=== PATIENT | female | born 1990 | race African-American/Black ===

== ENCOUNTER 2020-11-13 10:17 | Outpatient (REF) | payer MEDICAID, SELFPAY ==
--- NOTE | ~2020-11-13 | XR_ITS ---
EXAMINATION: XR CHEST CLINICAL INFORMATION: Obesity COMPARISON: None TECHNIQUE: 2 views of the chest were obtained. FINDINGS: No significant abnormality is noted involving the heart, lungs, mediastinum, bony thorax or soft tissues. XR/XR chest 2V IMPRESSION: Unremarkable examination.
--- NOTE | 2020-11-13 12:28 | ECG_ITS ---
Test Reason : e66.01 Blood Pressure : / mmHG Vent. Rate : 059 BPM Atrial Rate : 059 BPM P-R Int : 152 ms QRS Dur : 080 ms QT Int : 398 ms P-R-T Axes : 017 048 045 degrees QTc Int : 394 ms Sinus bradycardia Otherwise normal ECG No previous ECGs available Referred By: Roya Rogel Electronically Signed By:CARLOS PINTO
[2020-11-13 12:57] LABS: MANUAL DIFF FLAG NO
[2020-11-13 13:22] LABS: Basophils Percent Auto 0.5 % (0-2); Eosinophils Absolute Auto 0.2 X10*3/uL (0.0-0.4); Eosinophils Percent Auto 2.7 % (0-4); Hematocrit 38.4 % (37-47); Hemoglobin 12.3 g/dl (12.0-16.0); Imm Gran Abs Auto 0.01 X10*3/uL (0.00-0.03); Imm Gran Pct Auto 0.2 % (0.0-0.4); Lymphocytes Absolute Auto 1.9 X10*3/uL (1.2-4.9); Lymphocytes Percent Auto 30.9 % (20-40); Mean Corpuscular Hemoglobin 32.3 pg (27.0-33.0); Mean Corpuscular Volume 100.8 fL (80-98); Mean Platelet Volume 10.9 fL (9.4-12.3); Monocytes Absolute Auto 0.5 X10*3/uL (0.1-1.2); Monocytes Percent Auto 8.6 % (2-11); Neutrophils Absolute Auto 3.6 X10*3/uL (2.0-8.3); Neutrophils Percent Auto 57.1 % (45-73); Platelet Count 270 X10*3/uL (160-400); Red Blood Count 3.81 X10*6/uL (4.20-5.50); Red Cell Distribution Width 12.8 % (11.0-16.0); White Blood Count 6.3 X10*3/uL (4.8-10.8)
[2020-11-13 13:43] LABS: Alanine Aminotransferase 15 U/L (0-31); Albumin Level 4.2 g/dL (3.5-5.0); Alkaline Phosphatase 84 U/L (39-117); Anion Gap 11 (12-20); Aspartate Amino Transferase 16 U/L (5-31); Bilirubin Total 0.2 mg/dL (0.0-1.0); Blood Urea Nitrogen 17 mg/dL (9-16); C Reactive Protein 0.28 mg/dL (< or = 0.50); Calcium 8.9 mg/dL (8.4-10.2); Carbon Dioxide 27 mmol/L (22-29); Chloride 106 mmol/L (96-108); Cholesterol 142 mg/dL; Estimated Average Glucose 91 mg/dL; Estimated Glomerular Filt Rate > 60; Glucose Random 95 mg/dL (60-115); HDL Cholesterol 46 mg/dL; Hemoglobin A1c % 4.8 %; Iron 92 mcg/dL (30-160); LDL Cholesterol Calculated 85 mg/dl; Percent Iron Saturation 30 % (15-50); Potassium 4.5 mmol/L (3.3-5.1); Sodium 139 mmol/L (135-145); Total Iron Binding Capacity 307 mcg/dL (228-428); Total Protein 6.9 g/dL (6.5-8.0); Triglycerides 59 mg/dL; Unsaturated Iron Binding 215 ug/dL
[2020-11-13 14:06] LABS: Ferritin 79 ng/mL (10-122); TSH reflex Free T4 1.39 uIU/mL (0.32-4.0); Vitamin D 25-OH Total 12.1 ng/mL (>30)
[2020-11-13 14:16] LABS: Folate 11.8 ng/mL (> or = 4.0); Vitamin B12 388 pg/mL (200-900)
[2020-11-15 10:11] LABS: Calcium (PTHI) 9.3 mg/dL (8.6-10.2); PTHI 49 pg/mL (14-64)
[2020-11-16 13:22] LABS: Zinc 61 mcg/dL (60-130)
[2020-11-18 01:57] LABS: Vitamin A 31 mcg/dL (38-98)
[2020-11-18 11:17] LABS: Vitamin B1 <6 nmol/L (8-30)
== END 2020-11-13 10:18 | disposition home or self-care (01) ==
LOC: HO.XRAY 10:17
PROVIDERS: Visit Provider Physician Assistant
DX: Z01.818 Encounter for other preprocedural examination (principal); E66.01 Morbid (severe) obesity due to excess calories; K21.9 Gastro-esophageal reflux disease without esophagitis; J45.909 Unspecified asthma, uncomplicated
CPT/HCPCS: 36415; 71046; 80053; 80061; 82306; 82607; 82728; 82746; 83036; 83540; 83970; 84425; 84443; 84590; 84630; 85025; 86140; 93005; 99202; 99211

== ENCOUNTER 2020-11-14 | Outpatient (REF) | payer MEDICAID, SELFPAY ==
[2020-11-15 11:04] LABS: H Pylori Breath Test Positive (Negative)
== END 2020-11-14 00:01 | disposition home or self-care (01) ==
LOC: HO.LNP
PROVIDERS: Visit Provider Physician Assistant
DX: Z01.818 Encounter for other preprocedural examination (principal); E66.01 Morbid (severe) obesity due to excess calories; J45.909 Unspecified asthma, uncomplicated
CPT/HCPCS: 83013

== ENCOUNTER → 2020-12-11 08:11 | Outpatient (BNVA) | payer MEDICAID, SELFPAY | PROVIDERS: Visit Provider Dietitian, Registered ==

== ENCOUNTER → 2020-12-18 08:07 | Outpatient (BNVA) | payer MEDICAID, SELFPAY | PROVIDERS: Visit Provider Dietitian, Registered | DX: E66.01 Morbid (severe) obesity due to excess calories (principal) | CPT/HCPCS: 97802 ==

== ENCOUNTER 2020-12-19 09:55 | Outpatient (REF) | payer MEDICAID, SELFPAY ==
--- NOTE | ~2020-12-19 | US_ITS ---
EXAMINATION: US COMPLETE ABDOMEN WITH LIVER ELASTOGRAPHY CLINICAL INFORMATION: Obesity COMPARISON: None. TECHNIQUE: Real-time imaging of the abdominal viscera. Noninvasive ultrasound liver fibrosis assessment is performed using Imelda ElastPQ point quantification shear wave elastography (pSWE) with a C5-2 MHz transducer. Multiple elastography samples are obtained. FINDINGS: PANCREAS:The visualized pancreatic head and body are normal in appearance. The remainder of the pancreas is obscured from visualization by the overlying bowel gas. ABDOMINAL AORTA: The proximal, middle, and distal aortic segments are normal in caliber. INFERIOR VENA CAVA: Visualized portions are normal. LIVER: Normal. The liver demonstrates normal size, contour and echogenicity. No focal lesion or intrahepatic biliary duct dilatation. The right lobe measures 15.5 cm in length. The left lobe measures 10.5 cm in length. Portal flow is normal/hepatopedal Shear wave liver elastography median stiffness is 1.14 m/s (reference: normal median stiffness is 1.3 m/s or less). IQR/median stiffness to assess sampling precision is 0.16 (reference: good quality data set is IQR/median stiffness of 0.15 or less). GALLBLADDER: Normal. The gallbladder is physiologically distended without evidence of stones, sludge, polyps, wall thickening or pericholecystic fluid. COMMON BILE DUCT: Normal in caliber measuring 0.3 cm in diameter. RIGHT KIDNEY: Normal. No hydronephrosis. No renal calculi or focal parenchymal lesions. The kidney measures 10.3 cm in maximum dimension. LEFT KIDNEY: Normal. No hydronephrosis. No renal calculi or focal parenchymal lesions. The kidney measures 10.3 cm in maximum dimension. SPLEEN: Normal. The spleen measures 8.8 cm in maximum dimension. FREE FLUID: None. US/US abdomen comp w elastography IMPRESSION: 1. Impression: Limited visualization of the tail the pancreas otherwise unremarkable exam. 2. Liver elastography: Adequate liver sampling. Normal liver stiffness. REFERENCE: Society of Radiologists in Ultrasound Liver Stiffness Thresholds (2020): LIVER STIFFNESS THRESHOLDS: *Liver Stiffness equal or less than 1.3 m/s: High probability of being normal. *Liver Stiffness less than 1.7 m/s: In the absence of other known clinical signs, rules out compensated advanced chronic liver disease. *Liver Stiffness 1.7-2.1 m/s: Suggestive of compensated advanced chronic liver disease but need further test for confirmation. *Liver Stiffness over 2.1 m/s: Rules in compensated advanced chronic liver disease. *Liver Stiffness over 2.4 m/s: Suggestive of clinically significant portal hypertension. QUALITY OF DATA SET: *IQR/Median value equal or less than 0.15 implies a quality data set. *IQR/Median value over 0.15 implies a poor quality data set. SIGNIFICANT CHANGE FROM PRIOR EXAM: Significant change if liver stiffness measurement is 10% or greater from prior exam. OTHER CONSIDERATIONS: The stage of liver fibrosis may be overestimated in the setting of acute hepatitis, liver inflammation, elevated liver function tests, hepatic vascular congestion, obstructive cholestasis, non-fasting state, and infiltrative diseases such as amyloidosis and lymphoma. In some patients with NAFLD, the liver stiffness thresholds for compensated advanced chronic liver disease may be lower. In causes other than viral hepatitis and NAFLD, liver stiffness thresholds are not well established.
--- NOTE | ~2020-12-19 | FL_ITS ---
EXAMINATION: XR GI SERIES CLINICAL INFORMATION: Obesity COMPARISON: None TECHNIQUE: Upper GI was performed using thin and thick barium and effervescent granules. FINDINGS: Esophageal motility is normal. No hernia or reflux is seen. The stomach and duodenum are normal-appearing. No fold thickening, mass, ulcer or stricture is seen. FLUOROSCOPY TIME: 0.6 minutes DOSE AREA PRODUCT: 6 peterson per centimeter squared. 57 saved fluoroscopic images. FL/FL upper GI series IMPRESSION: Unremarkable examination.
== END 2020-12-19 09:56 | disposition home or self-care (01) ==
LOC: HO.SL 09:55
PROVIDERS: Visit Provider Surgery
DX: Z01.818 Encounter for other preprocedural examination (principal); E66.01 Morbid (severe) obesity due to excess calories; J45.909 Unspecified asthma, uncomplicated
CPT/HCPCS: 74240; 76705; 76981; 95806; 99211

== ENCOUNTER 2020-12-20 09:37 | Outpatient (REF) | payer MEDICAID, SELFPAY ==
[2020-12-21 15:23] LABS: H Pylori Breath Test Negative (Negative)
== END 2020-12-20 09:38 | disposition home or self-care (01) ==
LOC: HO.LNP 09:37
PROVIDERS: Physician Assistant Surgical; Visit Provider Surgery
DX: E66.01 Morbid (severe) obesity due to excess calories (principal); J45.909 Unspecified asthma, uncomplicated
CPT/HCPCS: 83013

== ENCOUNTER → 2021-01-03 08:13 | Outpatient (BNVA) | payer MEDICAID, SELFPAY | PROVIDERS: Referring Provider Physician Assistant; Visit Provider Dietitian, Registered ==

== ENCOUNTER → 2021-01-08 08:07 | Outpatient (BNVA) | payer MEDICAID, SELFPAY | PROVIDERS: Referring Provider Physician Assistant; Visit Provider Dietitian, Registered | DX: E66.01 Morbid (severe) obesity due to excess calories (principal) | CPT/HCPCS: 97803 ==

== ENCOUNTER → 2021-01-17 08:07 | Outpatient (BNVA) | payer MEDICAID, SELFPAY | PROVIDERS: Visit Provider Surgery ==

== ENCOUNTER → 2021-01-30 08:04 | Outpatient (BNVA) | payer MEDICAID, SELFPAY | PROVIDERS: Referring Provider Surgery; Visit Provider Dietitian, Registered ==

== ENCOUNTER → 2021-02-21 08:04 | Outpatient (BNVA) | payer MEDICAID, SELFPAY | PROVIDERS: Referring Provider Surgery; Visit Provider Dietitian, Registered ==

== ENCOUNTER → 2021-03-12 08:07 | Outpatient (BNVA) | payer MEDICAID, SELFPAY | PROVIDERS: Visit Provider Surgery ==

== ENCOUNTER → 2021-03-16 08:13 | Outpatient (BNVA) | payer MEDICAID, SELFPAY | PROVIDERS: Visit Provider Dietitian, Registered ==

== ENCOUNTER → 2021-03-29 08:12 | Outpatient (BNVA) | payer MEDICAID, SELFPAY | PROVIDERS: Referring Provider Surgery; Visit Provider Dietitian, Registered ==

== ENCOUNTER → 2023-06-02 10:00 | Outpatient (BNVA) | payer MEDICAID, SELFPAY | PROVIDERS: Visit Provider Surgery ==

== ENCOUNTER 2023-07-16 11:10 | Outpatient (AMB) | payer OTHER, SELFPAY ==
--- NOTE | 2023-07-16 13:13 | A.OFFVIS_ITS ---
VS Expanded 07/16/23 13:20 Height 5 ft 5 in Weight 286 lb 2 oz BMI 47.6 Body Fat % 50.5 Body Fat Mass 144.4 Fat Free Mass 141.8 Visceral Fat Rating 15 Body Water % 35.6 Body Water Mass 101.8 Basal Metabolic Rate/Score 2,073 Intake Visit Reasons: TV Re-Establishing SWL BMI 47.6 *SEE COMMENTS* Allergies No Known Allergies Allergy (Verified 07/16/23 13:13) Medication List - Last Reconciled 07/16/23 by Jaime Shell MD albuterol sulfate 90 mcg/actuation 2 puffs inhalation Q6H PRN HPI HPI TV Re-Establishing SWL BMI 47.6 *SEE COMMENTS*: Details: Start time: 1.06pm, End time: 1.46pm ?I spent 35 minutes speaking with the patient on the phone plus an additional 5 minutes reviewing and updating records for a total of 40 minutes HPI Comments Details: [place] [facility] [place] Wakes up: 6.30am, Sleeps: 9.30pm Breakfast: occasionally yogurt at 8am Lunch: 12pm (take out) Dinner: 7pm (rice, pasta, chicken) Snacks: 4pm and 8pm (granola bar) Exercise: has a Gym membership Fluids: Coffee: x3/wk (cream), tea: (hot: 3/wk with honey), soda: none, juice: pine apple 4/wk, ETOH: none PFSH Surgical History (Updated 11/13/20 @ 11:13 by IVONNE Wood) Hx of hand surgery Hx of breast surgery Family History (Updated 11/13/20 @ 11:14 by IVONNE Wood) Mother Hypertension Fibromyalgia Father No problems noted. Brother No problems noted. Social History (Updated 11/13/20 @ 11:14 by IVONNE Wood) Alcohol intake: current Alcohol intake frequency: a few times a week Patient Tobacco Use Status: Never used Tobacco Telehealth Telehealth Telehealth Platform: Telephone Location of provider rendering services: practice address Location of patient: address on file Patient Identification confirmed using: Name, : Yes Telehealth method: voice only Patient verbally consented to treatment: Yes Patient verbally consented to billing insurance company: Yes Patient informed of any privacy concerns related to visit: Yes Minutes spent on Phone/Video with Pt.: 40 Assessment & Plan Assessment & Plan (1) Morbid obesity: Code(s): E66.01 - Morbid (severe) obesity due to excess calories Category: Medical Plan: 1.? Plan for lap sleeve gastrectomy. If diaphragmatic or ventral hernias are present at time of surgery, these will be repaired laparoscopically as well. 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 I emphasized the importance of close follow-up, adherence to instructions and good communication. 2. You will receive a link of our software hasmukh to generate an individualized nutritional and exercise plan specific for you. Please send me a screenshot of the plans you will generate Meal to include lean meat (beef, fish, pork, turkey, chicken), or polish yogurt, or egg whites, or beans with a salad with olive oil and fruits (berries, pears, apples, kiwi). Avoid salt, breads, potatoes, rice, pasta, desserts. ?3. If you choose shakes, each shake would be drunk slowly, like coffee in a period of 2 hours. ?4. If you choose bars, cut each bar in 4 pieces and eat each piece in 30min ?to make each bar last 2 hours. ?5. I emphasized the importance of measuring accurately the food portion and measure it when serving the food in plate ?6. The meal portions include a specific number of forks of meat and salad. You always eat the meat portion but you can replace up to half of salad/vegetables portion with rice, potatoes or pasta, or a fruit ?if you like. The less you do it the better weight loss will be. ?7. One full-size fork is what it can be scooped on the fork without falling aside and not what can be bit with the fork. Use regular forks like those you find in a typical restaurant. ?8.? Please send me weight measurements as soon as possible and then once a week. Always include your diet and exercise plan. 9. The best choice would be to purchase a stationary bike, elliptical or treadmill at home that can track calories. Let me know if you do so I can give you an exercise plan. ?10.?It is important of avoiding and for at least 18 months postoperatively and has been discussed at the infosession. ?11. Goal is to lose at least 1.5-2lbs per week ?12. Goal to lose 10% of your weight before surgery, which is about 28lbs. Ultimate weight goal: 258lbs before surgery 13. Please follow the diet plan exactly without any change. If you don't like something about the plan or you feel hungry you need to communicate with me so I can help you revise the plan. You should not change the plan yourself. 14. To be scheduled for EGD to assess the stomach. The possibility of biopsies was discussed. Patient needs to avoid use of NSAIDs and aspirin for 1 week prior to EGD. Risks of perforation and? bleeding was discussed with the patient. This will be an outpatient procedure with IV sedation. Orders: Orders Hemoglobin A1c Today E66.01 - Morbid (severe) obesity due to excess calories, J45.909 - Unspecified asthma, uncomplicated Complete Blood Count Auto Diff Today E66.01 - Morbid (severe) obesity due to excess calories, J45.909 - Unspecified asthma, uncomplicated IRON PROFILE Today E66.01 - Morbid (severe) obesity due to excess calories, J45.909 - Unspecified asthma, uncomplicated Comprehensive Met. Panel Today E66.01 - Morbid (severe) obesity due to excess calories, J45.909 - Unspecified asthma, uncomplicated Ferritin Today E66.01 - Morbid (severe) obesity due to excess calories, J45.909 - Unspecified asthma, uncomplicated Vitamin D 25-OH Total Today E66.01 - Morbid (severe) obesity due to excess calories, J45.909 - Unspecified asthma, uncomplicated US abdomen comp w elastography Today E66.01 - Morbid (severe) obesity due to excess calories, J45.909 - Unspecified asthma, uncomplicated Insulin Today E66.01 - Morbid (severe) obesity due to excess calories, J45.909 - Unspecified asthma, uncomplicated H Pylori Breath Test Today E66.01 - Morbid (severe) obesity due to excess calories, J45.909 - Unspecified asthma, uncomplicated Lipid Panel Today E66.01 - Morbid (severe) obesity due to excess calories, J45.909 - Unspecified asthma, uncomplicated Vitamin B12 and Folate Today E66.01 - Morbid (severe) obesity due to excess calories, J45.909 - Unspecified asthma, uncomplicated Zinc Today E66.01 - Morbid (severe) obesity due to excess calories, J45.909 - Unspecified asthma, uncomplicated C Reactive Protein Today E66.01 - Morbid (severe) obesity due to excess calories, J45.909 - Unspecified asthma, uncomplicated Vitamin B1 Today E66.01 - Morbid (severe) obesity due to excess calories, J45.909 - Unspecified asthma, uncomplicated Vitamin A Today E66.01 - Morbid (severe) obesity due to excess calories, J45.909 - Unspecified asthma, uncomplicated TSH reflex Free T4 Today E66.01 - Morbid (severe) obesity due to excess calories, J45.909 - Unspecified asthma, uncomplicated XR chest 2V Today E66.01 - Morbid (severe) obesity due to excess calories, J45.909 - Unspecified asthma, uncomplicated ECG 12 lead EKG Today E66.01 - Morbid (severe) obesity due to excess calories, J45.909 - Unspecified asthma, uncomplicated FL upper GI w air Today E66.01 - Morbid (severe) obesity due to excess calories, J45.909 - Unspecified asthma, uncomplicated Referrals Behavioral Health Referral E66.01 - Morbid (severe) obesity due to excess calories, J45.909 - Unspecified asthma, uncomplicated Nutrition/Dietitian Referral E66.01 - Morbid (severe) obesity due to excess calories, J45.909 - Unspecified asthma, uncomplicated
[2023-07-16 13:20] VITALS: BMI 47.6
--- OUTSIDE RECORDS SUMMARY | 2023-07-18 10:21 | XMS_ITS | Continuity of Care Document ---
Author Organization [facility] Address [address] [place] [address]- Care Team Providers Care Wire Sawyer Name Role Phone Bertha Montes MD Primary Care Physician Encounter [facility] [place] [facility] [id number] Date(s): 10/25/22 - 11/24/[address] [address]- Attending Physician: AdmSilas gill Admitting Physician: AdmtrSilas Referring Physician: Admtr ArYahaira Allergies, Adverse Reactions, Alerts Substance Reaction Severity Status Pollen Allergic Rhinitis Du e to Pollen Allergic conjunctivitis Active Apples Active Immunizations Given and Recorded Vaccine Date Status Refusal Reason tetanus/diphtheria/pertussis, acel(Tdap) 02/08/22 Given tetanus/diphtheria/pertussis, acel(Tdap) 05/26/20 Given SARS-CoV-2 (COVID-19) mRNA BNT-162b2 vac 10/02/20 Recorded SARS-CoV-2 (COVID-19) mRNA BNT-162b2 vac 09/11/20 Recorded tetanus-diphtheria toxoids (Td) 12/08/18 Given tetanus-diphtheria toxoids (Td) 08/08/04 Given Measles/Mumps/Rubella Virus Vaccine 11/21/16 Recor ded Measles/Mumps/Rubella Virus Vaccine 09/15/97 Given Measles/Mumps/Rubella Virus Vaccine 01/11/94 Given influenza virus vaccine, inactivated 02/13/16 Give n influenza virus vaccine, inactivated 1 10/23/10 Gi twan influenza virus vaccine, inactivated 11/15/09 Give n Human Papillomavirus Vaccine 2 03/17/09 Given Human Papillomavirus Vaccine 3 11/15/08 Given Human Papillomavirus Vaccine 4 08/19/08 Given Tet/Diphth/Acel, Pertussis (oldterm) 5 08/19/08 Gi twan Diphth/Pertussis,Acel/Tetanus (oldterm) 09/15/97 G iven Diphth/Pertussis,Acel/Tetanus (oldterm) 07/01/94 G iven Diphth/Pertussis,Acel/Tetanus (oldterm) 06/14/93 G iven Diphth/Pertussis,Acel/Tetanus (oldterm) 01/09/93 G iven Diphth/Pertussis,Acel/Tetanus (oldterm) 92 G iven Polio Vaccine, Live (oldterm) 6 09/15/97 Given Polio Vaccine, Live (oldterm) 7 06/14/93 Given Polio Vaccine, Live (oldterm) 8 01/09/93 Given Polio Vaccine, Live (oldterm) 9 92 Given Haemophilus B Conj Vaccine (oldterm) 07/01/94 Give n Haemophilus B Conj Vaccine (oldterm) 06/14/93 Give n Haemophilus B Conj Vaccine (oldterm) 01/09/93 Give n Haemophilus B Conj Vaccine (oldterm) 92 Give n Hepatitis B Vaccine (old term) 06/14/93 Given Hepatitis B Vaccine (old term) 92 Given Hepatitis B Vaccine (old term) 92 Given 1Admin Note: vis given 09.04.2010 2Admin Note: VIS DATED 03/14/06. Given 3Admin Note: vis 03.14.06 given 4Admin Note: GARDASIL #1, VIS DATED 03.14.2006 GIVEN 5Admin Note: VIS DATED 03.09.2007 GIVEN. 6Admin Note: POLIO(oral) 7Admin Note: POLIO(oral) 8Admin Note: POLIO(oral) 9Admin Note: POLIO(oral) Medications Alcohol Pads See Instructions, # 200 each, Refills 5, Tot. Refills 5, Maintenance, use as directed for Victoza injections, 10/07/22 18:02:00 EDT, Supply, 160, cm, 08/28/23 15:43:00 EDT, Height, 122.2, kg, 03/27/22 10:39:00 EST, Dry Weight Start Date: 10/07/22 Stop Date: 04/05/23 Status: Ordered dexamethasone 1 mg oral tablet 1 tablet = 1 mg, By Mouth, Once, to be taken at 11pm, # 1 tablet, 0 Refills, Soft Stop, 10/07/22 17:47:00 [facility] upon patient request if the prescription is fora schedule II opioid drug., 160, cm, 10/07/22 15:43... Start Date: 10/07/22 Status: Ordered Diflucan 150 mg oral tablet 1 tablet = 150 mg, By Mouth, Once, # 1 tablet, 0 Refills, Soft Stop, 10/25/22 11:47:00 EDT, Tablet,[facility] Partial fill upon patient request if the prescription is for a scheduleII opioid drug., 160, cm, 10/25/22 10:08:00 EDT, He... Start Date: 10/25/22 Status: Ordered hydrOXYzine hydrochloride 25 mg oral tablet 1 capsule, By Mouth, Once, PRN Agitation, # 15 capsule, 0 Refills, Soft Stop, 10/07/22 18:09:00 EDT, Capsule, [facility] Partial fill upon patient request if the prescription is for a schedule II opioid drug., 160, cm, 10/07/22 15:43:... Start Date: 10/07/22 Status: Ordered metronidazole topical 0.75% gel with applicator 1 application, Vaginally, Daily at bedtime, # 70 Gm, 0 Refills, Soft Stop, 10/25/22 11:45:00 EDT, Gel, [facility] Partial fill upon patient request if the prescription is for a schedule II opioid drug., 1 application Vaginally Daily a... Start Date: 10/25/22 Stop Date: 10/30/22 Status: Ordered naproxen 500 mg oral tablet 1 tablet = 500 mg, By Mouth, 2 times a day, PRN Pain , Moderate, Take WITH FOOD for moderate back pain, up to twice/day as needed, # 30 tablet, 0 Refills, Acute 10/27/23 11:50:00 EDT, 10/25/22 11:49:00 EDT, Tablet, [facility], Partial... Start Date: 10/25/22 Stop Date: 10/27/23 Status: Ordered Pen [place], 32 G x 4 mm BD Ultra Fine III See instructions, # 30 each, Refills 0, Tot. Refills 0, Maintenance, use as directed for Gabyza, 10/07/22 18:05:00 EDT, Supply, 160, cm, 10/07/22 15:43:00 EDT, Height, 122.2, kg, 03/27/22 10:39:00 EST, Dry Weight Start Date: 10/07/22 Stop Date: 11/06/22 Status: Ordered PriLOSEC OTC 20 mg oral delayed release tablet 1 tablet = 20 mg, By Mouth, 2 times a day, # 28 tablet, 0 Refills, Maintenance, 10/16/22 13:40:00 EDT, EC Tablet, [facility] #[id number], Partial fill upon patient request if the prescription isfor a schedule II opioid drug., 160, cm, 10/07/22 1... Start Date: 10/16/22 Stop Date: 10/30/22 Status: Ordered ProAir HFA 90 mcg/inh inhalation aerosol with adapter See Instructions, PRN, 2-4 puffs Inhalation 4 times a day 30 days, # 1 each, Refills 11, Tot. Refills 11, Maintenance, 10/25/22 11:47:00 EDT, Instructions Replace Required Details, Route to Pharmacy Electronically, [id number]... Start Date: 10/25/22 Status: Ordered Senna 8.6 mg oral tablet 17.2 mg, 2, tablet, By Mouth, Daily at bedtime, # 50 tablet, Refills 0, Tot. Refills 0, Maintenance, 03/31/22 6:17:00 EST, Route to Pharmacy Electronically, [facility] #[id number], Partial fill upon patient request if the prescription is for a sc... Start Date: 03/31/22 Status: Ordered sertraline 25 mg oral tablet 1 tablet = 25 mg, By Mouth, Daily, # 30 tablet, 2 Refills, Maintenance, 10/25/22 11:46:00 EDT, Tablet, [facility], Partial fill upon patient request if the prescription is for a schedule II opioid drug., 160, cm, 10/25/22 10:08:00 EDT,... Start Date: 10/25/22 Status: Ordered Tylenol 325 mg oral capsule 2 capsule = 650 mg, By Mouth, Every 4 hours, PRN as needed for pain, # 50 capsule, 0 Refills, Maintenance, 03/29/22 8:34:00 EST, Capsule, [id number], Partial fill upon patient request if the prescription is for a schedule II opioid drGary Start Date: 03/29/22 Status: Ordered Victoza 18 mg/3 mL subcutaneous solution = 1.2 mg, Subcutaneous Infusion, Daily, # 3 mL, 6 Refills, Maintenance, 10/25/22 11:42:00 EDT, [facility], Partial fill upon patient request if the prescription is for a schedule II opioid drug., 160, cm, 10/25/22 10:08:00 EDT, Height,... Start Date: 10/25/22 Status: Ordered Problem List Condition Confirmation Course Effective Dates Status H ealth Status Informant ADD - Attention deficit disorder with hyperactivity Confirmed Active Allergic rhinitis due to pollen Confirmed Improving Active Asthma, mild intermittent, precipitated by colds, allergies 1 Confirmed Stable Active 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 Mood disorder Confirmed Active Obesity Confirmed Active Severe obesity Confirmed Active 29/04/2007 [facility] admission #1: acute asthma attack Social History Social History Type Response Smoking Status Never (less than 100 in lifetime);Never; Exposure to Secondhand Smoke: Yes; Tobacco use times per day: mother smokes; entered on: 09/14/21 Sex Patient Care team information Care Team Personnel Name: Bertha Montes MD Position: S Resident Member Role: PCP Address: Address: [address] [place] [address]- Care Team Related Persons Name: Monroe Mcgarry Address: [address] [place] [address] Name: MARIFER MCGARRY Address: [place] [address] Name: REMA MCGARRY Address: Address: home [address] [place] [address]
--- OUTSIDE RECORDS SUMMARY | 2023-07-18 10:21 | XMS_ITS | Continuity of Care Document ---
Author Organization [facility] Address [address] [place] [address]- Care Team Providers Care Neonatal Doctor Name Role Phone Bertha Montes MD Primary Care Physician Encounter [facility] Date(s): 01/27/23 - 03/19/[address] [address] Attending Physician: Raissa Estrada MD Admitting Physician: Raissa Estrada MD Referring Physician: Raissa Estrada MD Allergies, Adverse Reactions, Alerts Substance Reaction Severity [...] Give n influenza virus vaccine, inactivated 1 9/13/11 Gi twan influenza virus vaccine, inactivated 11/15/09 [...] 8Admin Note: POLIO(oral) 9Admin Note: POLIO(oral) Medications acetaminophen 325 mg oral capsule 2 capsule = 650 mg, By Mouth, Every 6 hours, PRN Pain , Moderate, # 24 capsule, 0 Refills, Maintenance, 02/17/23 12:58:00 [facility], [facility] #[id number], Partial fill upon patient request if the prescription is for a schedule II opioid drug., 157, c... Start Date: 02/17/23 Status: Ordered Alcohol Pads See Instructions, # 200 each, Refills 5, Tot. Refills 5, Maintenance, use as directed for Victoza injections, 10/07/22 18:02:00 EDT, Supply, 160, cm, 10/07/22 15:43:00 EDT, Height, 122.2, kg, 03/27/22 10:39:00 EST, Dry Weight Start Date: 10/07/22 Stop Date: 04/05/23 Status: Ordered dexamethasone 1 mg oral tablet 1 tablet = 1 mg, By Mouth, Once, to be taken at 11pm, # 1 tablet, 0 Refills, Soft Stop, 12/11/22 20:38:00 EDT, [facility] #[id number], Partial fill upon patient request if the prescription is for a schedule II opioid drug., 160, cm, 12/10/22 14:0... Start Date: 12/11/22 Status: Ordered Diflucan 150 mg oral tablet 1 tablet = 150 mg, By Mouth, Once, # 1 tablet, 0 Refills, Soft Stop, 02/19/23 19:29:00 EST, Tablet,[facility] #[id number], Partial fill upon patient request if the prescription is for a schedule II opioid drug., 157, cm, 02/17/23 12:20:00 EST, H... Start Date: 02/19/23 Status: Ordered hydrOXYzine hydrochloride 25 mg oral tablet 1 capsule, By Mouth, Once, PRN Agitation, # 30 capsule, 3 Refills, Soft Stop, 12/10/22 14:50:00 EDT, Capsule, [facility] #[id number], Partial fill upon patient request if the prescription is fora schedule II opioid drug., 160, cm, 12/10/22 14:07... Start Date: 12/10/22 Status: Ordered metronidazole topical 0.75% gel with applicator 1 application, Vaginally, Daily at bedtime, # 70 Gm, 3 Refills, Soft Stop, 12/20/22 16:15:00 EST, Gel, [facility] #[id number], Partial fill upon patient request if the prescription is for a schedule II opioid drug., 1 application Vaginally Daily... Start Date: 12/20/22 Stop Date: 01/09/23 Status: Ordered naproxen 500 mg oral tablet 1 tablet = 500 mg, By Mouth, 2 times a day, PRN Pain , Moderate, Take WITH FOOD for moderate back pain, up to twice/day as needed, # 30 tablet, 0 Refills, Acute 10/27/23 11:50:00 EDT, 10/25/22 11:49:00 EDT, Tablet, [facility] Partial... Start Date: 10/25/22 Stop Date: 10/27/23 Status: Ordered omeprazole 20 mg oral enteric coated capsule 1 capsule = 20 mg, By Mouth, Daily, # 14 capsule, 0 Refills, Maintenance, 02/17/23 12:58:00 EST, ECCapsule, [facility] #[id number], Partial fill upon patient request if the prescription is for a schedule II opioid drug., 157, cm, 02/17/23 12:20:... Start Date: 02/17/23 Stop Date: 03/03/23 Status: Ordered Pen [place], 32 G x 4 mm BD Ultra [...] Refills, Maintenance, 10/16/22 13:40:00 EDT, EC Tablet, [facility] #[id number], Partial fill upon patient request if the [...] Replace Required Details, Route to Pharmacy Electronically, [id number]... Start Date: 10/25/22 Status: Ordered Senna 8.6 mg oral tablet 17.2 mg, 2, tablet, By Mouth, Daily at bedtime, # 50 tablet, Refills 0, Tot. Refills 0, Maintenance, 03/31/22 6:17:00 EST, Route to Pharmacy Electronically, [facility] #[id number], Partial fill upon patient request if the prescription is for a sc... Start Date: 03/31/22 Status: Ordered sertraline 50 mg oral tablet 1 tablet = 50 mg, By Mouth, Daily, # 90 tablet, 1 Refills, Maintenance, 12/10/22 14:51:00 EDT, Tablet, [facility] #[id number], Partial fill upon patient request if the prescription is for a schedule II opioid drug., 160, cm, 12/10/22 14:07:00 EDT... Start Date: 12/10/22 Status: Ordered Tylenol 325 mg oral capsule 2 capsule = 650 mg, By Mouth, Every 4 hours, PRN as needed for pain, # 50 capsule, 0 Refills, Maintenance, 03/29/22 8:34:00 EST, Capsule, [facility] #[id number], Partial fill upon patient request if the prescription is for a schedule II opioid dr... Start Date: 03/29/22 Status: Ordered Victoza 18 mg/3 mL subcutaneous solution = 1.2 mg, Subcutaneous Infusion, Daily, # 3 mL, 6 Refills, Maintenance, 02/13/23 17:22:00 EST, [facility] #[id number], Partial fill upon patient request if the prescription is for a schedule II opioid drug., 160, cm, 01/08/23 15:39:00 EST, Height... 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 Mood disorder Confirmed Active Obesity Confirmed Active Severe obesity Confirmed Active 29/04/2007 [facility] admission #1: acute asthma attack Social History Social History Type Response Smoking Status Never (less than 100 in lifetime);Never; Exposure to Secondhand Smoke: Yes; Tobacco use times per day: mother smokes; entered on: 09/14/21 Sex Patient Care team information Care Team Personnel Name: Bertha Montes MD Position: [facility] Resident Member Role: PCP Address: Address: [address] [place] [address] Care Team Related Persons Name: Monroe Mcgarry Address: [place] [address] Name: MARIFER MCGARRY Address: [place] [address] Name: REMA MCGARRY Address: Address: [address]
--- OUTSIDE RECORDS SUMMARY | 2023-07-18 10:21 | XMS_ITS | Continuity of Care Document ---
Author Organization [facility] Address [address] [place] [address]- Care Team Providers Care Media Coordinator Name Role Phone Chepe CADE, Rebecca Primary Care Physician [place] [facility](s[place] 02/22/22 - 05/19/[address] [address] Attending Physician: Not on Staff, Attending MD Allergies, Adverse Reactions, Alerts Substance Reaction [...] Note: POLIO(oral) Medications acetaminophen 325 mg oral tablet 650 mg, By Mouth, Every 4 hours, (1-3), may give 325mg per patient preference and re-dose with 325mg within 4 hours, if needed. Patient should only receive a total of 650mg of Acetaminophen every 4 hours., # 50 tablet, Refills 0, Tot. Refills 0, Lillie... Start Date: 03/31/22 Status: Ordered Diflucan 150 mg oral tablet 1 tablet = 150 mg, By Mouth, Once, # 1 tablet, 0 Refills, Soft Stop, 05/13/22 14:02:00 EDT, Tablet,[facility] #[id number], Partial fill upon patient request if the prescription is for a schedule II opioid drug., 160, cm, 05/13/22 13:10:00 EDT, H... Start Date: 05/13/22 Status: Ordered ibuprofen 800 mg oral tablet 800 mg, 1, tablet, By Mouth, Every 8 hours, (4-6), may give 400mg per patient preference and re-dose with 400mg within 8 hours, if needed. Patient should only receive a total of 800mg of Ibuprofen every 8 hours., # 50 tablet, Refills 0, Tot. Refills... Start Date: 03/31/22 Status: Ordered metronidazole topical 0.75% gel with applicator 1 application, Vaginally, Daily at bedtime, # 70 Gm, 0 Refills, Soft Stop, 05/13/22 14:02:00 EDT, Gel, [facility] #[id number], Partial fill upon patient request if the prescription is for a schedule II opioid drug., 1 application Vaginally Daily... Start Date: 05/13/22 Stop Date: 05/18/22 Status: Ordered oxyCODONE 5 mg oral tablet 5 mg, 1, tablet, By Mouth, Every 3 hours, PRN, (7-10), # 12 tablet, Refills 0, Tot. Refills 0, Maintenance, Pain , Severe, 03/31/22 6:08:00 EST, Route to Pharmacy Electronically, [facility]#[id number], Partial fill upon patient request if the pr... Start Date: 03/31/22 Status: Ordered ProAir HFA 90 mcg/inh inhalation aerosol with adapter See Instructions, PRN, 2-4 puffs Inhalation 4 times a day 30 days, # 1 each, Refills 11, Tot. Refills 11, Maintenance, 06/25/18 15:30:45 EDT, Instructions Replace Required Details, Route to Pharmacy Electronically, [id number]... Start Date: 06/25/18 Status: Ordered Senna 8.6 mg oral tablet 17.2 mg, 2, tablet, By Mouth, Daily at bedtime, # 50 tablet, Refills 0, Tot. Refills 0, Maintenance, 03/31/22 6:17:00 EST, Route to Pharmacy Electronically, [facility] #[id number], Partial fill upon patient request if the prescription is for a sc... Start Date: 03/31/22 Status: Ordered simethicone 80 mg oral tablet, chewable 160 mg, 2, tablet, Chew, 3 times a day, PRN, # 48 tablet, Refills 0, Tot. Refills 0, Maintenance, Gas, 03/29/22 8:34:00 EST, Route to Pharmacy Electronically, [facility] #[id number], Partial fill upon patient request if the prescription is for a... Start Date: 03/29/22 Status: Ordered Tylenol 325 mg oral capsule 2 capsule = 650 mg, By Mouth, Every 4 hours, PRN as needed for pain, # 50 capsule, 0 Refills, Maintenance, 03/29/22 8:34:00 EST, Capsule, [facility] #[id number], Partial fill upon patient request if the prescription is for a schedule II opioid drGary Start Date: 03/29/22 Status: Ordered Problem List Condition Confirmation Course Effective Dates Status H ealth Status Informant ADD - Attention deficit disorder with hyperactivity Confirmed Active Allergic rhinitis due to pollen Confirmed Improving Active Asthma, mild intermittent, precipitated by colds, allergies 1 Confirmed Stable Active 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 Mood disorder Confirmed Active Obesity Confirmed Active Severe obesity Confirmed Active 29/04/2007 [facility] admission #1: acute asthma attack Social History Social History Type Response Smoking Status Never (less than 100 in lifetime);Never; Exposure to Secondhand Smoke: Yes; Tobacco use times per day: mother smokes; entered on: 09/14/21 Sex Patient Care team information Care Team Personnel Name: Rebecca Mo MD Position: [facility] Resident Member Role: PCP Address: Address: [address] [place] [address]- Care Team Related Persons Name: Monroe Mcgarry Address: home [address] [place] [address] Name: MARIFER MCGARRY Address: [place] [address] Name: REMA MCGARRY Address: Address: home [address] [place] [id number] [place]
--- OUTSIDE RECORDS SUMMARY | 2023-07-18 10:21 | XMS_ITS | Continuity of Care Document ---
Author Organization [facility] Address [address] [place] [address] [address] [place] [address]- Care Team Providers Care Tentering Machine Off Bearer Name Role Phone Bertha Montes MD Primary Care Physician Encounter [facility] Date(s): 09/10/22 - 10/18/22 [facility] [address] [place] [address]- Attending Physician: Knee RD, Shabnam Allergies, Adverse Reactions, Alerts Substance Reaction Severity [...] 0, Lillie... Start Date: 03/31/22 Status: Ordered Alcohol Pads See Instructions, # 200 each, Refills 5, Tot. Refills 5, Maintenance, use as directed for Victoza injections, 10/07/22 18:02:00 EDT, Supply, 160, cm, 10/07/22 15:43:00 EDT, Height, 122.2, kg, 03/27/22 10:39:00 EST, Dry Weight Start Date: 10/07/22 Stop Date: 04/05/23 Status: Ordered amoxicillin 500 mg oral tablet 2 tablet = 1,000 mg, By Mouth, 2 times a day, for 14 days, # 56 tablet, 0 Refills, Acute 10/30/22 13:40:00 EDT, 10/16/22 13:40:00 EDT, [facility] #[id number], Partial fill upon patient request if the prescription is for a schedule II opioid drug.... Start Date: 10/16/22 Stop Date: 10/30/22 Status: Ordered clarithromycin 500 mg oral tablet 1 tablet = 500 mg, By Mouth, 2 times a day, for 14 days, # 28 tablet, 0 Refills, Acute 10/30/22 13:40:00 EDT, 10/16/22 13:40:00 EDT, [facility] #[id number], Partial fill upon patient request if the prescription is for a schedule II opioid... Start Date: 10/16/22 Stop Date: 10/30/22 Status: Ordered dexamethasone 1 mg oral tablet 1 tablet = 1 mg, By Mouth, Once, to be taken at 11pm, # 1 tablet, 0 Refills, Soft Stop, 10/07/22 17:47:00 EDT, [facility], Partial fill upon patient request if the prescription is fora schedule II opioid drug., 160, cm, 10/07/22 15:43... Start Date: 10/07/22 Status: Ordered Diflucan 150 mg oral tablet 1 tablet = 150 mg, By Mouth, Once, # 1 tablet, 0 Refills, Soft Stop, 05/13/22 14:02:00 EDT, Tablet,[facility] #[id number], Partial fill upon patient request if the prescription is for a schedule II opioid drug., 160, cm, 05/13/22 13:10:00 EDT, H... Start Date: 05/13/22 Status: Ordered hydrOXYzine hydrochloride 25 mg oral tablet 1 capsule, By Mouth, Once, PRN Agitation, # 15 capsule, 0 Refills, Soft Stop, 10/07/22 18:09:00 EDT, Capsule, [facility], Partial fill upon patient request if the prescription is for a schedule II opioid drug., 160, cm, 10/07/22 15:43:... Start Date: 10/07/22 Status: Ordered ibuprofen 800 mg oral tablet [...] Refills, Soft Stop, 05/13/22 14:02:00 EDT, Gel, [facility] #[id number], Partial fill upon patient request if the prescription is for a schedule II opioid drug., 1 application Vaginally Daily... Start Date: 05/13/22 Stop Date: 05/18/22 Status: Ordered oxyCODONE 5 mg oral tablet 5 mg, 1, tablet, By Mouth, Every 3 hours, PRN, (7-10), # 12 tablet, Refills 0, Tot. Refills 0, Maintenance, Pain , Severe, 03/31/22 6:08:00 EST, Route to Pharmacy Electronically, [facility]#[id number], Partial fill upon patient request if the pr... Start Date: 03/31/22 Status: Ordered Pen [place], 32 G x 4 mm BD Ultra Fine III See instructions, # 30 each, Refills 0, Tot. Refills 0, Maintenance, use as directed for Victoza, 10/07/22 18:05:00 EDT, Supply, 160, cm, 10/07/22 15:43:00 EDT, Height, 122.2, kg, 03/27/22 10:39:00 EST, Dry Weight Start Date: 10/07/22 Stop Date: 11/06/22 Status: Ordered PriLOSEC OTC 20 mg oral delayed release tablet 1 tablet = 20 mg, By Mouth, 2 times a day, # 28 tablet, 0 Refills, Maintenance, 10/16/22 13:40:00 EDT, EC Tablet, [facility] #[id number], Partial fill upon patient request if the [...] Replace Required Details, Route to Pharmacy Electronically, [id number]... Start Date: 06/25/18 Status: Ordered Senna 8.6 mg oral tablet 17.2 mg, 2, tablet, By Mouth, Daily at bedtime, # 50 tablet, Refills 0, Tot. Refills 0, Maintenance, 03/31/22 6:17:00 EST, Route to Pharmacy Electronically, [facility] #[id number], Partial fill upon patient request if the prescription is for a sc... Start Date: 03/31/22 Status: Ordered sertraline 25 mg oral tablet 1 tablet = 25 mg, By Mouth, Daily, # 30 tablet, 0 Refills, Maintenance, 10/07/22 17:48:00 EDT, Tablet, [facility], Partial fill upon patient request if the prescription is for a schedule II opioid drug., 160, cm, 10/07/22 15:43:00 EDT,... Start Date: 10/07/22 Status: Ordered simethicone 80 mg oral tablet, chewable 160 mg, 2, tablet, Chew, 3 times a day, PRN, # 48 tablet, Refills 0, Tot. Refills 0, Maintenance, Gas, 03/29/22 8:34:00 EST, Route to Pharmacy Electronically, [facility] #[id number], Partial fill upon patient request if the prescription is for a... Start Date: 03/29/22 Status: Ordered Tylenol 325 mg oral capsule 2 capsule = 650 mg, By Mouth, Every 4 hours, PRN as needed for pain, # 50 capsule, 0 Refills, Maintenance, 03/29/22 8:34:00 EST, Capsule, [facility] #[id number], Partial fill upon patient request if the prescription is for a schedule II opioid dr... Start Date: 03/29/22 Status: Ordered Victoza 18 mg/3 mL subcutaneous solution = 0.6 mg, Subcutaneous Infusion, Daily, # 3 mL, 0 Refills, Maintenance, 10/07/22 17:55:00 EDT[facility] Partial fill upon patient request if the prescription is for a schedule II opioid drug., 160, cm, 10/07/22 15:43:00 EDT, Height,... Start Date: 10/07/22 Status: Ordered Problem List Condition Confirmation Course Effective Dates Status H ealth Status Informant ADD - Attention deficit disorder with hyperactivity Confirmed Active Allergic rhinitis due to pollen Confirmed Improving Active Asthma, mild intermittent, precipitated by colds, allergies 1 Confirmed Stable Active 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 Mood disorder Confirmed Active Obesity Confirmed Active Severe obesity Confirmed Active 29/04/2007 [facility] admission #1: acute asthma attack Social History Social History Type Response Smoking Status Never (less than 100 in lifetime);Never; Exposure to Secondhand Smoke: Yes; Tobacco use times per day: mother smokes; entered on: 09/14/21 Sex Patient Care team information Care Team Personnel Name: Bertha Montes MD Position: [facility] Resident Member Role: PCP Address: Address: [address] [place] [address]- Care Team Related Persons Name: Monroe Mcgarry Address: home [address] [place] [address] Name: MARIFER MCGARRY Address: home [address] [place] [address] Name: REMA MCGARRY Address: Address: [address]
--- OUTSIDE RECORDS SUMMARY | 2023-07-18 10:21 | XMS_ITS | Continuity of Care Document ---
Author Organization [facility] Address [address] [place] [address]- Care Team Providers Care Licensed Appraiser Name Role Phone Chriss Mejia MD Primary Care Physician Encounter [facility] Date(s): 05/31/20 - 06/30/20 [facility] [address] [place] [address]- Attending Physician: AdmSilas gill Admitting Physician: Admtr, Ar8 Referring Physician: Admtr, Ar8 Allergies, Adverse Reactions, Alerts Substance Reaction Severity Status Pollen Allergic Rhinitis Du e to Pollen Allergic conjunctivitis Active Apples Active Immunizations Given and Recorded Vaccine Date Status Refusal Reason tetanus/diphtheria/pertussis, acel(Tdap) 05/26/20 Given tetanus-diphtheria toxoids (Td) 12/08/18 Given tetanus-diphtheria toxoids [...] 8Admin Note: POLIO(oral) 9Admin Note: POLIO(oral) Medications Heating Pad Heating Pad, See Instructions, # 1 each, Refills 0, Tot. Refills 0, Maintenance, use for 15 min 2 times per day dx lumbosacral strain duration 6 mo, 11/08/19 16:00:00 EDT, Supply, 157, cm, 11/08/19 15:34:00 EDT, Height Start Date: 11/08/19 Status: Ordered lisdexamfetamine 30 mg oral capsule 1 capsule = 30 mg, By Mouth, Daily in AM, Dx F90.0, # 30 capsule, 0 Refills, Maintenance, 06/09/20 9:11:00 EDT, Capsule, [facility] #[id number], Partial fill upon patient request if the prescription is for a schedule II opioid drug., 1 capsule By... Start Date: 06/09/20 Stop Date: 07/09/20 Status: Ordered ProAir HFA 90 mcg/inh inhalation aerosol with adapter See Instructions, PRN, 2-4 puffs Inhalation 4 times a day 30 days, # 1 each, Refills 11, Tot. Refills 11, Maintenance, 06/25/18 15:30:45 EDT, Instructions Replace Required Details, Route to Pharmacy Electronically, [id number]... Start Date: 06/25/18 Status: Ordered traZODone 50 mg oral tablet 50 mg, 1, tablet, By Mouth, Daily at bedtime, PRN, # 30 tablet, Refills 1, Tot. Refills 1, Maintenance, Sleep, 06/09/20 9:11:00 EDT, Route to Pharmacy Electronically, [facility] #[id number], Partial fill upon patient request if the prescription i... Start Date: 06/09/20 Stop Date: 08/08/20 Status: Ordered Problem List Condition Effective Dates Status Health Status Inform ant ADD - Attention deficit diso rder with hyperactivity(Confirmed) Active Allergic rhinitis due to pollen(Confirmed)(Improving) Active Asthma, mild intermittent, precipitated by colds, allergies(Confirmed)(Stable) 1 Active Contraception management(Confirmed) Active Controlled substance agreeme nt due(Confirmed) Active H/O nipple discharge(Confirmed) Active Mood disorder(Confirmed) Active Myopia(Confirmed)(Stable) Active Obesity(Confirmed) Active 29/04/2007 [facility] admission #1: acute asthma attack Social History Social History Type Response Smoking Status Never smoker; Tobacc o user in household: No entered on: 03/04/14 Sex
--- OUTSIDE RECORDS SUMMARY | 2023-07-18 10:21 | XMS_ITS | Continuity of Care Document ---
Author Organization [facility] Address [address] [place] [address]- Care Team Providers Care Training Project Manager Name Role Phone Rebecca Mo MD Primary Care Physician [phone] Encounter [facility] [place] Date(s): 08/23/20 - 11/28/[address] [address]- Discharge Disposition: A-D/C Home Attending Physician: Raissa Estrada MD Admitting Physician: [...] 0 Refills, Maintenance, 06/09/20 9:11:00 EDT, Capsule, [facility] #[id number], Partial fill upon patient request if the [...] Replace Required Details, Route to Pharmacy Electronically, [id number]... Start Date: 06/25/18 Status: Ordered traZODone 50 mg oral tablet 50 mg, 1, tablet, By Mouth, Daily at bedtime, PRN, # 30 tablet, Refills 1, Tot. Refills 1, Maintenance, Sleep, 06/09/20 9:11:00 EDT, Route to Pharmacy Electronically, [facility] #[id number], Partial fill upon patient request if the [...] disorder(Confirmed) Active Myopia(Confirmed)(Stable) Active Obesity(Confirmed) Active 29/04/2007 [facility] admission #1: acute asthma attack Social History Social History Type Response Smoking Status Never smoker; Tobacc o user in household: No entered on: 03/04/14 Sex
--- OUTSIDE RECORDS SUMMARY | 2023-07-18 10:21 | XMS_ITS | Continuity of Care Document ---
Author Organization [facility] Address [address] [address]- Care Team Providers Care Tube Drawer Name Role Phone Chepe CADE, Rebecca Primary Care Physician [facility]counter [facility] Date(s): 12/17/21 - 01/16/22 [facility] [address] [place] [id number] Allergies, Adverse Reactions, Alerts Substance Reaction Severity Status Pollen Allergic Rhinitis Du e to Pollen Allergic conjunctivitis Active Apples Active Immunizations Given and Recorded Vaccine Date Status Refusal Reason SARS-CoV-2 (COVID-19) mRNA BNT-162b2 vac 10/02/20 Recorded SARS-CoV-2 (COVID-19) mRNA BNT-162b2 vac 09/11/20 Recorded tetanus/diphtheria/pertussis, acel(Tdap) 05/26/20 Given tetanus-diphtheria toxoids (Td) [...] Note: POLIO(oral) 9Admin Note: POLIO(oral) Medications acetaminophen 500 mg oral tablet 2 tablet = 1,000 mg, By Mouth, Every 8 hours, for 30 days, PRN Pain. not to exceed 3000 mg/day, # 180 tablet, 1 Refills, Acute 01/18/22 10:19:00 EST, 11/19/21 10:19:00 EDT, [id number], Partial fill upon patient request if the prescr... Start Date: 11/19/21 Stop Date: 01/18/22 Status: Ordered aspirin 162.5 mg oral capsule, extended release 1 capsule = 162.5 mg, By Mouth, Daily, at the same time every day, # 90 capsule, 3 Refills, Maintenance, 10/16/21 12:30:00 EDT, ER Capsule, [facility] #[id number], Partial fill upon patient request if the prescription is for a schedule II opioid... Start Date: 10/16/21 Status: Ordered folic acid 0.4 mg oral tablet 1 tablet = 0.4 mg, By Mouth, Daily, # 100 tablet, 5 Refills, Maintenance, 08/21/21 9:43:00 EDT, Tablet, [facility] #[id number], Partial fill upon patient request if the prescription is for a schedule II opioid drug., 160, cm, 08/21/21 9:10:00 EDT... Start Date: 08/21/21 Status: Ordered Heating Pad Heating Pad, See Instructions, # 1 each, Refills 0, Tot. Refills 0, Maintenance, use for 15 min 2 times per day dx lumbosacral strain duration 6 mo, 11/08/19 16:00:00 EDT, Supply, 157, cm, 11/08/19 15:34:00 EDT, Height Start Date: 11/08/19 Status: Ordered indomethacin 25 mg oral capsule 1 capsule = 25 mg, By Mouth, Every 8 hours, # 8 capsule, 0 Refills, Maintenance, 12/26/21 21:00:00 EST, [facility] #[id number], Partial fill upon patient request if the prescription is for a schedule II opioid drug., 160, cm, 12/21/21 15:25:00 ES... Start Date: 12/26/21 Stop Date: 12/29/21 Status: Ordered lidocaine 5% topical ointment 1 application, Topically, 3 times a day, PRN Pain, # 50 Gm, 1 Refills, Maintenance, 11/19/21 10:20:00 EDT, Ointment, [facility] #[id number], Partial fill upon patient request if the prescriptionis for a schedule II opioid drug., 1 application To... Start Date: 11/19/21 Status: Ordered lisdexamfetamine 30 mg oral capsule 1 capsule = 30 mg, By Mouth, Daily in AM, Dx F90.0, # 30 capsule, 0 Refills, Maintenance, 06/09/20 9:11:00 EDT, Capsule, [facility] #[id number], Partial fill upon patient request if the prescription is for a schedule II opioid drug., 1 capsule By... Start Date: 06/09/20 Stop Date: 07/09/20 Status: Ordered metroNIDAZOLE 500 mg oral tablet 1 tablet = 500 mg, By Mouth, Every 12 hours, for 7 days, # 14 tablet, 0 Refills, Acute 01/22/22 19:59:00 EST, 01/15/22 19:59:00 EST, Tablet, [facility] #[id number], Partial fill upon patient request if the prescription is for a schedule II opioid... Start Date: 01/15/22 Stop Date: 01/22/22 Status: Ordered Multivitamins with FA 0.8 mg oral tablet 1 tablet, By Mouth, Daily, for 90 days, # 90 tablet, 2 Refills, Hard Stop 08/05/22 13:36:00 EDT, 11/08/21 13:36:00 EDT, Tablet, [facility] #[id number], Partial fill upon patient request if the prescription is for a schedule II opioid drug., 160,... Start Date: 11/08/21 Stop Date: 08/05/22 Status: Ordered ProAir HFA 90 mcg/inh inhalation aerosol with adapter See Instructions, PRN, 2-4 puffs Inhalation 4 times a day 30 days, # 1 each, Refills 11, Tot. Refills 11, Maintenance, 06/25/18 15:30:45 EDT, Instructions Replace Required Details, Route to Pharmacy Electronically, [id number]... Start Date: 06/25/18 Status: Ordered Prometrium 200 mg oral capsule 1 capsule = 200 mg, Vaginally, Daily at bedtime, # 60 capsule, 3 Refills, Maintenance, 12/11/21 11:42:00 EDT, [facility] #[id number], Partial fill upon patient request if the prescription is fora schedule II opioid drug., 160, cm, 12/11/21 11:20... Start Date: 12/11/21 Status: Ordered Problem List Condition Confirmation Course Effective Dates Status H ealth Status Informant ADD - Attention deficit disorder with hyperactivity Confirmed Active Allergic rhinitis due to pollen Confirmed Improving Active Asthma, mild intermittent, precipitated by colds, allergies 1 Confirmed Stable Active Mood disorder Confirmed Active Obesity Confirmed Active Severe obesity Confirmed Active 29/04/2007 [facility] admission #1: acute asthma attack Social History Social History Type Response Smoking Status Never (less than 100 in lifetime);Never; Exposure to Secondhand Smoke: Yes; Tobacco use times per day: mother smokes; entered on: 09/14/21 Sex Patient Care team information Care Team Personnel Name: Rebecca Mo MD Position: [facility] Resident Member Role: PCP Address: Address: [address] [place] [address]- Care Team Related Persons Name: Monroe Mcgarry Address: [place] [address] Name: MARIFER MCGARRY Address: [place] [address]
--- OUTSIDE RECORDS SUMMARY | 2023-07-18 10:21 | XMS_ITS | Continuity of Care Document ---
Author Organization [facility] Address [address] [place] [address]- Care Team Providers Care Sewage Plant Supervisor Name Role Phone Chepe CADE, Rebecca Primary Care Physician [facility] Date(s): 02/18/22 - 03/20/[address] [address] Allergies, Adverse Reactions, Alerts Substance Reaction Severity [...] 8Admin Note: POLIO(oral) 9Admin Note: POLIO(oral) Medications aspirin 162.5 mg oral capsule, extended release 1 capsule = 162.5 mg, By Mouth, Daily, at the same time every day, # 90 capsule, 3 Refills, Maintenance, 02/08/22 8:37:00 EST, ER Capsule, [facility] #[id number], Partial fill upon patient request if the prescription is for a schedule II opioid d... Start Date: 02/08/22 Status: Ordered Diflucan 150 mg oral tablet 1 tablet = 150 mg, By Mouth, Once, # 1 tablet, 0 Refills, Soft Stop, 02/15/22 10:22:00 EST, Tablet,[facility] #[id number], Partial fill upon patient request if the prescription is for a schedule II opioid drug., 160, cm, 02/08/22 8:11:00 EST, He... Start Date: 02/15/22 Status: Ordered famotidine 20 mg oral tablet 20 mg, 1, tablet, By Mouth, 2 times a day, # 180 tablet, Refills 0, Tot. Refills 0, Maintenance, 02/08/22 8:37:00 EST, Route to Pharmacy Electronically, [facility] #[id number], Partial fill uponpatient request if the prescription is for a schedu... Start Date: 02/08/22 Status: Ordered folic acid 0.4 mg oral tablet 1 tablet = 0.4 mg, By Mouth, Daily, # 100 tablet, 5 Refills, Maintenance, 08/21/21 9:43:00 EDT, Tablet, [facility] #[id number], Partial fill upon patient request if the [...] EDT, Height Start Date: 11/08/19 Status: Ordered lidocaine 5% topical ointment 1 application, Topically, 3 times a day, PRN Pain, # 50 Gm, 1 Refills, Maintenance, 11/19/21 10:20:00 EDT, Ointment, [facility] #[id number], Partial fill upon patient request if the prescriptionis for a schedule II opioid drug., 1 application To... Start Date: 11/19/21 Status: Ordered lisdexamfetamine 30 mg oral capsule 1 capsule = 30 mg, By Mouth, Daily in AM, Dx F90.0, # 30 capsule, 0 Refills, Maintenance, 06/09/20 9:11:00 EDT, Capsule, [facility] #[id number], Partial fill upon patient request if the prescription is for a schedule II opioid drug., 1 capsule By... Start Date: 06/09/20 Stop Date: 07/09/20 Status: Ordered Monistat 7 2% cream with applicator 1 application, Vaginally, Daily in AM, for 7 days, # 48 Gm, 0 Refills, Acute 03/26/22 16:52:00 EST,03/19/22 16:52:00 EST, Cream, [facility] #[id number], Partial fill upon patient request if theprescription is for a schedule II opioid drug., 1 a... Start Date: 03/19/22 Stop Date: 03/26/22 Status: Ordered Multivitamins with FA 0.8 mg oral tablet 1 tablet, By Mouth, Daily, for 90 days, # 90 tablet, 2 Refills, Hard Stop 05/02/23 13:36:00 EDT, 08/05/22 13:36:00 EDT, Tablet, [facility] #[id number], Partial fill upon patient request if the prescription is for a schedule II opioid drug., 1 tab... Start Date: 08/05/22 Stop Date: 05/02/23 Status: Ordered Multivitamins with FA 0.8 mg oral tablet 1 tablet, By Mouth, Daily, for 90 days, # 90 tablet, 2 Refills, Hard Stop 08/05/22 13:36:00 EDT, 11/08/21 13:36:00 EDT, Tablet, [facility] #[id number], Partial fill upon patient request if the [...] Replace Required Details, Route to Pharmacy Electronically, [id number]... Start Date: 06/25/18 Status: Ordered Prometrium 200 mg oral capsule 1 capsule = 200 mg, Vaginally, Daily at bedtime, # 60 capsule, 3 Refills, Maintenance, 02/08/22 8:36:00 EST, [facility] #[id number], Partial fill upon patient request if the prescription is for a schedule II opioid drug., 160, cm, 02/08/22 8:11:0... Start Date: 02/08/22 Status: Ordered Valtrex 500 mg oral tablet See Instructions, 1 tablet By Mouth twice daily starting at 34wks for remainder of , # 60 tablet, Refills 0, Tot. Refills 0, Maintenance, 03/12/22 13:13:00 EST, Instructions Replace RequiredDetails, Route to Pharmacy Electronically, [facility]... Start Date: 03/12/22 Status: Ordered Problem List Condition Confirmation Course Effective Dates Status H ealth Status Informant ADD - Attention deficit disorder with hyperactivity Confirmed Active Allergic rhinitis due to pollen Confirmed Improving Active Asthma, mild intermittent, precipitated by colds, allergies 1 Confirmed Stable Active 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 Mood disorder Confirmed Active Obesity Confirmed Active Severe obesity Confirmed Active 29/04/2007 [facility] admission #1: acute asthma attack Social History Social History Type Response Smoking Status Never (less than 100 in lifetime);Never; Exposure to Secondhand Smoke: Yes; Tobacco use times per day: mother smokes; entered on: 09/14/21 Sex Patient Care team information Care Team Personnel Name: Rebecca Mo MD Position: [facility] Resident Member Role: PCP Address: Address: [address] [place] [address] Care Team Related Persons Name: Monroe Mcgarry Address: home [address] [place] [address] Name: MARIFER MCGARRY Address: [place] [address]
--- OUTSIDE RECORDS SUMMARY | 2023-07-18 10:22 | XMS_ITS | Continuity of Care Document ---
Author Organization [facility] Address [address] [place] [address]- Care Team Providers Care Wilton Weaver Name Role Phone Bertha Montes MD Primary Care Physician Encounter [facility] Date(s): 03/13/23 - 05/07/[address] [address]- Attending Physician: Not on Staff, Attending MD [...] Refills, Maintenance, 02/17/23 12:58:00 [facility], [facility] #[id number], Partial fill upon patient request if the [...] # 1 tablet, 0 Refills, Soft Stop, 04/07/23 9:20:00 EST, [facility] #[id number], Partial fill upon patient request if the prescription is fora schedule II opioid drug., 157, cm, 04/07/23 8:57:... Start Date: 04/07/23 Status: Ordered Diflucan 150 mg oral tablet 1 tablet = 150 mg, By Mouth, Once, # 1 tablet, 0 Refills, Soft Stop, 02/19/23 19:29:00 EST, Tablet,[facility] #[id number], Partial fill upon patient request if the prescription is for a schedule II opioid drug., 157, cm, 02/17/23 12:20:00 EST, H... Start Date: 02/19/23 Status: Ordered fluconazole 150 mg oral tablet 1 tablet = 150 mg, By Mouth, Once, epeat dose if still having symptoms in 72 hours, # 2 tablet, 0 Refills, Soft Stop, 04/08/23 16:30:00 EST, Tablet, [facility] #[id number], Partial fill upon patient request if the prescription is for a schedule I... Start Date: 04/08/23 Status: Ordered hydrOXYzine hydrochloride 25 mg oral tablet 1 capsule, By Mouth, Once, PRN Agitation, # 30 capsule, 3 Refills, Soft Stop, 12/10/22 14:50:00 EDT, Capsule, [facility] #[id number], Partial fill upon patient request if the prescription is fora schedule II opioid drug., 160, cm, 12/10/22 14:07... Start Date: 12/10/22 Status: Ordered metronidazole topical 0.75% gel with applicator 1 application, Vaginally, Daily at bedtime, # 70 Gm, 3 Refills, Soft Stop, 12/20/22 16:15:00 EST, Gel, [facility] #[id number], Partial fill upon patient request if the [...] 10/27/23 11:50:00 EDT, 10/25/22 11:49:00 EDT, Tablet, [facility], Partial... Start Date: 10/25/22 Stop Date: 10/27/23 Status: Ordered omeprazole 20 mg oral enteric coated capsule 1 capsule = 20 mg, By Mouth, Daily, # 14 capsule, 0 Refills, Maintenance, 02/17/23 12:58:00 EST, ECCapsule, [facility] #[id number], Partial fill upon patient request if the prescription is for a schedule II opioid drug., 157, cm, 02/17/23 12:20:... Start Date: 02/17/23 Stop Date: 03/03/23 Status: Ordered Pen Pearsall, 32 G x 4 mm BD Ultra [...] Refills, Maintenance, 10/16/22 13:40:00 EDT, EC Tablet, [facility] #[id number], Partial fill upon patient request if the [...] Replace Required Details, Route to Pharmacy Electronically, [id number]... Start Date: 10/25/22 Status: Ordered Senna 8.6 mg oral tablet 17.2 mg, 2, tablet, By Mouth, Daily at bedtime, # 50 tablet, Refills 0, Tot. Refills 0, Maintenance, 03/31/22 6:17:00 EST, Route to Pharmacy Electronically, [facility] #[id number], Partial fill upon patient request if the prescription is for a sc... Start Date: 03/31/22 Status: Ordered sertraline 50 mg oral tablet 1 tablet = 50 mg, By Mouth, Daily, # 90 tablet, 1 Refills, Maintenance, 12/10/22 14:51:00 EDT, Tablet, [facility] #[id number], Partial fill upon patient request if the prescription is for a schedule II opioid drug., 160, cm, 12/10/22 14:07:00 EDT... Start Date: 12/10/22 Status: Ordered Tylenol 325 mg oral capsule 2 capsule = 650 mg, By Mouth, Every 4 hours, PRN as needed for pain, # 50 capsule, 0 Refills, Maintenance, 03/29/22 8:34:00 EST, Capsule, [facility] #[id number], Partial fill upon patient request if the prescription is for a schedule II opioid dr... Start Date: 03/29/22 Status: Ordered Wegovy (0.25 mg dose) subcutaneous solution = 0.25 mg, Subcutaneous Injection, Every week, for 4 week(s), in the abdomen, thigh, or upper arm, # 2 mL, 0 Refills, Acute 05/27/23 15:58:00 EDT, 04/29/23 15:58:00 EDT, [facility] #[id number], [place] filled out and sent to insurance., 157,... Start Date: 04/29/23 Stop Date: 05/27/23 Status: Ordered Problem List Condition Confirmation Course Effective Dates Status H ealth Status Informant ADD - Attention deficit disorder with hyperactivity Confirmed Active Allergic rhinitis due to pollen Confirmed Improving Active Asthma, mild intermittent, precipitated by colds, allergies 1 Confirmed Stable Active 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 Mood disorder Confirmed Active Obesity Confirmed Active Severe obesity Confirmed Active 29/04/2007 [facility] admission #1: acute asthma attack Social History Social History Type Response Smoking Status Never (less than 100 in lifetime);Never; Exposure to Secondhand Smoke: Yes; Tobacco use times per day: mother smokes; entered on: 09/14/21 Sex Patient Care team information Care Team Personnel Name: Bertha Montes MD Position: [facility] Resident Member Role: PCP Address: Address: [address] [place] [address]- Care Team Related Persons Name: Monroe Mcgarry Address: home [address] [place] [address] Name: MARIFER MCGARRY Address: [place] [address] Name: REMA MCGARRY Address: Address: [address]
--- OUTSIDE RECORDS SUMMARY | 2023-07-18 10:22 | XMS_ITS | Continuity of Care Document ---
Author Organization [facility] Address [address] [place] [address]- Care Team Providers Care Dry Box Operator Name Role Phone Rebecca Mo MD Primary Care Physician Encounter [facility] Date(s): 01/14/22 - 02/13/22 [facility] [address] [place] [address]- Allergies, Adverse Reactions, Alerts Substance Reaction Severity [...] Refills, Maintenance, 02/08/22 8:37:00 EST, [facility]apsule, [id number], Partial fill upon patient request if the prescription is for a schedule II opioid d... Start Date: 02/08/22 Status: Ordered famotidine 20 mg oral tablet 20 mg, 1, tablet, By Mouth, 2 times a day, # 180 tablet, Refills 0, Tot. Refills 0, Maintenance, 02/08/22 8:37:00 EST, Route to Pharmacy Electronically, [facility] #[id number], Partial fill uponpatient request if the prescription is for a schedu... Start Date: 02/08/22 Status: Ordered folic acid 0.4 mg oral tablet 1 tablet = 0.4 mg, By Mouth, Daily, # 100 tablet, 5 Refills, Maintenance, 08/21/21 9:43:00 EDT, Tablet, [facility] #[id number], Partial fill upon patient request if the [...] 1 Refills, Maintenance, 11/19/21 10:20:00 EDT, Ointment, [facility] #[id number], Partial fill upon patient request if the prescriptionis for a schedule II opioid drug., 1 application To... Start Date: 11/19/21 Status: Ordered lisdexamfetamine 30 mg oral capsule 1 capsule = 30 mg, By Mouth, Daily in AM, Dx F90.0, # 30 capsule, 0 Refills, Maintenance, 06/09/20 9:11:00 EDT, Capsule, [facility] #[id number], Partial fill upon patient request if the prescription is for a schedule II opioid drug., 1 capsule By... Start Date: 06/09/20 Stop Date: 07/09/20 Status: Ordered Multivitamins with FA 0.8 mg oral tablet 1 tablet, By Mouth, Daily, for 90 days, # 90 tablet, 2 Refills, Hard Stop 05/02/23 13:36:00 EDT, 08/05/22 13:36:00 EDT, Tablet, [facility] #[id number], Partial fill upon patient request if the prescription is for a schedule II opioid drug., 1 tab... Start Date: 08/05/22 Stop Date: 05/02/23 Status: Ordered Multivitamins with FA 0.8 mg oral tablet 1 tablet, By Mouth, Daily, for 90 days, # 90 tablet, 2 Refills, Hard Stop 08/05/22 13:36:00 EDT, 11/08/21 13:36:00 EDT, Tablet, [facility] #[id number], Partial fill upon patient request if the [...] Replace Required Details, Route to Pharmacy Electronically, [id number]... Start Date: 06/25/18 Status: Ordered Prometrium 200 mg oral capsule 1 capsule = 200 mg, Vaginally, Daily at bedtime, # 60 capsule, 3 Refills, Maintenance, 02/08/22 8:36:00 EST, [facility] #[id number], Partial fill upon patient request if the prescription is for a schedule II opioid drug., 160, cm, 02/08/22 8:11:0... Start Date: 02/08/22 Status: Ordered Problem List Condition Confirmation Course Effective Dates Status H ealth Status Informant ADD - Attention deficit disorder with hyperactivity Confirmed Active Allergic rhinitis due to pollen Confirmed Improving Active Asthma, mild intermittent, precipitated by colds, allergies 1 Confirmed Stable Active Mood disorder Confirmed Active Obesity Confirmed Active Severe obesity Confirmed Active 29/04/2007 [facility] admission #1: acute asthma attack Social History Social History Type Response Smoking Status Never (less than 100 in lifetime);Never; Exposure to Secondhand Smoke: Yes; Tobacco use times per day: mother smokes; entered on: 09/14/21 Sex Patient Care team information Care Team Personnel Name: Rebecca Mo MD Position: [facility] Resident Member Role: PCP Address: Address: [address] [place] [address]- Care Team Related Persons Name: Monroe Mcgarry Address: [place] [address] Name: MARIFER MCGARRY Address: [place] [address]
--- OUTSIDE RECORDS SUMMARY | 2023-07-18 10:22 | XMS_ITS | Continuity of Care Document ---
Author Organization [facility] Address [address], [address] [place] [address]- Care Team Providers Care Finish Photographer Name Role Phone Chepe CADE, Rebecca Primary Care Physician Encounter [facility] [place] [place] Date(s): 09/04/21 - 10/17/21 [facility] [address] [facility] [place], [place] [address] Attending Physician: Annika Saxena MD Referring Physician: Not on Staff, Referring MD Allergies, Adverse Reactions, Alerts Substance Reaction [...] Refills, Maintenance, 10/16/21 12:30:00 EDT, ER Capsule, [facility] #[id number], Partial fill upon patient request if the prescription is for a schedule II opioid... Start Date: 10/16/21 Status: Ordered folic acid 0.4 mg oral tablet 1 tablet = 0.4 mg, By Mouth, Daily, # 100 tablet, 5 Refills, Maintenance, 08/21/21 9:43:00 EDT, Tablet, [facility] #[id number], Partial fill upon patient request if the [...] 0 Refills, Maintenance, 06/09/20 9:11:00 EDT, Capsule, [facility] #[id number], Partial fill upon patient request if the prescription is for a schedule II opioid drug., 1 capsule By... Start Date: 06/09/20 Stop Date: 07/09/20 Status: Ordered metroNIDAZOLE 500 mg oral tablet 1 tablet = 500 mg, By Mouth, Every 12 hours, for 7 days, # 14 tablet, 0 Refills, Acute 10/24/21 20:20:00 EDT, 10/17/21 20:20:00 EDT, Tablet, [facility] #[id number], Partial fill upon patient request if the prescription is for a schedule II opioid... Start Date: 10/17/21 Stop Date: 10/24/21 Status: Ordered Multivitamins with Folic Acid 1.2 mg oral capsule 1 capsule, By Mouth, Daily, # 30 capsule, 11 Refills, Maintenance, 10/16/21 12:31:00 EDT, Capsule, [facility] #[id number], Partial fill upon patient request if the prescription is for a scheduleII opioid drug., 1 capsule By Mouth Daily, 160, cm,... Start Date: 10/16/21 Status: Ordered ProAir HFA 90 mcg/inh inhalation aerosol with adapter See Instructions, PRN, 2-4 puffs Inhalation 4 times a day 30 days, # 1 each, Refills 11, Tot. Refills 11, Maintenance, 06/25/18 15:30:45 EDT, Instructions Replace Required Details, Route to Pharmacy Electronically, [id number]... Start Date: 06/25/18 Status: Ordered traZODone 50 mg oral tablet 50 mg, 1, tablet, By Mouth, Daily at bedtime, PRN, # 30 tablet, Refills 1, Tot. Refills 1, Maintenance, Sleep, 06/09/20 9:11:00 EDT, Route to Pharmacy Electronically, [facility] #[id number], Partial fill upon patient request if the prescription i... Start Date: 06/09/20 Stop Date: 08/08/20 Status: Ordered Problem List Condition Effective Dates Status Health Status Inform ant ADD - Attention deficit diso rder with hyperactivity(Confirmed) Active Allergic rhinitis due to pollen(Confirmed)(Improving) Active Asthma, mild intermittent, precipitated by colds, allergies(Confirmed)(Stable) 1 Active Mood disorder(Confirmed) Active Obesity(Confirmed) Active Severe obesity(Confirmed) Active 29/04/2007 [facility] admission #1: acute asthma attack Social History Social History Type Response Smoking Status Never (less than 100 in lifetime);Never; Exposure to Secondhand Smoke: Yes; Tobacco use times per day: mother smokes; entered on: 09/14/21 Sex Care Team Personnel Name: Rebecca Mo MD Address: [address] [place] [address]
--- OUTSIDE RECORDS SUMMARY | 2023-07-18 10:22 | XMS_ITS | Continuity of Care Document ---
Author Organization [facility] Address [address] [place] [address]- Care Team Providers Care Asparagus Buncher Name Role Phone Rebecca Mo MD Primary Care Physician [phone] Encounter [facility] Date(s): 12/14/21 - 01/13/22 [facility] [address]- Attending Physician: Silas Munroe Admitting Physician: AdmSilas gill Referring Physician: AdmtrSilas Allergies, Adverse Reactions, Alerts Substance Reaction Severity [...] Acute 01/18/22 10:19:00 EST, 11/19/21 10:19:00 EDT, [facility] #[id number], Partial fill upon patient request if the prescr... Start Date: 11/19/21 Stop Date: 01/18/22 Status: Ordered aspirin 162.5 mg oral capsule, extended release 1 capsule = 162.5 mg, By Mouth, Daily, at the same time every day, # 90 capsule, 3 Refills, Maintenance, 10/16/21 12:30:00 EDT, ER Capsule, [facility] #[id number], Partial fill upon patient request if the prescription is for a schedule II opioid... Start Date: 10/16/21 Status: Ordered folic acid 0.4 mg oral tablet 1 tablet = 0.4 mg, By Mouth, Daily, # 100 tablet, 5 Refills, Maintenance, 08/21/21 9:43:00 EDT, Tablet, [facility] #[id number], Partial fill upon patient request if the [...] capsule, 0 Refills, Maintenance, 12/26/21 21:00:00 EST, [facility] #[id number], Partial fill upon patient request if the prescription is for a schedule II opioid drug., 160, cm, 12/21/21 15:25:00 ES... Start Date: 12/26/21 Stop Date: 12/29/21 Status: Ordered lidocaine 5% topical ointment 1 application, Topically, 3 times a day, PRN Pain, # 50 Gm, 1 Refills, Maintenance, 11/19/21 10:20:00 EDT, Ointment, [facility] #[id number], Partial fill upon patient request if the prescriptionis for a schedule II opioid drug., 1 application To... Start Date: 11/19/21 Status: Ordered lisdexamfetamine 30 mg oral capsule 1 capsule = 30 mg, By Mouth, Daily in AM, Dx F90.0, # 30 capsule, 0 Refills, Maintenance, 06/09/20 9:11:00 EDT, Capsule, [facility] #[id number], Partial fill upon patient request if the prescription is for a schedule II opioid drug., 1 capsule By... Start Date: 06/09/20 Stop Date: 07/09/20 Status: Ordered Multivitamins with FA 0.8 mg oral tablet 1 tablet, By Mouth, Daily, for 90 days, # 90 tablet, 2 Refills, Hard Stop 08/05/22 13:36:00 EDT, 11/08/21 13:36:00 EDT, Tablet, [facility] #[id number], Partial fill upon patient request if the [...] Replace Required Details, Route to Pharmacy Electronically, [id number]... Start Date: 06/25/18 Status: Ordered Prometrium 200 mg oral capsule 1 capsule = 200 mg, Vaginally, Daily at bedtime, # 60 capsule, 3 Refills, Maintenance, 12/11/21 11:42:00 EDT, [facility] #[id number], Partial fill upon patient request if the [...] Confirmed Active Severe obesity Confirmed Active 29/04/2007 [facility] admission #1: acute asthma attack Social History Social History Type Response Smoking Status Never (less than 100 in lifetime);Never; Exposure to Secondhand Smoke: Yes; Tobacco use times per day: mother smokes; entered on: 09/14/21 Sex Patient Care team information Care Team Personnel Name: Rebecca Mo MD Position: [facility] Resident Member Role: PCP Address: Address: [address] [place] [address]- Care Team Related Persons Name: Monroe Romo Address: [place] [address] Name: MARIFRE ROMO Address: [place] [address]
--- OUTSIDE RECORDS SUMMARY | 2023-07-18 10:22 | XMS_ITS | Continuity of Care Document ---
Author Organization [facility] Address [address] [place] [address]- Care Team Providers Care Flower Grower Name Role Phone Chepe CADE, Rebecca Primary Care Physician [phone] Encounter [facility] Date(s): 01/15/22 - 02/14/[address] [address]- Allergies, Adverse Reactions, Alerts Substance Reaction Severity [...] Refills, Maintenance, 02/08/22 8:37:00 EST, ER Capsule, [email or web address] #[id number], Partial fill upon patient request if the prescription is for a schedule II opioid d... Start Date: 02/08/22 Status: Ordered famotidine 20 mg oral tablet 20 mg, 1, tablet, By Mouth, 2 times a day, # 180 tablet, Refills 0, Tot. Refills 0, Maintenance, 02/08/22 8:37:00 EST, Route to Pharmacy Electronically, [facility] #[id number], Partial fill uponpatient request if the prescription is for a schedu... Start Date: 02/08/22 Status: Ordered folic acid 0.4 mg oral tablet 1 tablet = 0.4 mg, By Mouth, Daily, # 100 tablet, 5 Refills, Maintenance, 08/21/21 9:43:00 EDT, Tablet, [facility] #[id number], Partial fill upon patient request if the [...] 1 Refills, Maintenance, 11/19/21 10:20:00 EDT, Ointment, [facility] #[id number], Partial fill upon patient request if the prescriptionis for a schedule II opioid drug., 1 application To... Start Date: 11/19/21 Status: Ordered lisdexamfetamine 30 mg oral capsule 1 capsule = 30 mg, By Mouth, Daily in AM, Dx F90.0, # 30 capsule, 0 Refills, Maintenance, 06/09/20 9:11:00 EDT, Capsule, [facility] #[id number], Partial fill upon patient request if the prescription is for a schedule II opioid drug., 1 capsule By... Start Date: 06/09/20 Stop Date: 07/09/20 Status: Ordered Multivitamins with FA 0.8 mg oral tablet 1 tablet, By Mouth, Daily, for 90 days, # 90 tablet, 2 Refills, Hard Stop 05/02/23 13:36:00 EDT, 08/05/22 13:36:00 EDT, Tablet, [facility] #[id number], Partial fill upon patient request if the prescription is for a schedule II opioid drug., 1 tab... Start Date: 08/05/22 Stop Date: 05/02/23 Status: Ordered Multivitamins with FA 0.8 mg oral tablet 1 tablet, By Mouth, Daily, for 90 days, # 90 tablet, 2 Refills, Hard Stop 08/05/22 13:36:00 EDT, 11/08/21 13:36:00 EDT, Tablet, [facility] #[id number], Partial fill upon patient request if the [...] Replace Required Details, Route to Pharmacy Electronically, [id number]... Start Date: 06/25/18 Status: Ordered Prometrium 200 mg oral capsule 1 capsule = 200 mg, Vaginally, Daily at bedtime, # 60 capsule, 3 Refills, Maintenance, 02/08/22 8:36:00 EST, [facility] #[id number], Partial fill upon patient request if the [...] Confirmed Active Severe obesity Confirmed Active 29/04/2007 [facility] admission #1: acute asthma attack Social History Social History Type Response Smoking Status Never (less than 100 in lifetime);Never; Exposure to Secondhand Smoke: Yes; Tobacco use times per day: mother smokes; entered on: 09/14/21 Sex Patient Care team information Care Team Personnel Name: Rebecca Mo MD Position: [facility] Resident Member Role: PCP Address: Address: [address] [place] [address]- Care Team Related Persons Name: Monroe Romo Address: [place] [address] Name: MARIFER ROMO Address: [place] [address]
--- OUTSIDE RECORDS SUMMARY | 2023-07-18 10:22 | XMS_ITS | Continuity of Care Document ---
Author Organization [facility] Address [address], [address] [place] [address]- Care Team Providers Care Hot Braider Name Role Phone Chepe CADE, Rebecca Primary Care Physician Encounter [facility] Date(s): 10/16/21 - 10/23/21 [facility] [employer] [employer] [address] [place], [place] [address] Attending Physician: Esthela Loyd MD Referring Physician: Leann Francisco CNM Allergies, Adverse Reactions, Alerts Substance Reaction Severity [...] Refills, Maintenance, 10/16/21 12:30:00 EDT, ER Capsule, [facility] #[id number], Partial fill upon patient request if the prescription is for a schedule II opioid... Start Date: 10/16/21 Status: Ordered folic acid 0.4 mg oral tablet 1 tablet = 0.4 mg, By Mouth, Daily, # 100 tablet, 5 Refills, Maintenance, 08/21/21 9:43:00 EDT, Tablet, [facility] #[id number], Partial fill upon patient request if the [...] 0 Refills, Maintenance, 06/09/20 9:11:00 EDT, Capsule, [facility] #[id number], Partial fill upon patient request if the prescription is for a schedule II opioid drug., 1 capsule By... Start Date: 06/09/20 Stop Date: 07/09/20 Status: Ordered metroNIDAZOLE 500 mg oral tablet 1 tablet = 500 mg, By Mouth, Every 12 hours, for 7 days, # 14 tablet, 0 Refills, Acute 10/24/21 20:20:00 EDT, 10/17/21 20:20:00 EDT, Tablet, [facility] #[id number], Partial fill upon patient request if the prescription is for a schedule II opioid... Start Date: 10/17/21 Stop Date: 10/24/21 Status: Ordered Multivitamins with Folic Acid 1.2 mg oral capsule 1 capsule, By Mouth, Daily, # 30 capsule, 11 Refills, Maintenance, 10/16/21 12:31:00 EDT, Capsule, [facility] #[id number], Partial fill upon patient request if the [...] Replace Required Details, Route to Pharmacy Electronically, [id number]... Start Date: 06/25/18 Status: Ordered traZODone 50 mg oral tablet 50 mg, 1, tablet, By Mouth, Daily at bedtime, PRN, # 30 tablet, Refills 1, Tot. Refills 1, Maintenance, Sleep, 06/09/20 9:11:00 EDT, Route to Pharmacy Electronically, [facility] #[id number], Partial fill upon patient request if the prescription i... Start Date: 06/09/20 Stop Date: 08/08/20 Status: Ordered Problem List Condition Effective Dates Status Health Status Inform ant ADD - Attention deficit diso rder with hyperactivity(Confirmed) Active Allergic rhinitis due to pollen(Confirmed)(Improving) Active Asthma, mild intermittent, precipitated by colds, allergies(Confirmed)(Stable) 1 Active Mood disorder(Confirmed) Active Obesity(Confirmed) Active Severe obesity(Confirmed) Active 29/04/2007 [facility] admission #1: acute asthma attack Social History Social History Type Response Smoking Status Never (less than 100 in lifetime);Never; Exposure to Secondhand Smoke: Yes; Tobacco use times per day: mother smokes; entered on: 09/14/21 Sex Care Team Personnel Name: Rebecca Mo MD Address: [address] [place] [address]
--- OUTSIDE RECORDS SUMMARY | 2023-07-18 10:22 | XMS_ITS | Continuity of Care Document ---
Author Organization [facility] Address [address] [place] [address]- Care Team Providers Care Aerobics Teacher Name Role Phone Chepe CADE, Rebecca Primary Care Physician Encounter [facility] Date(s): 03/06/22 - 04/05/22 [facility] [address] [address] Allergies, Adverse Reactions, Alerts Substance Reaction Severity [...] 0, Lillie... Start Date: 03/31/22 Status: Ordered ibuprofen 800 mg oral tablet 800 mg, 1, tablet, By Mouth, Every 8 hours, (4-6), may give 400mg per patient preference and re-dose with 400mg within 8 hours, if needed. Patient should only receive a total of 800mg of Ibuprofen every 8 hours., # 50 tablet, Refills 0, Tot. Refills... Start Date: 03/31/22 Status: Ordered oxyCODONE 5 mg oral tablet 5 mg, 1, tablet, By Mouth, Every 3 hours, PRN, (7-10), # 12 tablet, Refills 0, Tot. Refills 0, Maintenance, Pain , Severe, 03/31/22 6:08:00 EST, Route to Pharmacy Electronically, [facility]#[id number], Partial fill upon patient request if the pr... Start Date: 03/31/22 Status: Ordered ProAir HFA 90 mcg/inh inhalation aerosol with adapter See Instructions, PRN, 2-4 puffs Inhalation 4 times a day 30 days, # 1 each, Refills 11, Tot. Refills 11, Maintenance, 06/25/18 15:30:45 EDT, Instructions Replace Required Details, Route to Pharmacy Electronically, [id number]... Start Date: 06/25/18 Status: Ordered Senna 8.6 mg oral tablet 17.2 mg, 2, tablet, By Mouth, Daily at bedtime, # 50 tablet, Refills 0, Tot. Refills 0, Maintenance, 03/31/22 6:17:00 EST, Route to Pharmacy Electronically, [facility] #[id number], Partial fill upon patient request if the prescription is for a sc... Start Date: 03/31/22 Status: Ordered simethicone 80 mg oral tablet, chewable 160 mg, 2, tablet, Chew, 3 times a day, PRN, # 48 tablet, Refills 0, Tot. Refills 0, Maintenance, Gas, 03/29/22 8:34:00 EST, Route to Pharmacy Electronically, [facility] #[id number], Partial fill upon patient request if the prescription is for a... Start Date: 03/29/22 Status: Ordered Tylenol 325 mg oral capsule 2 capsule = 650 mg, By Mouth, Every 4 hours, PRN as needed for pain, # 50 capsule, 0 Refills, Maintenance, 03/29/22 8:34:00 EST, Capsule, [facility][id number], Partial fill upon patient request if the prescription is for a schedule II opioid Start Date: 03/29/22 Status: Ordered Problem List Condition Confirmation Course Effective Dates Status H ealth Status Informant ADD - Attention deficit disorder with hyperactivity Confirmed Active Allergic rhinitis due to pollen Confirmed Improving Active Asthma, mild intermittent, precipitated by colds, allergies 1 Confirmed Stable Active 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 Mood disorder Confirmed Active Obesity Confirmed Active Severe obesity Confirmed Active 29/04/2007 [facility] admission #1: acute asthma attack Social History Social History Type Response Smoking Status Never (less than 100 in lifetime);Never; Exposure to Secondhand Smoke: Yes; Tobacco use times per day: mother smokes; entered on: 09/14/21 Sex Patient Care team information Care Team Personnel Name: Rebecca Mo MD Position: [facility] Resident Member Role: PCP Address: Address: [address] [place] [address] Care Team Related Persons Name: Monroe Mcgarry Address: [place] [address] Name: MARIFER MCGARRY Address: [place] [address] Name: REMA MCGARRY Address: Address: [address]
--- OUTSIDE RECORDS SUMMARY | 2023-07-18 10:22 | XMS_ITS | Continuity of Care Document ---
Author Organization [facility] Address [address] [place] [address]- Care Team Providers Care Feather Stitcher Name Role Phone Chriss Mejia MD Primary Care Physician [phone] Encounter [facility] Date(s): 11/16/19 - 12/16/[address] [address]- Allergies, Adverse Reactions, Alerts Substance Reaction Severity Status Pollen Allergic Rhinitis Du e to Pollen Allergic conjunctivitis Active Apples Active Immunizations Given and Recorded Vaccine Date Status Refusal Reason tetanus-diphtheria toxoids (Td) 12/08/18 Given tetanus-diphtheria toxoids (Td) 08/08/04 Given influenza virus vaccine, inactivated 02/13/16 Give n influenza virus vaccine, inactivated 1 10/23/10 Gi twan influenza virus vaccine, inactivated 11/15/09 Give n Human Papillomavirus Vaccine 2 03/17/09 Given Human Papillomavirus Vaccine 3 11/15/08 Given Human Papillomavirus Vaccine 4 08/19/08 Given Tet/Diphth/Acel, Pertussis (oldterm) 5 08/19/08 Gi twan Measles/Mumps/Rubella Virus Vaccine 09/15/97 Given Measles/Mumps/Rubella Virus Vaccine 01/11/94 Given Diphth/Pertussis,Acel/Tetanus (oldterm) 09/15/97 G iven Diphth/Pertussis,Acel/Tetanus (oldterm) [...] 8Admin Note: POLIO(oral) 9Admin Note: POLIO(oral) Medications atomoxetine 40 mg oral capsule 1 capsule = 40 mg, By Mouth, Daily in AM, # 30 capsule, 0 Refills, Maintenance, 11/08/19 16:07:00 EDT, [employer] [facility], [facility] #[id number], please fill 40mg order, 25mg entered by mistake, 157, cm, 11/08/19 15:34:00 EDT, Height Start Date: 11/08/19 Stop Date: 12/08/19 Status: Ordered Bengay Pain Relief+Massage 2.5% topical gel 1 application, Topically, 2 times a day, PRN as needed for pain, for 30 days, # 85 Gm, 1 Refills, Acute 01/07/20 15:59:00 EST, 11/08/19 15:59:00 EDT, [facility] #[id number], 1 application Topically 2 times a day,x30 days,PRN:as needed for pa... Start Date: 11/08/19 Stop Date: 01/07/20 Status: Ordered Heating Pad Heating Pad, See Instructions, # 1 each, Refills 0, Tot. Refills 0, Maintenance, use for 15 min 2 times per day dx lumbosacral strain duration 6 mo, 11/08/19 16:00:00 EDT, Supply, 157, cm, 11/08/19 15:34:00 EDT, Height Start Date: 11/08/19 Status: Ordered loratadine 10 mg oral tablet 10 mg, 1, tablet, By Mouth, Daily, PRN, # 30 tablet, Refills 3, Tot. Refills 3, Maintenance, Congestion, 06/25/18 15:32:32 EDT, Route to Pharmacy Electronically, [id number],[id number] Start Date: 06/25/18 Status: Ordered ProAir HFA 90 mcg/inh inhalation aerosol with adapter See Instructions, PRN, 2-4 puffs Inhalation 4 times a day 30 days, # 1 each, Refills 11, Tot. Refills 11, Maintenance, 06/25/18 15:30:45 EDT, Instructions Replace Required Details, Route to Pharmacy Electronically, [id number]... Start Date: 06/25/18 Status: Ordered Problem List Condition Effective Dates Status Health Status Inform ant ADD - Attention deficit diso rder with hyperactivity(Confirmed) Active Allergic rhinitis due to pollen(Confirmed)(Improving) Active Asthma, mild intermittent, precipitated by colds, allergies(Confirmed)(Stable) 1 Active Contraception management(Confirmed) Active Controlled substance agreeme nt due(Confirmed) Active H/O nipple discharge(Confirmed) Active Mood disorder(Confirmed) Active Myopia(Confirmed)(Stable) Active Obesity(Confirmed) Active 29/04/2007 [facility] admission #1: acute asthma attack Social History Social History Type Response Smoking Status Never smoker; Tobacc o user in household: No entered on: 03/04/14 Sex
--- OUTSIDE RECORDS SUMMARY | 2023-07-18 10:22 | XMS_ITS | Continuity of Care Document ---
Author Organization [facility] Address [address] [place] [address]- Care Team Providers Care Bookseamer Blindstitch Name Role Phone Chepe CADE, Rebecca Primary Care Physician Encounter [facility] Date(s): 02/08/22 - 03/10/[address] [address] Allergies, Adverse Reactions, Alerts Substance Reaction Severity [...] Refills, Maintenance, 02/08/22 8:37:00 EST, ER Capsule, [facility] #[id number], Partial fill upon patient request if the prescription is for a schedule II opioid d... Start Date: 02/08/22 Status: Ordered Diflucan 150 mg oral tablet 1 tablet = 150 mg, By Mouth, Once, # 1 tablet, 0 Refills, Soft Stop, 02/15/22 10:22:00 EST, Tablet,[facility] #[id number], Partial fill upon patient request if the prescription is for a schedule II opioid drug., 160, cm, 02/08/22 8:11:00 EST, He... Start Date: 02/15/22 Status: Ordered famotidine 20 mg oral tablet 20 mg, 1, tablet, By Mouth, 2 times a day, # 180 tablet, Refills 0, Tot. Refills 0, Maintenance, 02/08/22 8:37:00 EST, Route to Pharmacy Electronically, [facility] #[id number], Partial fill uponpatient request if the prescription is for a schedu... Start Date: 02/08/22 Status: Ordered folic acid 0.4 mg oral tablet 1 tablet = 0.4 mg, By Mouth, Daily, # 100 tablet, 5 Refills, Maintenance, 08/21/21 9:43:00 EDT, Tablet, [facility] #[id number], Partial fill upon patient request if the [...] 1 Refills, Maintenance, 11/19/21 10:20:00 EDT, Ointment, [facility] #[id number], Partial fill upon patient request if the prescriptionis for a schedule II opioid drug., 1 application To... Start Date: 11/19/21 Status: Ordered lisdexamfetamine 30 mg oral capsule 1 capsule = 30 mg, By Mouth, Daily in AM, Dx F90.0, # 30 capsule, 0 Refills, Maintenance, 06/09/20 9:11:00 EDT, Capsule, [facility] #[id number], Partial fill upon patient request if the prescription is for a schedule II opioid drug., 1 capsule By... Start Date: 06/09/20 Stop Date: 07/09/20 Status: Ordered Multivitamins with FA 0.8 mg oral tablet 1 tablet, By Mouth, Daily, for 90 days, # 90 tablet, 2 Refills, Hard Stop 05/02/23 13:36:00 EDT, 08/05/22 13:36:00 EDT, Tablet, [facility] #[id number], Partial fill upon patient request if the prescription is for a schedule II opioid drug., 1 tab... Start Date: 08/05/22 Stop Date: 05/02/23 Status: Ordered Multivitamins with FA 0.8 mg oral tablet 1 tablet, By Mouth, Daily, for 90 days, # 90 tablet, 2 Refills, Hard Stop 08/05/22 13:36:00 EDT, 11/08/21 13:36:00 EDT, Tablet, [facility] #[id number], Partial fill upon patient request if the [...] Replace Required Details, Route to Pharmacy Electronically, [id number]... Start Date: 06/25/18 Status: Ordered Prometrium 200 mg oral capsule 1 capsule = 200 mg, Vaginally, Daily at bedtime, # 60 capsule, 3 Refills, Maintenance, 02/08/22 8:36:00 EST, [facility] #[id number], Partial fill upon patient request if the prescription is for a schedule II opioid drug., 160, cm, 12/30/22 8:11:0... Start Date: 02/08/22 Status: Ordered Problem List Condition Confirmation Course Effective Dates Status H ealth Status Informant ADD - Attention deficit disorder with hyperactivity Confirmed Active Allergic rhinitis due to pollen Confirmed Improving Active Asthma, mild intermittent, precipitated by colds, allergies 1 Confirmed Stable Active 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 Mood disorder Confirmed Active Obesity Confirmed Active Severe obesity Confirmed Active 29/04/2007 [facility] admission #1: acute asthma attack Social History Social History Type Response Smoking Status Never (less than 100 in lifetime);Never; Exposure to Secondhand Smoke: Yes; Tobacco use times per day: mother smokes; entered on: 09/14/21 Sex Patient Care team information Care Team Personnel Name: Rebecca Mo MD Position: [facility] Resident Member Role: PCP Address: Address: [address] [place] [address]- Care Team Related Persons Name: Monroe Mcgarry Address: home [address] [place] [address] Name: MARIFER MCGARRY Address: [place] [address]
--- OUTSIDE RECORDS SUMMARY | 2023-07-18 10:22 | XMS_ITS | Continuity of Care Document ---
Author Organization [facility] ter Address [address] [place] [id number]- Care Team Providers Care Bankruptcy Assistant Name Role Phone Rebecca Mo MD Primary Care Physician [phone] Encounter [facility] Date(s): 11/15/21 - 11/15/[address] [id number] Discharge Disposition: A-D/C Home Attending Physician: Tammy Arreaga DO Admitting Physician: Tammy Arreaga DO Referring Physician: Tammy Arreaga DO Allergies, Adverse Reactions, Alerts Substance Reaction Severity [...] Refills, Maintenance, 10/16/21 12:30:00 EDT, ER Capsule, [facility] #[id number], Partial fill upon patient request if the prescription is for a schedule II opioid... Start Date: 10/16/21 Status: Ordered aspirin 81 mg oral delayed release tablet 162 mg, 2, tablet, By Mouth, Daily, # 90 tablet, Refills 0, Tot. Refills 0, Maintenance, 11/13/21 9:32:00 EDT, Route to Pharmacy Electronically, [facility], Partial fill upon patientrequest if the prescription is for a schedule II op... Start Date: 11/13/21 Status: Ordered folic acid 0.4 mg oral tablet 1 tablet = 0.4 mg, By Mouth, Daily, # 100 tablet, 5 Refills, Maintenance, 08/21/21 9:43:00 EDT, Tablet, [facility] #[id number], Partial fill upon patient request if the [...] 0 Refills, Maintenance, 06/09/20 9:11:00 EDT, Capsule, [facility] #[id number], Partial fill upon patient request if the prescription is for a schedule II opioid drug., 1 capsule By... Start Date: 06/09/20 Stop Date: 07/09/20 Status: Ordered metroNIDAZOLE 500 mg oral tablet 1 tablet = 500 mg, By Mouth, Every 12 hours, for 7 days, # 14 tablet, 0 Refills, Acute 11/20/21 9:32:00 EDT, 11/13/21 9:32:00 EDT, Tablet, [facility], Partial fill upon patient request if the prescription is for a schedule II opioid d... Start Date: 11/13/21 Stop Date: 11/20/21 Status: Ordered Multivitamins with FA 0.8 mg oral tablet 1 tablet, By Mouth, Daily, # 90 tablet, 2 Refills, Maintenance, 08/05/22 13:36:00 EDT, Tablet, [facility], Partial fill upon patient request if the prescription is for a schedule II opioid drug., 1 tablet By Mouth Daily,x90 days, 160,... Start Date: 08/05/22 Stop Date: 05/02/23 Status: Ordered Multivitamins with FA 0.8 mg oral tablet 1 tablet, By Mouth, Daily, for 90 days, # 90 tablet, 2 Refills, Hard Stop 08/05/22 13:36:00 EDT, 11/08/21 13:36:00 EDT, Tablet, [facility] #[id number], Partial fill upon patient request if the [...] Replace Required Details, Route to Pharmacy Electronically, [id number]... Start Date: 06/25/18 Status: Ordered Problem List Condition Confirmation Course Effective Dates Status H ealth Status Informant ADD - Attention deficit disorder with hyperactivity Confirmed Active Allergic rhinitis due to pollen Confirmed Improving Active Asthma, mild intermittent, precipitated by colds, allergies 1 Confirmed Stable Active Mood disorder Confirmed Active Obesity Confirmed Active Severe obesity Confirmed Active 29/04/2007 [facility] admission #1: acute asthma attack Procedures Procedure Date Related Diagnosis Body Site Status number 1 02/02/15 Complet ed Vital Signs Most recent to oldest [Reference Range]: 1 Height 160 cm (11/15/21 3:37 AM) Weight 117.1 kg (11/15/21 3:37 AM) Blood Pressure [90-138/55-84 mm Hg] 100/ 43mm Hg (11/15/21 3:37 AM) Respiratory Rate [16-30 br/min] 18 br/mi n (11/15/21 3:37 AM) Temperature [96.8-100.4 DegF] 98.1 DegF (11/15/21 3:37 AM) Mode of Delivery (Oxygen) Room air (11/15/21 3:37 AM) Blood pressure sites Arm, left (11/15/21 3:37 AM) Temperature Route Oral (11/15/21 3:37 AM) Dry Weight 117.1 kg (11/15/21 3:37 AM) Weight Obtained Via Standing scale (11/15/21 3:37 AM) Dry Weight Obtained Via Standing scale (11/15/21 3:37 AM) Social History Social History Type Response Smoking Status Never (less than 100 in lifetime);Never; Exposure to Secondhand Smoke: Yes; Tobacco use times per day: mother smokes; entered on: 09/14/21 Sex Patient Care team information Personnel Name: Rebecca Mo MD Address: Address: [address] [place] [phone]
--- OUTSIDE RECORDS SUMMARY | 2023-07-18 10:22 | XMS_ITS | Continuity of Care Document ---
Author Organization [facility] ter Address [address] [place] [address]- Care Team Providers Care Head Grower Name Role Phone Rebecca Mo MD Primary Care Physician Encounter [facility] Date(s): 12/30/21 - 12/30/[address] [address]- Discharge Disposition: A-D/C Home Attending Physician: Chanelle Freeman MD Admitting Physician: Chanelle Freeman MD Referring Physician: Chanelle Freeman MD Allergies, Adverse Reactions, Alerts Substance Reaction [...] Acute 01/18/22 10:19:00 EST, 11/19/21 10:19:00 EDT, [facility] #[id number], Partial fill upon patient request if the prescr... Start Date: 11/19/21 Stop Date: 01/18/22 Status: Ordered aspirin 162.5 mg oral capsule, extended release 1 capsule = 162.5 mg, By Mouth, Daily, at the same time every day, # 90 capsule, 3 Refills, Maintenance, 10/16/21 12:30:00 EDT, ER Capsule, [facility] #[id number], Partial fill upon patient request if the prescription is for a schedule II opioid... Start Date: 10/16/21 Status: Ordered folic acid 0.4 mg oral tablet 1 tablet = 0.4 mg, By Mouth, Daily, # 100 tablet, 5 Refills, Maintenance, 08/21/21 9:43:00 EDT, Tablet, [facility] #[id number], Partial fill upon patient request if the [...] capsule, 0 Refills, Maintenance, 12/26/21 21:00:00 EST, [facility] #[id number], Partial fill upon patient request if the prescription is for a schedule II opioid drug., 160, cm, 12/21/21 15:25:00 ES... Start Date: 12/26/21 Stop Date: 12/29/21 Status: Ordered lidocaine 5% topical ointment 1 application, Topically, 3 times a day, PRN Pain, # 50 Gm, 1 Refills, Maintenance, 11/19/21 10:20:00 EDT, Ointment, [facility] #[id number], Partial fill upon patient request if the prescriptionis for a schedule II opioid drug., 1 application To... Start Date: 11/19/21 Status: Ordered lisdexamfetamine 30 mg oral capsule 1 capsule = 30 mg, By Mouth, Daily in AM, Dx F90.0, # 30 capsule, 0 Refills, Maintenance, 06/09/20 9:11:00 EDT, Capsule, [facility] #[id number], Partial fill upon patient request if the prescription is for a schedule II opioid drug., 1 capsule By... Start Date: 06/09/20 Stop Date: 07/09/20 Status: Ordered Multivitamins with FA 0.8 mg oral tablet 1 tablet, By Mouth, Daily, for 90 days, # 90 tablet, 2 Refills, Hard Stop 08/05/22 13:36:00 EDT, 11/08/21 13:36:00 EDT, Tablet, [facility] #[id number], Partial fill upon patient request if the [...] Replace Required Details, Route to Pharmacy Electronically, [id number]... Start Date: 06/25/18 Status: Ordered Prometrium 200 mg oral capsule 1 capsule = 200 mg, Vaginally, Daily at bedtime, # 60 capsule, 3 Refills, Maintenance, 12/11/21 11:42:00 EDT, [facility] #[id number], Partial fill upon patient request if the [...] Confirmed Active Severe obesity Confirmed Active 29/04/2007 [facility] admission #1: acute asthma attack Vital Signs Most recent to oldest [Reference Range]: 1 Weight 117.4 kg (12/30/21 12:48 PM) Oxygen Saturation [94-100 %] 100 % (12/30/21 1:03 PM) Pulse Rate [55-90 bpm] 82 bpm (12/30/21 1:03 PM) Blood Pressure [90-138/55-84 mm Hg] 109/ 61mm Hg (12/30/21 1:03 PM) Respiratory Rate [16-30 br/min] 18 br/mi n (12/30/21 1:03 PM) Temperature [96.8-100.4 DegF] 98.0 DegF (12/30/21 12:48 PM) Mode of Delivery (Oxygen) Room air (12/30/21 1:03 PM) Blood pressure sites Arm, left (12/30/21 1:03 PM) Temperature Route Oral (12/30/21 12:48 PM) Dry Weight 117.4 kg (12/30/21 12:48 PM) Weight Obtained Via Standing scale (12/30/21 12:48 PM) Dry Weight Obtained Via Standing scale (12/30/21 12:48 PM) Social History Social History Type Response Smoking Status Never (less than 100 in lifetime);Never; Exposure to Secondhand Smoke: Yes; Tobacco use times per day: mother smokes; entered on: 09/14/21 Sex Note * Ying Hernandez RN: PERFORM Event Display: Discharge/Transfer Note Hospital Authored Date: [id number] Nursing Discharge Note Entered On: 12/30/2021 14:58 EST Performed On: 12/30/2021 14:58 EST by Ying Hernandez RN Nursing Discharge Note 2 Discharge Time : 12/30/2021 14:56 EST Discharge Level of Care at Discharge : Home/Chcf/Foster Care Patient Left Unit Via : Ambulatory Patient Accompanied Off Unit with : Other: Self DC Instructions Provided & Signed by Pt : Yes Patient Understands D/C Instructions : Yes Patient Instructions Discharge Signed : Yes Did Pt have Specialty Bed or Wound Vac : No Ying Hernandez RN - 12/30/2021 14:58 EST * Ying Hernandez RN: PERFORM Event Display: Patient Education/Instruction Authored Date: [id number] Inpatient Adult Discharge Instructions [address] [address] Name: DODIE ROMO : 1990 Visit: 12/30/2021 12:35:00 Current Date: 12/30/2021 14:37 Account: [id number] Inpatient Adult Discharge Instructions We would like to thank you for allowing us to assist you with your healthcare needs. The following includes patient education materials and information regarding your injury/illness. Our entire staffstrives to provide an excellent experience for our patients and their families. PLEASE ENSURE YOU FOLLOW-UP PER THE INSTRUCTIONS BELOW! ?? YOUR OPINION IS IMPORTANT TO US! Please complete the survey you may receive by mail or email. Your feedback will be used to make improvements to the healthcare experiences of our patients and their families. Surveys are administered by [facility] ?? If further treatment with your primary care physician or another doctor is recommended, it is important for you to keep the appointment. Call your primary care physician or return to the Emergency Department immediately if your condition worsens, fails to improve, or new symptoms develop. If you need to find a doctor, you can call [facility] for a referral at [phone] or toll free at [phone] or log in to [email or web address].. ?? You can view and manage your care through the patient portal or by using a health care hasmukh of your choosing. [employer] is a website that allows you to securely view your medical information including your hospital discharge summary, office visit summaries, medications and follow-up visits. You can also request appointments, renew medications, and request access to your medical information using a health care hasmukh of your choosing, or just ask a question. You can enroll at [email or web address] or register during your next office visit. You have been discharged from [facility], Patient Care Unit: [id number]. If you have any questions regarding these instructions after you leave, please call us and we will be happy to assist you. [facility] Your Care Team Attending Physician Chanelle Freeman MD Tests Performed Below is a partial list of the tests performed during your hospitalization. You may have had other tests and procedures not included in this list. Please discuss all test results with your provider. Complete Urinalysis/Reflex Culture Primary Care Provider Rebecca Mo MD Advance Directive Health Care Proxy on File No No qualifying data available. Discharge Vitals Temperature: 98 DegF Weight: 117.4 kg Pulse Rate: 82 bpm ?? Respiratory Rate: 18 br/min ?? Systolic Blood Pressure: 109 mm Hg ?? Diastolic Blood Pressure: 61 mm Hg ?? Oxygen Saturation: 100 % ?? Studies Pending All tests and labs ordered during this hospital stay have been completed unless listed below. Please discuss all pending results with your provider listed above in these instructions. ?? No incomplete studies found What to do next Instructions From Your Doctor Discharge Orders Scheduled Follow-Up Appointments Friday 11:20 AM EST ?? With: Marisol Malone CNM Where: [facility] [employer] [facility] [address] [place] [address]- 2021 11:00 AM EST ?? With: Where: [facility] [address] [place] [address]- You Need to Schedule the Following Appointments Follow Up with??[facility] [phone] When?? Where: Discharge Medications DODIE ROMO :1990 Visit Date:12/30/2021 Medications: Please continue your medications until treatment is completed or stopped by your provider. Medications not listed below should be discontinued. Discuss any questions related to medications with your provider. What How Much When Instructions Next Dose Unchanged Acetaminophen (acetaminophen 500 mg oral tablet) 2 tab(s) Oral Every 8 hours Duration: 30 Days PRN Pain. not to exceed 3000 mg/ day ?? Unchanged Albuterol (ProAir HFA 90 mcg/ inh inhalation aerosol with adapter) See instructions 2-4 puffs Inhalation 4 times a day 30 days ?? Unchanged Aspirin (aspirin 162.5 mg oral capsule, extended release) 1 capsule Oral Daily at the same time every day ?? Unchanged Durable Medical Equipment (Heating Pad) See instructions use for 15 min 2 times per day dx lumbosacral strain duration 6 mo ?? Unchanged Folic Acid (folic acid 0.4 mg oral tablet) 1 tab(s) Oral Daily Unchanged Indomethacin (indomethacin 25 mg oral capsule) 1 capsule Oral Every 8 hours Duration: 3 Days Unchanged Lidocaine Topical (lidocaine 5% topical ointment) 1 hasmukh Topically 3 times a day PRN Pain ?? Unchanged lisdexamfetamine (lisdexamfetamine 30 mg oral capsule) 1 capsule Oral Daily in the morning Duration: 30 Days Dx F90.0 ?? Unchanged Multivitamin, ( Multivitamins with FA 0.8 mg oral tablet) 1 tab(s) Oral Daily Duration: 90 Days Unchanged Progesterone (Prometrium 200 mg oral capsule) 1 capsule Vaginally Daily at Bedtime Test Results Below is a partial list of the most recent Laboratory test results done prior to this discharge. You may have had other tests and procedures not included in this list. Please discuss all test resultswith your provider. Complete Urinalysis/Reflex Culture (12/30/2021) ???Appear/Color, Urine - COLORLESS???Clarity - CLEAR???Specific [place], Urine - 1.011???pH, Urine - 6.5???Albumin, Urine - NEGATIVE???Glucose, Urine - NEGATIVE???Ketones, Urine - 1+???Bilirubin, Urine - NEGATIVE???Hemoglobin, Urine - NEGATIVE???Nitrite, Urine - NEGATIVE???Leukocyte, Urine - NEGATIV E???Urobilinogen - NORMAL???WBC's, Urine - 3 /HPF???RBC's, Urine - 2 /HPF???Bacteria - SLIGHT???Squamous Epith - 1 /HPF???Mucus - SLIGHT???Culture Indication - CULTURE NOT INDICATED Allergies (NKA means No Known Allergies) Apples Pollen??(Allergic Rhinitis Due to Pollen, Allergic conjunctivitis) Problems Active Problems??(8) ADD - Attention deficit disorder with hyperactivity?? Allergic rhinitis due to pollen?? Asthma, mild intermittent, precipitated by colds, allergies?? Degenerative disc changes C5-C6 and C6-C7?? Mood disorder?? Obesity? Severe obesity?? Education Materials Below is the list of Educational Leaflet Providered with your Discharge Instructions. : Your Second Trimester Changes?? Comfort Tips During ?? Adapting to : Second Trimester?? Valuables and Belongings I fully understand and agree that [facility] accepts no responsibility for all my personal property including clothing, toilet articles, radios, jewelry, dentures, hearing aids, rings, money, or any other property that is in my possession or is brought to me after admission. I understand certain valuables may be placed in a hospital safe for a short period of time. I understand that the hospital is not liable for loss or damage due to accident, fire, or other natural occurrence while said property is in the safe. I accept full responsibility for any personal property that I keep with me, and will not hold the hospital responsible in case of loss or disappearance. I acknowledge that i have been encouraged to send valuables and belongings home. ? Other Discharge Information ? Pulmonary Rehab Status?? Pulmonary Rehab Discharge Status?? Respiratory Rate: 18 br/min ? Common Emergency Awareness Tips IS IT A STROKE? Act FAST and Check for these signs: FACE Does the face look uneven? ARM Does one arm drift down? SPEECH Does their speech sound strange? TIME Call at any sign of stroke ?? Heart Attack Signs Chest discomfort: Most heart attacks involve discomfort in the center of the chest and lasts more than a few minutes, or goes away and comes back. It can feel like uncomfortable pressure, squeezing, fullness or pain. Discomfort in upper body: Symptoms can include pain or discomfort in one or both arms, back, neck, jaw or stomach. Shortness of breath: With or without discomfort. Other signs: Breaking out in a cold sweat, nausea, or lightheaded. Remember, MINUTES DO MATTER. If you experience any of these heart attack warning signs, call to get immediate medical attention! ?? Smoking can increase your chances of developing chronic health problems and can cause harmful effects to other family members in your house. If you smoke, you are strongly encouraged to quit. Please call [employer] at [phone] or 7-994-106[employer] (8589) or log in to [email or web address] for referrals to smoking cessation programs. ?? The National Suicide Prevention Hotline is available 02/09 if you or someone you know needs to find a reason to keep living. By calling 5-098-487-talk (6832) you'll be connected to a skilled, trained counselor at a crisis center in your area. INPATIENT DISCHARGE INSTRUCTIONS SIGNATURE PAGE DODIE ROMO Location:[facility] Registration Date and Time:12/30/2021 12:35 EST Primary Care Physician: Rebecca Mo MD, I DODIE ROMO, have received the above patient education materials/instructions and have verbalized understanding. If ambulance or transport services are being used I further acknowledge beinggiven a choice of service. ?? If you need to contact me, please call me at this number: . Patient/Corporate Treasurer Name: Patient/Corporate Treasurer Signature: Relationship to Patient: Witness Name/Signature: Date: * DYing Estes RN: PERFORM Event Display: Patient Education Leaflets Authored Date: [id number] : Your Second Trimester Changes ?? [address] : Your Second Trimester Changes Each day, you and your baby are changing and growing together. Here???s a quick look at what???s happening to both of you. How you are changing Even when you don???t notice it, your body is adapting to meet the needs of your growing baby. The changes in your body might also affect your moods. ?? Your body Your uterus expands as your baby grows. As the weeks go by, you will feel more pressure on your bladder, stomach, and other organs. You may notice some skin color changes on your forehead, nose, or cheeks. Freckles may darken, and moles may grow. You may notice a darker line on your abdomen betweenyour belly button and pubic bone in the midline. ?? Your moods The second trimester is often easier than the first. Still, be prepared for mood swings. These are from the increase in hormones made by your body. Hormones are chemicals that affect the way organs work. These mood swings are a normal part of . ?? How your baby is growing ?? Month 4 Your baby???s heartbeat may be heard with a Doppler (handheld ultrasound device) by 9 to 10 weeks.??Eyebrows, eyelashes, and fingernails begin to form. ?? Month 5 You may feel your baby move. After a growth spurt, your baby nears 10 inches. ?? Month 6 Your baby???s fingerprints have formed. Your baby weighs about 1??to 2 pounds and is about 12 inches long. ?? Last Reviewed Date: 2020 ?? 4699-2955 The [employer]. All rights reserved. This information is not intended as a substitute for professional medical care. Always follow your healthcare professional's instructions. ?? * David UNDERWOOD, Ying Brar: PERFORM Event Display: Patient Education Leaflets Authored Date: [id number] Comfort Tips During ?? 63793 Comfort Tips During can bring discomfort of different kinds. Below are tips for ways to feel better.??Talk with your??healthcare provider before using pain-relieving medicine at any time during your . First trimester tips Easing nausea ??? Get up slowly. Eat a few unsalted crackers before you get out of bed. ??? Avoid smells that bother you. ??? Eat small,??bland, low-fat, high-protein meals at frequent intervals. ??? Sip on water,weak??tea, or clear soft drinks, like katherine osei.??Eat ice chips. ??? Try taking vitamin B6. Coping with fatigue ??? Take catnaps when you can. ??? Get regular exercise. ??? Accept help from others. ??? Practice good sleep habits, like going to bed and getting up at the same time each day. Use your bed only forsleep and sex. Calming mood swings ??? Talk about your feelings with others, including other mothers. ??? Limit sugar, chocolate, and caffeine. ??? Eat a healthy diet. Don???t skip meals. ??? Get regular exercise. Soothing headaches ??? Get fresh air and exercise. ??? Relax and get enough rest. ??? Check with your healthcare provider before taking any pain medicines. ?? Second trimester tips ??? To limit ankle swelling, sit with your feet raised or wear support hose. ??? If you have pain in your groin and stomach??(round ligament pain), don't make sudden twisting movements with your body. ??? For leg cramps, flexing your foot often brings immediate relief. Also try massaging your calf in long, downward strokes, or stretching your legs before going to bed. Get enough exercise and wear shoes with flexible soles. Eat foods rich in calcium. ?? Third trimester tips Reducing heartburn ??? Eat small, light meals throughout the day rather than 3 large ones. ??? Sleep with your upper body raised 6 inches. Don???t lie down until 2 hours after you eat. ??? Don't eat greasy, fried, or spicy foods. ??? Don't have citrus fruits or juices. Treating constipation ??? Eat foods high in fiber, such as whole-grain foods, and fresh fruit and vegetables). ??? Drink plenty of water. ??? Get regular exercise. ??? Ask about your healthcare provider about medicines that have docusate or psyllium. Taking care of your breasts ??? Don't use harsh soaps or alcohol, which can make your skin too dry. ??? Wear nursing bras. Theyprovide more support than regular bras and can be used after if you breastfeed. Getting a good night???s sleep ??? Take a warm shower before bed. ??? Sleep on a firm mattress. ???Lie on your side with 1 leg crossed over the other. ??? Use pillows to support your arms, legs, andbelly. ?? Last Reviewed Date: 2019 ?? 1192-6971 The [employer]. All rights reserved. This information is not intended as a substitute for professional medical care. Always follow your healthcare professional's instructions. ?? * David UNDERWOOD, Ying Brar: PERFORM Event Display: Patient Education Leaflets Authored Date: [id number] Adapting to : Second Trimester ?? [address] Adapting to : Second Trimester Keep up the healthy habits you started in your first trimester. You might be a little more tired than normal. So plan your day wisely. Look at the tips below and choose the ones that suit your lifestyle. Note If you have any questions, talk with your healthcare provider. ?? If you work If you can, adjust your work with your employer to fit your needs. Try these tips: ??? If you standfor long periods, find ways to do some tasks while sitting. Also, try to stand with 1 foot resting on a low stool or ledge. Shift your weight from foot to foot often. Wear low-heeled shoes. ??? If you sit, keep your knees level with your hips. Rest your feet on a firm surface. Sit tall with supportfor your low back. ??? If you work long hours, ask about adjusting your schedule. Try taking shorter breaks more often. ?? When you travel The second trimester may be the best time for any travel. Talk to your healthcare provider about any special plans you may need to make. Always: ??? Wear a seat belt. Fasten the lap part under your belly. Wear the shoulder part also. ??? Take breaks often during long trips by car or plane. Move around to stretch your legs. ??? Drink plenty of fluids on flights. The air in plane cabins is very dry. ??? Stay out of hot climates or high altitudes if you are not used to them. ??? Stay away from places where the food and water might make you sick. ??? Make sure you are up-to-date on all vaccines, including the flu vaccine. This is especially important when traveling overseas. ?? Taking time to relax Find time to rest and relax at work or at home: ??? Take short time-outs daily. Do relaxation exercises. ??? Breathe deeply during stressful times.??? Try not to take on too much. Plan tasks for times when you have the most energy. ??? Take naps when you can. Or just sit and relax. ??? After week 16, don't lie on your back for more than a few minutes. Instead, lie on your side. Switch sides often. ?? Having sex Unless your healthcare provider tells you otherwise, there is no reason to stop having sex now. Blood supply increases to the pelvic area in the second trimester. Because of this, sex might be more enjoyable. Try different positions and see what???s best. Also talk with your partner about any changes in desire. Spotting may happen after sex. Let your healthcare provider know if there is heavy bleeding. ?? Keeping your environment safe You can still clean your house and use scented products. Just take some simple precautions: ??? Wear gloves when using cleaning fluids. ??? Open windows to let in fresh air. Use a fan if you paint. ??? Stay away from secondhand smoke. ??? Don???t breathe fumes from nail setswana, hair spray, cleansers, or other chemicals. ?? How daily issues affect your health Many things in your daily life impact your health. This can include transportation, money problems,housing, access to food, and teacher early childhood development. If you can???t get to medical appointments, you may not receive the care you need. When money is tight, it may be difficult to pay for medicines. And living far from a grocery store can make it hard to buy healthy food. If you have concerns in any of these or other areas, talk with your healthcare team. They may know of local resources to assist you. Or they may have a staff person who can help. ?? Last Reviewed Date: 2020 ?? 6551-1009 The [employer]. All rights reserved. This information is not intended as a substitute for professional medical care. Always follow your healthcare professional's instructions. ?? Patient Care team information Care Team Personnel Name: Rebecca Mo MD Position: [facility] Resident Member Role: PCP Address: Address: [address] [place] [address]- Care Team Related Persons Name: Monroe Romo Address: [place] [address] Name: MARIFER ROMO Address: [place] [address]
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
--- OUTSIDE RECORDS SUMMARY | 2023-07-18 10:22 | XMS_ITS | Continuity of Care Document ---
Author Organization [facility] ter Address [address] [place] [id number]- Care Team Providers Care Medicare Sales Representative Name Role Phone Chepe CADE, Rebecca Primary Care Physician [phone] Encounter [facility] [place] Date(s): 12/21/21 - 12/21/[address] [address] Discharge Disposition: A-D/C Home Attending Physician: Amelia Cisneros MD Admitting Physician: Amelia Cisneros MD Referring Physician: Amelia Cisneros MD Allergies, Adverse Reactions, Alerts Substance Reaction [...] 11/15/09 Give n Human Papillomavirus Vaccine 2 2/5/10 Given Human Papillomavirus Vaccine 3 11/15/08 Given [...] Acute 01/18/22 10:19:00 EST, 11/19/21 10:19:00 EDT, [facility] #[id number], Partial fill upon patient request if the prescr... Start Date: 11/19/21 Stop Date: 01/18/22 Status: Ordered aspirin 162.5 mg oral capsule, extended release 1 capsule = 162.5 mg, By Mouth, Daily, at the same time every day, # 90 capsule, 3 Refills, Maintenance, 10/16/21 12:30:00 EDT, ER Capsule, [facility] #[id number], Partial fill upon patient request if the prescription is for a schedule II opioid... Start Date: 10/16/21 Status: Ordered folic acid 0.4 mg oral tablet 1 tablet = 0.4 mg, By Mouth, Daily, # 100 tablet, 5 Refills, Maintenance, 08/21/21 9:43:00 EDT, Tablet, [facility] #[id number], Partial fill upon patient request if the [...] 1 Refills, Maintenance, 11/19/21 10:20:00 EDT, Ointment, [facility] #[id number], Partial fill upon patient request if the prescriptionis for a schedule II opioid drug., 1 application To... Start Date: 11/19/21 Status: Ordered lisdexamfetamine 30 mg oral capsule 1 capsule = 30 mg, By Mouth, Daily in AM, Dx F90.0, # 30 capsule, 0 Refills, Maintenance, 06/09/20 9:11:00 EDT, Capsule, [facility] #[id number], Partial fill upon patient request if the prescription is for a schedule II opioid drug., 1 capsule By... Start Date: 06/09/20 Stop Date: 07/09/20 Status: Ordered Macrobid macrocrystals-monohydrate 100 mg oral capsule 1 capsule = 100 mg, By Mouth, 2 times a day, for 7 days, # 14 capsule, 0 Refills, Acute 12/28/21 17:37:00 EST, 12/21/21 17:37:00 EST, Capsule, [facility] #[id number], Partial fill upon patient request if the prescription is for a schedule II opio... Start Date: 12/21/21 Stop Date: 12/28/21 Status: Ordered Multivitamins with FA 0.8 mg oral tablet 1 tablet, By Mouth, Daily, for 90 days, # 90 tablet, 2 Refills, Hard Stop 08/05/22 13:36:00 EDT, 11/08/21 13:36:00 EDT, Tablet, [facility] #[id number], Partial fill upon patient request if the [...] Replace Required Details, Route to Pharmacy Electronically, [id number]... Start Date: 06/25/18 Status: Ordered Prometrium 200 mg oral capsule 1 capsule = 200 mg, Vaginally, Daily at bedtime, # 60 capsule, 3 Refills, Maintenance, 12/11/21 11:42:00 EDT, [facility] #[id number], Partial fill upon patient request if the prescription is fora schedule II opioid drug., 160, cm, 12/11/21 11:20... Start Date: 12/11/21 Status: Ordered Pyridium 100 mg oral tablet 1 tablet = 100 mg, By Mouth, 3 times a day, for 3 days, # 9 tablet, 0 Refills, Acute 12/24/21 15:48:00 EST, 12/21/21 15:48:00 EST, Tablet, [facility] #[id number], Partial fill upon patient request if the prescription is for a schedule II opioid d... Start Date: 12/21/21 Stop Date: 12/24/21 Status: Ordered Problem List Condition Confirmation Course Effective Dates Status H ealth Status Informant ADD - Attention deficit disorder with hyperactivity Confirmed Active Allergic rhinitis due to pollen Confirmed Improving Active Asthma, mild intermittent, precipitated by colds, allergies 1 Confirmed Stable Active Mood disorder Confirmed Active Obesity Confirmed Active Severe obesity Confirmed Active 29/04/2007 [facility] admission #1: acute asthma attack Vital Signs Most recent to oldest [Reference Range]: 1 2 Height 160 cm (12/21/21 3:25 PM) Oxygen Saturation [94-100 %] 100 % (12/21/21 2:56 PM) Pulse Rate [55-90 bpm] 82 bpm (12/21/21 2:56 PM) Blood Pressure [90-138/55-84 mm Hg] 104/ 60mm Hg (12/21/21 2:56 PM) Respiratory Rate [16-30 br/min] 18 br/mi n (12/21/21 3:25 PM) 18 br/min (12/21/21 2:56 PM) Temperature [96.8-100.4 DegF] 98.8 DegF (12/21/21 2:56 PM) Mode of Delivery (Oxygen) Room air (12/21/21 2:56 PM) Blood pressure sites Arm, left (12/21/21 2:56 PM) Temperature Route Oral (12/21/21 2:56 PM) Social History Social History Type Response Smoking Status Never (less than 100 in lifetime);Never; Exposure to Secondhand Smoke: Yes; Tobacco use times per day: mother smokes; entered on: 09/14/21 Sex Note * Pernell Arora RN: PERFORM Event Display: Discharge/Transfer Note Hospital Authored Date: [id number] Nursing Discharge Note Entered On: 12/21/2021 18:06 EST Performed On: 12/21/2021 18:06 EST by Pernell Arora RN Nursing Discharge Note 2 Discharge Time : 12/21/2021 18:01 EST Discharge Level of Care at Discharge : Home/Fpc/Foster Care Patient Left Unit Via : Ambulatory Patient Accompanied Off Unit with : Other: self DC Instructions Provided & Signed by Pt : Yes Patient Understands D/C Instructions : Yes Patient Instructions Discharge Signed : Yes Did Pt have Specialty Bed or Wound Vac : No Pernell Arora RN - 12/21/2021 18:06 EST * Pernell Arora RN: PERFORM Event Display: Patient Education/Instruction Authored Date: [id number] Inpatient Adult Discharge Instructions [address] [address] Name: DODIE ROMO : 1990 Visit: 12/21/2021 13:24:00 Current Date: 12/21/2021 17:52 Account: [id number] Inpatient Adult Discharge Instructions We would like [...] and their families. Surveys are administered by [employer] ?? If further treatment with your primary care physician or another doctor is recommended, it is important for you to keep the appointment. Call your primary care physician or return to the Emergency Department immediately if your condition worsens, fails to improve, or new symptoms develop. If you need to find a doctor, you can call [facility] [place] for a referral at [phone] or toll free at [phone]) or log in to [email or web address].. ?? You can view and manage your care through the patient portal or by using a health care hasmukh of your choosing. [employer] is a website that allows you to securely view your medical information including your hospital discharge summary, office visit summaries, medications and follow-up visits. You can also request appointments, renew medications, and request access to your medical information using a health care hasmukh of your choosing, or just ask a question. You can enroll at [email or web address] or register during your next office visit. You have been discharged from [facility], Patient Care Unit: [id number]. If you have any questions regarding these instructions after you leave, please call us and we will be happy to assist you. [facility] Your Care Team Attending Physician Amelia Cisneros MD Your Diagnosis Urinary frequency Dysuria in Tests Performed Below is a partial list of the tests performed during your hospitalization. You may have had other tests and procedures not included in this list. Please discuss all test results with your provider. Complete Urinalysis Primary Care Provider Rebecca Mo MD Advance Directive Health Care Proxy on File No Patient has a Designated Caregiver: No Discharge Vitals Temperature: 98.8 DegF Height: 160 cm Pulse Rate: 82 bpm ?? Respiratory Rate: 18 br/min ?? Systolic Blood Pressure: 104 mm Hg ?? Diastolic Blood Pressure: 60 mm Hg ?? Oxygen Saturation: 100 % ?? Studies Pending All tests and labs ordered during this hospital stay have been completed unless listed below. Please discuss all pending results with your provider listed above in these instructions. ?? Urine Culture What to do next Instructions From Your Doctor Discharge Orders Scheduled Follow-Up Appointments Friday 12:00 PM EST ?? With: Monroe Barreto Where: [facility] 2021 2:30 PM EST ?? With: Manish Dunn Where: [facility] Friday 11:20 AM EST ?? With: Marisol Malone CNM Where: [facility] [employer] [address] [place] [id number]- Discharge Medications DEMETRIUS, DODIE :1990 Visit Date:12/21/2021 Medications: Please continue your medications until treatment is completed or stopped by your provider. Medications not listed below should be discontinued. Discuss any questions related to medications with your provider. What How Much When Instructions Next Dose New Nitrofurantoin (Macrobid macrocrystals-monohydrate 100 mg oral capsule) 1 capsule Oral Twice a day Duration: 7 Days Pickup at [facility] #[id number] Unchanged Acetaminophen (acetaminophen 500 mg oral tablet) [...] oral tablet) 1 tab(s) Oral Daily Unchanged Lidocaine Topical (lidocaine 5% topical ointment) 1 hasmukh Topically 3 times a day PRN Pain ?? Unchanged lisdexamfetamine (lisdexamfetamine 30 mg oral capsule) 1 capsule Oral Daily in the morning Duration: 30 Days Dx F90.0 ?? Unchanged Multivitamin, ( Multivitamins with FA 0.8 mg oral tablet) 1 tab(s) Oral Daily Duration: 90 Days Unchanged Phenazopyridine (Pyridium 100 mg oral tablet) 1 tab(s) Oral 3 times a day Duration: 3 Days Unchanged Progesterone (Prometrium 200 mg oral capsule) 1 capsule Vaginally Daily at Bedtime Pharmacy Information [facility] #[id number]: [address], [place] [id number] [phone] Test Results Below is a partial list of the most recent Laboratory test results done prior to this discharge. You may have had other tests and procedures not included in this list. Please discuss all test resultswith your provider. Complete Urinalysis (12/21/2021) ???Appear/Color, Urine - DARK YELLOW???Specific Termo, Urine - 1.005???pH, Urine - 6.5???Albumin,Urine - NEGATIVE???Glucose, Urine - NEGATIVE???Ketones, Urine - 2+???Bilirubin, Urine - NEGATIVE???Hemoglobin, Urine - NEGATIVE???Nitrite, Urine - POSITIVE???Leukocyte, Urine - NEGATIVE???Urobilinogen - NORMAL? ?WBC's, Urine - <1 /HPF? ?RBC's, Urine - 1 /HPF? ?Squamous Epith - 1 /HPF Allergies (NKA means No Known Allergies) Apples Pollen??(Allergic Rhinitis Due to Pollen, Allergic conjunctivitis) Problems Active Problems??(8) ADD - Attention deficit disorder with hyperactivity?? Allergic rhinitis due to pollen?? Asthma, mild intermittent, precipitated by colds, allergies?? Degenerative disc changes C5-C6 and C6-C7?? Mood disorder?? Obesity? Severe obesity?? Education Materials Below is the list of Educational Leaflet Providered with your Discharge Instructions. Premature Labor?? Urinary Tract Infections in Women?? Valuables and Belongings I fully understand and agree that [facility] accepts no responsibility for all my [...] are strongly encouraged to quit. Please call [facility] [employer] [facility] at [phone] or [phone] ([phone]) or log in to [email or web address] for referrals to smoking cessation programs. ?? The National Suicide Prevention Hotline is available 02/09 if you or someone you know needs to find a reason to keep living. By calling 8-346-806Clicknation (6227) you'll be connected to a skilled, trained counselor at a crisis center in your area. INPATIENT DISCHARGE INSTRUCTIONS SIGNATURE PAGE DODIE ROMO Location:[facility] Registration Date and Time:12/21/2021 13:24 [facility] Primary Care Physician: Rebecca Mo MD, I DODIE ROMO, have received the above patient education materials/instructions and have verbalized understanding. If ambulance or transport services are being used I further acknowledge beinggiven a choice of service. ?? If you need to contact me, please call me at this number: . Patient/Cma Or Lpn Name: Patient/Cma Or Lpn Signature: Relationship to Patient: Witness Name/Signature: Date: * Pernell Arora RN: PERFORM Event Display: Patient Education Leaflets Authored Date: Premature Labor ?? [id number] Premature Labor Premature labor ( labor) is when symptoms of labor occur before 37 weeks of . (Thisis 3 weeks before your due date.) Premature labor can lead to premature delivery. This means givingbirth to your baby early. Babies need at least 37 weeks of for all the organs to develop normally. The earlier the delivery, the greater the risks to the baby. In most cases, the cause of premature labor is unknown. But certain factors may make the problem more likely. These include: ??? History of premature labor with other pregnancies ??? Smoking ??? Alcohol or substance abuse ??? Low prepregnancy weight or weight gain during ??? Short time period between pregnancies ??? Being with twins, triplets, or more ??? History of certain types of surgery on the cervix or uterus ??? Having a short cervix ??? Certain infections There are a number of other risk factors. Ask your healthcare provider to help you understand the risk factors specific to your case. Then find out what you can do to control or reduce them. Contractions are one of the main signs of premature labor. A contraction is different from cramping. It may feel painful and the belly (abdomen) may get hard. It can last from a few seconds to a few minutes. Some women may feel only a sense of pressure in the belly, thighs, rectum, or vagina. Some may feel only the hardening of the uterus without pain or pressure. Or there may be a constant pain in the lower back, which spreads forward toward the belly. Premature labor is often treated with medicines.??A hospital stay may be needed. If labor doesn't progress and you and your baby are both healthy, you may be discharged to continue care at home. Home care ??? Ask your provider any questions you have. Be certain you understand how to care for yourself at home. Also follow all recommendations given by your healthcare providers. ??? Learn the signs of premature labor.??Watch for these signs when you get home. ??? Limit or restrict activities as advised. This may include stopping certain physical activities and cutting back hours at work. ??? Don't do strenuous work as advised by your provider.??Ask family and friends for help with tasks and support at home, if needed. ??? Don???t smoke, drink alcohol, or use other harmful substances. ??? Take steps to reduce stress. ??? Report any unusual symptoms to your provider. ?? Follow-up care Follow up with your healthcare provider directed.??Weekly visits with your provider may be needed. ?? When to seek medical advice Call your healthcare provider right away if any of these occur: ??? Regular or frequent contractions, whether they're painful or not ??? Pressure in the pelvis ??? Pressure in the lower belly or mildcramping in your belly with or without diarrhea ??? Constant low, dull backache ??? Gush or slow leaking of water from your vagina ??? Change in vaginal discharge (watery, mucus, or bloody) ??? Any vaginal bleeding ??? Decreased movement of your baby ?? Last Reviewed Date: 2021 ?? [employer]. All rights reserved. This information is not intended as a substitute for professional medical care. Always follow your healthcare professional's instructions. ?? * Pernell Arora RN: PERFORM Event Display: Patient Education Leaflets Authored Date: [id number] Urinary Tract Infections in Women ?? [id number] Urinary Tract Infections in Women Urinary tract infections (UTIs) are most often caused by bacteria. These bacteria enter the urinarytract. The bacteria may come from inside the body. Or they may travel from the skin outside the rectum or vagina into the urethra. Female anatomy makes it easy for bacteria from the bowel to enter a woman???s urinary tract. This is the most common source of UTI. This means women develop UTIs more often than men. Pain in or around the urinary tract is a common UTI symptom. Most UTIs are treated with antibiotics. These kill the bacteria. The length of time you need to take them depends on the type of infection. It may be as short as 3 days. If you have repeated UTIs, you may need a low-dose antibiotic for several months. Take antibiotics exactly as directed. Don???t stop taking them until all of the medicine is gone. If you stop taking the antibiotic too soon, the infection may not go away. You may also develop a resistance to the antibiotic. This can make it muchharder to treat in the future. Home care The lifestyle changes below will help get rid of your UTI. They may also help prevent future UTIs: ??? Drink plenty of fluids. This includes water, juice, or other caffeine-free drinks. Fluids help flush bacteria out of your body. ??? Empty your bladder. Always empty your bladder when you feel the urge to pee. And always pee before going to sleep. Urine that stays in your bladder can lead to infection. Try to pee before and after sex as well. ??? Practice good personal hygiene. Wipe yourself from front to back after using the toilet. This helps keep bacteria from getting into the urethra. ???Use condoms during sex. These help prevent UTIs caused by sexually transmitted bacteria. Also don'tuse spermicides during sex. These can increase the risk for UTIs. Choose other forms of control instead. For women who tend to get UTIs after sex, a low-dose of a preventive antibiotic may be used. Be sure to discuss this option with your healthcare provider. ??? Try holistic supplements suchas cranberry tablets and D-mannose. These may help prevent UTIs. ??? Try topical vaginal estrogen. You can use this to help prevent UTIs if you have gone through menopause. ?? Follow-up care Follow up with your healthcare provider as directed. He or she may test to make sure the infection has cleared. If needed, more treatment may be started. ?? When to seek medical advice Call your healthcare provider right away if any of these occur: ??? Frequent urination ??? Pain or burning when passing urine ??? Fever of 100.4??F (38??C) or higher , or as directed by your healthcare provider ??? Urine looks dark, cloudy, or reddish in color. This may mean that blood is in the urine. ??? Urine smells bad ??? Feeling pain even when not urinating ??? Tiredness ??? Pain in the belly (abdomen) area below the bellybutton, or in the back or side, below the ribs ??? Nausea or vomiting ??? Have a strong urge to urinate, but only a small amount of urine is passed ??? Uncomfortable pressure above the pubic bone ??? Feeling confused or very tired (in older adults) ?? Last Reviewed Date: 2019 ?? 7220-4589 [employer]. All rights reserved. This information is not intended as a substitute for professional medical care. Always follow your healthcare professional's instructions. ?? Patient Care team information Care Team Personnel Name: Rebecca Mo MD Position: [facility] Resident Member Role: PCP Address: Address: [address] [place] [address] Name: Pernell Arora RN Position: [facility] OB RN Member Role: Patient Care Provider Care Team Related Persons Name: Monroe Romo Address: [place] [address] Name: MARIFER ROMO Address: [place] [address]
--- OUTSIDE RECORDS SUMMARY | 2023-07-18 10:22 | XMS_ITS | Continuity of Care Document ---
Author Organization [facility] Address [address] [place] [id number]- Care Team Providers Care Housesmith Name Role Phone Chepe CADE, Rebecca Primary Care Physician [phone] Encounter [facility] [place] [place] Date(s): 02/26/22 - 03/28/[address] [id number] Allergies, Adverse Reactions, Alerts Substance Reaction [...] 8Admin Note: POLIO(oral) 9Admin Note: POLIO(oral) Medications ampicillin 500 mg oral capsule 1 capsule = 500 mg, By Mouth, 4 times a day, # 28 capsule, 0 Refills, Maintenance, 03/24/22 7:58:00EST, Capsule, [facility] #[id number], Partial fill upon patient request if the prescription isfor a schedule II opioid drug., 160, cm, 03/12/22 1... Start Date: 03/24/22 Stop Date: 03/31/22 Status: Ordered aspirin 162.5 mg oral capsule, extended release 1 capsule = 162.5 mg, By Mouth, Daily, at the same time every day, # 90 capsule, 3 Refills, Maintenance, 02/08/22 8:37:00 EST, ER Capsule, [facility] #[id number], Partial fill upon patient request if the prescription is for a schedule II opioid d... Start Date: 02/08/22 Status: Ordered Diflucan 150 mg oral tablet 1 tablet = 150 mg, By Mouth, Once, # 1 tablet, 0 Refills, Soft Stop, 02/15/22 10:22:00 EST, Tablet,[facility] #[id number], Partial fill upon patient request if the prescription is for a schedule II opioid drug., 160, cm, 02/08/22 8:11:00 EST, He... Start Date: 02/15/22 Status: Ordered famotidine 20 mg oral tablet 20 mg, 1, tablet, By Mouth, 2 times a day, # 180 tablet, Refills 0, Tot. Refills 0, Maintenance, 02/08/22 8:37:00 EST, Route to Pharmacy Electronically, [facility] #[id number], Partial fill uponpatient request if the prescription is for a schedu... Start Date: 02/08/22 Status: Ordered folic acid 0.4 mg oral tablet 1 tablet = 0.4 mg, By Mouth, Daily, # 100 tablet, 5 Refills, Maintenance, 08/21/21 9:43:00 EDT, Tablet, [facility] #[id number], Partial fill upon patient request if the [...] 1 Refills, Maintenance, 11/19/21 10:20:00 EDT, Ointment, [facility] #[id number], Partial fill upon patient request if the prescriptionis for a schedule II opioid drug., 1 application To... Start Date: 11/19/21 Status: Ordered lisdexamfetamine 30 mg oral capsule 1 capsule = 30 mg, By Mouth, Daily in AM, Dx F90.0, # 30 capsule, 0 Refills, Maintenance, 06/09/20 9:11:00 EDT, Capsule, [facility] #[id number], Partial fill upon patient request if the prescription is for a schedule II opioid drug., 1 capsule By... Start Date: 06/09/20 Stop Date: 07/09/20 Status: Ordered Multivitamins with FA 0.8 mg oral tablet 1 tablet, By Mouth, Daily, for 90 days, # 90 tablet, 2 Refills, Hard Stop 05/02/23 13:36:00 EDT, 08/05/22 13:36:00 EDT, Tablet, [facility] #[id number], Partial fill upon patient request if the prescription is for a schedule II opioid drug., 1 tab... Start Date: 08/05/22 Stop Date: 05/02/23 Status: Ordered Multivitamins with FA 0.8 mg oral tablet 1 tablet, By Mouth, Daily, for 90 days, # 90 tablet, 2 Refills, Hard Stop 08/05/22 13:36:00 EDT, 11/08/21 13:36:00 EDT, Tablet, [facility] #[id number], Partial fill upon patient request if the [...] Replace Required Details, Route to Pharmacy Electronically, [id number]... Start Date: 06/25/18 Status: Ordered Prometrium 200 mg oral capsule 1 capsule = 200 mg, Vaginally, Daily at bedtime, # 60 capsule, 3 Refills, Maintenance, 02/08/22 8:36:00 EST, [facility] #[id number], Partial fill upon patient request if the prescription is for a schedule II opioid drug., 160, cm, 02/08/22 8:11:0... Start Date: 02/08/22 Status: Ordered Valtrex 500 mg oral tablet See Instructions, 1 tablet By Mouth twice daily starting at 34wks for remainder of , # 60 tablet, Refills 0, Tot. Refills 0, Maintenance, 03/12/22 13:13:00 EST, Instructions Replace RequiredDetails, Route to Pharmacy Electronically, [facility]... Start Date: 03/12/22 Status: Ordered Problem List Condition Confirmation Course Effective Dates Status H ealth Status Informant ADD - Attention deficit disorder with hyperactivity Confirmed Active Allergic rhinitis due to pollen Confirmed Improving Active Asthma, mild intermittent, precipitated by colds, allergies 1 Confirmed Stable Active 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 Mood disorder Confirmed Active Obesity Confirmed Active Severe obesity Confirmed Active 29/04/2007 [facility] admission #1: acute asthma attack Social History Social History Type Response Smoking Status Never (less than 100 in lifetime);Never; Exposure to Secondhand Smoke: Yes; Tobacco use times per day: mother smokes; entered on: 09/14/21 Sex Patient Care team information Care Team Personnel Name: Rebecca Mo MD Position: [facility] Resident Member Role: PCP Address: Address: [address] [place] [address] Care Team Related Persons Name: Monroe Mcgarry Address: [address] [place] [address] Name: MARIFER MCGARRY Address: home [address] [place] [address] Name: DODIE MCGARRY GIRL Address: Address: [address]
--- OUTSIDE RECORDS SUMMARY | 2023-07-18 10:23 | XMS_ITS | Continuity of Care Document ---
Author Organization [facility] Address [address] [place] [address]- Care Team Providers Care Power Nut Runner Operator Name Role Phone Chepe CADE, Rebecca Primary Care Physician [phone] [place] [facility] [place] - 03/29/22 [facility] [address] [address] Allergies, Adverse Reactions, Alerts Substance Reaction Severity [...] capsule, 0 Refills, Maintenance, 03/24/22 7:58:00EST, Capsule, [facility] #[id number], Partial fill upon patient request if the prescription isfor a schedule II opioid drug., 160, cm, 03/12/22 1... Start Date: 03/24/22 Stop Date: 03/31/22 Status: Ordered aspirin 162.5 mg oral capsule, extended release 1 capsule = 162.5 mg, By Mouth, Daily, at the same time every day, # 90 capsule, 3 Refills, Maintenance, 02/08/22 8:37:00 EST, ER Capsule, [facility] #[id number], Partial fill upon patient request if the prescription is for a schedule II opioid d... Start Date: 02/08/22 Status: Ordered Colace sodium 100 mg oral capsule 100 mg, 1, capsule, By Mouth, 2 times a day, PRN, # 20 capsule, Refills 0, Tot. Refills 0, Maintenance, for constipation, 03/29/22 8:35:00 EST, Route to Pharmacy Electronically, [facility] #[id number], Partial fill upon patient request if the pre... Start Date: 03/29/22 Status: Ordered Diflucan 150 mg oral tablet 1 tablet = 150 mg, By Mouth, Once, # 1 tablet, 0 Refills, Soft Stop, 02/15/22 10:22:00 EST, Tablet,[facility] #[id number], Partial fill upon patient request if the prescription is for a schedule II opioid drug., 160, cm, 02/08/22 8:11:00 EST, He... Start Date: 02/15/22 Status: Ordered famotidine 20 mg oral tablet 20 mg, 1, tablet, By Mouth, 2 times a day, # 180 tablet, Refills 0, Tot. Refills 0, Maintenance, 02/08/22 8:37:00 EST, Route to Pharmacy Electronically, [facility] #[id number], Partial fill uponpatient request if the prescription is for a schedu... Start Date: 02/08/22 Status: Ordered folic acid 0.4 mg oral tablet 1 tablet = 0.4 mg, By Mouth, Daily, # 100 tablet, 5 Refills, Maintenance, 08/21/21 9:43:00 EDT, Tablet, [facility] #[id number], Partial fill upon patient request if the [...] EDT, Height Start Date: 11/08/19 Status: Ordered ibuprofen 800 mg oral tablet 800 mg, 1, tablet, By Mouth, Every 8 hours, # 40 tablet, Refills 0, Tot. Refills 0, Maintenance, 03/29/22 8:34:00 EST, Route to Pharmacy Electronically, [facility] #[id number], Partial fill uponpatient request if the prescription is for a schedu... Start Date: 03/29/22 Status: Ordered lidocaine 5% topical ointment 1 application, Topically, 3 times a day, PRN Pain, # 50 Gm, 1 Refills, Maintenance, 11/19/21 10:20:00 EDT, Ointment, [facility] #[id number], Partial fill upon patient request if the prescriptionis for a schedule II opioid drug., 1 application To... Start Date: 11/19/21 Status: Ordered lisdexamfetamine 30 mg oral capsule 1 capsule = 30 mg, By Mouth, Daily in AM, Dx F90.0, # 30 capsule, 0 Refills, Maintenance, 06/09/20 9:11:00 EDT, Capsule, [facility] #[id number], Partial fill upon patient request if the prescription is for a schedule II opioid drug., 1 capsule By... Start Date: 06/09/20 Stop Date: 07/09/20 Status: Ordered oxyCODONE 5 mg oral tablet 5 mg, 1, tablet, By Mouth, Every 6 hours, PRN, # 12 tablet, Refills 0, Tot. Refills 0, Maintenance,for pain, 03/29/22 8:34:00 EST, Route to Pharmacy Electronically, [facility] #[id number], Partial fill upon patient request if the prescription is... Start Date: 03/29/22 Status: Ordered Multivitamins with FA 0.8 mg oral tablet 1 tablet, By Mouth, Daily, for 90 days, # 90 tablet, 2 Refills, Hard Stop 05/02/23 13:36:00 EDT, 08/05/22 13:36:00 EDT, Tablet, [facility] #[id number], Partial fill upon patient request if the prescription is for a schedule II opioid drug., 1 tab... Start Date: 08/05/22 Stop Date: 05/02/23 Status: Ordered Multivitamins with FA 0.8 mg oral tablet 1 tablet, By Mouth, Daily, for 90 days, # 90 tablet, 2 Refills, Hard Stop 08/05/22 13:36:00 EDT, 11/08/21 13:36:00 EDT, Tablet, [facility] #[id number], Partial fill upon patient request if the [...] Replace Required Details, Route to Pharmacy Electronically, [id number]... Start Date: 06/25/18 Status: Ordered Prometrium 200 mg oral capsule 1 capsule = 200 mg, Vaginally, Daily at bedtime, # 60 capsule, 3 Refills, Maintenance, 02/08/22 8:36:00 EST, [facility] #[id number], Partial fill upon patient request if the prescription is for a schedule II opioid drug., 160, cm, 02/08/22 8:11:0... Start Date: 02/08/22 Status: Ordered simethicone 80 mg oral tablet, chewable 160 mg, 2, tablet, Chew, 3 times a day, PRN, # 48 tablet, Refills 0, Tot. Refills 0, Maintenance, Gas, 03/29/22 8:34:00 EST, Route to Pharmacy Electronically, [facility] #[id number], Partial fill upon patient request if the prescription is for a... Start Date: 03/29/22 Status: Ordered Tylenol 325 mg oral capsule 2 capsule = 650 mg, By Mouth, Every 4 hours, PRN as needed for pain, # 50 capsule, 0 Refills, Maintenance, 03/29/22 8:34:00 EST, Capsule, [facility] #[id number], Partial fill upon patient request if the prescription is for a schedule II opioid Start Date: 03/29/22 Status: Ordered Valtrex 500 mg oral tablet See Instructions, 1 tablet By Mouth twice daily starting at 34wks for remainder of , # 60 tablet, Refills 0, Tot. Refills 0, Maintenance, 03/12/22 13:13:00 EST, Instructions Replace RequiredDetails, Route to Pharmacy Electronically, [facility]... Start Date: 03/12/22 Status: Ordered Problem List Condition Confirmation Course Effective Dates Status H ealth Status Informant ADD - Attention deficit disorder with hyperactivity Confirmed Active Allergic rhinitis due to pollen Confirmed Improving Active Asthma, mild intermittent, precipitated by colds, allergies 1 Confirmed Stable Active 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 Mood disorder Confirmed Active Obesity Confirmed Active Severe obesity Confirmed Active 29/04/[address] [facility] admission #1: acute asthma attack Social History Social History Type Response Smoking Status Never (less than 100 in lifetime);Never; Exposure to Secondhand Smoke: Yes; Tobacco use times per day: mother smokes; entered on: 09/14/21 Sex Patient Care team information Care Team Personnel Name: Rebecca Mo MD Position: [facility] Resident Member Role: PCP Address: Address: [address] [place] [address] Care Team Related Persons Name: Monroe Mcgarry Address: [place] [address] Name: MARIFER MCGARRY Address: [place] [address] Name: DODIE MCGARRY GIRL Address: Address: [address]
--- OUTSIDE RECORDS SUMMARY | 2023-07-18 10:23 | XMS_ITS | Continuity of Care Document ---
Author Organization [facility] Address [address] [place] [address]- Care Team Providers Care Cage Maker Machine Name Role Phone Bertha Montes MD Primary Care Physician Encounter [facility] Date(s): 12/13/22 - 01/12/[address] [address]- Allergies, Adverse Reactions, Alerts Substance Reaction Severity [...] 0 Refills, Soft Stop, 12/11/22 20:38:00 EDT, [facility] #[id number], Partial fill upon patient request if the prescription is for a schedule II opioid drug., 160, cm, 12/10/22 14:0... Start Date: 12/11/22 Status: Ordered Diflucan 150 mg oral tablet 1 tablet = 150 mg, By Mouth, Once, # 1 tablet, 0 Refills, Soft Stop, 10/25/22 11:47:00 EDT, Tablet,[facility], Partial fill upon patient request if the prescription is for a scheduleII opioid drug., 160, cm, 10/25/22 10:08:00 EDT, He... Start Date: 10/25/22 Status: Ordered hydrOXYzine hydrochloride 25 mg oral tablet 1 capsule, By Mouth, Once, PRN Agitation, # 30 capsule, 3 Refills, Soft Stop, 12/10/22 14:50:00 EDT, Capsule, [facility] #[id number], Partial fill upon patient request if the prescription is fora schedule II opioid drug., 160, cm, 12/10/22 14:07... Start Date: 12/10/22 Status: Ordered metroNIDAZOLE 500 mg oral tablet 1 tablet = 500 mg, By Mouth, Every 12 hours, for 7 days, DO NOT DRINK ALCOHOL WHILE ON THIS MEDICATION may take with food to minimize abdominal discomfort Take if topical metronidazole does not relieve symptoms, # 14 tablet, 1 Refills, Acute 2... Start Date: 01/08/23 Stop Date: 01/22/23 Status: Ordered metronidazole topical 0.75% gel with applicator 1 application, Vaginally, Daily at bedtime, # 70 Gm, 3 Refills, Soft Stop, 12/20/22 16:15:00 EST, Gel, [facility] #[id number], Partial fill upon patient request if the [...] 10/27/23 11:50:00 EDT, 10/25/22 11:49:00 EDT, Tablet, [facility], [facility]... Start Date: 10/25/22 Stop Date: 10/27/23 Status: Ordered Pen Hankamer, 32 G x 4 mm BD Ultra [...] Refills, Maintenance, 10/16/22 13:40:00 EDT, EC Tablet, [facility] #[id number], Partial fill upon patient request if the [...] Replace Required Details, Route to Pharmacy Electronically, [id number]... Start Date: 10/25/22 Status: Ordered Senna 8.6 mg oral tablet 17.2 mg, 2, tablet, By Mouth, Daily at bedtime, # 50 tablet, Refills 0, Tot. Refills 0, Maintenance, 03/31/22 6:17:00 EST, Route to Pharmacy Electronically, [facility] #[id number], Partial fill upon patient request if the prescription is for a sc... Start Date: 03/31/22 Status: Ordered sertraline 50 mg oral tablet 1 tablet = 50 mg, By Mouth, Daily, # 90 tablet, 1 Refills, Maintenance, 12/10/22 14:51:00 EDT, Tablet, [facility] #[id number], Partial fill upon patient request if the prescription is for a schedule II opioid drug., 160, cm, 12/10/22 14:07:00 EDT... Start Date: 12/10/22 Status: Ordered Tylenol 325 mg oral capsule 2 capsule = 650 mg, By Mouth, Every 4 hours, PRN as needed for pain, # 50 capsule, 0 Refills, Maintenance, 03/29/22 8:34:00 EST, Capsule, [facility] #[id number], Partial fill upon patient request if the prescription is for a schedule II opioid dr... Start Date: 03/29/22 Status: Ordered Victoza 18 mg/3 mL subcutaneous solution = 1.2 mg, Subcutaneous Infusion, Daily, # 3 mL, 6 Refills, Maintenance, 01/08/23 16:54:00 EST, [facility] #[id number], Partial fill upon patient request if the prescription is for a schedule II opioid drug., 160, cm, 01/08/23 15:39:00 EST, Height... Start Date: 01/08/23 Status: Ordered Problem List Condition Confirmation Course Effective Dates Status H ealth Status Informant ADD - Attention deficit disorder with hyperactivity Confirmed Active Allergic rhinitis due to pollen Confirmed Improving Active Asthma, mild intermittent, precipitated by colds, allergies 1 Confirmed Stable Active 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 Mood disorder Confirmed Active Obesity Confirmed Active Severe obesity Confirmed Active 29/04/2007 [facility] [place] [facility] admission #1: acute asthma attack Social History Social History Type Response Smoking Status Never (less than 100 in lifetime);Never; Exposure to Secondhand Smoke: Yes; Tobacco use times per day: mother smokes; entered on: 09/14/21 Sex Patient Care team information Care Team Personnel Name: Bertha Montes MD Position: S Resident Member Role: PCP Address: Address: [address] [place] [address] Care Team Related Persons Name: Monroe Mcgarry Address: [address] [address] Name: MARIFER MCGARRY Address: [address] [address] Name: REMA MCGARRY Address: Address: [address]
--- OUTSIDE RECORDS SUMMARY | 2023-07-18 10:23 | XMS_ITS | Continuity of Care Document ---
Author Organization [facility] Address [address] [address]- Care Team Providers Care Vocational Teacher Name Role Phone Chepe CADE, Rebecca Primary Care Physician [phone] Encounter [facility] [place] Date(s): 10/29/21 - 11/28/21 [facility] [address] [address] Allergies, Adverse Reactions, Alerts Substance Reaction Severity [...] Acute 01/18/22 10:19:00 EST, 11/19/21 10:19:00 EDT, [facility] #[id number], Partial fill upon patient request if the prescr... Start Date: 11/19/21 Stop Date: 01/18/22 Status: Ordered aspirin 162.5 mg oral capsule, extended release 1 capsule = 162.5 mg, By Mouth, Daily, at the same time every day, # 90 capsule, 3 Refills, Maintenance, 10/16/21 12:30:00 EDT, ER Capsule, [facility] #[id number], Partial fill upon patient request if the prescription is for a schedule II opioid... Start Date: 10/16/21 Status: Ordered aspirin 81 mg oral delayed release tablet 162 mg, 2, tablet, By Mouth, Daily, # 90 tablet, Refills 0, Tot. Refills 0, Maintenance, 11/13/21 9:32:00 EDT, Route to Pharmacy Electronically, [facility], Partial fill upon patientrequest if the prescription is for a schedule II op... Start Date: 11/13/21 Status: Ordered folic acid 0.4 mg oral tablet 1 tablet = 0.4 mg, By Mouth, Daily, # 100 tablet, 5 Refills, Maintenance, 08/21/21 9:43:00 EDT, Tablet, [facility] #[id number], Partial fill upon patient request if the [...] 1 Refills, Maintenance, 11/19/21 10:20:00 EDT, Ointment, [facility] #[id number], Partial fill upon patient request if the prescriptionis for a schedule II opioid drug., 1 application To... Start Date: 11/19/21 Status: Ordered lisdexamfetamine 30 mg oral capsule 1 capsule = 30 mg, By Mouth, Daily in AM, Dx F90.0, # 30 capsule, 0 Refills, Maintenance, 06/09/20 9:11:00 EDT, Capsule, [facility] #[id number], Partial fill upon patient request if the prescription is for a schedule II opioid drug., 1 capsule By... Start Date: 06/09/20 Stop Date: 07/09/20 Status: Ordered Multivitamins with FA 0.8 mg oral tablet 1 tablet, By Mouth, Daily, # 90 tablet, 2 Refills, Maintenance, 08/05/22 13:36:00 EDT, Tablet, [facility], Partial fill upon patient request if the prescription is for a schedule II opioid drug., 1 tablet By Mouth Daily,x90 days, 160,... Start Date: 08/05/22 Stop Date: 05/02/23 Status: Ordered Multivitamins with FA 0.8 mg oral tablet 1 tablet, By Mouth, Daily, for 90 days, # 90 tablet, 2 Refills, Hard Stop 08/05/22 13:36:00 EDT, 11/08/21 13:36:00 EDT, Tablet, [facility] #[id number], Partial fill upon patient request if the [...] Replace Required Details, Route to Pharmacy Electronically, [id number]... Start Date: 06/25/18 Status: Ordered Problem List Condition Confirmation Course Effective Dates Status H ealth Status Informant ADD - Attention deficit disorder with hyperactivity Confirmed Active Allergic rhinitis due to pollen Confirmed Improving Active Asthma, mild intermittent, precipitated by colds, allergies 1 Confirmed Stable Active Mood disorder Confirmed Active Obesity Confirmed Active Severe obesity Confirmed Active 29/04/2007 [facility] admission #1: acute asthma attack Social History Social History Type Response Smoking Status Never (less than 100 in lifetime);Never; Exposure to Secondhand Smoke: Yes; Tobacco use times per day: mother smokes; entered on: 09/14/21 Sex Patient Care team information Personnel Name: Rebecca Mo MD Address: Address: [address] [place] [id number]
--- OUTSIDE RECORDS SUMMARY | 2023-07-18 10:23 | XMS_ITS | Continuity of Care Document ---
Author Organization [facility] Address [address] [place] [id number]- Care Team Providers Care Pack Operator Name Role Phone Bertha Montes MD Primary Care Physician [place] [facility] [place] - 09/14/[address] [address] Attending Physician: Admtr, Ar8 Admitting Physician: Admtr, Ar8 Referring Physician: Admtr, [...] 0 Refills, Soft Stop, 05/13/22 14:02:00 EDT, Tablet,[facility] #[id number], Partial fill upon patient request if the prescription is for a schedule II opioid drug., 160, cm, 05/13/22 13:10:00 EDT, H... Start Date: 05/13/22 Status: Ordered hydrOXYzine hydrochloride 25 mg oral tablet 1 capsule, By Mouth, Daily, PRN as needed for itching, # 15 capsule, 0 Refills, Soft Stop, 08/07/2315:38:00 EDT, Capsule, [facility] #[id number], Partial fill upon patient request if the prescription is for a schedule II opioid drug., 160, cm, 0... Start Date: 08/06/22 Status: Ordered ibuprofen 800 mg oral tablet 800 mg, 1, tablet, By Mouth, Every 8 hours, (4-6), may give 400mg per patient preference and re-dose with 400mg within 8 hours, if needed. Patient should only receive a total of 800mg of Ibuprofen every 8 hours., # 50 tablet, Refills 0, Tot. Refills... Start Date: 03/31/22 Status: Ordered Lexapro 10 mg oral tablet 1 tablet = 10 mg, By Mouth, Daily, # 90 tablet, 0 Refills, Maintenance, 08/06/22 16:37:00 EDT, Tablet, [facility] #[id number], Partial fill upon patient request if the prescription is for a schedule II opioid drug., 160, cm, 08/06/22 15:40:00 EDT... Start Date: 08/06/22 Status: Ordered metronidazole topical 0.75% gel with applicator 1 application, Vaginally, Daily at bedtime, # 70 Gm, 0 Refills, Soft Stop, 05/13/22 14:02:00 EDT, [facility] #[id number], Partial fill upon patient request if the prescription is for a schedule II opioid drug., 1 application Vaginally Daily... Start Date: 05/13/22 Stop Date: 05/18/22 Status: Ordered oxyCODONE 5 mg oral tablet 5 mg, 1, tablet, By Mouth, Every 3 hours, PRN, (7-10), # 12 tablet, Refills 0, Tot. Refills 0, Maintenance, Pain , Severe, 03/31/22 6:08:00 EST, Route to Pharmacy Electronically, [facility][id number], Partial fill upon patient request if the pr... Start Date: 03/31/22 Status: Ordered ProAir HFA 90 mcg/inh inhalation aerosol with adapter See Instructions, PRN, 2-4 puffs Inhalation 4 times a day 30 days, # 1 each, Refills 11, Tot. Refills 11, Maintenance, 06/25/18 15:30:45 EDT, Instructions Replace Required Details, Route to Pharmacy Electronically, [id number]... Start Date: 06/25/18 Status: Ordered Senna 8.6 mg oral tablet 17.2 mg, 2, tablet, By Mouth, Daily at bedtime, # 50 tablet, Refills 0, Tot. Refills 0, Maintenance, 03/31/22 6:17:00 EST, Route to Pharmacy Electronically, [facility] #[id number], Partial fill upon patient request if the prescription is for a sc... Start Date: 03/31/22 Status: Ordered simethicone 80 mg oral tablet, chewable 160 mg, 2, tablet, Chew, 3 times a day, PRN, # 48 tablet, Refills 0, Tot. Refills 0, Maintenance, Gas, 03/29/22 8:34:00 EST, Route to Pharmacy Electronically, [facility] #[id number], Partial fill upon patient request if the prescription is for a... Start Date: 03/29/22 Status: Ordered Tylenol 325 mg oral capsule 2 capsule = 650 mg, By Mouth, Every 4 hours, PRN as needed for pain, # 50 capsule, 0 Refills, Maintenance, 03/29/22 8:34:00 EST, Capsule, [facility] #[id number], Partial fill upon patient request if the prescription is for a schedule II opioid dr... Start Date: 03/29/22 Status: Ordered Problem List Condition Confirmation Course Effective Dates Status H ealth Status Informant ADD - Attention deficit disorder with hyperactivity Confirmed Active Allergic rhinitis due to pollen Confirmed Improving Active Asthma, mild intermittent, precipitated by colds, allergies 1 Confirmed Stable Active 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 Mood disorder Confirmed Active Obesity Confirmed Active Severe obesity Confirmed Active 29/04/2007 [facility] admission #1: acute asthma attack Social History Social History Type Response Smoking Status Never (less than 100 in lifetime);Never; Exposure to Secondhand Smoke: Yes; Tobacco use times per day: mother smokes; entered on: 09/14/21 Sex Patient Care team information Care Team Personnel Name: Bertha Montes MD Position: [facility] Resident Member Role: PCP Address: Address: [address] [place] [address] Care Team Related Persons Name: Monroe Mcgarry Address: home [address] [place] [address] Name: MARIFER MCGARRY Address: [place] [address] Name: REMA MCGARRY Address: Address: [address]
--- OUTSIDE RECORDS SUMMARY | 2023-07-18 10:23 | XMS_ITS | Continuity of Care Document ---
Author Organization [facility] Address [address] [place] [address]- Care Team Providers Care Ticket Writer Name Role Phone Rebecca Mo MD Primary Care Physician [phone] Encounter [facility] [place] Date(s): 07/06/20 - 08/24/[address] [address]- Attending Physician: Raissa Estrada MD Admitting Physician: [...] 0 Refills, Maintenance, 06/09/20 9:11:00 EDT, Capsule, [facility] #[id number], Partial fill upon patient request if the [...] Replace Required Details, Route to Pharmacy Electronically, [id number]... Start Date: 06/25/18 Status: Ordered traZODone 50 mg oral tablet 50 mg, 1, tablet, By Mouth, Daily at bedtime, PRN, # 30 tablet, Refills 1, Tot. Refills 1, Maintenance, Sleep, 06/09/20 9:11:00 EDT, Route to Pharmacy Electronically, [facility] #[id number], Partial fill upon patient request if the [...] disorder(Confirmed) Active Myopia(Confirmed)(Stable) Active Obesity(Confirmed) Active 29/04/2007 [facility] admission #1: acute asthma attack Social History Social History Type Response Smoking Status Never smoker; Tobacc o user in household: No entered on: 03/04/14 Sex
--- OUTSIDE RECORDS SUMMARY | 2023-07-18 10:23 | XMS_ITS | Continuity of Care Document ---
Author Organization [facility] Address [address] [place] [address] [address] [place] [address]- Care Team Providers Care Egg Gatherer Name Role Phone Montes MD, Bertha Primary Care Physician [place] [facility] [place](s): 09/10/22 - 09/17/22 [facility] [address] [place] [address]- Attending Physician: Jayy Ledezma MD Referring Physician: Rebecca Mo MD Allergies, Adverse Reactions, Alerts Substance Reaction [...] 0 Refills, Soft Stop, 05/13/22 14:02:00 EDT, Tablet,[facility] #[id number], Partial fill upon patient request if the prescription is for a schedule II opioid drug., 160, cm, 05/13/22 13:10:00 EDT, H... Start Date: 05/13/22 Status: Ordered hydrOXYzine hydrochloride 25 mg oral tablet 1 capsule, By Mouth, Daily, PRN as needed for itching, # 15 capsule, 0 Refills, Soft Stop, 08/07/2315:38:00 EDT, Capsule, [facility] #[id number], Partial fill upon patient request if the [...] 0 Refills, Maintenance, 08/06/22 16:37:00 EDT, Tablet, [facility] #[id number], Partial fill upon patient request if the prescription is for a schedule II opioid drug., 160, cm, 08/06/22 15:40:00 EDT... Start Date: 08/06/22 Status: Ordered metronidazole topical 0.75% gel with applicator 1 application, Vaginally, Daily at bedtime, # 70 Gm, 0 Refills, Soft Stop, 05/13/22 14:02:00 EDT, [facility] #[id number], Partial fill upon patient request if the prescription is for a schedule II opioid drug., 1 application Vaginally Daily... Start Date: 05/13/22 Stop Date: 05/18/22 Status: Ordered oxyCODONE 5 mg oral tablet 5 mg, 1, tablet, By Mouth, Every 3 hours, PRN, (7-10), # 12 tablet, Refills 0, Tot. Refills 0, Maintenance, Pain , Severe, 03/31/22 6:08:00 EST, Route to Pharmacy Electronically, [facility][id number], Partial fill upon patient request if the pr... Start Date: 03/31/22 Status: Ordered ProAir HFA 90 mcg/inh inhalation aerosol with adapter See Instructions, PRN, 2-4 puffs Inhalation 4 times a day 30 days, # 1 each, Refills 11, Tot. Refills 11, Maintenance, 06/25/18 15:30:45 EDT, Instructions Replace Required Details, Route to Pharmacy Electronically, [id number]... Start Date: 06/25/18 Status: Ordered Senna 8.6 mg oral tablet 17.2 mg, 2, tablet, By Mouth, Daily at bedtime, # 50 tablet, Refills 0, Tot. Refills 0, Maintenance, 03/31/22 6:17:00 EST, Route to Pharmacy Electronically, [facility] #[id number], Partial fill upon patient request if the prescription is for a sc... Start Date: 03/31/22 Status: Ordered simethicone 80 mg oral tablet, chewable 160 mg, 2, tablet, Chew, 3 times a day, PRN, # 48 tablet, Refills 0, Tot. Refills 0, Maintenance, Gas, 03/29/22 8:34:00 EST, Route to Pharmacy Electronically, [facility] #[id number], Partial fill upon patient request if the prescription is for a... Start Date: 03/29/22 Status: Ordered Tylenol 325 mg oral capsule 2 capsule = 650 mg, By Mouth, Every 4 hours, PRN as needed for pain, # 50 capsule, 0 Refills, Maintenance, 03/29/22 8:34:00 EST, Capsule, [facility] #[id number], Partial fill upon patient request if the prescription is for a schedule II opioid drMarta. Start Date: 03/29/22 Status: Ordered Problem List Condition Confirmation Course Effective Dates Status H ealth Status Informant ADD - Attention deficit disorder with hyperactivity Confirmed Active Allergic rhinitis due to pollen Confirmed Improving Active Asthma, mild intermittent, precipitated by colds, allergies 1 Confirmed Stable Active 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 Mood disorder Confirmed Active Obesity Confirmed Active Severe obesity Confirmed Active 29/04/2007 [facility] admission #1: acute asthma attack Vital Signs Most recent to oldest [Reference Range]: 1 Height 160 cm (09/10/22 11:16 AM) Weight 126.7 kg (09/10/22 11:16 AM) Pulse Rate [55-90 bpm] 80 bpm (09/10/22 11:16 AM) Body Mass Index [18.5-24.99 kg/m2] 49.49 kg/m2 *>HHI* (09/10/22 11:16 AM) Blood Pressure [90-138/55-84 mm Hg] 117/ 85mm Hg (09/10/22 11:16 AM) Temperature [96.8-100.4 DegF] 96.5 DegF *L* (09/10/22 11:16 AM) Blood pressure sites Arm, left (09/10/22 11:16 AM) Temperature Route Temporal (09/10/22 11:16 AM) Social History Social History Type Response Smoking Status Never (less than 100 in lifetime);Never; Exposure to Secondhand Smoke: Yes; Tobacco use times per day: mother smokes; entered on: 09/14/21 Sex Patient Care team information Care Team Personnel Name: Bertha Montes MD Position: [facility] Resident Member Role: PCP Address: Address: [address] [place] [address] Care Team Related Persons Name: Monroe Romo Address: home [address] [place] [address] Name: MARIFER ROMO Address: [place] [address] Name: REMA ROMO Address: Address: [address]
--- OUTSIDE RECORDS SUMMARY | 2023-07-18 10:23 | XMS_ITS | Continuity of Care Document ---
Author Organization [facility] Address [address] [place] [address]- Care Team Providers Care Clothing Supervisor Name Role Phone Chepe CADE, Rebecca Primary Care Physician Encounter [facility] Date(s): 09/04/21 - 10/04/21 [facility] [employer] [facility] [address] [place], [place] [address] Allergies, Adverse Reactions, Alerts Substance Reaction [...] 8Admin Note: POLIO(oral) 9Admin Note: POLIO(oral) Medications folic acid 0.4 mg oral tablet 1 tablet = 0.4 mg, By Mouth, Daily, # 100 tablet, 5 Refills, Maintenance, 08/21/21 9:43:00 EDT, Tablet, [facility] #[id number], Partial fill upon patient request if the [...] 0 Refills, Maintenance, 06/09/20 9:11:00 EDT, Capsule, [facility] #[id number], Partial fill upon patient request if the [...] Replace Required Details, Route to Pharmacy Electronically, [id number]... Start Date: 06/25/18 Status: Ordered traZODone 50 mg oral tablet 50 mg, 1, tablet, By Mouth, Daily at bedtime, PRN, # 30 tablet, Refills 1, Tot. Refills 1, Maintenance, Sleep, 06/09/20 9:11:00 EDT, Route to Pharmacy Electronically, [facility] #[id number], Partial fill upon patient request if the prescription i... Start Date: 06/09/20 Stop Date: 08/08/20 Status: Ordered Problem List Condition Effective Dates Status Health Status Inform ant ADD - Attention deficit diso rder with hyperactivity(Confirmed) Active Allergic rhinitis due to pollen(Confirmed)(Improving) Active Asthma, mild intermittent, precipitated by colds, allergies(Confirmed)(Stable) 1 Active Mood disorder(Confirmed) Active Obesity(Confirmed) Active 29/04/2007 [facility] admission #1: acute asthma attack Social History Social History Type Response Smoking Status Never (less than 100 in lifetime);Never; Exposure to Secondhand Smoke: Yes; Tobacco use times per day: mother smokes; entered on: 09/14/21 Sex Care Team Personnel Name: Rebecca Mo MD Address: [address] [place] [address]-
--- OUTSIDE RECORDS SUMMARY | 2023-07-18 10:23 | XMS_ITS | Continuity of Care Document ---
Author Organization [facility] Address [address] [place] [address]- Care Team Providers Care Foil Spinner Name Role Phone Chepe CADE, Rebecca Primary Care Physician En[place] [facility] [place] Date(s): 03/21/22 - 04/20/22 [facility] [address] [address] Allergies, Adverse Reactions, Alerts Substance Reaction [...] 03/31/22 6:08:00 EST, Route to Pharmacy Electronically, [facility]#[id number], Partial fill upon patient request if the pr... Start Date: 03/31/22 Status: Ordered ProAir HFA 90 mcg/inh inhalation aerosol with adapter See Instructions, PRN, 2-4 puffs Inhalation 4 times a day 30 days, # 1 each, Refills 11, Tot. Refills 11, Maintenance, 06/25/18 15:30:45 EDT, Instructions Replace Required Details, Route to Pharmacy Electronically, [id number]... Start Date: 06/25/18 Status: Ordered Senna 8.6 mg oral tablet 17.2 mg, 2, tablet, By Mouth, Daily at bedtime, # 50 tablet, Refills 0, Tot. Refills 0, Maintenance, 03/31/22 6:17:00 EST, Route to Pharmacy Electronically, [facility] #[id number], Partial fill upon patient request if the prescription is for a sc... Start Date: 03/31/22 Status: Ordered simethicone 80 mg oral tablet, chewable 160 mg, 2, tablet, Chew, 3 times a day, PRN, # 48 tablet, Refills 0, Tot. Refills 0, Maintenance, Gas, 03/29/22 8:34:00 EST, Route to Pharmacy Electronically, [facility] #[id number], Partial fill upon patient request if the prescription is for a... Start Date: 03/29/22 Status: Ordered Tylenol 325 mg oral capsule 2 capsule = 650 mg, By Mouth, Every 4 hours, PRN as needed for pain, # 50 capsule, 0 Refills, Maintenance, 03/29/22 8:34:00 EST, Capsule, [facility] #[id number], Partial fill upon patient request if the [...] Confirmed Active Severe obesity Confirmed Active 29/04/2007 [facility] admission #1: acute asthma attack Social History Social History Type Response Smoking Status Never (less than 100 in lifetime);Never; Exposure to Secondhand Smoke: Yes; Tobacco use times per day: mother smokes; entered on: 09/14/21 Sex Patient Care team information Care Team Personnel Name: Rebecca Mo MD Position: [facility] Resident Member Role: PCP Address: Address: [address] [place] [address] Care Team Related Persons Name: Monroe Mcgarry Address: [place] [address] Name: MARIFER MCGARRY Address: [place] [address] Name: REMA MCGARRY Address: Address: [address]
--- OUTSIDE RECORDS SUMMARY | 2023-07-18 10:23 | XMS_ITS | Continuity of Care Document ---
Author Organization [facility] Address [address] [place] [address]- Care Team Providers Care Aircraft Structural Repair Mechanic Name Role Phone Rebecca Mo MD Primary Care Physician Encounter [facility] [place] Date(s): 11/18/21 - 11/18/[address] [address]- Discharge Disposition: A-D/C Home Attending Physician: Mary Escobar DO Admitting Physician: Mary Escobar DO Referring Physician: Mary Escobar DO Allergies, Adverse Reactions, Alerts Substance Reaction [...] Refills, Maintenance, 10/16/21 12:30:00 EDT, ER Capsule, [facility] #[id number], Partial fill upon patient request if the prescription is for a schedule II opioid... Start Date: 10/16/21 Status: Ordered aspirin 81 mg oral delayed release tablet 162 mg, 2, tablet, By Mouth, Daily, # 90 tablet, Refills 0, Tot. Refills 0, Maintenance, 11/13/21 9:32:00 EDT, Route to Pharmacy Electronically, [facility], Partial fill upon patientrequest if the prescription is for a schedule II op... Start Date: 11/13/21 Status: Ordered folic acid 0.4 mg oral tablet 1 tablet = 0.4 mg, By Mouth, Daily, # 100 tablet, 5 Refills, Maintenance, 08/21/21 9:43:00 EDT, Tablet, [facility] #[id number], Partial fill upon patient request if the [...] 0 Refills, Maintenance, 06/09/20 9:11:00 EDT, Capsule, [facility] #[id number], Partial fill upon patient request if the prescription is for a schedule II opioid drug., 1 capsule By... Start Date: 06/09/20 Stop Date: 07/09/20 Status: Ordered metroNIDAZOLE 500 mg oral tablet 1 tablet = 500 mg, By Mouth, Every 12 hours, for 7 days, # 14 tablet, 0 Refills, Acute 11/20/21 9:32:00 EDT, 11/13/21 9:32:00 EDT, Tablet, [facility], Partial fill upon patient request if the prescription is for a schedule II opioid d... Start Date: 11/13/21 Stop Date: 11/20/21 Status: Ordered Multivitamins with FA 0.8 mg oral tablet 1 tablet, By Mouth, Daily, # 90 tablet, 2 Refills, Maintenance, 08/05/22 13:36:00 EDT, Tablet, [facility], Partial fill upon patient request if the prescription is for a schedule II opioid drug., 1 tablet By Mouth Daily,x90 days, 160,... Start Date: 08/05/22 Stop Date: 05/02/23 Status: Ordered Multivitamins with FA 0.8 mg oral tablet 1 tablet, By Mouth, Daily, for 90 days, # 90 tablet, 2 Refills, Hard Stop 08/05/22 13:36:00 EDT, 11/08/21 13:36:00 EDT, Tablet, [facility] #[id number], Partial fill upon patient request if the [...] Replace Required Details, Route to Pharmacy Electronically, [id number]... Start Date: 06/25/18 Status: Ordered Problem List Condition Confirmation Course Effective Dates Status H ealth Status Informant ADD - Attention deficit disorder with hyperactivity Confirmed Active Allergic rhinitis due to pollen Confirmed Improving Active Asthma, mild intermittent, precipitated by colds, allergies 1 Confirmed Stable Active Mood disorder Confirmed Active Obesity Confirmed Active Severe obesity Confirmed Active 29/04/2007 [facility] admission #1: acute asthma attack Vital Signs Most recent to oldest [Reference Range]: 1 Weight 115.5 kg (11/18/21 5:28 PM) Oxygen Saturation [94-100 %] 99 % (11/18/21 5:28 PM) Pulse Rate [55-90 bpm] 89 bpm (11/18/21 5:28 PM) Blood Pressure [90-138/55-84 mm Hg] 101/ 79mm Hg (11/18/21 5:28 PM) Respiratory Rate [16-30 br/min] 20 br/mi n (11/18/21 5:28 PM) Temperature [96.8-100.4 DegF] 98.4 DegF (11/18/21 5:28 PM) Blood pressure sites Arm, left (11/18/21 5:28 PM) Temperature Route Oral (11/18/21 5:28 PM) Social History Social History Type Response Smoking Status Never (less than 100 in lifetime);Never; Exposure to Secondhand Smoke: Yes; Tobacco use times per day: mother smokes; entered on: 09/14/21 Sex Patient Care team information Personnel Name: Rebecca Mo MD Address: Address: [address] [place] [address]
--- OUTSIDE RECORDS SUMMARY | 2023-07-18 10:23 | XMS_ITS | Continuity of Care Document ---
Author Organization [facility] Address [address] [place] [address]- Care Team Providers Care Sugar Sampler Name Role Phone Chepe CADE, Rebecca Primary Care Physician Encounter [facility] Date(s): 12/27/21 - 01/26/22 [facility] [address] [place] [address] Allergies, Adverse Reactions, Alerts Substance Reaction Severity [...] Refills, Maintenance, 10/16/21 12:30:00 EDT, ER Capsule, [facility] #[id number], Partial fill upon patient request if the prescription is for a schedule II opioid... Start Date: 10/16/21 Status: Ordered folic acid 0.4 mg oral tablet 1 tablet = 0.4 mg, By Mouth, Daily, # 100 tablet, 5 Refills, Maintenance, 08/21/21 9:43:00 EDT, Tablet, [facility] #[id number], Partial fill upon patient request if the [...] capsule, 0 Refills, Maintenance, 12/26/21 21:00:00 EST, [facility] #[id number], Partial fill upon patient request if the prescription is for a schedule II opioid drug., 160, cm, 12/21/21 15:25:00 ES... Start Date: 12/26/21 Stop Date: 12/29/21 Status: Ordered lidocaine 5% topical ointment 1 application, Topically, 3 times a day, PRN Pain, # 50 Gm, 1 Refills, Maintenance, 11/19/21 10:20:00 EDT, Ointment, [facility] #[id number], Partial fill upon patient request if the prescriptionis for a schedule II opioid drug., 1 application To... Start Date: 11/19/21 Status: Ordered lisdexamfetamine 30 mg oral capsule 1 capsule = 30 mg, By Mouth, Daily in AM, Dx F90.0, # 30 capsule, 0 Refills, Maintenance, 06/09/20 9:11:00 EDT, [facility] #[id number], Partial fill upon patient request if the prescription is for a schedule II opioid drug., 1 capsule By... Start Date: 06/09/20 Stop Date: 07/09/20 Status: Ordered Multivitamins with FA 0.8 mg oral tablet 1 tablet, By Mouth, Daily, for 90 days, # 90 tablet, 2 Refills, Hard Stop 08/05/22 13:36:00 EDT, 11/08/21 13:36:00 EDT, Tablet, [facility][id number], Partial fill upon patient request if the [...] Replace Required Details, Route to Pharmacy Electronically, [id number]... Start Date: 06/25/18 Status: Ordered Prometrium 200 mg oral capsule 1 capsule = 200 mg, Vaginally, Daily at bedtime, # 60 capsule, 3 Refills, Maintenance, 12/11/21 11:42:00 EDT, [facility] #[id number], Partial fill upon patient request if the [...] Confirmed Active Severe obesity Confirmed Active 29/04/2007 [facility] admission #1: acute asthma attack Social History Social History Type Response Smoking Status Never (less than 100 in lifetime);Never; Exposure to Secondhand Smoke: Yes; Tobacco use times per day: mother smokes; entered on: 09/14/21 Sex Patient Care team information Care Team Personnel Name: Rebecca Mo MD Position: [facility] Resident Member Role: PCP Address: Address: [address] [place] [address]- Care Team Related Persons Name: Monroe Mcgarry Address: home [address] [place] [address] Name: MARIFER MCGARRY Address: home [address] [place] [address]
--- OUTSIDE RECORDS SUMMARY | 2023-07-18 10:23 | XMS_ITS | Continuity of Care Document ---
Author Organization [facility] Address [address] [place] [id number]- Care Team Providers Care Cement Boat And Barge Loader Name Role Phone Rebecca Mo MD Primary Care Physician Encounter [facility] [place] Date(s): 02/13/22 - 05/01/[address] [address]- Encounter Diagnosis Sprain of left rotator cuff capsule, initial encounter(Final) - Discharge Disposition: A-D/C Home Attending Physician: Palomo Swift MD Admitting Physician: Not on Staff, Admitting MD Referring Physician: Not on Staff, Referring [...] 03/31/22 6:08:00 EST, Route to Pharmacy Electronically, [facility][id number], Partial fill upon patient request if the pr... Start Date: 03/31/22 Status: Ordered ProAir HFA 90 mcg/inh inhalation aerosol with adapter See Instructions, PRN, 2-4 puffs Inhalation 4 times a day 30 days, # 1 each, Refills 11, Tot. Refills 11, Maintenance, 06/25/18 15:30:45 EDT, Instructions Replace Required Details, Route to Pharmacy Electronically, [id number]... Start Date: 06/25/18 Status: Ordered Senna 8.6 mg oral tablet 17.2 mg, 2, tablet, By Mouth, Daily at bedtime, # 50 tablet, Refills 0, Tot. Refills 0, Maintenance, 03/31/22 6:17:00 EST, Route to Pharmacy Electronically, [facility] #[id number], Partial fill upon patient request if the prescription is for a sc... Start Date: 03/31/22 Status: Ordered simethicone 80 mg oral tablet, chewable 160 mg, 2, tablet, Chew, 3 times a day, PRN, # 48 tablet, Refills 0, Tot. Refills 0, Maintenance, Gas, 03/29/22 8:34:00 EST, Route to Pharmacy Electronically, [facility] #[id number], Partial fill upon patient request if the prescription is for a... Start Date: 03/29/22 Status: Ordered Tylenol 325 mg oral capsule 2 capsule = 650 mg, By Mouth, Every 4 hours, PRN as needed for pain, # 50 capsule, 0 Refills, Maintenance, 03/29/22 8:34:00 EST, Capsule, [facility] #[id number], Partial fill upon patient request if the [...] Confirmed Active Severe obesity Confirmed Active 29/04/2007 [facility] admission #1: acute asthma attack Social History Social History Type Response Smoking Status Never (less than 100 in lifetime);Never; Exposure to Secondhand Smoke: Yes; Tobacco use times per day: mother smokes; entered on: 09/14/21 Sex Patient Care team information Care Team Personnel Name: Rebecca Mo MD Position: [facility] Resident Member Role: PCP Address: Address: [address] [place] [address]- Care Team Related Persons Name: Monroe Mcgarry Address: [place] [address] Name: MARIFER MCGARRY Address: [place] [address] Name: REMA MCGARRY Address: Address: [address]
--- OUTSIDE RECORDS SUMMARY | 2023-07-18 10:23 | XMS_ITS | Continuity of Care Document ---
Author Organization [facility] Address [address] [place] [id number]- Care Team Providers Care Purchasing Supervisor Name Role Phone Bertha Montes MD Primary Care Physician [place] [facility]17[place]23 - 03/19/[address] [id number] Attending Physician: Admtr, Ar8 Admitting Physician: Admtr, [...] influenza virus vaccine, inactivated 1 10/23/10 Gi tawn influenza virus vaccine, inactivated 11/15/09 Give n [...] 24 capsule, 0 Refills, Maintenance, 02/17/23 12:58:00 [facility], [facility] #[id number], Partial fill upon patient request if the [...] 0 Refills, Soft Stop, 12/11/22 20:38:00 EDT, [facility] #[id number], Partial fill upon patient request if the prescription is for a schedule II opioid drug., 160, cm, 12/10/22 14:0... Start Date: 12/11/22 Status: Ordered Diflucan 150 mg oral tablet 1 tablet = 150 mg, By Mouth, Once, # 1 tablet, 0 Refills, Soft Stop, 02/19/23 19:29:00 EST, Tablet,[facility] #[id number], Partial fill upon patient request if the prescription is for a schedule II opioid drug., 157, cm, 02/17/23 12:20:00 EST, H... Start Date: 02/19/23 Status: Ordered hydrOXYzine hydrochloride 25 mg oral tablet 1 capsule, By Mouth, Once, PRN Agitation, # 30 capsule, 3 Refills, Soft Stop, 12/10/22 14:50:00 EDT, Capsule, [facility] #[id number], Partial fill upon patient request if the prescription is fora schedule II opioid drug., 160, cm, 12/10/22 14:07... Start Date: 12/10/22 Status: Ordered metronidazole topical 0.75% gel with applicator 1 application, Vaginally, Daily at bedtime, # 70 Gm, 3 Refills, Soft Stop, 12/20/22 16:15:00 EST, Gel, [facility] #[id number], Partial fill upon patient request if the [...] 10/27/23 11:50:00 EDT, 10/25/22 11:49:00 EDT, Tablet, [facility] Partial... Start Date: 10/25/22 Stop Date: 10/27/23 Status: Ordered omeprazole 20 mg oral enteric coated capsule 1 capsule = 20 mg, By Mouth, Daily, # 14 capsule, 0 Refills, Maintenance, 02/17/23 12:58:00 EST, ECCapsule, [facility] #[id number], Partial fill upon patient request if the prescription is for a schedule II opioid drug., 157, cm, 02/17/23 12:20:... Start Date: 02/17/23 Stop Date: 03/03/23 Status: Ordered Pen [place], 32 G x 4 mm BD Ultra [...] Refills, Maintenance, 10/16/22 13:40:00 EDT, EC Tablet, [facility] #[id number], Partial fill upon patient request if the [...] Replace Required Details, Route to Pharmacy Electronically, [id number]... Start Date: 10/25/22 Status: Ordered Senna 8.6 mg oral tablet 17.2 mg, 2, tablet, By Mouth, Daily at bedtime, # 50 tablet, Refills 0, Tot. Refills 0, Maintenance, 03/31/22 6:17:00 EST, Route to Pharmacy Electronically, [facility] #[id number], Partial fill upon patient request if the prescription is for a sc... Start Date: 03/31/22 Status: Ordered sertraline 50 mg oral tablet 1 tablet = 50 mg, By Mouth, Daily, # 90 tablet, 1 Refills, Maintenance, 12/10/22 14:51:00 EDT, Tablet, [facility] #[id number], Partial fill upon patient request if the prescription is for a schedule II opioid drug., 160, cm, 12/10/22 14:07:00 EDT... Start Date: 12/10/22 Status: Ordered Tylenol 325 mg oral capsule 2 capsule = 650 mg, By Mouth, Every 4 hours, PRN as needed for pain, # 50 capsule, 0 Refills, Maintenance, 03/29/22 8:34:00 EST, Capsule, [facility] #[id number], Partial fill upon patient request if the prescription is for a schedule II opioid dr... Start Date: 03/29/22 Status: Ordered Victoza 18 mg/3 mL subcutaneous solution = 1.2 mg, Subcutaneous Infusion, Daily, # 3 mL, 6 Refills, Maintenance, 02/13/23 17:22:00 EST, [facility] #[id number], Partial fill upon patient request if the [...] Confirmed Active Severe obesity Confirmed Active 29/04/2007 [facility] admission #1: acute asthma attack Social History Social History Type Response Smoking Status Never (less than 100 in lifetime);Never; Exposure to Secondhand Smoke: Yes; Tobacco use times per day: mother smokes; entered on: 09/14/21 Sex Patient Care team information Care Team Personnel Name: Bertha Montes MD Position: [facility] Resident Member Role: PCP Address: Address: [address] [place] [address] Care Team Related Persons Name: Monroe Mcgarry Address: [place] [address] Name: MARIFER MCGARRY Address: [place] [address] Name: REMA MCGARRY Address: Address: [address]
--- OUTSIDE RECORDS SUMMARY | 2023-07-18 10:23 | XMS_ITS | Continuity of Care Document ---
Author Organization [facility] Address [address] [place] [address]- Care Team Providers Care Warehouse Analyst Name Role Phone Bertha Montes MD Primary Care Physician Encounter [facility] [place] Date(s): 09/18/22 - 10/18/[address] [address]- Allergies, Adverse Reactions, Alerts Substance Reaction Severity [...] 2 03/17/09 Given Human Papillomavirus Vaccine 3 10/6/09 Given Human Papillomavirus Vaccine 4 08/19/08 Given [...] Acute 10/30/22 13:40:00 EDT, 10/16/22 13:40:00 EDT, [facility] #[id number], Partial fill upon patient request if the prescription is for a schedule II opioid drug.... Start Date: 10/16/22 Stop Date: 10/30/22 Status: Ordered clarithromycin 500 mg oral tablet 1 tablet = 500 mg, By Mouth, 2 times a day, for 14 days, # 28 tablet, 0 Refills, Acute 10/30/22 13:40:00 EDT, 10/16/22 13:40:00 EDT, [facility] #[id number], Partial fill upon patient request if the prescription is for a schedule II opioid... Start Date: 10/16/22 Stop Date: 10/30/22 Status: Ordered dexamethasone 1 mg oral tablet 1 tablet = 1 mg, By Mouth, Once, to be taken at 11pm, # 1 tablet, 0 Refills, Soft Stop, 10/07/22 17:47:00 EDT, [facility], Partial fill upon patient request if the prescription is fora schedule II opioid drug., 160, cm, 10/07/22 15:43... Start Date: 10/07/22 Status: Ordered Diflucan 150 mg oral tablet 1 tablet = 150 mg, By Mouth, Once, # 1 tablet, 0 Refills, Soft Stop, 05/13/22 14:02:00 EDT, Tablet,[facility] #[id number], Partial fill upon patient request if the prescription is for a schedule II opioid drug., 160, cm, 05/13/22 13:10:00 EDT, H... Start Date: 05/13/22 Status: Ordered hydrOXYzine hydrochloride 25 mg oral tablet 1 capsule, By Mouth, Once, PRN Agitation, # 15 capsule, 0 Refills, Soft Stop, 10/07/22 18:09:00 EDT, Capsule, [facility], Partial fill upon patient request if [...] Refills, Soft Stop, 05/13/22 14:02:00 EDT, Gel, [facility] #[id number], Partial fill upon patient request if the prescription is for a schedule II opioid drug., 1 application Vaginally Daily... Start Date: 05/13/22 Stop Date: 05/18/22 Status: Ordered oxyCODONE 5 mg oral tablet 5 mg, 1, tablet, By Mouth, Every 3 hours, PRN, (7-10), # 12 tablet, Refills 0, Tot. Refills 0, Maintenance, Pain , Severe, 03/31/22 6:08:00 EST, Route to Pharmacy Electronically, [facility]#[id number], Partial fill upon patient request if the pr... Start Date: 03/31/22 Status: Ordered Pen [place], 32 G x 4 mm BD Ultra [...] Refills, Maintenance, 10/16/22 13:40:00 EDT, EC Tablet, [facility] #[id number], Partial fill upon patient request if the [...] Replace Required Details, Route to Pharmacy Electronically, [id number]... Start Date: 06/25/18 Status: Ordered Senna 8.6 mg oral tablet 17.2 mg, 2, tablet, By Mouth, Daily at bedtime, # 50 tablet, Refills 0, Tot. Refills 0, Maintenance, 03/31/22 6:17:00 EST, Route to Pharmacy Electronically, [facility] #[id number], Partial fill upon patient request if the prescription is for a sc... Start Date: 03/31/22 Status: Ordered sertraline 25 mg oral tablet 1 tablet = 25 mg, By Mouth, Daily, # 30 tablet, 0 Refills, Maintenance, 10/07/22 17:48:00 EDT, Tablet, [facility], Partial fill upon patient request if the prescription is for a schedule II opioid drug., 160, cm, 10/07/22 15:43:00 EDT,... Start Date: 10/07/22 Status: Ordered simethicone 80 mg oral tablet, chewable 160 mg, 2, tablet, Chew, 3 times a day, PRN, # 48 tablet, Refills 0, Tot. Refills 0, Maintenance, Gas, 03/29/22 8:34:00 EST, Route to Pharmacy Electronically, [facility] #[id number], Partial fill upon patient request if the prescription is for a... Start Date: 03/29/22 Status: Ordered Tylenol 325 mg oral capsule 2 capsule = 650 mg, By Mouth, Every 4 hours, PRN as needed for pain, # 50 capsule, 0 Refills, Maintenance, 03/29/22 8:34:00 EST, Capsule, [facility] #[id number], Partial fill upon patient request if the prescription is for a schedule II opioid dr... Start Date: 03/29/22 Status: Ordered Victoza 18 mg/3 mL subcutaneous solution = 0.6 mg, Subcutaneous Infusion, Daily, # 3 mL, 0 Refills, Maintenance, 10/07/22 17:55:00 EDT, [facility], Partial fill upon patient request if [...] Confirmed Active Severe obesity Confirmed Active 29/04/2007 [facility] admission #1: acute asthma attack Social History Social History Type Response Smoking Status Never (less than 100 in lifetime);Never; Exposure to Secondhand Smoke: Yes; Tobacco use times per day: mother smokes; entered on: 09/14/21 Sex Patient Care team information Care Team Personnel Name: Bertha Montes MD Position: [facility] Resident Member Role: PCP Address: Address: [address] [place] [address]- Care Team Related Persons Name: Monroe Mcgarry Address: home [address] [place] [address] Name: MARIFER MCGARRY Address: home [address] [place] [id number] Name: REMA MCGARRY Address: Address: [address]
--- OUTSIDE RECORDS SUMMARY | 2023-07-18 10:24 | XMS_ITS | Continuity of Care Document ---
Author Organization [facility] ter Address [address] [place] [id number]- Care Team Providers Care Label Operator Name Role Phone Rebecca Mo MD Primary Care Physician [phone] Encounter [facility] Date(s): 03/17/22 - 03/17/[address] [address] Discharge Disposition: A-D/C Home Attending Physician: Mary [...] Refills, Maintenance, 02/08/22 8:37:00 EST, ER Capsule, [facility] #[id number], Partial fill upon patient request if the prescription is for a schedule II opioid d... Start Date: 02/08/22 Status: Ordered Diflucan 150 mg oral tablet 1 tablet = 150 mg, By Mouth, Once, # 1 tablet, 0 Refills, Soft Stop, 02/15/22 10:22:00 EST, Tablet,[email or web address][id number], Partial fill upon patient request if the prescription is for a schedule II opioid drug., 160, cm, 02/08/22 8:11:00 EST, He... Start Date: 02/15/22 Status: Ordered famotidine 20 mg oral tablet 20 mg, 1, tablet, By Mouth, 2 times a day, # 180 tablet, Refills 0, Tot. Refills 0, Maintenance, 02/08/22 8:37:00 EST, Route to Pharmacy Electronically, [email or web address] #[id number], Partial fill uponpatient request if the prescription is for a schedu... Start Date: 02/08/22 Status: Ordered folic acid 0.4 mg oral tablet 1 tablet = 0.4 mg, By Mouth, Daily, # 100 tablet, 5 Refills, Maintenance, 08/21/21 9:43:00 EDT, Tablet, [email or web address] #[id number], Partial fill upon patient request if the [...] 1 Refills, Maintenance, 11/19/21 10:20:00 EDT, Ointment, [email or web address] #[id number], Partial fill upon patient request if the prescriptionis for a schedule II opioid drug., 1 application To... Start Date: 11/19/21 Status: Ordered lisdexamfetamine 30 mg oral capsule 1 capsule = 30 mg, By Mouth, Daily in AM, Dx F90.0, # 30 capsule, 0 Refills, Maintenance, 06/09/20 9:11:00 EDT, Capsule, [email or web address][id number], Partial fill upon patient request if the prescription is for a schedule II opioid drug., 1 capsule By... Start Date: 06/09/20 Stop Date: 07/09/20 Status: Ordered Multivitamins with FA 0.8 mg oral tablet 1 tablet, By Mouth, Daily, for 90 days, # 90 tablet, 2 Refills, Hard Stop 05/02/23 13:36:00 EDT, 08/05/22 13:36:00 EDT, Tablet, [email or web address] #[id number], Partial fill upon patient request if the prescription is for a schedule II opioid drug., 1 tab... Start Date: 08/05/22 Stop Date: 05/02/23 Status: Ordered Multivitamins with FA 0.8 mg oral tablet 1 tablet, By Mouth, Daily, for 90 days, # 90 tablet, 2 Refills, Hard Stop 08/05/22 13:36:00 EDT, 11/08/21 13:36:00 EDT, Tablet, [email or web address] #[id number], Partial fill upon patient request if the [...] Replace Required Details, Route to Pharmacy Electronically, [id number]... Start Date: 06/25/18 Status: Ordered Prometrium 200 mg oral capsule 1 capsule = 200 mg, Vaginally, Daily at bedtime, # 60 capsule, 3 Refills, Maintenance, 02/08/22 8:36:00 EST, [email or web address] #[id number], Partial fill upon patient request if the prescription is for a schedule II opioid drug., 160, cm, 02/08/22 8:11:0... Start Date: 02/08/22 Status: Ordered Valtrex 500 mg oral tablet See Instructions, 1 tablet By Mouth twice daily starting at 34wks for remainder of , # 60 tablet, Refills 0, Tot. Refills 0, Maintenance, 03/12/22 13:13:00 EST, Instructions Replace RequiredDetails, Route to Pharmacy Electronically, [facility]... Start Date: 03/12/22 Status: Ordered Problem List Condition Confirmation Course Effective Dates Status H ealth Status Informant ADD - Attention deficit disorder with hyperactivity Confirmed Active Allergic rhinitis due to pollen Confirmed Improving Active Asthma, mild intermittent, precipitated by colds, allergies 1 Confirmed Stable Active 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 Mood disorder Confirmed Active Obesity Confirmed Active Severe obesity Confirmed Active 29/04/2007 [facility] admission #1: acute asthma attack Vital Signs Most recent to oldest [Reference Range]: 1 Weight 123.6 kg (03/17/22 8:32 AM) Oxygen Saturation [94-100 %] 99 % (03/17/22 8:38 AM) Pulse Rate [55-90 bpm] 86 bpm (03/17/22 8:38 AM) Blood Pressure [90-138/55-84 mm Hg] 106/ 56mm Hg (03/17/22 8:38 AM) Respiratory Rate [16-30 br/min] 20 br/mi n (03/17/22 8:38 AM) Temperature [96.8-100.4 DegF] 97.9 DegF (03/17/22 8:32 AM) Mode of Delivery (Oxygen) Room air (03/17/22 8:38 AM) Blood pressure sites Arm, left (03/17/22 8:38 AM) Temperature Route Oral (03/17/22 8:32 AM) Weight Obtained Via Standing scale (03/17/22 8:32 AM) Social History Social History Type Response Smoking Status Never (less than 100 in lifetime);Never; Exposure to Secondhand Smoke: Yes; Tobacco use times per day: mother smokes; entered on: 09/14/21 Sex Note * Ruel Dixon RN: PERFORM Event Display: Discharge/Transfer Note Hospital Authored Date: [id number] Nursing Discharge Note Entered On: 03/17/2022 13:19 EST Performed On: 03/17/2022 13:19 EST by Ruel Dixon RN Nursing Discharge Note 2 Discharge Time : 03/17/2022 13:18 EST Discharge Level of Care at Discharge : Home/[facility] Patient Left Unit Via : Ambulatory Patient Accompanied Off Unit with : Significant other DC Instructions Provided & Signed by Pt : Yes Patient Understands D/C Instructions : Yes Patient Instructions Discharge Signed : Yes Did Pt have Specialty Bed or Wound Vac : No Ruel Dixon RN - 03/17/2022 13:19 EST * Ruel Dixon RN: PERFORM Event Display: Patient Education/Instruction Authored Date: [id number] Inpatient Adult Discharge Instructions [address] [address] Name: DODIE ROMO : 1990 Visit: 03/17/2022 08:28:00 Current Date: 03/17/2022 13:00 Account: [id number] Inpatient Adult Discharge Instructions We would like [...] and their families. Surveys are administered by [employer] ?? If further treatment with your primary care physician or another doctor is recommended, it is important for you to keep the appointment. Call your primary care physician or return to the Emergency Department immediately if your condition worsens, fails to improve, or new symptoms develop. If you need to find a doctor, you can call [facility] for a referral at [phone] or toll free at [phone] or log in to [email or web address].. ?? You can view and manage your care through the patient portal or by using a health care hasmukh of your choosing. [employer] is a website that allows you to securely view your medical information including your hospital discharge summary, office visit summaries, medications and follow-up visits. You can also request appointments, renew medications, and request access to your medical information using a health care hasmukh of your choosing, or just ask a question. You can enroll at [email or web address] or register during your next office visit. You have been discharged from [facility], Patient Care Unit: [id number]. If you have any questions regarding these instructions after you leave, please call us and we will be happy to assist you. [facility] Your Care Team Attending Physician Mary Escobar DO Tests Performed Below is a partial list of the tests performed during your hospitalization. You may have had other tests and procedures not included in this list. Please discuss all test results with your provider. Primary Care Provider Rebecca Mo MD Advance Directive Health Care Proxy on File No Discharge Vitals Temperature: 97.9 DegF Weight: 123.6 kg Pulse Rate: 86 bpm ?? Respiratory Rate: 20 br/min ?? Systolic Blood Pressure: 106 mm Hg ?? Diastolic Blood Pressure: 56 mm Hg ?? Oxygen Saturation: 99 % ?? Studies Pending All tests and labs ordered during this hospital stay have been completed unless listed below. Please discuss all pending results with your provider listed above in these instructions. ?? Chlamydia/N. Gonorrhoeae TMA (NAAT) Vaginosis Vaginitis Panel (BV, CV/TV) What to do next Instructions From Your Doctor Discharge Orders Scheduled Follow-Up Appointments 2022 1:20 PM EST ?? With: Jia Wright MD Where: [facility] [address] [place] [address] - Friday 8:20 AM EST ?? With: Mela Ba MD Where: [facility] [address] [place] [address] - Friday 9:00 AM EST ?? With: Jessika Armendariz DO Where: [facility] [address] [place] [address] - Friday 2:20 PM EST ?? With: Jesenia CADE, Mela Grey Where: [facility] [address] [place] [id number]- Friday 8:20 AM EDT ?? With: Jessika Armendariz DO Where: [facility] [address] [place] [address]- You Need to Schedule the Following Appointments Follow Up with??Jessika Armendariz DO When?? Why: Please keep all scheduled appts with your OB Provider and call with any additional questions or concerns Where: [address] [place] [address] [place] [address]- Discharge Medications DODIE ROMO :1990 Visit Date:03/17/2022 Medications: Please continue your medications until treatment is completed or stopped by your provider. Medications not listed below should be discontinued. Discuss any questions related to medications with your provider. What How Much When Why Instructions Next Dose Unchanged Albuterol (ProAir HFA 90 mcg/ inh [...] lumbosacral strain duration 6 mo ?? Unchanged Famotidine (famotidine 20 mg oral tablet) 1 tab(s) Oral Twice a day Unchanged Fluconazole (Diflucan 150 mg oral tablet) 1 tab(s) Oral Once Unchanged Folic Acid (folic acid 0.4 mg [...] tab(s) Oral Daily Duration: 90 Days Unchanged Multivitamin, ( Multivitamins with FA 0.8 mg oral tablet) 1 tab(s) Oral Daily Duration: 90 Days Unchanged Progesterone (Prometrium 200 mg oral capsule) 1 capsule Vaginally Daily at Bedtime Unchanged ValACYclovir (Valtrex 500 mg oral tablet) See instructions Hx of herpes genitalis 1 tablet By Mouth twice daily starting at 34wks for remainder of ?? Test Results Below is a partial list of the most recent Laboratory test results done prior to this discharge. You may have had other tests and procedures not included in this list. Please discuss all test resultswith your provider. UA (03/17/2022) ???Appear/Color, Urine - LIGHT YELLOW???Specific [place], Urine - 1.012???pH, Urine - 6.5???Albumin, Urine - NEGATIVE???Glucose, Urine - NEGATIVE???Ketones, Urine - NEGATIVE???Bilirubin, Urine - NEGATIVE???Hemoglobin, Urine - NEGATIVE???Nitrite, Urine - NEGATIVE???Leukocyte, Urine - NEGATIVE???Urobi linogen - NORMAL???WBC's, Urine - 1 /HPF???RBC's, Urine - 2 /HPF???Bacteria - SLIGHT???Squamous Epith - 1 /HPF???Mucus - SLIGHT Allergies (NKA means No Known Allergies) Apples Pollen??(Allergic Rhinitis Due to Pollen, Allergic conjunctivitis) Problems Active Problems??(9) ADD - Attention deficit disorder with hyperactivity?? Allergic rhinitis due to pollen?? Asthma, mild intermittent, precipitated by colds, allergies?? Degenerative disc changes C5-C6 and C6-C7?? GBS carrier?? Mood disorder?? Obesity? Severe obesity?? Education Materials Below is the list of Educational Leaflet Providered with your Discharge Instructions. Understanding Cerclage?? Kick Counts?? How to Prepare for Childbirth?? How to Know You Are in Labor?? Recognizing Labor?? Valuables and Belongings I fully understand and agree that [facility] [place] [facility] accepts no responsibility for all my [...] Status?? Pulmonary Rehab Discharge Status?? Respiratory Rate: 20 br/min ? Common Emergency Awareness Tips IS [...] are strongly encouraged to quit. Please call [facility] [employer] [facility] at [phone] or [phone]) or log in to [email or web address] for referrals to smoking cessation programs. ?? The National Suicide Prevention Hotline is available 02/09 if you or someone you know needs to find a reason to keep living. By calling 5-932-[facility] (2650) you'll be connected to a skilled, trained counselor at a crisis center in your area. INPATIENT DISCHARGE INSTRUCTIONS SIGNATURE PAGE DEMETRIUSJAGDEEP GOLDBERGWOLFGANG Location:[facility] Registration Date and Time:03/17/2022 08:28 EST Primary Care Physician: Chepe CADE, Rebecca, I DODIE ROMO, have received the above patient education materials/instructions and have verbalized understanding. If ambulance or transport services are being used I further acknowledge beinggiven a choice of service. ?? If you need to contact me, please call me at this number: . Patient/Plastics Patternmaker Name: Patient/Plastics Patternmaker Signature: Relationship to Patient: Witness Name/Signature: Date: * Ruel Dixon RN: PERFORM Event Display: Patient Education Leaflets Authored Date: [id number] Understanding Cerclage ?? [id number] Understanding Cerclage Cerclage is a type of surgery. It closes up the cervix. The cervix is the narrowest part of the uterus. It links the uterus to the vagina. The surgery stops the cervix from widening (dilating) too early during . How to say it?? ser-KLAHZH ?? Why cerclage is done Cerclage is done to prevent the loss or early of a child. It???s done if you are andhave a weak or short cervix. You may not be able to carry a child to full term. Your cervix may be weak because of an injury, such as from a past procedure like dilation. Or you may be born with a weak cervix. If you've lost a or given early in the past, you're more likely to need cerclage. ?? How cerclage is done This procedure is often done on an outpatient basis. That means you can go home afterward. During the procedure: ??? You are given medicine, so you don???t feel pain. You may be awake or asleep. ??? The surgeon puts a speculum into your vagina. It helps the surgeon see the cervix better. ??? Your bladder is emptied. ??? The surgeon puts forceps??on the cervix to hold it in place. ??? The surgeon closes up the cervix with stitches (sutures), wires, or tape. ?? Risks of cerclage These include: ??? Bleeding ??? Infection ??? Injury to the cervix ??? Rupture in the uterus ?? Last Reviewed Date: 2021 ?? 5598-3408 [employer]. All rights reserved. This information is not intended as a substitute for professional medical care. Always follow your healthcare professional's instructions. ?? * Ruel Dixon RN: PERFORM Event Display: Patient Education Leaflets Authored Date: [id number] Kick Counts ?? [address] Kick Counts It???s normal to worry about your baby???s health. Generally, you will feel your baby start to movein your 2nd trimester at around 16 to 24 weeks. Getting to know the pattern of your baby's movements is one way to know what's normal for you and baby. This is called a kick count. Talk with your healthcare provider about kick counts and your specific situation. Always follow your provider's instructions. How to count kicks Here is just one way to do kick counts. Always follow your healthcare provider's instructions. Starting at 28 weeks, count your baby's movements daily. Time how long it takes you to feel 10 kicks, flutters, swishes, or rolls. Ideally, you want to feel at least 10 movements in 2 hours. You will likely feel 10 movements in less time than that. Here are tips for counting kicks: ??? Choose a time when the baby is active, such as after a meal.? Sit comfortably or lie on your side.? The first time the baby moves,??write down??the time.? Count each movement until the baby has moved?? 10??times. This can take from 20 minutes to 2??hours.? If you haven't felt 10 kicks by the end of the second hour, wait a few hours. Then try again. ??? Try to do it at the same time each day. ?? When to call your healthcare provider Follow your provider's instructions about when to call about your baby's movements. Don't hesitate to call if you have concerns. Call your healthcare provider?? right away??if: ??? You do a couple sets of kick counts during the day and your baby moves fewer than 10??times in??2??hours. ??? Your baby moves much less often than on the??days before. ??? You haven't felt your baby move all day. ?? Last Reviewed Date: 2022 ?? 5258-9382 [employer]. All rights reserved. This information is not intended as a substitute for professional medical care. Always follow your healthcare professional's instructions. ?? * Ruel Dixno RN: PERFORM Event Display: Patient Education Leaflets Authored Date: [id number] How to Prepare for Childbirth ?? How to Prepare for Childbirth - Video One of the best ways to learn about the birthing process is to take a childbirth education class. Most women take the classes in their third trimester of . To view the video go to this web address: https://bit.atOnePlace.com/7vADJ0E Or, scan this QR code with your smart phone Last Reviewed Date: 2019 ?? 2510-1550 [employer]. All rights reserved. This information is not intended as a substitute for professional medical care. Always follow your healthcare professional's instructions. ?? Patient Care team information Care Team Personnel Name: Rebecca Mo MD Position: [facility] Resident Member Role: PCP Address: Address: [address] [place] [address]- Name: Zack UNDERWOOD, Ruel Position: [facility] OB RN Member Role: Patient Care Provider Care Team Related Persons Name: Monroe Romo Address: [address] [address] Name: MARIFER ROMO Address: [place] [address]
--- OUTSIDE RECORDS SUMMARY | 2023-07-18 10:24 | XMS_ITS | Continuity of Care Document ---
Author Organization [facility] Address [address] [place] [address]- Care Team Providers Care Cartridge Maker Name Role Phone Bertha Montes MD Primary Care Physician Encounter [facility] [id number] Date(s): 08/06/22 - 09/05/[address] [address]- Attending Physician: AdmSilas gill Admitting Physician: AdmtrSilas [...] 0 Refills, Soft Stop, 05/13/22 14:02:00 EDT, Tablet,[facility][id number], Partial fill upon patient request if the prescription is for a schedule II opioid drug., 160, cm, 05/13/22 13:10:00 EDT, H... Start Date: 05/13/22 Status: Ordered hydrOXYzine hydrochloride 25 mg oral tablet 1 capsule, By Mouth, Daily, PRN as needed for itching, # 15 capsule, 0 Refills, Soft Stop, 08/07/2315:38:00 EDT, Capsule, [facility] #[id number], Partial fill upon patient request if the [...] 0 Refills, Maintenance, 08/06/22 16:37:00 EDT, Tablet, [facility] #[id number], Partial fill upon patient request if the prescription is for a schedule II opioid drug., 160, cm, 08/06/22 15:40:00 EDT... Start Date: 08/06/22 Status: Ordered metronidazole topical 0.75% gel with applicator 1 application, Vaginally, Daily at bedtime, # 70 Gm, 0 Refills, Soft Stop, 05/13/22 14:02:00 EDT, Gel, [facility][id number], Partial fill upon patient request if the prescription is for a schedule II opioid drug., 1 application Vaginally Daily... Start Date: 05/13/22 Stop Date: 05/18/22 Status: Ordered oxyCODONE 5 mg oral tablet 5 mg, 1, tablet, By Mouth, Every 3 hours, PRN, (7-10), # 12 tablet, Refills 0, Tot. Refills 0, Maintenance, Pain , Severe, 03/31/22 6:08:00 EST, Route to Pharmacy Electronically, [facility][id number], Partial fill upon patient request if the pr... Start Date: 03/31/22 Status: Ordered ProAir HFA 90 mcg/inh inhalation aerosol with adapter See Instructions, PRN, 2-4 puffs Inhalation 4 times a day 30 days, # 1 each, Refills 11, Tot. Refills 11, Maintenance, 06/25/18 15:30:45 EDT, Instructions Replace Required Details, Route to Pharmacy Electronically, [id number]... Start Date: 06/25/18 Status: Ordered Senna 8.6 mg oral tablet 17.2 mg, 2, tablet, By Mouth, Daily at bedtime, # 50 tablet, Refills 0, Tot. Refills 0, Maintenance, 03/31/22 6:17:00 EST, Route to Pharmacy Electronically, [facility][id number], Partial fill upon patient request if the prescription is for a sc... Start Date: 03/31/22 Status: Ordered simethicone 80 mg oral tablet, chewable 160 mg, 2, tablet, Chew, 3 times a day, PRN, # 48 tablet, Refills 0, Tot. Refills 0, Maintenance, Gas, 03/29/22 8:34:00 EST, Route to Pharmacy Electronically, [facility][id number], Partial fill upon patient request if the prescription is for a... Start Date: 03/29/22 Status: Ordered Tylenol 325 mg oral capsule 2 capsule = 650 mg, By Mouth, Every 4 hours, PRN as needed for pain, # 50 capsule, 0 Refills, Maintenance, 03/29/22 8:34:00 EST, Capsule, [facility][id number], Partial fill upon patient request if the prescription is for a schedule II opioid . Start Date: 03/29/22 Status: Ordered Problem List Condition Confirmation Course Effective Dates Status H ealth Status Informant ADD - Attention deficit disorder with hyperactivity Confirmed Active Allergic rhinitis due to pollen Confirmed Improving Active Asthma, mild intermittent, precipitated by colds, allergies 1 Confirmed Stable Active 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 Mood disorder Confirmed Active Obesity Confirmed Active Severe obesity Confirmed Active 29/04/2007 [facility] admission #1: acute asthma attack Social History Social History Type Response Smoking Status Never (less than 100 in lifetime);Never; Exposure to Secondhand Smoke: Yes; Tobacco use times per day: mother smokes; entered on: 09/14/21 Sex Patient Care team information Care Team Personnel Name: Bertha Montes MD Position: [facility] Resident Member Role: PCP Address: Address: [address] [place] [address]- Care Team Related Persons Name: Monroe Mcgarry Address: [place] [address] Name: MARIFER MCGARRY Address: home [address] [place] [address] Name: REMA MCGARRY Address: Address: [address]
--- OUTSIDE RECORDS SUMMARY | 2023-07-18 10:24 | XMS_ITS | Continuity of Care Document ---
Author Organization [facility] Address [address] [place] [address]- Care Team Providers Care Maintenance Controller Name Role Phone Rebecca Mo MD Primary Care Physician [phone] Encounter [facility] [place] Date(s): 12/03/21 - 01/11/[address] [address]- Encounter Diagnosis Pain in thoracic spine(Final) - Discharge Disposition: A-D/C Home Attending Physician: Justyna Morales MD Admitting Physician: Not on Staff, Admitting [...] 3 11/15/08 Given Human Papillomavirus Vaccine 4 7/10/09 Given Tet/Diphth/Acel, Pertussis (oldterm) 5 08/19/08 Gi [...] Acute 01/18/22 10:19:00 EST, 11/19/21 10:19:00 EDT, [facility] #[id number], Partial fill upon patient request if the prescr... Start Date: 11/19/21 Stop Date: 01/18/22 Status: Ordered aspirin 162.5 mg oral capsule, extended release 1 capsule = 162.5 mg, By Mouth, Daily, at the same time every day, # 90 capsule, 3 Refills, Maintenance, 10/16/21 12:30:00 EDT, ER Capsule, [facility] #[id number], Partial fill upon patient request if the prescription is for a schedule II opioid... Start Date: 10/16/21 Status: Ordered folic acid 0.4 mg oral tablet 1 tablet = 0.4 mg, By Mouth, Daily, # 100 tablet, 5 Refills, Maintenance, 08/21/21 9:43:00 EDT, Tablet, [facility] #[id number], Partial fill upon patient request if the [...] capsule, 0 Refills, Maintenance, 12/26/21 21:00:00 EST, [facility] #[id number], Partial fill upon patient request if the prescription is for a schedule II opioid drug., 160, cm, 12/21/21 15:25:00 ES... Start Date: 12/26/21 Stop Date: 12/29/21 Status: Ordered lidocaine 5% topical ointment 1 application, Topically, 3 times a day, PRN Pain, # 50 Gm, 1 Refills, Maintenance, 11/19/21 10:20:00 EDT, Ointment, [facility] #[id number], Partial fill upon patient request if the prescriptionis for a schedule II opioid drug., 1 application To... Start Date: 11/19/21 Status: Ordered lisdexamfetamine 30 mg oral capsule 1 capsule = 30 mg, By Mouth, Daily in AM, Dx F90.0, # 30 capsule, 0 Refills, Maintenance, 06/09/20 9:11:00 EDT, Capsule, [facility] #[id number], Partial fill upon patient request if the prescription is for a schedule II opioid drug., 1 capsule By... Start Date: 06/09/20 Stop Date: 07/09/20 Status: Ordered Multivitamins with FA 0.8 mg oral tablet 1 tablet, By Mouth, Daily, for 90 days, # 90 tablet, 2 Refills, Hard Stop 08/05/22 13:36:00 EDT, 11/08/21 13:36:00 EDT, Tablet, [facility] #[id number], Partial fill upon patient request if the [...] Replace Required Details, Route to Pharmacy Electronically, [id number]... Start Date: 06/25/18 Status: Ordered Prometrium 200 mg oral capsule 1 capsule = 200 mg, Vaginally, Daily at bedtime, # 60 capsule, 3 Refills, Maintenance, 12/11/21 11:42:00 EDT, [facility] #[id number], Partial fill upon patient request if the [...] Confirmed Active Severe obesity Confirmed Active 29/04/2007 [facility] admission #1: acute asthma attack Social History Social History Type Response Smoking Status Never (less than 100 in lifetime);Never; Exposure to Secondhand Smoke: Yes; Tobacco use times per day: mother smokes; entered on: 09/14/21 Sex Patient Care team information Care Team Personnel Name: Rebecca Mo MD Position: [facility] Resident Member Role: PCP Address: Address: [address] [place] [address]- Care Team Related Persons Name: Monroe Mcgarry Address: [place] [address] Name: MARIFER MCGARRY Address: [place] [address]
--- OUTSIDE RECORDS SUMMARY | 2023-07-18 10:24 | XMS_ITS | Continuity of Care Document ---
Author Organization [facility] Address [address] [place] [address] [address] [place] [address]- Care Team Providers Care Statistical Clerk Name Role Phone Bertha Montes MD Primary Care Physician Encounter [facility] [place] Date(s): 01/27/23 - 02/26/[address] [place] [address]- Attending Physician: Admtr, Ar8 Admitting Physician: Admtr, [...] 24 capsule, 0 Refills, Maintenance, 02/17/23 12:58:[address] [facility] #[id number], Partial fill upon patient request if the [...] 0 Refills, Soft Stop, 12/11/22 20:38:00 EDT, [facility] #[id number], Partial fill upon patient request if the prescription is for a schedule II opioid drug., 160, cm, 12/10/22 14:0... Start Date: 12/11/22 Status: Ordered Diflucan 150 mg oral tablet 1 tablet = 150 mg, By Mouth, Once, # 1 tablet, 0 Refills, Soft Stop, 02/19/23 19:29:00 EST, Tablet,[facility] #[id number], Partial fill upon patient request if the prescription is for a schedule II opioid drug., 157, cm, 02/17/23 12:20:00 EST, H... Start Date: 02/19/23 Status: Ordered hydrOXYzine hydrochloride 25 mg oral tablet 1 capsule, By Mouth, Once, PRN Agitation, # 30 capsule, 3 Refills, Soft Stop, 12/10/22 14:50:00 EDT, Capsule, [facility] #[id number], Partial fill upon patient request if the prescription is fora schedule II opioid drug., 160, cm, 12/10/22 14:07... Start Date: 12/10/22 Status: Ordered metronidazole topical 0.75% gel with applicator 1 application, Vaginally, Daily at bedtime, # 70 Gm, 3 Refills, Soft Stop, 12/20/22 16:15:00 EST, Gel, [facility] #[id number], Partial fill upon patient request if the [...] 10/27/23 11:50:00 EDT, 10/25/22 11:49:00 EDT, Tablet, [facility], Partial... Start Date: 10/25/22 Stop Date: 10/27/23 Status: Ordered omeprazole 20 mg oral enteric coated capsule 1 capsule = 20 mg, By Mouth, Daily, # 14 capsule, 0 Refills, Maintenance, 02/17/23 12:58:00 EST, ECCapsule, [facility] #[id number], Partial fill upon patient request if the prescription is for a schedule II opioid drug., 157, cm, 02/17/23 12:20:... Start Date: 02/17/23 Stop Date: 03/03/23 Status: Ordered Pen [place], 32 G x 4 mm BD Ultra Fine III See instructions, # 30 each, Refills 0, Tot. Refills 0, Maintenance, use as directed for Jad, 10/07/22 18:05:00 EDT, Supply, 160, cm, 10/07/22 15:43:00 EDT, Height, 122.2, kg, 03/27/22 10:39:00 EST, Dry Weight Start Date: 10/07/22 Stop Date: 11/06/22 Status: Ordered PriLOSEC OTC 20 mg oral delayed release tablet 1 tablet = 20 mg, By Mouth, 2 times a day, # 28 tablet, 0 Refills, Maintenance, 10/16/22 13:40:00 EDT, EC Tablet, [facility] #[id number], Partial fill upon patient request if the [...] Replace Required Details, Route to Pharmacy Electronically, [id number]... Start Date: 10/25/22 Status: Ordered Senna 8.6 mg oral tablet 17.2 mg, 2, tablet, By Mouth, Daily at bedtime, # 50 tablet, Refills 0, Tot. Refills 0, Maintenance, 03/31/22 6:17:00 EST, Route to Pharmacy Electronically, [facility] #[id number], Partial fill upon patient request if the prescription is for a sc... Start Date: 03/31/22 Status: Ordered sertraline 50 mg oral tablet 1 tablet = 50 mg, By Mouth, Daily, # 90 tablet, 1 Refills, Maintenance, 12/10/22 14:51:00 EDT, Tablet, [facility] #[id number], Partial fill upon patient request if the prescription is for a schedule II opioid drug., 160, cm, 12/10/22 14:07:00 EDT... Start Date: 12/10/22 Status: Ordered Tylenol 325 mg oral capsule 2 capsule = 650 mg, By Mouth, Every 4 hours, PRN as needed for pain, # 50 capsule, 0 Refills, Maintenance, 03/29/22 8:34:00 EST, Capsule, [facility] #[id number], Partial fill upon patient request if the prescription is for a schedule II opioid dr... Start Date: 03/29/22 Status: Ordered Victoza 18 mg/3 mL subcutaneous solution = 1.2 mg, Subcutaneous Infusion, Daily, # 3 mL, 6 Refills, Maintenance, 02/13/23 17:22:00 EST, [facility] #[id number], Partial fill upon patient request if the [...] Confirmed Active Severe obesity Confirmed Active 29/04/2007 [facility] admission #1: acute asthma attack Social History Social History Type Response Smoking Status Never (less than 100 in lifetime);Never; Exposure to Secondhand Smoke: Yes; Tobacco use times per day: mother smokes; entered on: 09/14/21 Sex Patient Care team information Care Team Personnel Name: Bertha Montes MD Position: [facility] Resident Member Role: PCP Address: Address: [address] [place] [address] Care Team Related Persons Name: Monroe Mcgarry Address: home [address] [place] [address] Name: MARIFER MCGARRY Address: [place] [address] Name: REMA MCGARRY Address: Address: [address]
--- OUTSIDE RECORDS SUMMARY | 2023-07-18 10:24 | XMS_ITS | Continuity of Care Document ---
Author Organization [facility] Address [address] [place] [address]- Care Team Providers Care Supervisor Fleshing Name Role Phone Chepe CADE, Rebecca Primary Care Physician Encounter [facility] Date(s): 02/13/22 - 03/15/[address] [address] [place] Allergies, Adverse Reactions, Alerts Substance Reaction Severity [...] Refills, Maintenance, 02/08/22 8:37:00 EST, ER Capsule, [facility] #[id number], Partial fill upon patient request if the prescription is for a schedule II opioid d... Start Date: 02/08/22 Status: Ordered Diflucan 150 mg oral tablet 1 tablet = 150 mg, By Mouth, Once, # 1 tablet, 0 Refills, Soft Stop, 02/15/22 10:22:00 EST, Tablet,[facility] #[id number], Partial fill upon patient request if the prescription is for a schedule II opioid drug., 160, cm, 02/08/22 8:11:00 EST, He... Start Date: 02/15/22 Status: Ordered famotidine 20 mg oral tablet 20 mg, 1, tablet, By Mouth, 2 times a day, # 180 tablet, Refills 0, Tot. Refills 0, Maintenance, 02/08/22 8:37:00 EST, Route to Pharmacy Electronically, [facility] #[id number], Partial fill uponpatient request if the prescription is for a schedu... Start Date: 02/08/22 Status: Ordered folic acid 0.4 mg oral tablet 1 tablet = 0.4 mg, By Mouth, Daily, # 100 tablet, 5 Refills, Maintenance, 08/21/21 9:43:00 EDT, Tablet, [facility] #[id number], Partial fill upon patient request if the [...] 1 Refills, Maintenance, 11/19/21 10:20:00 EDT, Ointment, [facility] #[id number], Partial fill upon patient request if the prescriptionis for a schedule II opioid drug., 1 application To... Start Date: 11/19/21 Status: Ordered lisdexamfetamine 30 mg oral capsule 1 capsule = 30 mg, By Mouth, Daily in AM, Dx F90.0, # 30 capsule, 0 Refills, Maintenance, 06/09/20 9:11:00 EDT, Capsule, [facility] #[id number], Partial fill upon patient request if the prescription is for a schedule II opioid drug., 1 capsule By... Start Date: 06/09/20 Stop Date: 07/09/20 Status: Ordered Multivitamins with FA 0.8 mg oral tablet 1 tablet, By Mouth, Daily, for 90 days, # 90 tablet, 2 Refills, Hard Stop 05/02/23 13:36:00 EDT, 08/05/22 13:36:00 EDT, Tablet, [facility] #[id number], Partial fill upon patient request if the prescription is for a schedule II opioid drug., 1 tab... Start Date: 08/05/22 Stop Date: 05/02/23 Status: Ordered Multivitamins with FA 0.8 mg oral tablet 1 tablet, By Mouth, Daily, for 90 days, # 90 tablet, 2 Refills, Hard Stop 08/05/22 13:36:00 EDT, 11/08/21 13:36:00 EDT, Tablet, [facility] #[id number], Partial fill upon patient request if the [...] Replace Required Details, Route to Pharmacy Electronically, [id number]... Start Date: 06/25/18 Status: Ordered Prometrium 200 mg oral capsule 1 capsule = 200 mg, Vaginally, Daily at bedtime, # 60 capsule, 3 Refills, Maintenance, 02/08/22 8:36:00 EST, [facility] #[id number], Partial fill upon patient request if the [...] Confirmed Active Severe obesity Confirmed Active 29/04/2007 [facility] admission #1: acute asthma attack Social History Social History Type Response Smoking Status Never (less than 100 in lifetime);Never; Exposure to Secondhand Smoke: Yes; Tobacco use times per day: mother smokes; entered on: 09/14/21 Sex Patient Care team information Care Team Personnel Name: Rebecca Mo MD Position: [facility] Resident Member Role: PCP Address: Address: [address] [place] [address]- Care Team Related Persons Name: Monroe Mcgarry Address: [place] [address] Name: MARIFER MCGARRY Address: [place] [address]
--- OUTSIDE RECORDS SUMMARY | 2023-07-18 10:24 | XMS_ITS | Continuity of Care Document ---
Author Organization [facility] Address [address] [address]- Care Team Providers Care Merchandise Handler Name Role Phone Chepe CADE, Rebecca Primary Care Physician Encounter [facility] Date(s): 11/14/21 - 12/14/21 [facility] [address] [address] Allergies, Adverse Reactions, Alerts Substance [...] Acute 01/18/22 10:19:00 EST, 11/19/21 10:19:00 EDT, [facility] #[id number], Partial fill upon patient request if the prescr... Start Date: 11/19/21 Stop Date: 01/18/22 Status: Ordered aspirin 162.5 mg oral capsule, extended release 1 capsule = 162.5 mg, By Mouth, Daily, at the same time every day, # 90 capsule, 3 Refills, Maintenance, 10/16/21 12:30:00 EDT, ER Capsule, [facility] #[id number], Partial fill upon patient request if the prescription is for a schedule II opioid... Start Date: 10/16/21 Status: Ordered folic acid 0.4 mg oral tablet 1 tablet = 0.4 mg, By Mouth, Daily, # 100 tablet, 5 Refills, Maintenance, 08/21/21 9:43:00 EDT, Tablet, [facility] #[id number], Partial fill upon patient request if the [...] 1 Refills, Maintenance, 11/19/21 10:20:00 EDT, Ointment, [facility] #[id number], Partial fill upon patient request if the prescriptionis for a schedule II opioid drug., 1 application To... Start Date: 11/19/21 Status: Ordered lisdexamfetamine 30 mg oral capsule 1 capsule = 30 mg, By Mouth, Daily in AM, Dx F90.0, # 30 capsule, 0 Refills, Maintenance, 06/09/20 9:11:00 EDT, Capsule, [facility] #[id number], Partial fill upon patient request if the prescription is for a schedule II opioid drug., 1 capsule By... Start Date: 4/30/21 Stop Date: 07/09/20 Status: Ordered Multivitamins with FA 0.8 mg oral tablet 1 tablet, By Mouth, Daily, for 90 days, # 90 tablet, 2 Refills, Hard Stop 08/05/22 13:36:00 EDT, 11/08/21 13:36:00 EDT, Tablet, [facility] #[id number], Partial fill upon patient request if the [...] Replace Required Details, Route to Pharmacy Electronically, [id number]... Start Date: 06/25/18 Status: Ordered Prometrium 200 mg oral capsule 1 capsule = 200 mg, Vaginally, Daily at bedtime, # 60 capsule, 3 Refills, Maintenance, 12/11/21 11:42:00 EDT, [facility] #[id number], Partial fill upon patient request if the [...] Confirmed Active Severe obesity Confirmed Active 29/04/2007 [facility] admission #1: acute asthma attack Social History Social History Type Response Smoking Status Never (less than 100 in lifetime);Never; Exposure to Secondhand Smoke: Yes; Tobacco use times per day: mother smokes; entered on: 09/14/21 Sex Patient Care team information Personnel Name: Rebecca Mo MD Address: Address: [address] [place] [address]
--- OUTSIDE RECORDS SUMMARY | 2023-07-18 10:24 | XMS_ITS | Continuity of Care Document ---
Author Organization [facility] Address [address] [place] [address]- Care Team Providers Care Environmental Technology Professor Name Role Phone Bertha Montes MD Primary Care Physician [place] [facility] [place] 12/20/22 - 01/19/[address] [address]- Allergies, Adverse Reactions, Alerts Substance Reaction Severity [...] 0 Refills, Soft Stop, 12/11/22 20:38:00 EDT, [facility] #[id number], Partial fill upon patient request if the prescription is for a schedule II opioid drug., 160, cm, 12/10/22 14:0... Start Date: 12/11/22 Status: Ordered Diflucan 150 mg oral tablet 1 tablet = 150 mg, By Mouth, Once, # 1 tablet, 0 Refills, Soft Stop, 10/25/22 11:47:00 EDT, Tablet,[facility], Partial fill upon patient request if the prescription is for a scheduleII opioid drug., 160, cm, 10/25/22 10:08:00 EDT, He... Start Date: 10/25/22 Status: Ordered hydrOXYzine hydrochloride 25 mg oral tablet 1 capsule, By Mouth, Once, PRN Agitation, # 30 capsule, 3 Refills, Soft Stop, 12/10/22 14:50:00 EDT, Capsule, [facility] #[id number], Partial fill upon patient request if the [...] symptoms, # 14 tablet, 1 Refills, Acute ... Start Date: 01/08/23 Stop Date: 01/22/23 Status: Ordered metronidazole topical 0.75% gel with applicator 1 application, Vaginally, Daily at bedtime, # 70 Gm, 3 Refills, Soft Stop, 12/20/22 16:15:00 EST, Gel, [facility] #[id number], Partial fill upon patient request if the [...] 10/27/23 11:50:00 EDT, 10/25/22 11:49:00 EDT, Tablet, [facility], Partial... Start Date: 10/25/22 Stop Date: 10/27/23 Status: Ordered Pen [place], 32 G x 4 mm BD Ultra [...] Refills, Maintenance, 10/16/22 13:40:00 EDT, EC Tablet, [facility] #[id number], Partial fill upon patient request if the [...] Replace Required Details, Route to Pharmacy Electronically, [id number]... Start Date: 10/25/22 Status: Ordered Senna 8.6 mg oral tablet 17.2 mg, 2, tablet, By Mouth, Daily at bedtime, # 50 tablet, Refills 0, Tot. Refills 0, Maintenance, 03/31/22 6:17:00 EST, Route to Pharmacy Electronically, [facility] #[id number], Partial fill upon patient request if the prescription is for a sc... Start Date: 03/31/22 Status: Ordered sertraline 50 mg oral tablet 1 tablet = 50 mg, By Mouth, Daily, # 90 tablet, 1 Refills, Maintenance, 12/10/22 14:51:00 EDT, Tablet, [facility] #[id number], Partial fill upon patient request if the prescription is for a schedule II opioid drug., 160, cm, 12/10/22 14:07:00 EDT... Start Date: 12/10/22 Status: Ordered Tylenol 325 mg oral capsule 2 capsule = 650 mg, By Mouth, Every 4 hours, PRN as needed for pain, # 50 capsule, 0 Refills, Maintenance, 03/29/22 8:34:00 EST, Capsule, [facility] #[id number], Partial fill upon patient request if the prescription is for a schedule II opioid dr... Start Date: 03/29/22 Status: Ordered Victoza 18 mg/3 mL subcutaneous solution = 1.2 mg, Subcutaneous Infusion, Daily, # 3 mL, 6 Refills, Maintenance, 01/08/23 16:54:00 EST, [facility] #[id number], Partial fill upon patient request if the [...] Confirmed Active Severe obesity Confirmed Active 29/04/2007 [facility] admission #1: acute asthma attack Social History Social History Type Response Smoking Status Never (less than 100 in lifetime);Never; Exposure to Secondhand Smoke: Yes; Tobacco use times per day: mother smokes; entered on: 09/14/21 Sex Patient Care team information Care Team Personnel Name: Bertha Montes MD Position: [facility] Resident Member Role: PCP Address: Address: [address] [place] [address]- Care Team Related Persons Name: Monroe Mcgarry Address: [address] [address] Name: MARIFER MCGARRY Address: [address] [address] Name: REMA MCGARRY Address: Address: [address]
--- OUTSIDE RECORDS SUMMARY | 2023-07-18 10:24 | XMS_ITS | Continuity of Care Document ---
Author Organization [facility] Address [address] [place] [address]- Care Team Providers Care Technical Inspector Name Role Phone Chepe CADE, Rebecca Primary Care Physician En[place] [facility] [place] Date(s): 05/13/22 - 06/12/[address] [address] Attending Physician: Admtr, Ar8 Admitting Physician: Admtr, Silas Referring Physician: Admtr, Ar8 Allergies, Adverse Reactions, [...] 0 Refills, Soft Stop, 05/13/22 14:02:00 EDT, Tablet,[facility] #[id number], Partial fill upon patient request if the [...] Refills, Soft Stop, 05/13/22 14:02:00 EDT, Gel, [facility] #[id number], Partial fill upon patient request if the prescription is for a schedule II opioid drug., 1 application Vaginally Daily... Start Date: 05/13/22 Stop Date: 05/18/22 Status: Ordered oxyCODONE 5 mg oral tablet 5 mg, 1, tablet, By Mouth, Every 3 hours, PRN, (7-10), # 12 tablet, Refills 0, Tot. Refills 0, Maintenance, Pain , Severe, 03/31/22 6:08:00 EST, Route to Pharmacy Electronically, [facility][id number], Partial fill upon patient request if the pr... Start Date: 03/31/22 Status: Ordered ProAir HFA 90 mcg/inh inhalation aerosol with adapter See Instructions, PRN, 2-4 puffs Inhalation 4 times a day 30 days, # 1 each, Refills 11, Tot. Refills 11, Maintenance, 06/25/18 15:30:45 EDT, Instructions Replace Required Details, Route to Pharmacy Electronically, [id number]... Start Date: 06/25/18 Status: Ordered Senna 8.6 mg oral tablet 17.2 mg, 2, tablet, By Mouth, Daily at bedtime, # 50 tablet, Refills 0, Tot. Refills 0, Maintenance, 03/31/22 6:17:00 EST, Route to Pharmacy Electronically, [facility] #[id number], Partial fill upon patient request if the prescription is for a sc... Start Date: 03/31/22 Status: Ordered simethicone 80 mg oral tablet, chewable 160 mg, 2, tablet, Chew, 3 times a day, PRN, # 48 tablet, Refills 0, Tot. Refills 0, Maintenance, Gas, 03/29/22 8:34:00 EST, Route to Pharmacy Electronically, [facility] #[id number], Partial fill upon patient request if the prescription is for a... Start Date: 03/29/22 Status: Ordered Tylenol 325 mg oral capsule 2 capsule = 650 mg, By Mouth, Every 4 hours, PRN as needed for pain, # 50 capsule, 0 Refills, Maintenance, 03/29/22 8:34:00 EST, Capsule, [facility] #[id number], Partial fill upon patient request if the [...] Confirmed Active Severe obesity Confirmed Active 29/04/2007 [facility] admission #1: acute asthma attack Social History Social History Type Response Smoking Status Never (less than 100 in lifetime);Never; Exposure to Secondhand Smoke: Yes; Tobacco use times per day: mother smokes; entered on: 09/14/21 Sex Patient Care team information Care Team Personnel Name: Rebecca Mo MD Position: [facility] Resident Member Role: PCP Address: Address: [address] [place] [address]- Care Team Related Persons Name: Monroe Mcgarry Address: home [address] [place] [address] Name: MARIFER MCGARRY Address: [address] [address] Name: REMA MCGARRY Address: Address: [address]
--- OUTSIDE RECORDS SUMMARY | 2023-07-18 10:24 | XMS_ITS | Continuity of Care Document ---
Author Organization [facility] Address [address] [place] [address]- Care Team Providers Care Erecting Engineer Name Role Phone Bertha Montes MD Primary Care Physician Encounter [facility] Date(s): 12/16/22 - 01/15/[address] [address]- Allergies, Adverse Reactions, Alerts Substance Reaction Severity [...] 0 Refills, Soft Stop, 12/11/22 20:38:00 EDT, [facility] #[id number], Partial fill upon patient request if the prescription is for a schedule II opioid drug., 160, cm, 12/10/22 14:0... Start Date: 12/11/22 Status: Ordered Diflucan 150 mg oral tablet 1 tablet = 150 mg, By Mouth, Once, # 1 tablet, 0 Refills, Soft Stop, 10/25/22 11:47:00 EDT, Tablet,[facility], Partial fill upon patient request if the prescription is for a scheduleII opioid drug., 160, cm, 10/25/22 10:08:00 EDT, He... Start Date: 10/25/22 Status: Ordered hydrOXYzine hydrochloride 25 mg oral tablet 1 capsule, By Mouth, Once, PRN Agitation, # 30 capsule, 3 Refills, Soft Stop, 12/10/22 14:50:00 EDT, Capsule, [facility] #[id number], Partial fill upon patient request if the [...] Refills, Soft Stop, 12/20/22 16:15:00 EST, Gel, [facility] #[id number], Partial fill upon patient request if the [...] 10/27/23 11:50:00 EDT, 10/25/22 11:49:00 EDT, Tablet, [facility], Partial... Start Date: 10/25/22 Stop Date: 10/27/23 Status: Ordered Pen [place], 32 G x 4 mm BD Ultra [...] Refills, Maintenance, 10/16/22 13:40:00 EDT, EC Tablet, [facility] #[id number], Partial fill upon patient request if the [...] Replace Required Details, Route to Pharmacy Electronically, [id number]... Start Date: 10/25/22 Status: Ordered Senna 8.6 mg oral tablet 17.2 mg, 2, tablet, By Mouth, Daily at bedtime, # 50 tablet, Refills 0, Tot. Refills 0, Maintenance, 03/31/22 6:17:00 EST, Route to Pharmacy Electronically, [facility] #[id number], Partial fill upon patient request if the prescription is for a sc... Start Date: 03/31/22 Status: Ordered sertraline 50 mg oral tablet 1 tablet = 50 mg, By Mouth, Daily, # 90 tablet, 1 Refills, Maintenance, 12/10/22 14:51:00 EDT, Tablet, [facility] #[id number], Partial fill upon patient request if the prescription is for a schedule II opioid drug., 160, cm, 12/10/22 14:07:00 EDT... Start Date: 12/10/22 Status: Ordered Tylenol 325 mg oral capsule 2 capsule = 650 mg, By Mouth, Every 4 hours, PRN as needed for pain, # 50 capsule, 0 Refills, Maintenance, 03/29/22 8:34:00 EST, Capsule, [facility] #[id number], Partial fill upon patient request if the prescription is for a schedule II opioid dr... Start Date: 03/29/22 Status: Ordered Victoza 18 mg/3 mL subcutaneous solution = 1.2 mg, Subcutaneous Infusion, Daily, # 3 mL, 6 Refills, Maintenance, 01/08/23 16:54:00 EST, [facility] #[id number], Partial fill upon patient request if the [...] Confirmed Active Severe obesity Confirmed Active 29/04/2007 [facility] admission #1: acute asthma attack Social History Social History Type Response Smoking Status Never (less than 100 in lifetime);Never; Exposure to Secondhand Smoke: Yes; Tobacco use times per day: mother smokes; entered on: 09/14/21 Sex Patient Care team information Care Team Personnel Name: Bertha Montes MD Position: [facility] Resident Member Role: PCP Address: Address: [address] [place] [address]- Care Team Related Persons Name: Monroe Mcgarry Address: [address] [address] Name: MARIFER MCGARRY Address: [address] [address] Name: REMA MCGARRY Address: Address: [address]
--- OUTSIDE RECORDS SUMMARY | 2023-07-18 10:24 | XMS_ITS | Continuity of Care Document ---
Author Organization [facility] Address [address] [place] [address]- Care Team Providers Care Wash Test Checker Name Role Phone Chepe CADE, Rebecca Primary Care Physician [phone] Encounter [place] Date(s): 03/01/22 - 03/31/[address] [address] Attending Physician: AdmSilas gill Admitting Physician: AdmtrSilas Referring Physician: Admtr, Ar8 Allergies, Adverse Reactions, [...] 03/31/22 6:08:00 EST, Route to Pharmacy Electronically, [facility][id number], Partial fill upon patient request if the pr... Start Date: 03/31/22 Status: Ordered ProAir HFA 90 mcg/inh inhalation aerosol with adapter See Instructions, PRN, 2-4 puffs Inhalation 4 times a day 30 days, # 1 each, Refills 11, Tot. Refills 11, Maintenance, 06/25/18 15:30:45 EDT, Instructions Replace Required Details, Route to Pharmacy Electronically, [id number]... Start Date: 06/25/18 Status: Ordered Senna 8.6 mg oral tablet 17.2 mg, 2, tablet, By Mouth, Daily at bedtime, # 50 tablet, Refills 0, Tot. Refills 0, Maintenance, 03/31/22 6:17:00 EST, Route to Pharmacy Electronically, [facility] #[id number], Partial fill upon patient request if the prescription is for a sc... Start Date: 03/31/22 Status: Ordered simethicone 80 mg oral tablet, chewable 160 mg, 2, tablet, Chew, 3 times a day, PRN, # 48 tablet, Refills 0, Tot. Refills 0, Maintenance, Gas, 03/29/22 8:34:00 EST, Route to Pharmacy Electronically, [facility] #[id number], Partial fill upon patient request if the prescription is for a... Start Date: 03/29/22 Status: Ordered Tylenol 325 mg oral capsule 2 capsule = 650 mg, By Mouth, Every 4 hours, PRN as needed for pain, # 50 capsule, 0 Refills, Maintenance, 03/29/22 8:34:00 EST, Capsule, [facility] #[id number], Partial fill upon patient request if the [...] Confirmed Active Severe obesity Confirmed Active 29/04/2007 [facility] admission #1: acute asthma attack Social History Social History Type Response Smoking Status Never (less than 100 in lifetime);Never; Exposure to Secondhand Smoke: Yes; Tobacco use times per day: mother smokes; entered on: 09/14/21 Sex Patient Care team information Care Team Personnel Name: Rebecca Mo MD Position: [facility] Resident Member Role: PCP Address: Address: [address] [place] [address] Care Team Related Persons Name: Monroe Romo Address: [place] [address] Name: MARIFER ROMO Address: [place] [address] Name: DODIE ROMO GIRL Address: Address: [address]
--- OUTSIDE RECORDS SUMMARY | 2023-07-18 10:24 | XMS_ITS | Continuity of Care Document ---
Author Organization [facility] Address [address] [address]- Care Team Providers Care Psychology Teacher Name Role Phone Chepe CADE, Rebecca Primary Care Physician [facility]counter [facility] Date(s): 12/11/21 - 01/10/22 [facility] [address] [place] [id number] Allergies, Adverse Reactions, Alerts Substance [...] Acute 01/18/22 10:19:00 EST, 11/19/21 10:19:00 [id number] Partial fill upon patient request if the prescr... Start Date: 11/19/21 Stop Date: 01/18/22 Status: Ordered aspirin 162.5 mg oral capsule, extended release 1 capsule = 162.5 mg, By Mouth, Daily, at the same time every day, # 90 capsule, 3 Refills, Maintenance, 10/16/21 12:30:00 EDT, ER Capsule, [facility] #[id number], Partial fill upon patient request if the prescription is for a schedule II opioid... Start Date: 10/16/21 Status: Ordered folic acid 0.4 mg oral tablet 1 tablet = 0.4 mg, By Mouth, Daily, # 100 tablet, 5 Refills, Maintenance, 08/21/21 9:43:00 EDT, Tablet, [facility] #[id number], Partial fill upon patient request if the [...] capsule, 0 Refills, Maintenance, 12/26/21 21:00:00 EST, [facility] #[id number], Partial fill upon patient request if the prescription is for a schedule II opioid drug., 160, cm, 12/21/21 15:25:00 ES... Start Date: 12/26/21 Stop Date: 12/29/21 Status: Ordered lidocaine 5% topical ointment 1 application, Topically, 3 times a day, PRN Pain, # 50 Gm, 1 Refills, Maintenance, 11/19/21 10:20:00 EDT, Ointment, [facility] #[id number], Partial fill upon patient request if the prescriptionis for a schedule II opioid drug., 1 application To... Start Date: 11/19/21 Status: Ordered lisdexamfetamine 30 mg oral capsule 1 capsule = 30 mg, By Mouth, Daily in AM, Dx F90.0, # 30 capsule, 0 Refills, Maintenance, 06/09/20 9:11:00 EDT, Capsule, [facility] #[id number], Partial fill upon patient request if the prescription is for a schedule II opioid drug., 1 capsule By... Start Date: 06/09/20 Stop Date: 07/09/20 Status: Ordered Multivitamins with FA 0.8 mg oral tablet 1 tablet, By Mouth, Daily, for 90 days, # 90 tablet, 2 Refills, Hard Stop 08/05/22 13:36:00 EDT, 11/08/21 13:36:00 EDT, Tablet, [facility] #[id number], Partial fill upon patient request if the [...] Replace Required Details, Route to Pharmacy Electronically, [id number]... Start Date: 06/25/18 Status: Ordered Prometrium 200 mg oral capsule 1 capsule = 200 mg, Vaginally, Daily at bedtime, # 60 capsule, 3 Refills, Maintenance, 12/11/21 11:42:00 EDT, [facility] #[id number], Partial fill upon patient request if the [...] Confirmed Active Severe obesity Confirmed Active 29/04/2007 [facility] admission #1: acute asthma attack Social History Social History Type Response Smoking Status Never (less than 100 in lifetime);Never; Exposure to Secondhand Smoke: Yes; Tobacco use times per day: mother smokes; entered on: 09/14/21 Sex Patient Care team information Care Team Personnel Name: Rebecca Mo MD Position: [facility] Resident Member Role: PCP Address: Address: [address] [place] [address]- Care Team Related Persons Name: Monroe Mcgarry Address: [place] [address] Name: MARIFER MCGARRY Address: [place] [address]
--- OUTSIDE RECORDS SUMMARY | 2023-07-18 10:24 | XMS_ITS | Continuity of Care Document ---
Author Organization [facility] Address [address] [place] [address]- Care Team Providers Care Powersaw Supervisor Name Role Phone Chriss Mejia MD Primary Care Physician [phone] [place] [facility] [place]04[place] - 12/04/[address] [address]- [facility] Allergies, Adverse Reactions, Alerts Substance Reaction Severity [...] capsule, 0 Refills, Maintenance, 11/08/19 16:07:00 EDT, Capsule, [facility] #[id number], please fill 40mg order, 25mg entered by mistake, 157, cm, 11/08/19 15:34:00 EDT, Height Start Date: 11/08/19 Stop Date: 12/08/19 Status: Ordered Bengay Pain Relief+Massage 2.5% topical gel 1 application, Topically, 2 times a day, PRN as needed for pain, for 30 days, # 85 Gm, 1 Refills, Acute 01/07/20 15:59:00 EST, 11/08/19 15:59:00 EDT, Gel, [facility] #[id number], 1 application Topically 2 times a day,x30 [...] 06/25/18 15:32:32 EDT, Route to Pharmacy Electronically, [id number],[facility] [id number] Start Date: 06/25/18 Status: Ordered naproxen 375 mg oral tablet 375 mg, 1, tablet, By Mouth, 2 times a day, PRN, for 30 days, # 60 tablet, Refills 0, Tot. Refills 0, Acute 12/08/19 15:57:00 EDT, Pain , Mild, 11/08/19 15:57:00 EDT, Route to Pharmacy Electronically, [facility] #[id number], 157, cm, 11/08/19 15:... Start Date: 11/08/19 Stop Date: 12/08/19 Status: Ordered ProAir HFA 90 mcg/inh inhalation aerosol with adapter See Instructions, PRN, 2-4 puffs Inhalation 4 times a day 30 days, # 1 each, Refills 11, Tot. Refills 11, Maintenance, 06/25/18 15:30:45 EDT, Instructions Replace Required Details, Route to Pharmacy Electronically, [id number]... Start Date: 06/25/18 Status: Ordered Problem List Condition Effective Dates Status Health Status Inform ant ADD - Attention deficit diso rder with hyperactivity(Confirmed) Active Allergic rhinitis due to pollen(Confirmed)(Improving) Active Asthma, mild intermittent, precipitated by colds, allergies(Confirmed)(Stable) 1 Active Contraception management(Confirmed) Active Controlled substance agreeme nt due(Confirmed) Active H/O nipple discharge(Confirmed) Active Mood disorder(Confirmed) Active Myopia(Confirmed)(Stable) Active Obesity(Confirmed) Active 29/04/2007 [facility] admission #1: acute asthma attack Social History Social History Type Response Smoking Status Never smoker; Tobacc o user in household: No entered on: 03/04/14 Sex
--- OUTSIDE RECORDS SUMMARY | 2023-07-18 10:24 | XMS_ITS | Continuity of Care Document ---
Author Organization [facility] Address [address] [place] [address] [address] [place] [address]- Care Team Providers Care Jockey Room Custodian Name Role Phone Chriss Mejia MD Primary Care Physician [phone] Encounter [facility] Date(s): 06/19/20 - 07/19/20 [facility] [address] [place], [place] [address] Attending Physician: Silas Munroe Admitting Physician: Silas Munroe Referring Physician: AdmtrSilas Allergies, Adverse Reactions, Alerts [...] 0 Refills, Maintenance, 06/09/20 9:11:00 EDT, Capsule, [facility] #[id number], Partial fill upon patient request if the [...] Replace Required Details, Route to Pharmacy Electronically, [id number]... Start Date: 06/25/18 Status: Ordered traZODone 50 mg oral tablet 50 mg, 1, tablet, By Mouth, Daily at bedtime, PRN, # 30 tablet, Refills 1, Tot. Refills 1, Maintenance, Sleep, 06/09/20 9:11:00 EDT, Route to Pharmacy Electronically, [facility] #[id number], Partial fill upon patient request if the [...] disorder(Confirmed) Active Myopia(Confirmed)(Stable) Active Obesity(Confirmed) Active 29/04/2007 [facility] admission #1: acute asthma attack Social History Social History Type Response Smoking Status Never smoker; Tobacc o user in household: No entered on: 03/04/14 Sex
--- OUTSIDE RECORDS SUMMARY | 2023-07-18 10:25 | XMS_ITS | Continuity of Care Document ---
Author Organization [facility] Address [address] [place] [address]- Care Team Providers Care Assembler Crimper Name Role Phone Bertha Montes MD Primary Care Physician En[place] [facility] [place](s): 02/17/23 - 03/19/23 [facility] [address] [place], [place] [address] Attending Physician: AdmSilas gill Admitting Physician: Admtr, [...] 24 capsule, 0 Refills, Maintenance, 02/17/23 12:58:00 [facility], [facility] #[id number], Partial fill upon patient request if the [...] 0 Refills, Soft Stop, 12/11/22 20:38:00 EDT, [facility] #[id number], Partial fill upon patient request if the prescription is for a schedule II opioid drug., 160, cm, 12/10/22 14:0... Start Date: 12/11/22 Status: Ordered Diflucan 150 mg oral tablet 1 tablet = 150 mg, By Mouth, Once, # 1 tablet, 0 Refills, Soft Stop, 02/19/23 19:29:00 EST, Tablet,[facility] #[id number], Partial fill upon patient request if the prescription is for a schedule II opioid drug., 157, cm, 02/17/23 12:20:00 EST, H... Start Date: 02/19/23 Status: Ordered hydrOXYzine hydrochloride 25 mg oral tablet 1 capsule, By Mouth, Once, PRN Agitation, # 30 capsule, 3 Refills, Soft Stop, 12/10/22 14:50:00 EDT, Capsule, [facility] #[id number], Partial fill upon patient request if the prescription is fora schedule II opioid drug., 160, cm, 12/10/22 14:07... Start Date: 12/10/22 Status: Ordered metronidazole topical 0.75% gel with applicator 1 application, Vaginally, Daily at bedtime, # 70 Gm, 3 Refills, Soft Stop, 12/20/22 16:15:00 EST, Gel, [facility] #[id number], Partial fill upon patient request if the [...] 10/27/23 11:50:00 EDT, 10/25/22 11:49:00 EDT, Tablet, [facility] Partial... Start Date: 10/25/22 Stop Date: 10/27/23 Status: Ordered omeprazole 20 mg oral enteric coated capsule 1 capsule = 20 mg, By Mouth, Daily, # 14 capsule, 0 Refills, Maintenance, 02/17/23 12:58:00 EST, ECCapsule, [facility] #[id number], Partial fill upon patient request if the prescription is for a schedule II opioid drug., 157, cm, 02/17/23 12:20:... Start Date: 02/17/23 Stop Date: 03/03/23 Status: Ordered Pen [place], 32 G x 4 mm BD Ultra [...] Refills, Maintenance, 10/16/22 13:40:00 EDT, EC Tablet, [facility] #[id number], Partial fill upon patient request if the [...] Replace Required Details, Route to Pharmacy Electronically, [id number]... Start Date: 10/25/22 Status: Ordered Senna 8.6 mg oral tablet 17.2 mg, 2, tablet, By Mouth, Daily at bedtime, # 50 tablet, Refills 0, Tot. Refills 0, Maintenance, 03/31/22 6:17:00 EST, Route to Pharmacy Electronically, [facility] #[id number], Partial fill upon patient request if the prescription is for a sc... Start Date: 03/31/22 Status: Ordered sertraline 50 mg oral tablet 1 tablet = 50 mg, By Mouth, Daily, # 90 tablet, 1 Refills, Maintenance, 12/10/22 14:51:00 EDT, Tablet, [facility] #[id number], Partial fill upon patient request if the prescription is for a schedule II opioid drug., 160, cm, 12/10/22 14:07:00 EDT... Start Date: 12/10/22 Status: Ordered Tylenol 325 mg oral capsule 2 capsule = 650 mg, By Mouth, Every 4 hours, PRN as needed for pain, # 50 capsule, 0 Refills, Maintenance, 03/29/22 8:34:00 EST, Capsule, [facility] #[id number], Partial fill upon patient request if the prescription is for a schedule II opioid dr... Start Date: 03/29/22 Status: Ordered Victoza 18 mg/3 mL subcutaneous solution = 1.2 mg, Subcutaneous Infusion, Daily, # 3 mL, 6 Refills, Maintenance, 02/13/23 17:22:00 EST, [facility] #[id number], Partial fill upon patient request if the [...] Confirmed Active Severe obesity Confirmed Active 29/04/2007 [facility] admission #1: acute asthma attack Social History Social History Type Response Smoking Status Never (less than 100 in lifetime);Never; Exposure to Secondhand Smoke: Yes; Tobacco use times per day: mother smokes; entered on: 09/14/21 Sex Patient Care team information Care Team Personnel Name: Bertha Montes MD Position: [facility] Resident Member Role: PCP Address: Address: [address] [place] [address] Care Team Related Persons Name: Monroe Mcgarry Address: [place] [address] Name: MARIFER MCGARRY Address: [place] [address] Name: REMA MCGARRY Address: Address: [address]
--- OUTSIDE RECORDS SUMMARY | 2023-07-18 10:25 | XMS_ITS | Continuity of Care Document ---
Author Organization [facility] ter Address [address] [place] [id number]- Care Team Providers Care Ic Designer Gate Arrays Name Role Phone Rebecca Mo MD Primary Care Physician [place] [facility] [place] - 01/27/[address] [address] Discharge Disposition: A-D/C Home Attending [...] Refills, Maintenance, 10/16/21 12:30:00 EDT, ER Capsule, [facility] #[id number], Partial fill upon patient request if the prescription is for a schedule II opioid... Start Date: 10/16/21 Status: Ordered folic acid 0.4 mg oral tablet 1 tablet = 0.4 mg, By Mouth, Daily, # 100 tablet, 5 Refills, Maintenance, 08/21/21 9:43:00 EDT, Tablet, [facility] #[id number], Partial fill upon patient request if the [...] 1 Refills, Maintenance, 11/19/21 10:20:00 EDT, Ointment, [facility] #[id number], Partial fill upon patient request if the prescriptionis for a schedule II opioid drug., 1 application To... Start Date: 11/19/21 Status: Ordered lisdexamfetamine 30 mg oral capsule 1 capsule = 30 mg, By Mouth, Daily in AM, Dx F90.0, # 30 capsule, 0 Refills, Maintenance, 06/09/20 9:11:00 EDT, Capsule, [facility] #[id number], Partial fill upon patient request if the prescription is for a schedule II opioid drug., 1 capsule By... Start Date: 06/09/20 Stop Date: 07/09/20 Status: Ordered Multivitamins with FA 0.8 mg oral tablet 1 tablet, By Mouth, Daily, for 90 days, # 90 tablet, 2 Refills, Hard Stop 08/05/22 13:36:00 EDT, 11/08/21 13:36:00 EDT, Tablet, [facility] #[id number], Partial fill upon patient request if the [...] Replace Required Details, Route to Pharmacy Electronically, [id number]... Start Date: 06/25/18 Status: Ordered Prometrium 200 mg oral capsule 1 capsule = 200 mg, Vaginally, Daily at bedtime, # 60 capsule, 3 Refills, Maintenance, 12/11/21 11:42:00 EDT, [facility][id number], Partial fill upon patient request if the [...] Confirmed Active Severe obesity Confirmed Active 29/04/2007 [facility] admission #1: acute asthma attack Vital Signs Most recent to oldest [Reference Range]: 1 Weight 118.9 kg (01/27/22 3:26 PM) Oxygen Saturation [94-100 %] 97 % (01/27/22 3:46 PM) Blood Pressure [90-138/55-84 mm Hg] 110/ 68mm Hg (01/27/22 3:39 PM) Respiratory Rate [16-30 br/min] 16 br/mi n (01/27/22 3:39 PM) Temperature [96.8-100.4 DegF] 98.2 DegF (01/27/22 3:26 PM) Mode of Delivery (Oxygen) Room air (01/27/22 3:39 PM) Blood pressure sites Arm, right (01/27/22 3:39 PM) Temperature Route Oral (01/27/22 3:26 PM) Dry Weight 118.9 kg (01/27/22 3:26 PM) Social History Social History Type Response Smoking Status Never (less than 100 in lifetime);Never; Exposure to Secondhand Smoke: Yes; Tobacco use times per day: mother smokes; entered on: 09/14/21 Sex Note * Kathi Gary: PERFORM Event Display: Discharge/Transfer Note Hospital Authored Date: [id number] Nursing Discharge Note Entered On: 01/27/2022 17:07 EST Performed On: 01/27/2022 17:07 EST by Kathi Gary Nursing Discharge Note 2 Discharge Time : 01/27/2022 17:07 EST Discharge Level of Care at Discharge : Home/Prison/Foster Care Patient Left Unit Via : Ambulatory Patient Accompanied Off Unit with : Other: self DC Instructions Provided & Signed by Pt : Yes Patient Understands D/C Instructions : Yes Patient Instructions Discharge Signed : Yes Did Pt have Specialty Bed or Wound Vac : No Kathi Gary - 01/27/2022 17:07 EST * Kathi Gary: PERFORM Event Display: Patient Education/Instruction Authored Date: [id number] Inpatient Adult Discharge Instructions [address] [address] Name: DODIE ROMO : 1990 Visit: 01/27/2022 15:17:00 Current Date: 01/27/2022 17:01 Account: [id number] Inpatient Adult Discharge Instructions We would like [...] and their families. Surveys are administered by [employer] ?? If further treatment with your primary care physician or another doctor is recommended, it is important for you to keep the appointment. Call your primary care physician or return to the Emergency Department immediately if your condition worsens, fails to improve, or new symptoms develop. If you need to find a doctor, you can call [facility] for a referral at [phone] or toll free at [phone]) or log in to [email or web address].. ?? You can view and manage your care through the patient portal or by using a health care hasmukh of your choosing. [employer] is a website that allows you to securely view your medical information including your hospital discharge summary, office visit summaries, medications and follow-up visits. You can also request appointments, renew medications, and request access to your medical information using a health care hasmukh of your choosing, or just ask a question. You can enroll at [email or web address] or register during your next office visit. You have been discharged from [facility], Patient Care Unit: WETU1. If you have any questions regarding these instructions after you leave, please call us and we will be happy to assist you. [facility] Your Care Team Attending Physician Mary Escobar DO Your Diagnosis Tests Performed Below is a partial list of the tests performed during your hospitalization. You may have had other tests and procedures not included in this list. Please discuss all test results with your provider. Primary Care Provider Rebecca oM MD Advance Directive Health Care Proxy on File No No qualifying data available. Discharge Vitals Temperature: 98.2 DegF Weight: 118.9 kg Respiratory Rate: 16 br/min ?? Systolic Blood Pressure: 110 mm Hg ?? Diastolic Blood Pressure: 68 mm Hg ?? Oxygen Saturation: 97 % ?? Studies Pending All tests and labs ordered during this hospital stay have been completed unless listed below. Please discuss all pending results with your provider listed above in these instructions. ?? No incomplete studies found What to do next Instructions From Your Doctor Discharge Orders Scheduled Follow-Up Appointments Friday 8:00 AM EST ?? Where: [facility] [address] [facility] [place] [address]- You Need to Schedule the Following Appointments Follow Up with??[facility] [phone] When?? Why: Keep scheduled appointments. Call office with questions or concerns. Where: Discharge Medications DODIE ROMO :1990 Visit Date:01/27/2022 Medications: Please continue your medications until treatment is completed or stopped by your provider. Medications not listed below should be discontinued. Discuss any questions related to medications with your provider. What How Much When Instructions Next Dose Unchanged Albuterol (ProAir HFA [...] Please discuss all test resultswith your provider. Allergies (NKA means No Known Allergies) Apples Pollen??(Allergic Rhinitis Due to Pollen, Allergic conjunctivitis) Problems Active Problems??(8) ADD - Attention deficit disorder with hyperactivity?? Allergic rhinitis due to pollen?? Asthma, mild intermittent, precipitated by colds, allergies?? Degenerative disc changes C5-C6 and C6-C7?? Mood disorder?? Obesity? Severe obesity?? Education Materials Below is the list of Educational Leaflet Providered with your Discharge Instructions. Understanding Labor?? Valuables and Belongings I fully understand and agree that [facility] accepts no responsibility for all my personal [...] Status?? Pulmonary Rehab Discharge Status?? Respiratory Rate: 16 br/min ? Common Emergency Awareness Tips IS [...] are strongly encouraged to quit. Please call [facility] Link at [phone] or [phone]) or log in to [email or web address] for referrals to smoking cessation programs. ?? The National Suicide Prevention Hotline is available 02/09 if you or someone you know needs to find a reason to keep living. By calling 1-720-133-[employer] (9221) you'll be connected to a skilled, trained counselor at a crisis center in your area. INPATIENT DISCHARGE INSTRUCTIONS SIGNATURE PAGE DEMETRIUSJAGDEEP GOLDBERGWOLFGANG Location:[facility] Registration Date and Time:01/27/2022 15:17 EST Primary Care Physician: Rebecca Mo MD, DODIE ASH, have received the above patient education materials/instructions and have verbalized understanding. If ambulance or transport services are being used I further acknowledge beinggiven a choice of service. ?? If you need to contact me, please call me at this number: . Patient/Public Weigher Name: Patient/Public Weigher Signature: Relationship to Patient: Witness Name/Signature: Date: * Kathi Gary: PERFORM Event Display: Patient Education Leaflets Authored Date: [id number] Understanding Labor ?? 15356 Understanding Labor Going into labor before week 37 of is called labor. labor can cause your baby to be born too soon. This can lead to health problems for your baby. Before labor, the cervix is thick and closed. In labor, the cervix begins to efface (thin) and dilate (open). Symptoms of labor If you think you???re having labor, get medical help right away. Contractions alone don???tmean you???re in labor. What matters more are changes in your cervix. The cervix is the opening at the lower end of the uterus. Symptoms of labor include: ??? 4 or more contractions per hour ??? Strong contractions ??? Constant menstrual-like cramping ??? Low-back pain ??? Mucous orbloody fluid from the vagina ??? Bleeding or spotting in the second or third trimester ?? Evaluating labor Your??healthcare provider??will try to find out if you???re in labor or just having contractions. They may watch you for a few hours. You may have these tests: ??? Pelvic exam. This is??to see if your cervix has effaced (thinned) and dilated (opened). ??? Uterine activity monitoring. This is used??to detect contractions. ??? monitoring. This is??done to check the health of your baby. ??? Ultrasound. This test looks at your baby???s size and position. ??? Amniocentesis. This test??checks how mature your baby???s lungs are. ?? Caring for yourself at home If you have contractions, but your cervix is still thick and closed, your healthcare provider may tell you to: ??? Drink plenty of water. ??? Do fewer activities. ??? Rest in bed on your side. ??? Don't have intercourse or stimulate your nipples. ?? When to call your healthcare provider Call your healthcare provider if you have any of these: ??? 4 or more contractions per hour ??? Bagof water breaks ??? Bleeding or spotting ?? If you need hospital care labor often means that you need hospital care. You may need complete bed rest. You may havean IV (intravenous) line in your arm or hand. This is to give you fluids. You may be given pills orinjections. These are done to help prevent contractions. You may get a medicine called a corticosteroid.??This is to help your baby???s lungs mature more quickly. ?? Are you at risk? Any woman can have labor. It may start for no reason. But these risk factors can increase your chances: ??? Past labor or early ??? Smoking, drug, or alcohol use in ??? A multiple (twins or more) ??? Problems with the shape of the uterus ??? Bleeding during the ?? The dangers of A baby born too soon may have health problems. This is because the baby didn???t have enough time to grow. Some of the risks for your baby include: ??? Not or feeding well ??? Having immature lungs ??? Bleeding in the brain ? Reaching term Your goal is to get as close to term (week 37 or later) as you can before giving . The closer you get to term, the??higher your chance of having a healthy baby. Work with your healthcare provider. Together, you can take steps that may keep you from giving too early. ?? Last Reviewed Date: 2020 ?? 3190-6314 [employer]. All rights reserved. This information is not intended as a substitute for professional medical care. Always follow your healthcare professional's instructions. ?? Patient Care team information Care Team Personnel Name: Rebecca Mo MD Position: [facility] Resident Member Role: PCP Address: Address: [address] [place] [address] Name: Kathi Gary Position: [facility] OB RN Member Role: Patient Care Provider Care Team Related Persons Name: Monroe Romo Address: [place] [address] Name: MARIFER ROMO Address: [place] [address]
--- OUTSIDE RECORDS SUMMARY | 2023-07-18 10:25 | XMS_ITS | Continuity of Care Document ---
Author Organization [facility] [place] [facility] Address [address] [place] [address]- Care Team Providers Care Termite Treater Name Role Phone Chepe CADE, Rebecca Primary Care Physician [phone] Encounter [facility] [place] Date(s): 02/22/22 - 03/24/[address] [address] Allergies, Adverse Reactions, Alerts Substance Reaction [...] capsule, 0 Refills, Maintenance, 03/24/22 7:58:00EST, Capsule, [facility] #[id number], Partial fill upon patient request if the prescription isfor a schedule II opioid drug., 160, cm, 03/12/22 1... Start Date: 03/24/22 Stop Date: 03/31/22 Status: Ordered aspirin 162.5 mg oral capsule, extended release 1 capsule = 162.5 mg, By Mouth, Daily, at the same time every day, # 90 capsule, 3 Refills, Maintenance, 02/08/22 8:37:00 EST, ER Capsule, [facility] #[id number], Partial fill upon patient request if the prescription is for a schedule II opioid d... Start Date: 02/08/22 Status: Ordered Diflucan 150 mg oral tablet 1 tablet = 150 mg, By Mouth, Once, # 1 tablet, 0 Refills, Soft Stop, 02/15/22 10:22:00 EST, Tablet,[facility] #[id number], Partial fill upon patient request if the prescription is for a schedule II opioid drug., 160, cm, 02/08/22 8:11:00 EST, He... Start Date: 02/15/22 Status: Ordered famotidine 20 mg oral tablet 20 mg, 1, tablet, By Mouth, 2 times a day, # 180 tablet, Refills 0, Tot. Refills 0, Maintenance, 02/08/22 8:37:00 EST, Route to Pharmacy Electronically, [facility] #[id number], Partial fill uponpatient request if the prescription is for a schedu... Start Date: 02/08/22 Status: Ordered folic acid 0.4 mg oral tablet 1 tablet = 0.4 mg, By Mouth, Daily, # 100 tablet, 5 Refills, Maintenance, 08/21/21 9:43:00 EDT, Tablet, [facility] #[id number], Partial fill upon patient request if the [...] 1 Refills, Maintenance, 11/19/21 10:20:00 EDT, Ointment, [facility] #[id number], Partial fill upon patient request if the prescriptionis for a schedule II opioid drug., 1 application To... Start Date: 11/19/21 Status: Ordered lisdexamfetamine 30 mg oral capsule 1 capsule = 30 mg, By Mouth, Daily in AM, Dx F90.0, # 30 capsule, 0 Refills, Maintenance, 06/09/20 9:11:00 EDT, Capsule, [facility] #[id number], Partial fill upon patient request if the prescription is for a schedule II opioid drug., 1 capsule By... Start Date: 06/09/20 Stop Date: 07/09/20 Status: Ordered Monistat 7 2% cream with applicator 1 application, Vaginally, Daily in AM, for 7 days, # 48 Gm, 0 Refills, Acute 03/26/22 16:52:00 EST,03/19/22 16:52:00 EST, Cream, [facility] #[id number], Partial fill upon patient request if theprescription is for a schedule II opioid drug., 1 a... Start Date: 03/19/22 Stop Date: 03/26/22 Status: Ordered Multivitamins with FA 0.8 mg oral tablet 1 tablet, By Mouth, Daily, for 90 days, # 90 tablet, 2 Refills, Hard Stop 05/02/23 13:36:00 EDT, 08/05/22 13:36:00 EDT, Tablet, [facility] #[id number], Partial fill upon patient request if the prescription is for a schedule II opioid drug., 1 tab... Start Date: 08/05/22 Stop Date: 05/02/23 Status: Ordered Multivitamins with FA 0.8 mg oral tablet 1 tablet, By Mouth, Daily, for 90 days, # 90 tablet, 2 Refills, Hard Stop 08/05/22 13:36:00 EDT, 11/08/21 13:36:00 EDT, Tablet, [facility] #[id number], Partial fill upon patient request if the [...] Replace Required Details, Route to Pharmacy Electronically, [id number]... Start Date: 06/25/18 Status: Ordered Prometrium 200 mg oral capsule 1 capsule = 200 mg, Vaginally, Daily at bedtime, # 60 capsule, 3 Refills, Maintenance, 02/08/22 8:36:00 EST, [facility] #[id number], Partial fill upon patient request if the prescription is for a schedule II opioid drug., 160, cm, 02/08/22 8:11:0... Start Date: 02/08/22 Status: Ordered Valtrex 500 mg oral tablet See Instructions, 1 tablet By Mouth twice daily starting at 34wks for remainder of , # 60 tablet, Refills 0, Tot. Refills 0, Maintenance, 03/12/22 13:13:00 EST, Instructions Replace RequiredDetails, Route to Pharmacy Electronically, [email or web address]... Start Date: 03/12/22 Status: Ordered Problem List Condition Confirmation Course Effective Dates Status H ealth Status Informant ADD - Attention deficit disorder with hyperactivity Confirmed Active Allergic rhinitis due to pollen Confirmed Improving Active Asthma, mild intermittent, precipitated by colds, allergies 1 Confirmed Stable Active 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 Mood disorder Confirmed Active Obesity Confirmed Active Severe obesity Confirmed Active 29/04/2007 [facility] admission #1: acute asthma attack Social History Social History Type Response Smoking Status Never (less than 100 in lifetime);Never; Exposure to Secondhand Smoke: Yes; Tobacco use times per day: mother smokes; entered on: 09/14/21 Sex Patient Care team information Care Team Personnel Name: Rebecca Mo MD Position: S Resident Member Role: PCP Address: Address: [address] [place] [address]- Care Team Related Persons Name: Monroe Mcgarry Address: home [address] [place] [address] Name: MARIFER MCGARRY Address: home [address] [place] [address]
--- OUTSIDE RECORDS SUMMARY | 2023-07-18 10:25 | XMS_ITS | Continuity of Care Document ---
Author Organization [facility] Address [address] [place] [address]- Care Team Providers Care Gold Charmer Name Role Phone Bertha Montes MD Primary Care Physician Encounter [facility] Date(s): 10/09/22 - 11/08/[address] [address]- Allergies, Adverse Reactions, Alerts Substance Reaction Severity [...] 0 Refills, Soft Stop, 10/07/22 17:47:00 EDT[facility] fill upon patient request if the prescription is fora schedule II opioid drug., 160, cm, 10/07/22 15:43... Start Date: 10/07/22 Status: Ordered Diflucan 150 mg oral tablet 1 tablet = 150 mg, By Mouth, Once, # 1 tablet, 0 Refills, Soft Stop, 10/25/22 11:47:00 EDT, Tablet,[facility] Partial fill upon patient request if the prescription is for a scheduleII opioid drug., 160, cm, 10/25/22 10:08:00 EDT, He... Start Date: 10/25/22 Status: Ordered hydrOXYzine hydrochloride 25 mg oral tablet 1 capsule, By Mouth, Once, PRN Agitation, # 15 capsule, 0 Refills, Soft Stop, 10/07/22 18:09:00 EDT, Capsule, [facility] Partial fill upon patient request if the prescription is for a schedule II opioid drug., 160, cm, 10/07/22 15:43:... Start Date: 10/07/22 Status: Ordered metronidazole topical 0.75% gel with applicator 1 application, Vaginally, Daily at bedtime, # 70 Gm, 0 Refills, Soft Stop, 10/25/22 11:45:00 EDT, Gel, [facility] Partial fill upon patient request if [...] 10/27/23 11:50:00 EDT, 10/25/22 11:49:00 EDT, Tablet, [facility] Partial... Start Date: 10/25/22 Stop Date: 10/27/23 Status: Ordered Pen [place], 32 G x 4 mm BD Ultra [...] Refills, Maintenance, 10/16/22 13:40:00 EDT, EC Tablet, [facility] #[id number], Partial fill upon patient request if the [...] Replace Required Details, Route to Pharmacy Electronically, [id number]... Start Date: 10/25/22 Status: Ordered Senna 8.6 mg oral tablet 17.2 mg, 2, tablet, By Mouth, Daily at bedtime, # 50 tablet, Refills 0, Tot. Refills 0, Maintenance, 03/31/22 6:17:00 EST, Route to Pharmacy Electronically, [facility] #[id number], Partial fill upon patient request if the prescription is for a sc... Start Date: 03/31/22 Status: Ordered sertraline 25 mg oral tablet 1 tablet = 25 mg, By Mouth, Daily, # 30 tablet, 2 Refills, Maintenance, 10/25/22 11:46:00 EDT, Tablet, [facility], Partial fill upon patient request if the prescription is for a schedule II opioid drug., 160, cm, 10/25/22 10:08:00 EDT,... Start Date: 10/25/22 Status: Ordered Tylenol 325 mg oral capsule 2 capsule = 650 mg, By Mouth, Every 4 hours, PRN as needed for pain, # 50 capsule, 0 Refills, Maintenance, 03/29/22 8:34:00 EST, Capsule, [facility] #[id number], Partial fill upon patient request if the prescription is for a schedule II opioid drGary Start Date: 03/29/22 Status: Ordered Victoza 18 mg/3 mL subcutaneous solution = 1.2 mg, Subcutaneous Infusion, Daily, # 3 mL, 6 Refills, Maintenance, 10/25/22 11:42:00 EDT[facility] Partial fill upon patient request if the [...] Confirmed Active Severe obesity Confirmed Active 29/04/2007 [facility] admission #1: acute asthma attack Social History Social History Type Response Smoking Status Never (less than 100 in lifetime);Never; Exposure to Secondhand Smoke: Yes; Tobacco use times per day: mother smokes; entered on: 09/14/21 Sex Patient Care team information Care Team Personnel Name: Bertha Montes MD Position: [facility] Resident Member Role: PCP Address: Address: [address] [place] [address] Care Team Related Persons Name: Monroe Mcgarry Address: [place] [address] Name: MARIFER MCGARRY Address: [place] [address] Name: REMA MCGARRY Address: Address: [address]
--- OUTSIDE RECORDS SUMMARY | 2023-07-18 10:25 | XMS_ITS | Continuity of Care Document ---
Author Organization [facility] Address [address] [place] [address]- Care Team Providers Care Cryptographic Clerk Name Role Phone Chepe CADE, Rebecca Primary Care Physician Encounter [facility] [place] Date(s): 12/21/21 - 01/20/22 [facility] [address] [address] Allergies, Adverse Reactions, Alerts Substance [...] Refills, Maintenance, 10/16/21 12:30:00 EDT, ER Capsule, [facility] #[id number], Partial fill upon patient request if the prescription is for a schedule II opioid... Start Date: 10/16/21 Status: Ordered folic acid 0.4 mg oral tablet 1 tablet = 0.4 mg, By Mouth, Daily, # 100 tablet, 5 Refills, Maintenance, 08/21/21 9:43:00 EDT, Tablet, [facility] #[id number], Partial fill upon patient request if the [...] capsule, 0 Refills, Maintenance, 12/26/21 21:00:00 EST, [facility] #[id number], Partial fill upon patient request if the prescription is for a schedule II opioid drug., 160, cm, 12/21/21 15:25:00 ES... Start Date: 12/26/21 Stop Date: 12/29/21 Status: Ordered lidocaine 5% topical ointment 1 application, Topically, 3 times a day, PRN Pain, # 50 Gm, 1 Refills, Maintenance, 11/19/21 10:20:00 EDT, Ointment, [facility] #[id number], Partial fill upon patient request if the prescriptionis for a schedule II opioid drug., 1 application To... Start Date: 11/19/21 Status: Ordered lisdexamfetamine 30 mg oral capsule 1 capsule = 30 mg, By Mouth, Daily in AM, Dx F90.0, # 30 capsule, 0 Refills, Maintenance, 06/09/20 9:11:00 EDT, [facility][id number], Partial fill upon patient request if the prescription is for a schedule II opioid drug., 1 capsule By... Start Date: 06/09/20 Stop Date: 07/09/20 Status: Ordered metroNIDAZOLE 500 mg oral tablet 1 tablet = 500 mg, By Mouth, Every 12 hours, for 7 days, # 14 tablet, 0 Refills, Acute 01/22/22 19:59:00 EST, 01/15/22 19:59:00 EST, Tablet, [facility] #[id number], Partial fill upon patient request if the prescription is for a schedule II opioid... Start Date: 01/15/22 Stop Date: 01/22/22 Status: Ordered Multivitamins with FA 0.8 mg oral tablet 1 tablet, By Mouth, Daily, for 90 days, # 90 tablet, 2 Refills, Hard Stop 08/05/22 13:36:00 EDT, 11/08/21 13:36:00 EDT, Tablet, [facility] #[id number], Partial fill upon patient request if the [...] Replace Required Details, Route to Pharmacy Electronically, [id number]... Start Date: 06/25/18 Status: Ordered Prometrium 200 mg oral capsule 1 capsule = 200 mg, Vaginally, Daily at bedtime, # 60 capsule, 3 Refills, Maintenance, 12/11/21 11:42:00 EDT, [facility] #[id number], Partial fill upon patient request if the [...] Confirmed Active Severe obesity Confirmed Active 29/04/2007 [facility] admission #1: acute asthma attack Social History Social History Type Response Smoking Status Never (less than 100 in lifetime);Never; Exposure to Secondhand Smoke: Yes; Tobacco use times per day: mother smokes; entered on: 09/14/21 Sex Patient Care team information Care Team Personnel Name: Rebecca Mo MD Position: [facility] Resident Member Role: PCP Address: Address: [address] [place] [address]- Care Team Related Persons Name: Monroe Mcgarry Address: [place] [address] Name: MARIFER MCGARRY Address: [place] [address]
--- OUTSIDE RECORDS SUMMARY | 2023-07-18 10:25 | XMS_ITS | Continuity of Care Document ---
Author Organization [facility] Address [address] [place] [address]- Care Team Providers Care Clinical Athletic Instructor Name Role Phone Bertha Montes MD Primary Care Physician Encounter [facility] Date(s): 12/10/22 - 01/09/[address] [address]- Allergies, Adverse Reactions, Alerts Substance Reaction Severity [...] 0 Refills, Soft Stop, 12/11/22 20:38:00 EDT, [facility] #[id number], Partial fill upon patient request if the prescription is for a schedule II opioid drug., 160, cm, 12/10/22 14:0... Start Date: 12/11/22 Status: Ordered Diflucan 150 mg oral tablet 1 tablet = 150 mg, By Mouth, Once, # 1 tablet, 0 Refills, Soft Stop, 10/25/22 11:47:00 EDT, Tablet,[facility], Partial fill upon patient request if the prescription is for a scheduleII opioid drug., 160, cm, 10/25/22 10:08:00 EDT, He... Start Date: 10/25/22 Status: Ordered hydrOXYzine hydrochloride 25 mg oral tablet 1 capsule, By Mouth, Once, PRN Agitation, # 30 capsule, 3 Refills, Soft Stop, 12/10/22 14:50:00 EDT, Capsule, [facility] #[id number], Partial fill upon patient request if the [...] Refills, Soft Stop, 12/20/22 16:15:00 EST, Gel, [facility] #[id number], Partial fill upon patient request if the [...] 10/27/23 11:50:00 EDT, 10/25/22 11:49:00 EDT, Tablet, [facility], [facility]... Start Date: 10/25/22 Stop Date: 10/27/23 Status: Ordered Pen [place], 32 G x 4 mm BD Ultra [...] Refills, Maintenance, 10/16/22 13:40:00 EDT, EC Tablet, [facility] #[id number], Partial fill upon patient request if the [...] Replace Required Details, Route to Pharmacy Electronically, [id number]... Start Date: 10/25/22 Status: Ordered Senna 8.6 mg oral tablet 17.2 mg, 2, tablet, By Mouth, Daily at bedtime, # 50 tablet, Refills 0, Tot. Refills 0, Maintenance, 03/31/22 6:17:00 EST, Route to Pharmacy Electronically, [facility] #[id number], Partial fill upon patient request if the prescription is for a sc... Start Date: 03/31/22 Status: Ordered sertraline 50 mg oral tablet 1 tablet = 50 mg, By Mouth, Daily, # 90 tablet, 1 Refills, Maintenance, 12/10/22 14:51:00 EDT, Tablet, [facility] #[id number], Partial fill upon patient request if the prescription is for a schedule II opioid drug., 160, cm, 12/10/22 14:07:00 EDT... Start Date: 12/10/22 Status: Ordered Tylenol 325 mg oral capsule 2 capsule = 650 mg, By Mouth, Every 4 hours, PRN as needed for pain, # 50 capsule, 0 Refills, Maintenance, 03/29/22 8:34:00 EST, Capsule, [facility] #[id number], Partial fill upon patient request if the prescription is for a schedule II opioid dr... Start Date: 03/29/22 Status: Ordered Victoza 18 mg/3 mL subcutaneous solution = 1.2 mg, Subcutaneous Infusion, Daily, # 3 mL, 6 Refills, Maintenance, 01/08/23 16:54:00 EST, [facility] #[id number], Partial fill upon patient request if the [...] Confirmed Active Severe obesity Confirmed Active 29/04/2007 [facility] admission #1: acute asthma attack Social History Social History Type Response Smoking Status Never (less than 100 in lifetime);Never; Exposure to Secondhand Smoke: Yes; Tobacco use times per day: mother smokes; entered on: 09/14/21 Sex Patient Care team information Care Team Personnel Name: Bertha Montes MD Position: S Resident Member Role: PCP Address: Address: [address] [place] [address] Care Team Related Persons Name: Monroe Mcgarry Address: [place] [address] Name: MARIFER MCGARRY Address: [address] [address] Name: REMA MCGARRY Address: Address: [address]
--- OUTSIDE RECORDS SUMMARY | 2023-07-18 10:25 | XMS_ITS | Continuity of Care Document ---
Author Organization [facility] Address [address] [place] [address]- Care Team Providers Care Application Release Manager Name Role Phone Chepe CADE, Rebecca Primary Care Physician Encounter [facility] Date(s): 07/20/20 - 08/19/[address] [address]- Allergies, Adverse Reactions, Alerts Substance Reaction Severity [...] 0 Refills, Maintenance, 06/09/20 9:11:00 EDT, Capsule, [facility] #[id number], Partial fill upon patient request if the [...] Replace Required Details, Route to Pharmacy Electronically, [id number]... Start Date: 06/25/18 Status: Ordered traZODone 50 mg oral tablet 50 mg, 1, tablet, By Mouth, Daily at bedtime, PRN, # 30 tablet, Refills 1, Tot. Refills 1, Maintenance, Sleep, 06/09/20 9:11:00 EDT, Route to Pharmacy Electronically, [facility] #[id number], Partial fill upon patient request if the [...] disorder(Confirmed) Active Myopia(Confirmed)(Stable) Active Obesity(Confirmed) Active 29/04/2007 [facility] admission #1: acute asthma attack Social History Social History Type Response Smoking Status Never smoker; Tobacc o user in household: No entered on: 03/04/14 Sex
--- OUTSIDE RECORDS SUMMARY | 2023-07-18 10:25 | XMS_ITS | Continuity of Care Document ---
Author Organization [facility] Address [address] [place] [address]- Care Team Providers Care Emergency Medcl Emt Name Role Phone Bertha Montes MD Primary Care Physician Encounter [facility] [place] Date(s): 10/30/22 - 01/01/23 [facility] [address] [place] [address]- Attending Physician: Kennedy Rader DO Admitting Physician: Kennedy Rader DO Referring Physician: Bertha Montes MD Allergies, Adverse Reactions, Alerts Substance Reaction [...] 0 Refills, Soft Stop, 12/11/22 20:38:00 EDT, [facility] #[id number], Partial fill upon patient request if the prescription is for a schedule II opioid drug., 160, cm, 12/10/22 14:0... Start Date: 12/11/22 Status: Ordered Diflucan 150 mg oral tablet 1 tablet = 150 mg, By Mouth, Once, # 1 tablet, 0 Refills, Soft Stop, 10/25/22 11:47:00 EDT, Tablet,[facility], Partial fill upon patient request if the prescription is for a scheduleII opioid drug., 160, cm, 10/25/22 10:08:00 EDT, He... Start Date: 10/25/22 Status: Ordered hydrOXYzine hydrochloride 25 mg oral tablet 1 capsule, By Mouth, Once, PRN Agitation, # 30 capsule, 3 Refills, Soft Stop, 12/10/22 14:50:00 EDT, Capsule, [facility] #[id number], Partial fill upon patient request if the prescription is fora schedule II opioid drug., 160, cm, 12/10/22 14:07... Start Date: 12/10/22 Status: Ordered metronidazole topical 0.75% gel with applicator 1 application, Vaginally, Daily at bedtime, # 70 Gm, 3 Refills, Soft Stop, 12/20/22 16:15:00 EST, Gel, [facility] #[id number], Partial fill upon patient request if the [...] 10/27/23 11:50:00 EDT, 10/25/22 11:49:00 EDT, [facility], [facility]... Start Date: 10/25/22 Stop Date: 10/27/23 Status: Ordered Pen [place], 32 G x 4 mm BD Ultra [...] Refills, Maintenance, 10/16/22 13:40:00 EDT, EC Tablet, [facility] #[id number], Partial fill upon patient request if the [...] Replace Required Details, Route to Pharmacy Electronically, [id number]... Start Date: 10/25/22 Status: Ordered Senna 8.6 mg oral tablet 17.2 mg, 2, tablet, By Mouth, Daily at bedtime, # 50 tablet, Refills 0, Tot. Refills 0, Maintenance, 03/31/22 6:17:00 EST, Route to Pharmacy Electronically, [facility] #[id number], Partial fill upon patient request if the prescription is for a sc... Start Date: 03/31/22 Status: Ordered sertraline 50 mg oral tablet 1 tablet = 50 mg, By Mouth, Daily, # 90 tablet, 1 Refills, Maintenance, 12/10/22 14:51:00 EDT, Tablet, [facility] #[id number], Partial fill upon patient request if the prescription is for a schedule II opioid drug., 160, cm, 12/10/22 14:07:00 EDT... Start Date: 12/10/22 Status: Ordered Tylenol 325 mg oral capsule 2 capsule = 650 mg, By Mouth, Every 4 hours, PRN as needed for pain, # 50 capsule, 0 Refills, Maintenance, 03/29/22 8:34:00 EST, Capsule, [facility] #[id number], Partial fill upon patient request if the prescription is for a schedule II opioid drGary Start Date: 03/29/22 Status: Ordered Victoza 18 mg/3 mL subcutaneous solution = 1.8 mg, Subcutaneous Infusion, Daily, # 3 mL, 6 Refills, Maintenance, 12/11/22 20:42:00 EDT, [facility] #[id number], Partial fill upon patient request if the prescription is for a schedule II opioid drug., 160, cm, 12/10/22 14:07:00 EDT, Height... 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 Mood disorder Confirmed Active Obesity Confirmed Active Severe obesity Confirmed Active 29/04/2007 [facility] admission #1: acute asthma attack Social History Social History Type Response Smoking Status Never (less than 100 in lifetime);Never; Exposure to Secondhand Smoke: Yes; Tobacco use times per day: mother smokes; entered on: 09/14/21 Sex Patient Care team information Care Team Personnel Name: Bertha Montes MD Position: [facility] Resident Member Role: PCP Address: Address: [address] [place] [address]- Care Team Related Persons Name: Monroe Mcgarry Address: home [address] [place] [address] Name: MARIFER MCGARRY Address: home [address] [place] [address] Name: REMA MCGARRY Address: Address: [address] [address] [place]
--- OUTSIDE RECORDS SUMMARY | 2023-07-18 10:25 | XMS_ITS | Continuity of Care Document ---
Author Organization [facility] Address [address] [place] [address]- Care Team Providers Care Chemical Strength Tester Name Role Phone Chepe CADE, Rebecca Primary Care Physician Encounter [facility] Date(s): 10/11/20 - 11/10/[address] [address] Attending Physician: AdmSilas gill Admitting Physician: [...] 0 Refills, Maintenance, 06/09/20 9:11:00 EDT, Capsule, [facility] #[id number], Partial fill upon patient request if the [...] Replace Required Details, Route to Pharmacy Electronically, [id number]... Start Date: 06/25/18 Status: Ordered traZODone 50 mg oral tablet 50 mg, 1, tablet, By Mouth, Daily at bedtime, PRN, # 30 tablet, Refills 1, Tot. Refills 1, Maintenance, Sleep, 06/09/20 9:11:00 EDT, Route to Pharmacy Electronically, [facility] #[id number], Partial fill upon patient request if the [...] disorder(Confirmed) Active Myopia(Confirmed)(Stable) Active Obesity(Confirmed) Active 29/04/2007 [facility] admission #1: acute asthma attack Social History Social History Type Response Smoking Status Never smoker; Tobacc o user in household: No entered on: 03/04/14 Sex
--- OUTSIDE RECORDS SUMMARY | 2023-07-18 10:25 | XMS_ITS | Continuity of Care Document ---
Author Organization [facility] Address [address] [place] [address]- Care Team Providers Care Lawyer Criminal Name Role Phone Bertha Montes MD Primary Care Physician Encounter [facility] [place] Date(s): 12/20/22 - 01/19/[address] [address]- Allergies, Adverse Reactions, Alerts Substance Reaction Severity [...] 0 Refills, Soft Stop, 12/11/22 20:38:00 EDT, [facility] #[id number], Partial fill upon patient request if the prescription is for a schedule II opioid drug., 160, cm, 12/10/22 14:0... Start Date: 12/11/22 Status: Ordered Diflucan 150 mg oral tablet 1 tablet = 150 mg, By Mouth, Once, # 1 tablet, 0 Refills, Soft Stop, 10/25/22 11:47:00 EDT, Tablet,[facility], Partial fill upon patient request if the prescription is for a scheduleII opioid drug., 160, cm, 10/25/22 10:08:00 EDT, He... Start Date: 10/25/22 Status: Ordered hydrOXYzine hydrochloride 25 mg oral tablet 1 capsule, By Mouth, Once, PRN Agitation, # 30 capsule, 3 Refills, Soft Stop, 12/10/22 14:50:00 EDT, Capsule, [facility] #[id number], Partial fill upon patient request if the [...] Refills, Soft Stop, 12/20/22 16:15:00 EST, Gel, [facility] #[id number], Partial fill upon patient request if the [...] 10/27/23 11:50:00 EDT, 10/25/22 11:49:00 EDT, Tablet, [facility], Partial... Start Date: 10/25/22 Stop Date: 10/27/23 Status: Ordered Pen [place], 32 G x 4 mm BD Ultra [...] Refills, Maintenance, 10/16/22 13:40:00 EDT, EC Tablet, [facility] #[id number], Partial fill upon patient request if the [...] Replace Required Details, Route to Pharmacy Electronically, [id number]... Start Date: 10/25/22 Status: Ordered Senna 8.6 mg oral tablet 17.2 mg, 2, tablet, By Mouth, Daily at bedtime, # 50 tablet, Refills 0, Tot. Refills 0, Maintenance, 03/31/22 6:17:00 EST, Route to Pharmacy Electronically, [facility] #[id number], Partial fill upon patient request if the prescription is for a sc... Start Date: 03/31/22 Status: Ordered sertraline 50 mg oral tablet 1 tablet = 50 mg, By Mouth, Daily, # 90 tablet, 1 Refills, Maintenance, 12/10/22 14:51:00 EDT, Tablet, [facility] #[id number], Partial fill upon patient request if the prescription is for a schedule II opioid drug., 160, cm, 12/10/22 14:07:00 EDT... Start Date: 12/10/22 Status: Ordered Tylenol 325 mg oral capsule 2 capsule = 650 mg, By Mouth, Every 4 hours, PRN as needed for pain, # 50 capsule, 0 Refills, Maintenance, 03/29/22 8:34:00 EST, Capsule, [facility] #[id number], Partial fill upon patient request if the prescription is for a schedule II opioid dr... Start Date: 03/29/22 Status: Ordered Victoza 18 mg/3 mL subcutaneous solution = 1.2 mg, Subcutaneous Infusion, Daily, # 3 mL, 6 Refills, Maintenance, 01/08/23 16:54:00 EST, [facility] #[id number], Partial fill upon patient request if the [...] Confirmed Active Severe obesity Confirmed Active 29/04/2007 [facility] admission #1: acute asthma attack Social History Social History Type Response Smoking Status Never (less than 100 in lifetime);Never; Exposure to Secondhand Smoke: Yes; Tobacco use times per day: mother smokes; entered on: 09/14/21 Sex Patient Care team information Care Team Personnel Name: Bertha Montes MD Position: [facility] Resident Member Role: PCP Address: Address: [address] [place] [address]- Care Team Related Persons Name: Monroe Mcgarry Address: [address] [address] Name: MARIFER MCGARRY Address: [address] [address] Name: REMA MCGARRY Address: Address: [address]
--- OUTSIDE RECORDS SUMMARY | 2023-07-18 10:25 | XMS_ITS | Continuity of Care Document ---
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 admission.??GBS+ treated with PCN. She received pitocin augmentation.??She developed a maternal fever to 100.5??on 03/28 and was treated empirically with amp/gemt given prolonged ROM. She subsequently underwent an uncomplicated PLTCS in the setting of failure to progress. She wasmeeting postoperative milestones and was discharged on POD#3. Objective/Physical Exam on Day of Discharge Vitals & Measurements T:??98.0?F ?? HR:??92(Monitored)?? VT:??90?? RR:??18?? BP:??105/68?? SpO2:??100%?? HT:??160??cm?? WT:??2.699??kg?? BMI:??47.73?? General: pleasant, cooperative,??laying comfortably in bed, well appearing, in no acute distress Abd: soft, appropriately tender, fundus firm, below umbilicus. C/S: incision clean, dry and intact without evidence of induration/erythema. Electrical Contacts Adjuster: Minimal spotting on peripad. Psych: appropriate mood and affect. answering questions appropriately. Ext: non-tender, non-edematous Assessment/Plan/Discharge Diagnosis Assessment:??Pt is a 31 yo POD3 after CS of at 35+4 in the setting of failure to progress and maternal fever. Patient??is meeting appropriate milestones. Pain is well controlled with ibuprofen/Tylenol/oxycodone. Fever has resolved since delivery. Plans discharge home today. ?? care following delivery (Z39.2):? Continue regular care Ibuprofen/Tylenol/Oxycodone for pain control sent to pharmacy - Unsure about control, will decide at PPV - PPV in 4-6 weeks - Return precautions reviewed including fever, chills, headache, vision changes, RUQ pain, redness,pain in calves. ?? Maternal fever during labor (O75.2):? Resolved ?- Received amp/gent in labor ?- Received Ancef prior to surgery ??if further temperature, redoes antibiotics ?? Mild intermittent asthma (J45.20):? - has albuterol inhaler at home ?? Delivery Summary Delivery Summary Maternal Information ??Labor Information ?Baby A ?Labor Onset Methods: ??Augmented ?Augmentation Methods: ??Oxytocin infusion ??Delivery Information ?Gestational Age at Delivery: ??35W 4D ?Anesthesia OB: ??Epidural ??03/27/22 09:51:28 ?Delivery Complications: ??None ?Blood Loss - Quantitative: ??994 mL (Modified) ? Baby A ??Delivery Information ?Delivery Type: ??, low transverse ?Reason for : ??Other: chorio ?Date, Time of : ??03/28/22 17:35:00 ? Position: ??Other: left lateral ?Foot of bed removed: ??No ?Delayed Cord Clamping: ??Yes ?Placenta Delivery Date/Time: ??03/28/22 17:38:00 ?Placenta Delivery Method: ??Expressed ?Placenta Appearance: ??Normal ?Placenta to Pathology: ??Yes ??Care Team ?Time NICU Team Called: ??03/28/22 17:30:00 ??Labor Information ? monitoring: ??External monitor ?? Information ? Outcome: ??Live ? Weight: ??2.699 kg ? Score 1 minute: ??8 ? Score 5 minute: ??9 ? Score 10 minute: ??9 ?Transferred To: ?? Care area with Family, CCN, Other: CCN at 2 hours old per late protocol ?Umbilical Cord Description: ??3 vessel cord ?Gender: ??Female ? Procedures Performed Section ? Discharge Medications ???Acetaminophen (Tylenol 325 mg oral capsule)???Acetaminophen (acetaminophen 325 mg oral tablet)???Albuterol (ProAir HFA 90 mcg/inh inhalation aerosol with adapter)???Ibuprofen (ibuprofen 800 mg oral tablet)???Oxycodone (oxyCODONE 5 mg oral tablet)???Senna (Senna 8.6 mg oral tablet)???Simethicone (simethicone 80 mg oral tablet, chewable) Stop taking these medications ???Ampicillin (ampicillin 500 mg oral capsule)???Aspirin (aspirin 162.5 mg oral capsule, extended release)???Durable Medical Equipment (Heating Pad)???Famotidine (famotidine 20 mg oral tablet)???Fluconazole (Diflucan 150 mg oral tablet)???Folic Acid (folic acid 0.4 mg oral tablet)???Lidocaine Topical (lidocaine 5% topical ointment)???Multivitamin, ( Multivitamins with FA 0.8 mg oral tablet)???Multivitamin, ( Multivitamins with FA 0.8 mg oral tablet)???Progesterone (Prometrium 200 mg oral capsule)???ValACYclovir (Valtrex 500 mg oral tablet)???lisdexamfetamine (lisdexamfetamine 30 mg oral capsule) Immunizations during Hospitalization Vaccine Date Status Commentstetanus/diphtheria/pertussis, acel(Tdap) 02/08/2022 Given SARS-CoV-2 (COVID-19) mRNA BNT-162b2 vac 10/02/2020 Recorded SARS-CoV-2 (COVID-19) mRNA BNT-162b2 vac 09/11/2020 Recorded tetanus/diphtheria/pertussis, acel(Tdap) 05/26/2020 Given tetanus-diphtheria toxoids (Td) 12/08/2018 Given Measles/Mumps/Rubella Virus Vaccine 11/21/2016 Recorded influenza virus vaccine, inactivated 02/13/2016 Given influenza virus vaccine, inactivated 10/23/2010 Given vis given 09.04.2010 influenza virus vaccine, inactivated 11/15/2009 Given Human Papillomavirus Vaccine 03/17/2009 Given VIS DATED 03/14/06. Given Human Papillomavirus Vaccine 11/15/2008 Given vis 03.14.06 given Tet/Diphth/Acel, Pertussis (oldterm) 08/19/2008 Given VIS DATED 03.09.2007 GIVEN. Human Papillomavirus Vaccine 08/19/2008 Given GARDASIL #1, VIS DATED 03.14.2006 GIVEN tetanus-diphtheria toxoids (Td) 08/08/2004 Given Measles/Mumps/Rubella Virus Vaccine 09/15/1997 Given Diphth/Pertussis,Acel/Tetanus (oldterm) 09/15/1997 Given Polio Vaccine, Live (oldterm) 09/15/1997 Given POLIO(oral) Haemophilus B Conj Vaccine (oldterm) 07/01/1994 Given Diphth/Pertussis,Acel/Tetanus (oldterm) 07/01/1994 Given Measles/Mumps/Rubella Virus Vaccine 01/11/1994 Given Haemophilus B Conj Vaccine (oldterm) 06/14/1993 Given Hepatitis B Vaccine (old term) 06/14/1993 Given Diphth/Pertussis,Acel/Tetanus (oldterm) 06/14/1993 Given Polio Vaccine, Live (oldterm) 06/14/1993 Given POLIO(oral) Haemophilus B Conj Vaccine (oldterm) 01/09/1993 Given Diphth/Pertussis,Acel/Tetanus (oldterm) 01/09/1993 Given Polio Vaccine, Live (oldterm) 01/09/1993 Given POLIO(oral) Haemophilus B Conj Vaccine (oldterm) 1992 Given Hepatitis B Vaccine (old term) 1992 Given Diphth/Pertussis,Acel/Tetanus (oldterm) 1992 Given Polio Vaccine, Live (oldterm) 1992 Given POLIO(oral) Hepatitis B Vaccine (old term) 1992 Given Contraception None ? Feeding Method Feeding Method: (03/28/22 18:34:00) Patient Instructions Call the office with any concerns including:?? Fever of 100.4 or greater Foul-smelling vaginal discharge Redness/swelling/drainage at incision Difficulty or burning with urination?? Nausea and vomiting with inability to tolerate food,?? Pain not controlled by your prescribed medications Shortness of breath or chest pain. Swelling of the extremities. Dizziness or heart palpitations ?? General Instructions: - Do not drive while taking opioid medications. Do not drive for 1-2 weeks - Avoid lifting anything 15 lbs or greater until cleared by doctor. - Stairs are OK but avoid multiple trips/ skipping steps and go slowly. - Walk as often as you are able. - Do not put anything in the vagina. No intercourse, tampons, or douching - Continue your stool softeners (examples: Colace/docusate, senna, Miralax) until no longer taking opioids (e.x. oxycodone) and stools are regular. - Shower as usual. Do not scrub the incisions. Pat the skin dry. Avoid tubs/ soaking/ pools. * Bruce UNDERWOOD, Cara Alexander: PERFORM Event Display: Patient Education/Instruction Authored Date: [id number] Inpatient Adult Discharge Instructions [place] [id number] Name: TARSHA ROMO : 1990 Visit: 03/27/2022 08:39:00 Current Date: 03/31/2022 10:39 Account: [id number] Inpatient Adult Discharge Instructions We would like [...] and their families. Surveys are administered by [employer] ?? If further treatment with your primary care physician or another doctor is recommended, it is important for you to keep the appointment. Call your primary care physician or return to the Emergency Department immediately if your condition worsens, fails to improve, or new symptoms develop. If you need to find a doctor, you can call [facility] for a referral at [phone] or toll free at [phone]) or log in to [email or web address].. ?? You can view and manage your care through the patient portal or by using a health care hasmukh of your choosing. [employer] is a website that allows you to securely view your medical information including your hospital discharge summary, office visit summaries, medications and follow-up visits. You can also request appointments, renew medications, and request access to your medical information using a health care hasmukh of your choosing, or just ask a question. You can enroll at [email or web address] or register during your next office visit. You have been discharged from [facility], Patient Care Unit: WIN2. If you have any questions regarding these instructions after you leave, please call us and we will be happy to assist you. [facility] Your Care Team Attending Physician Shane Snyder MD Consulting Providers Jsesika Armendariz DO Discharging Providers Ping Rose DO Reason for Admission Labor, Other: [facility] Your Diagnosis GBS carrier Mild intermittent asthma Parnell cerclage present premature rupture of membranes (PPROM) with unknown onset of labor Maternal fever during labor care following delivery Maternal fever during labor Tests Performed Below is a partial list of the tests performed during your hospitalization. You may have had other tests and procedures not included in this list. Please discuss all test results with your provider. CBC Type and Screen Primary Care Provider Rebecca Mo MD Advance Directive Health Care Proxy on File No Discharge Vitals Temperature: 97.4 DegF Height: 160 cm Pulse Rate:??92 bpm??High Weight: 122.2 kg Respiratory Rate: 18 br/min Body Mass Index:??47.73 kg/m2??Critical Systolic Blood Pressure: 110 mm Hg Body surface area: 2.33 Diastolic Blood Pressure: 59 mm Hg ?? Oxygen Saturation: 99 % ?? Studies Pending All tests and labs ordered during this hospital stay have been completed unless listed below. Please discuss all pending results with your provider listed above in these instructions. ?? COVID-19 (2019 Novel Coronavirus) PCR Gentamicin 12hr Post Dose Gentamicin 4hr Post Dose Pathology Tissue Request () RBCs on Hold Type and Screen, Use Hold Lavender What to do next Instructions From Your Doctor Discharge Orders You Need to Schedule the Following Appointments Follow Up with??[facility] [phone] When??Within 4 to 5 weeks Where: Discharge Medications TARSHA ROMO :1990 Visit Date:03/27/2022 Medications: Please continue your medications until treatment is completed or stopped by your provider. Medications not listed below should be discontinued. Discuss any questions related to medications with your provider. What How Much When Instructions Next Dose New Acetaminophen (acetaminophen 325 mg oral tablet) 650 Milligram Oral Every 4 hours (1-3), may give 325mg per patient preference and re-dose with 325mg within 4 hours, if needed. ?? Patient should only receive a total of 650mg of Acetaminophen every 4 hours. ?? Pickup at [facility] #[id number] 1 pm New Acetaminophen (Tylenol 325 mg oral capsule) 2 capsule Oral Every 4 hours as needed for as needed for pain Pickup at [facility] #[id number] New Ibuprofen (ibuprofen 800 mg oral tablet) 1 tab(s) Oral Every 8 hours (4-6), may give 400mg per patient preference and re-dose with 400mg within 8 hours, if needed. ?? Patient should only receive a total of 800mg of Ibuprofen every 8 hours. ?? Pickup at [facility] [facility] #[id number] 5 pm New Oxycodone (oxyCODONE 5 mg oral tablet) 1 tab(s) Oral Every 3 hours as needed for Pain , Severe (7-10) ?? Pickup at [facility] #[id number] 1 pm New Senna (Senna 8.6 mg oral tablet) 2 tab(s) Oral Daily at Bedtime Pickup at [facility] #[id number] tonight New Simethicone (simethicone 80 mg oral tablet, chewable) 2 tab(s) Chew 3 times a day as needed for Gas Pickup at [facility] #53751 anytime Unchanged Albuterol (ProAir HFA 90 mcg/ inh inhalation aerosol with adapter) See instructions 2-4 puffs Inhalation 4 times a day 30 days ?? Pharmacy Information [facility] #[id number]: [address] [place] [address] [phone] ?? What How Much When Why Comments Stop Taking Ampicillin (ampicillin 500 mg oral capsule) 1 capsule Oral 4 times a day Duration: 7 Days Stop Taking Aspirin (aspirin 162.5 mg oral capsule, extended release) 1 capsule Oral Daily at the same time every day ?? Stop Taking Durable Medical Equipment (Heating Pad) See instructions use for 15 min 2 times per day dx lumbosacral strain duration 6 mo ?? Stop Taking Famotidine (famotidine 20 mg oral tablet) 1 tab(s) Oral Twice a day Stop Taking Fluconazole (Diflucan 150 mg oral tablet) 1 tab(s) Oral Once Stop Taking Folic Acid (folic acid 0.4 mg oral tablet) 1 tab(s) Oral Daily Stop Taking Lidocaine Topical (lidocaine 5% topical ointment) 1 hasmukh Topically 3 times a day PRN Pain ?? Stop Taking lisdexamfetamine (lisdexamfetamine 30 mg oral capsule) 1 capsule Oral Daily in the morning Duration: 30 Days Dx F90.0 ?? Stop Taking Multivitamin, ( Multivitamins with FA 0.8 mg oral tablet) 1 tab(s) Oral Daily Duration: 90 Days Stop Taking Multivitamin, ( Multivitamins with FA 0.8 mg oral tablet) 1 tab(s) Oral Daily Duration: 90 Days Stop Taking Progesterone (Prometrium 200 mg oral capsule) 1 capsule Vaginally Daily at Bedtime Stop Taking ValACYclovir (Valtrex 500 mg oral tablet) See [...] Please discuss all test resultswith your provider. RBC Available - RE (03/28/2022) RBC Unit ID - [id number] (03/28/2022) CBC (03/28/2022) ???WBC - 18.5 k/mm3???RBC - 3.86 m/mm3???Hgb - 12.7 Gm/dL???Hct - 39.8 %???MCV - 103.1 femtoliters???MCH - 32.9 pg???MCHC - 31.9 g/dL???Platelet Count - 186 k/mm3???RDW-SD - 51.1 femtoliters???MPV - 10.6 femtoliters???Nucleated RBC (Automated) - 0.0 #/100 WBC'S???Abs. NRBC - 0.0 k/mm3 Type and Screen (03/27/2022) ???Blood Type - O Positive???Antibody Screen - Negative Allergies (NKA means No Known Allergies) Apples Pollen??(Allergic Rhinitis Due to Pollen, Allergic conjunctivitis) Problems Active Problems??(9) ADD - Attention deficit disorder with hyperactivity?? Allergic rhinitis due to pollen?? Asthma, mild intermittent, precipitated by colds, allergies?? Degenerative disc changes C5-C6 and C6-C7?? GBS carrier?? Mood disorder?? Obesity? Severe obesity?? Education Materials Below is the list of Educational Leaflet Providered with your Discharge Instructions. OB PP- Engorgement?? OB PP [facility]- Discharge Instructions?? Valuables and Belongings I fully understand and [...] are strongly encouraged to quit. Please call [facility] at [phone] or [phone]) or log in to [email or web address] for referrals to smoking cessation programs. ?? The National Suicide Prevention Hotline is available 02/09 if you or someone you know needs to find a reason to keep living. By calling 8-687-158-[employer] in [place] (3993) you'll be connected to a skilled, trained counselor at a crisis center in your area. INPATIENT DISCHARGE INSTRUCTIONS SIGNATURE PAGE DEMETRIUS TARSHA Location:[facility] Registration Date and Time:03/27/2022 08:39 EST Primary Care Physician: Chepe CADE, Rebecca, I TARSHA ROMO, have received the above patient education materials/instructions and have verbalized understanding. If ambulance or transport services are being used I further acknowledge beinggiven a choice of service. ?? If you need to contact me, please call me at this number: . Patient/Gluing Machine Offbearer Name: Patient/Gluing Machine Offbearer Signature: Relationship to Patient: Witness Name/Signature: Date: * Cara Barrera RN: PERFORM Event Display: Patient Education Leaflets Authored Date: [id number] OB PP- Engorgement ?? 216 Engorgement Steps to take if your breasts are uncomfortably full: ??? Be sure the baby is nursing as often as possible with a deep latch. When you are engorged sometimes it is necessary to soften breasts by hand expressing or pumping briefly first in order to achieve a deep latch). ??? If after a feeding breasts are still uncomfortably full, try hand expressing your milk in the shower, or pumping just until comfortable. To reduce inflammation: ??? Apply ice packs to breasts for 20 minutes after a feeding. ??? Alternatively you can apply coldcabbage leaves inside your bra for about 20 minutes up to 4 times a day. ??? Take anti-inflammatorymedications as instructed by your linseed cake trimmer. If these treatments don???t help call for a consult [phone]. If these symptoms are accompanied by a fever and flu-like symptoms, or you notice any hot, swollen and/or red areas on the breasts call [facility] at [phone] for further instructions. ? * Cara Barrera RN: PERFORM Event Display: Patient Education Leaflets Authored Date: [id number] OB PP [facility]- Discharge Instructions ?? 209 Discharge Care Instructions for the New Mom and Baby Please take a few moments to read through these helpful instructions before you leave the hospital.?? Your nurse will be glad to answer any questions you may have.?? You can also find this and more information throughout the purple Becoming a Family booklet, [facility] New Beginnings Guide and the Consultation Services Guide given to you after the of your baby.?? You may also phone our nurses stations if you have further questions.?? [facility]:?? First Floor ([phone]), Second Floor ([phone]).?? Please call your provider if you have any questions or concerns?? before your next appointment. For ongoing support please ???Like?? us on our Facebook page ???[facility]?? andsign up for our email newsletter at [email or web address].?? News and information will besent to you until your baby???s third birthday. Instructions for the New Mother Activity: For the next 2 weeks at home ??? no heavy lifting, avoid unnecessary stair climbing, and no driving(especially if you are taking medicine that may make you sleepy or feel that you are sleep deprived).?? For the next 4-6 weeks - no tampons, no douches, no sexual intercourse. Use your ginger bottle to rinse your perineum until your vaginal flow stops.?? If you have stitches in your bottom, they generally dissolve within 7-10 days.?? Apply Tucks/witch soto pads until your soreness subsides.?? Use your bathroom at home every 3 to 4 hours, rinse, and change your pads. Warm showers feel great on achy muscles, sore backs and sore bottoms. Exercise: Walking is the best form of exercise.?? Wait until your follow up appointment with your provider in4-6 weeks before engaging in more strenuous activity. Diet: Drink plenty of fluids to avoid constipation and to help support your recovery. Eat plenty of iron rich foods such as red meat, iron fortified cereals like Total and Cream of Wheat, raisins, prunes, greens and spinach.?? These will help to build your blood count back up as all women lose some blood after delivery.?? Also add foods rich in Vitamin C such as strawberries, oranges, papayas, kale and patel peppers. Continue to take your vitamins if you are .?? If you are not follow the instructions of your provider.?? If you were prescribed iron supplements such as ferrous sulfate, it is important to continue these until your doctor or linseed cake trimmer tells you to stop. Breast Care for Nursing Mothers: Wear a comfortable fitting, supportive nursing bra.?? An underwire bra is not recommended. Express drops of breast milk and rub over your nipples and areola (brown area) before and after each feeding to protect and heal sensitive skin and then air dry your nipples.?? If you are experiencing any soreness, you may purchase nipple cream such as TenderCare or Lansinoh.?? Use it in the following manner:?? finish your feeding or pumping session, self-express colostrum onto your nipple and air dry, apply the nipple cream to the nipple and areola.?? Use only small amounts for best results. If you are having difficulty getting the baby to latch onto the breast due to swelling of the areola, try applying pressure with your fingers for a couple of minutes above and below your nipple and walk your fingers outward softening the area and pushing the swelling away.?? This technique is knownas reverse pressure softening.?? For demonstrations of this and other techniques such as the [place] Hand Expression technique, please refer to the resources section of the Consultation Services Guide that you received from services. When your milk first comes in, usually within 3 to 5 days after delivery, you may experience engorgement.?? Your breasts may become swollen and very tender.?? Cold compresses work great to help with discomfort and reduce swelling. It will get better in a couple of days.?? Continue to nurse your baby frequently.?? Call [facility]???[facility] Consultation Service at [phone], press 1 to schedule an outpatient appointment or press 3 and a area development consultant will return your call that day or the next if you call after 3pm. Breast Care for Bottle Feeding Mothers: Engorgement may occur within the first week after delivery.?? Your breasts may become hard and verytender.?? A cool compress of cleaned raw green cabbage leaves applied to the breast and changed as leaves wilt has been proven helpful for many women.?? Ice packs or frozen bags of peas also work nicely to ease the discomfort.?? The soreness will only last a couple of days. Keep your back turned to the water while showering to decrease breast stimulation. Wear a snug fitting bra such as a sports bra. Incision Care Following Tubal or Section: You may shower as directed by your doctor or linseed cake trimmer.?? Pat your incision dry with a clean towel.??You will not need a bandage after the first day. Call your doctor or linseed cake trimmer with any signs of infection such as a hard, hot swollen tender incision, especially if the skin around the incision looks pink or red.?? Yellow drainage with an odor may also be a sign of infection to report. Call your doctor or linseed cake trimmer if the incision begins to separate. If you have steri-strips on the incision, they will likely fall off in the first week.?? If they have not fallen off by 10 days after delivery, you may remove them. Control: Your doctor or linseed cake trimmer will discuss control methods with you when you are discharged from thespital or at your checkup.?? Be sure to let your provider know if you are . You had a Paragard IUD placed on .?? This control method is effective for 10 years. You had a Liletta placed on .?? This control method is effective for up to 5 years. You had a Nexplanon placed on .?? This control method is effective for up to 3 years. You received a Depo Provera injection on .?? This control method is effective as longas you repeat it every 3 months.?? Schedule your next dose before . You have a prescription for control pills .?? It is important to take a pill everyday at around the same time of day for effective control protection.?? Pain Management: Cramping after is common and increases in strength with each baby you have.?? If you experience painful cramps, and have no allergies to acetaminophen (Tylenol) or ibuprofen (Motrin), you may continue to take these medications as you did in the hospital.?? Ibuprofen is also helpful with back aches following epidurals, perineal pain following a vaginal delivery, and moderate incisional pain after a section or a tubal ligation.?? If you experience gas distention, especially after surgery, you may take an over the counter medication called simethicone.?? Take these chewable tablets 4 times a day as needed and directed on the package.?? Keep moving.?? Walking or rocking in a chair, will help to move the gas along.?? Katherine tea made with heated katherine osei (instead of water) and a tea bag, stirred to dissolve carbonation (bubbles) is a helpful drink to soothe a gassy stomach. Warning Signs of a Problem to Notify Your Doctor or Turnaround Engineer of: Heavy vaginal bleeding ??? which is soaking a pad every hour with bright red blood. Passing blood clots the size of an egg or larger. An incision that is not healing. A temperature greater than or equal to 100.4 especially if accompanied by any of the following symptoms ??? painful, frequent urination; extreme back or flank pain; lower belly pain with a foul smellto your vaginal flow; a red hard hot area on your breast.?? Severe headache that does not go away after taking acetaminophen or ibuprofen.?? A headache that changes your vision,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
--- OUTSIDE RECORDS SUMMARY | 2023-07-18 10:26 | XMS_ITS | Continuity of Care Document ---
Author Organization [facility] Address [address] [place] [id number] Care Team Providers Care Apparel Rental Clerk Name Role Phone Rebecca Mo MD Primary Care Physician Encounter [facility] R [id number] Date(s): 03/22/22 - 04/27/[address] [address] Attending Physician: Amaya Vieira MD Admitting Physician: Amaya Vieira MD Referring Physician: Baltazar CADE, Judy Becerra Allergies, Adverse Reactions, Alerts Substance Reaction Severity [...] 03/31/22 6:08:00 EST, Route to Pharmacy Electronically, [id number], Partial fill upon patient request if the pr... Start Date: 03/31/22 Status: Ordered ProAir HFA 90 mcg/inh inhalation aerosol with adapter See Instructions, PRN, 2-4 puffs Inhalation 4 times a day 30 days, # 1 each, Refills 11, Tot. Refills 11, Maintenance, 06/25/18 15:30:45 EDT, Instructions Replace Required Details, Route to Pharmacy Electronically, [id number]... Start Date: 06/25/18 Status: Ordered Senna 8.6 mg oral tablet 17.2 mg, 2, tablet, By Mouth, Daily at bedtime, # 50 tablet, Refills 0, Tot. Refills 0, Maintenance, 03/31/22 6:17:00 EST, Route to Pharmacy Electronically, [facility] #[id number], Partial fill upon patient request if the prescription is for a sc... Start Date: 03/31/22 Status: Ordered simethicone 80 mg oral tablet, chewable 160 mg, 2, tablet, Chew, 3 times a day, PRN, # 48 tablet, Refills 0, Tot. Refills 0, Maintenance, Gas, 03/29/22 8:34:00 EST, Route to Pharmacy Electronically, [facility] #[id number], Partial fill upon patient request if the prescription is for a... Start Date: 03/29/22 Status: Ordered Tylenol 325 mg oral capsule 2 capsule = 650 mg, By Mouth, Every 4 hours, PRN as needed for pain, # 50 capsule, 0 Refills, Maintenance, 03/29/22 8:34:00 EST, Capsule, [facility] #[id number], Partial fill upon patient request if the [...] Confirmed Active Severe obesity Confirmed Active 29/04/2007 [facility] admission #1: acute asthma attack Social History Social History Type Response Smoking Status Never (less than 100 in lifetime);Never; Exposure to Secondhand Smoke: Yes; Tobacco use times per day: mother smokes; entered on: 09/14/21 Sex Patient Care team information Care Team Personnel Name: Rebecca Mo MD Position: [facility] Resident Member Role: PCP Address: Address: [address] [place] [address] Care Team Related Persons Name: Monroe Romo Address: home [address] [place] [address] Name: MARIFER ROMO Address: [place] [address] Name: REMA ROMO Address: Address: [address]
--- OUTSIDE RECORDS SUMMARY | 2023-07-18 10:26 | XMS_ITS | Continuity of Care Document ---
Author Organization [facility] Address [address] [place] [address] [address] [place] [address]- Care Team Providers Care Dairy Truck Driver Name Role Phone Chriss Mejia MD Primary Care Physician Encounter [facility] Date(s): 06/19/20 - 06/26/20 [facility] [address] [place] [address] Drive [address] [place], [place] [address] Attending Physician: Ablert Tobar MD Allergies, Adverse Reactions, Alerts Substance Reaction [...] 0 Refills, Maintenance, 06/09/20 9:11:00 EDT, Capsule, [email or web address] #[id number], Partial fill upon patient request if the [...] Replace Required Details, Route to Pharmacy Electronically, [id number]... Start Date: 06/25/18 Status: Ordered traZODone 50 mg oral tablet 50 mg, 1, tablet, By Mouth, Daily at bedtime, PRN, # 30 tablet, Refills 1, Tot. Refills 1, Maintenance, Sleep, 06/09/20 9:11:00 EDT, Route to Pharmacy Electronically, [facility] #[id number], Partial fill upon patient request if the [...] disorder(Confirmed) Active Myopia(Confirmed)(Stable) Active Obesity(Confirmed) Active 29/04/2007 [facility] admission #1: acute asthma attack Vital Signs Most recent to oldest [Reference Range]: 1 Height 160 cm (06/19/20 10:17 AM) Weight 100 kg (06/19/20 10:17 AM) Body Mass Index [18.5-24.99] 39.06 *>HHI* (06/19/20 10:17 AM) Social History Social History Type Response Smoking Status Never smoker; Tobacc o user in household: No entered on: 03/04/14 Sex
--- OUTSIDE RECORDS SUMMARY | 2023-07-18 10:26 | XMS_ITS | Continuity of Care Document ---
Author Organization [facility] Address [address] [place] [address]- Care Team Providers Care Harbor Police Lieutenant Name Role Phone Rebecca Mo MD Primary Care Physician Encounter [facility] Date(s): 03/06/22 - 04/05/22 [facility] [address] [place], [place] [address] Allergies, Adverse Reactions, Alerts Substance Reaction Severity [...] 03/31/22 6:08:00 EST, Route to Pharmacy Electronically, [facility]#[id number], Partial fill upon patient request if the pr... Start Date: 03/31/22 Status: Ordered ProAir HFA 90 mcg/inh inhalation aerosol with adapter See Instructions, PRN, 2-4 puffs Inhalation 4 times a day 30 days, # 1 each, Refills 11, Tot. Refills 11, Maintenance, 06/25/18 15:30:45 EDT, Instructions Replace Required Details, Route to Pharmacy Electronically, [id number]... Start Date: 06/25/18 Status: Ordered Senna 8.6 mg oral tablet 17.2 mg, 2, tablet, By Mouth, Daily at bedtime, # 50 tablet, Refills 0, Tot. Refills 0, Maintenance, 03/31/22 6:17:00 EST, Route to Pharmacy Electronically, [facility] #[id number], Partial fill upon patient request if the prescription is for a sc... Start Date: 03/31/22 Status: Ordered simethicone 80 mg oral tablet, chewable 160 mg, 2, tablet, Chew, 3 times a day, PRN, # 48 tablet, Refills 0, Tot. Refills 0, Maintenance, Gas, 03/29/22 8:34:00 EST, Route to Pharmacy Electronically, [facility] #[id number], Partial fill upon patient request if the prescription is for a... Start Date: 03/29/22 Status: Ordered Tylenol 325 mg oral capsule 2 capsule = 650 mg, By Mouth, Every 4 hours, PRN as needed for pain, # 50 capsule, 0 Refills, Maintenance, 03/29/22 8:34:00 EST, Capsule, [facility] #[id number], Partial fill upon patient request if the [...] Confirmed Active Severe obesity Confirmed Active 29/04/2007 [facility] admission #1: acute asthma attack Social History Social History Type Response Smoking Status Never (less than 100 in lifetime);Never; Exposure to Secondhand Smoke: Yes; Tobacco use times per day: mother smokes; entered on: 09/14/21 Sex Patient Care team information Care Team Personnel Name: Rebecca Mo MD Position: [facility] Resident Member Role: PCP Address: Address: [address] [place] [address] Care Team Related Persons Name: [place] Mcgar[place] Address: [place] [address] Name: MARIFER MCGARRY Address: [place] [address] Name: REMA MCGARRY Address: Address: [address]
--- OUTSIDE RECORDS SUMMARY | 2023-07-18 10:26 | XMS_ITS | Continuity of Care Document ---
Author Organization [facility] Address [address] [place] [address]- Care Team Providers Care Interactive Developer Name Role Phone Bertha Montes MD Primary Care Physician Encounter [facility] Date(s): 06/13/23 - 07/13/[address] [address]- Allergies, Adverse Reactions, Alerts Substance Reaction Severity [...] 24 capsule, 0 Refills, Maintenance, 02/17/23 12:58:00 [facility], [facility] #[id number], Partial fill upon patient request if the prescription is for a schedule II opioid drug., 157, c... Start Date: 02/17/23 Status: Ordered dexamethasone 1 mg oral tablet 1 tablet = 1 mg, By Mouth, Once, to be taken at 11pm, # 1 tablet, 0 Refills, Soft Stop, 06/12/23 17:23:00 EDT, [facility] #[id number], Partial fill upon patient request if the prescription is for a schedule II opioid drug., 157, cm, 06/12/23 17:0... Start Date: 06/12/23 Status: Ordered hydrOXYzine hydrochloride 25 mg oral tablet 1 capsule, By Mouth, Once, PRN Agitation, # 30 capsule, 3 Refills, Soft Stop, 12/10/22 14:50:00 EDT, Capsule, [facility] #[id number], Partial fill upon patient request if the prescription is fora schedule II opioid drug., 160, cm, 12/10/22 14:07... Start Date: 12/10/22 Status: Ordered ProAir HFA 90 mcg/inh inhalation aerosol with adapter See Instructions, PRN, 2-4 puffs Inhalation 4 times a day 30 days, # 1 each, Refills 11, Tot. Refills 11, Maintenance, 10/25/22 11:47:00 EDT, Instructions Replace Required Details, Route to Pharmacy Electronically, [id number]... Start Date: 10/25/22 Status: Ordered semaglutide 0.5 mg/0.5 mL (0.5 mg dose) subcutaneous solution = 0.5 mg, Subcutaneous Injection, Every week, for 4 week(s), in the abdomen, thigh, or upper arm- give pt 90 days if her insuarnce allows, # 2 mL, 1 Refills, Acute 08/07/23 17:26:00 EDT, 06/12/23 17:26:00 EDT, Solution, [facility], Partial... Start Date: 06/12/23 Stop Date: 08/07/23 Status: Ordered sertraline 50 mg oral tablet 1 tablet = 50 mg, By Mouth, Daily, # 90 tablet, 1 Refills, Maintenance, 07/11/23 10:18:00 EDT, Tablet, [facility] #[id number], Partial fill upon patient request if the prescription is for a schedule II opioid drug., 157, cm, 07/11/23 10:01:00 EDT... Start Date: 07/11/23 Status: Ordered terbinafine 250 mg oral tablet 1 tablet = 250 mg, By Mouth, Daily, for 84 days, # 84 tablet, 0 Refills, Acute 10/03/23 10:19:00 EDT, 07/11/23 10:19:00 EDT, [facility] #[id number], Partial fill upon patient request if the prescription is for a schedule II opioid drug., 157, cm,... Start Date: 07/11/23 Stop Date: 10/03/23 Status: Ordered Problem List Condition Confirmation Course Effective Dates Status H ealth Status Informant ADD - Attention deficit disorder with hyperactivity Confirmed Active Allergic rhinitis due to pollen Confirmed Improving Active Asthma, mild intermittent, precipitated by colds, allergies 1 Confirmed Stable Active 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 Mood disorder Confirmed Active Obesity Confirmed Active Severe obesity Confirmed Active 29/04/2007 [facility] admission #1: acute asthma attack Social History Social History Type Response Smoking Status Never (less than 100 in lifetime);Never; Exposure to Secondhand Smoke: Yes; Tobacco use times per day: mother smokes; entered on: 09/14/21 Sex Patient Care team information Care Team Personnel Name: Bertha Montes MD Position: [facility] Resident Member Role: PCP Address: Address: [address] [place] [address]- Care Team Related Persons Name: [place] Mcgarry Address: [place] [address] Name: MARIFER MCGARRY Address: [place] [address] Name: REMA MCGARRY Address: Address: [address]
--- OUTSIDE RECORDS SUMMARY | 2023-07-18 10:26 | XMS_ITS | Continuity of Care Document ---
Author Organization [facility] Address [address] [place] [address] ve [address] [place] [address]- Care Team Providers Care Assault Amphibious Vehicle Officer Name Role Phone Bertha Montes MD Primary Care Physician Encounter [facility] Date(s): 05/20/23 - 06/19/23 [facility] [address] [place] [address]- Allergies, Adverse Reactions, Alerts Substance Reaction Severity [...] capsule, 0 Refills, Maintenance, 02/17/23 12:58:00 [facility], [facility] #[id number], Partial fill upon patient request if the [...] 0 Refills, Soft Stop, 06/12/23 17:23:00 EDT, [facility] #[id number], Partial fill upon patient request if the prescription is for a schedule II opioid drug., 157, cm, 06/12/23 17:0... Start Date: 06/12/23 Status: Ordered dexamethasone 1 mg oral tablet 1 tablet = 1 mg, By Mouth, Once, to be taken at 11pm, # 1 tablet, 0 Refills, Soft Stop, 04/07/23 9:20:00 EST, [facility] #[id number], Partial fill upon patient request if the prescription is fora schedule II opioid drug., 157, cm, 04/07/23 8:57:... Start Date: 04/07/23 Status: Ordered Diflucan 150 mg oral tablet 1 tablet = 150 mg, By Mouth, Once, # 1 tablet, 0 Refills, Soft Stop, 02/19/23 19:29:00 EST, Tablet,[facility] #[id number], Partial fill upon patient request if the prescription is for a schedule II opioid drug., 157, cm, 02/17/23 12:20:00 EST, H... Start Date: 02/19/23 Status: Ordered fluconazole 150 mg oral tablet 1 tablet = 150 mg, By Mouth, Once, epeat dose if still having symptoms in 72 hours, # 2 tablet, 0 Refills, Soft Stop, 04/08/23 16:30:00 EST, Tablet, [facility] #[id number], Partial fill upon patient request if the prescription is for a schedule I... Start Date: 04/08/23 Status: Ordered hydrOXYzine hydrochloride 25 mg oral tablet 1 capsule, By Mouth, Once, PRN Agitation, # 30 capsule, 3 Refills, Soft Stop, 12/10/22 14:50:00 EDT, Capsule, [facility] #[id number], Partial fill upon patient request if the prescription is fora schedule II opioid drug., 160, cm, 12/10/22 14:07... Start Date: 12/10/22 Status: Ordered metronidazole topical 0.75% gel with applicator 1 application, Vaginally, Daily at bedtime, # 70 Gm, 3 Refills, Soft Stop, 12/20/22 16:15:00 EST, Gel, [facility] #[id number], Partial fill upon patient request if the [...] 10/27/23 11:50:00 EDT, 10/25/22 11:49:00 EDT, Tablet, [facility], Partial... Start Date: 10/25/22 Stop Date: 10/27/23 Status: Ordered omeprazole 20 mg oral enteric coated capsule 1 capsule = 20 mg, By Mouth, Daily, # 14 capsule, 0 Refills, Maintenance, 02/17/23 12:58:00 EST, ECCapsule, [facility] #[id number], Partial fill upon patient request if the prescription is for a schedule II opioid drug., 157, cm, 02/17/23 12:20:... Start Date: 02/17/23 Stop Date: 03/03/23 Status: Ordered Pen [place], 32 G x 4 mm BD Ultra [...] Refills, Maintenance, 10/16/22 13:40:00 EDT, EC Tablet, [facility] #[id number], Partial fill upon patient request if the [...] Replace Required Details, Route to Pharmacy Electronically, [id number]... Start Date: 10/25/22 Status: Ordered semaglutide 0.5 mg/0.5 mL (0.5 mg dose) subcutaneous solution = 0.5 mg, Subcutaneous Injection, Every week, for 4 week(s), in the abdomen, thigh, or upper arm- give pt 90 days if her insuarnce allows, # 2 mL, 1 Refills, Acute 08/07/23 17:26:00 EDT, 06/12/23 17:26:00 EDT, Solution, [facility], Partial... Start Date: 06/12/23 Stop Date: 08/07/23 Status: Ordered Senna 8.6 mg oral tablet 17.2 mg, 2, tablet, By Mouth, Daily at bedtime, # 50 tablet, Refills 0, Tot. Refills 0, Maintenance, 03/31/22 6:17:00 EST, Route to Pharmacy Electronically, [facility] #[id number], Partial fill upon patient request if the prescription is for a sc... Start Date: 03/31/22 Status: Ordered sertraline 50 mg oral tablet 1 tablet = 50 mg, By Mouth, Daily, # 90 tablet, 1 Refills, Maintenance, 12/10/22 14:51:00 EDT, Tablet, [facility] #[id number], Partial fill upon patient request if the prescription is for a schedule II opioid drug., 160, cm, 12/10/22 14:07:00 EDT... Start Date: 12/10/22 Status: Ordered Tylenol 325 mg oral capsule 2 capsule = 650 mg, By Mouth, Every 4 hours, PRN as needed for pain, # 50 capsule, 0 Refills, Maintenance, 03/29/22 8:34:00 EST, Capsule, [facility] #[id number], Partial fill upon patient request if the [...] Confirmed Active Severe obesity Confirmed Active 29/04/2007 [facility] admission #1: acute asthma attack Social History Social History Type Response Smoking Status Never (less than 100 in lifetime);Never; Exposure to Secondhand Smoke: Yes; Tobacco use times per day: mother smokes; entered on: 09/14/21 Sex Patient Care team information Care Team Personnel Name: Bertha Montes MD Position: [facility] Resident Member Role: PCP Address: Address: [address] [place] [address]- Care Team Related Persons Name: [place] Mcgarry Address: [place] [address] Name: MARIFER MCGARRY Address: [place] [address] Name: REMA MCGARRY Address: Address: [address]
--- OUTSIDE RECORDS SUMMARY | 2023-07-18 10:26 | XMS_ITS | Continuity of Care Document ---
Author Organization [facility] Address [address] [place] [address] ve [address] [place] [address]- Care Team Providers Care Thread Trimmer Name Role Phone Bertha Montes MD Primary Care Physician Encounter [facility] Date(s): 03/18/23 - 04/17/23 [facility] [address] [place] [address]- Allergies, Adverse Reactions, Alerts Substance Reaction Severity [...] 24 capsule, 0 Refills, Maintenance, 02/17/23 12:58:00 [facility], [facility] #[id number], Partial fill upon patient request if the [...] 0 Refills, Soft Stop, 04/07/23 9:20:00 EST, [facility] #[id number], Partial fill upon patient request if the prescription is fora schedule II opioid drug., 157, cm, 04/07/23 8:57:... Start Date: 04/07/23 Status: Ordered Diflucan 150 mg oral tablet 1 tablet = 150 mg, By Mouth, Once, # 1 tablet, 0 Refills, Soft Stop, 02/19/23 19:29:00 EST, Tablet,[facility] #[id number], Partial fill upon patient request if the prescription is for a schedule II opioid drug., 157, cm, 02/17/23 12:20:00 EST, H... Start Date: 02/19/23 Status: Ordered fluconazole 150 mg oral tablet 1 tablet = 150 mg, By Mouth, Once, epeat dose if still having symptoms in 72 hours, # 2 tablet, 0 Refills, Soft Stop, 04/08/23 16:30:00 EST, Tablet, [facility] #[id number], Partial fill upon patient request if the prescription is for a schedule I... Start Date: 04/08/23 Status: Ordered hydrOXYzine hydrochloride 25 mg oral tablet 1 capsule, By Mouth, Once, PRN Agitation, # 30 capsule, 3 Refills, Soft Stop, 12/10/22 14:50:00 EDT, Capsule, [facility] #[id number], Partial fill upon patient request if the prescription is fora schedule II opioid drug., 160, cm, 12/10/22 14:07... Start Date: 12/10/22 Status: Ordered metronidazole topical 0.75% gel with applicator 1 application, Vaginally, Daily at bedtime, # 70 Gm, 3 Refills, Soft Stop, 12/20/22 16:15:00 EST, [facility] #[id number], Partial fill upon patient request if the [...] 10/27/23 11:50:00 EDT, 10/25/22 11:49:00 EDT, Tablet, [facility], Partial... Start Date: 10/25/22 Stop Date: 10/27/23 Status: Ordered omeprazole 20 mg oral enteric coated capsule 1 capsule = 20 mg, By Mouth, Daily, # 14 capsule, 0 Refills, Maintenance, 02/17/23 12:58:00 EST, ECCapsule, [facility] #[id number], Partial fill upon patient request if the prescription is for a schedule II opioid drug., 157, cm, 02/17/23 12:20:... Start Date: 02/17/23 Stop Date: 03/03/23 Status: Ordered Pen [place], 32 G x 4 mm BD Ultra [...] Refills, Maintenance, 10/16/22 13:40:00 EDT, EC Tablet, [facility] #[id number], Partial fill upon patient request if the [...] Replace Required Details, Route to Pharmacy Electronically, [id number]... Start Date: 10/25/22 Status: Ordered Senna 8.6 mg oral tablet 17.2 mg, 2, tablet, By Mouth, Daily at bedtime, # 50 tablet, Refills 0, Tot. Refills 0, Maintenance, 03/31/22 6:17:00 EST, Route to Pharmacy Electronically, [facility] #[id number], Partial fill upon patient request if the prescription is for a sc... Start Date: 03/31/22 Status: Ordered sertraline 50 mg oral tablet 1 tablet = 50 mg, By Mouth, Daily, # 90 tablet, 1 Refills, Maintenance, 12/10/22 14:51:00 EDT, Tablet, [facility] #[id number], Partial fill upon patient request if the prescription is for a schedule II opioid drug., 160, cm, 12/10/22 14:07:00 EDT... Start Date: 12/10/22 Status: Ordered Tylenol 325 mg oral capsule 2 capsule = 650 mg, By Mouth, Every 4 hours, PRN as needed for pain, # 50 capsule, 0 Refills, Maintenance, 03/29/22 8:34:00 EST, Capsule, [facility] #[id number], Partial fill upon patient request if the [...] Confirmed Active Severe obesity Confirmed Active 29/04/2007 [facility] admission #1: acute asthma attack Social History Social History Type Response Smoking Status Never (less than 100 in lifetime);Never; Exposure to Secondhand Smoke: Yes; Tobacco use times per day: mother smokes; entered on: 09/14/21 Sex Patient Care team information Care Team Personnel Name: Bertha Montes MD Position: [facility] Resident Member Role: PCP Address: Address: [address] [place] [address]- Care Team Related Persons Name: [place] Mcgarry Address: [place] [address] Name: MARIFER MCGARRY Address: [place] [address] Name: REMA MCGARRY Address: Address: [address]
--- OUTSIDE RECORDS SUMMARY | 2023-07-18 10:26 | XMS_ITS | Continuity of Care Document ---
Author Organization [facility] ter Address [address] [place] [address]- Care Team Providers Care Customer Support Advisor Name Role Phone Rebecca Mo MD Primary Care Physician [phone] Encounter [facility] Date(s): 12/26/21 - 12/26/[address] [address]- Discharge Disposition: A-D/C Home Attending Physician: Chanelle [...] Acute 01/18/22 10:19:00 EST, 11/19/21 10:19:00 EDT, [facility] #[id number], Partial fill upon patient request if the prescr... Start Date: 11/19/21 Stop Date: 01/18/22 Status: Ordered aspirin 162.5 mg oral capsule, extended release 1 capsule = 162.5 mg, By Mouth, Daily, at the same time every day, # 90 capsule, 3 Refills, Maintenance, 10/16/21 12:30:00 EDT, ER Capsule, [facility] #[id number], Partial fill upon patient request if the prescription is for a schedule II opioid... Start Date: 10/16/21 Status: Ordered folic acid 0.4 mg oral tablet 1 tablet = 0.4 mg, By Mouth, Daily, # 100 tablet, 5 Refills, Maintenance, 08/21/21 9:43:00 EDT, Tablet, [facility] #[id number], Partial fill upon patient request if the [...] capsule, 0 Refills, Maintenance, 12/26/21 21:00:00 EST, [facility] #[id number], Partial fill upon patient request if the prescription is for a schedule II opioid drug., 160, cm, 12/21/21 15:25:00 ES... Start Date: 12/26/21 Stop Date: 12/29/21 Status: Ordered lidocaine 5% topical ointment 1 application, Topically, 3 times a day, PRN Pain, # 50 Gm, 1 Refills, Maintenance, 11/19/21 10:20:00 EDT, Ointment, [facility] #[id number], Partial fill upon patient request if the prescriptionis for a schedule II opioid drug., 1 application To... Start Date: 11/19/21 Status: Ordered lisdexamfetamine 30 mg oral capsule 1 capsule = 30 mg, By Mouth, Daily in AM, Dx F90.0, # 30 capsule, 0 Refills, Maintenance, 06/09/20 9:11:00 EDT, Capsule, [facility] #[id number], Partial fill upon patient request if the prescription is for a schedule II opioid drug., 1 capsule By... Start Date: 06/09/20 Stop Date: 07/09/20 Status: Ordered Macrobid macrocrystals-monohydrate 100 mg oral capsule 1 capsule = 100 mg, By Mouth, 2 times a day, for 7 days, # 14 capsule, 0 Refills, Acute 12/28/21 17:37:00 EST, 12/21/21 17:37:00 EST, Capsule, [facility] #[id number], Partial fill upon patient request if the prescription is for a schedule II opio... Start Date: 12/21/21 Stop Date: 12/28/21 Status: Ordered Multivitamins with FA 0.8 mg oral tablet 1 tablet, By Mouth, Daily, for 90 days, # 90 tablet, 2 Refills, Hard Stop 08/05/22 13:36:00 EDT, 11/08/21 13:36:00 EDT, Tablet, [facility] #[id number], Partial fill upon patient request if the [...] Replace Required Details, Route to Pharmacy Electronically, [id number]... Start Date: 06/25/18 Status: Ordered Prometrium 200 mg oral capsule 1 capsule = 200 mg, Vaginally, Daily at bedtime, # 60 capsule, 3 Refills, Maintenance, 12/11/21 11:42:00 EDT, [facility] #[id number], Partial fill upon patient request if the [...] Active Severe obesity Confirmed Active 29/04/2007 [facility] admission #1: acute asthma attack Vital Signs Most recent to oldest [Reference Range]: 1 2 3 Weight 115.3 kg (12/26/21 11:19 AM) Oxygen Saturation [94-100 %] 100 % (12/26/21 12:45 PM) 100 % (12/26/21 12:30 PM) 100 % (12/26/21 12:15 PM) Pulse Rate [55-90 bpm] 92 bpm *H* (12/26/21 11:19 AM) Blood Pressure [90-138/55-84 mm Hg] 133/68mm Hg (12/26/21 12:45 PM) 112/69mm Hg (12/26/21 12:30 PM) 111/54mm Hg (12/26/21 12:15 PM) Respiratory Rate [16-30 br/min] 21 br/min (12/26/21 12:45 PM) 27 br/min (12/26/21 12:30 PM) 28 br/min (12/26/21 12:15 PM) Temperature [96.8-100.4 DegF] 98.4 DegF (12/26/21 12:15 PM) 99 DegF (12/26/21 11:19 AM) Liters per Minute 6 L/min (12/26/21 12:15 PM) Mode of Delivery (Oxygen) Room air (12/26/21 12:45 PM) Room air (12/26/21 12:30 PM) Simple face mask (12/26/21 12:15 PM) Blood pressure sites Arm, left (12/26/21 11:19 AM) Temperature Route Temporal (12/26/21 12:15 PM) Temporal (12/26/21 11:19 AM) Dry Weight 115.3 kg (12/26/21 11:19 AM) Weight Obtained Via Standing scale (12/26/21 11:19 AM) Dry Weight Obtained Via Standing scale (12/26/21 11:19 AM) Social History Social History Type Response Smoking Status Never (less than 100 in lifetime);Never; Exposure to Secondhand Smoke: Yes; Tobacco use times per day: mother smokes; entered on: 09/14/21 Sex Note * Paulette Donahue RN: PERFORM Event Display: Discharge/Transfer Note Hospital Authored Date: [id number] Nursing Discharge Note Entered On: 12/26/2021 15:16 EST Performed On: 12/26/2021 15:15 EST by Paulette Donahue RN Nursing Discharge Note 2 Discharge Time : 12/26/2021 15:15 EST Discharge Level of Care at Discharge : Home/Long-Term/Foster Care Patient Left Unit Via : Wheelchair Patient Accompanied Off Unit with : Responsible adult DC Instructions Provided & Signed by Pt : Yes Patient Understands D/C Instructions : Yes Patient Instructions Discharge Signed : Yes Did Pt have Specialty Bed or Wound Vac : No Paulette Donahue RN - 12/26/2021 15:15 EST * Paulette Donahue RN: PERFORM Event Display: Patient Education/Instruction Authored Date: [id number] Inpatient Adult Discharge Instructions [address] [address] Name: DODIE ROMO : 1990 Visit: 12/26/2021 10:28:00 Current Date: 12/26/2021 13:01 Account: [id number] Inpatient Adult Discharge Instructions We would like [...] and their families. Surveys are administered by [employer] ?? If further treatment with your primary care physician or another doctor is recommended, it is important for you to keep the appointment. Call your primary care physician or return to the Emergency Department immediately if your condition worsens, fails to improve, or new symptoms develop. If you need to find a doctor, you can call [facility] for a referral at [phone] or toll free at [phone]) or log in to [email or web address].. ?? You can view and manage your care through the patient portal or by using a health care hasmukh of your choosing. [employer] is a website that allows you to securely view your medical information including your hospital discharge summary, office visit summaries, medications and follow-up visits. You can also request appointments, renew medications, and request access to your medical information using a health care hasmukh of your choosing, or just ask a question. You can enroll at [email or web address] or register during your next office visit. You have been discharged from [facility], Patient Care Unit: [facility]. If you have any questions regarding these instructions after you leave, please call us and we will be happy to assist you. [facility] Your Care Team Attending Physician Chanelle Freeman MD Discharging Providers Rosalie Oshea DO Reason for Admission CERVICAL CERCLAGE Tests Performed Below is a partial list of the tests performed during your hospitalization. You may have had other tests and procedures not included in this list. Please discuss all test results with your provider. Primary Care Provider Rebecca Mo MD Advance Directive Health Care Proxy on File No No qualifying data available. Discharge Vitals Temperature: 98.4 DegF Weight: 115.3 kg Pulse Rate:??92 bpm??High ?? Respiratory Rate: 21 br/min ?? Systolic Blood Pressure: 133 mm Hg ?? Diastolic Blood Pressure: 68 mm Hg ?? Oxygen Saturation: 100 % ?? Studies Pending All tests and labs ordered during this hospital stay have been completed unless listed below. Please discuss all pending results with your provider listed above in these instructions. ?? No incomplete studies found What to do next Instructions From Your Doctor Discharge Orders Instructions from your Care Team FOLLOW INSTRUCTIONS Scheduled Follow-Up Appointments 2021 2:30 PM EST ?? With: Manish Dunn Where: Rehab Adult Aud Friday 3:00 PM EST ?? With: Chilango Willson Where: Rehab Adult Aud Friday 11:20 AM EST ?? With: Marisol Malone CNM Where: [facility] SAILING [employer] [address] [place] [address]- You Need to Schedule the Following Appointments Follow Up with??Chanelle Freeman When??Within 1 to 2 weeks Where: [address] [facility] [place] [address]- Business (1) Follow Up with??Rebecca Mo When??In 0 days Discharge Medications DODIE ROMO :1990 Visit Date:12/26/2021 Medications: Please continue your medications until treatment is completed or stopped by your provider. Medications not listed below should be discontinued. Discuss any questions related to medications with your provider. What How Much When Instructions Next Dose New Indomethacin (indomethacin 25 mg oral capsule) 1 capsule Oral Every 8 hours Duration: 3 Days Pickup at [facility] #[id number] Unchanged Acetaminophen (acetaminophen 500 mg oral tablet) [...] tab(s) Oral Daily Duration: 90 Days Unchanged Nitrofurantoin (Macrobid macrocrystals-monohydrate 100 mg oral capsule) 1 capsule Oral Twice a day Duration: 7 Days Unchanged Progesterone (Prometrium 200 mg oral capsule) 1 capsule Vaginally Daily at Bedtime Pharmacy Information [facility] #[id number]: [address], [place] [id number] [phone] Test Results Below is a partial list [...] Educational Leaflet Providered with your Discharge Instructions. Valuables and Belongings I fully understand and agree that [facility] accepts no responsibility for all [...] encouraged to send valuables and belongings home. ?? Possessions released to: all jewelry given to Dad along with purse Date for Pt to Sign Valuables/Belongings: 12/26/21 11:19:00 ?? Valuables & Belongings ?? Clothes Electronic devices Jewelry Monetary Items Personal devices Miscellaneous Medications (Valuables) Valuables at Bedside Jacket, Pants, Shirt, Shoes, Undergarments Cell phone ? Valuables Sent Home ? Valuables Sent to Security ? Other Discharge Information ? Pulmonary Rehab Status?? Pulmonary Rehab Discharge Status?? Respiratory Rate: 21 br/min ? Common Emergency Awareness Tips IS [...] are strongly encouraged to quit. Please call [facility] [employer] Link at [phone] or [phone]) or log in to [email or web address] for referrals to smoking cessation programs. ?? The National Suicide Prevention Hotline is available 02/09 if you or someone you know needs to find a reason to keep living. By calling 9-089-747-THINK360 (9658) you'll be connected to a skilled, trained counselor at a crisis center in your area. INPATIENT DISCHARGE INSTRUCTIONS SIGNATURE PAGE DODIE ROMO Location:[facility] Registration Date and Time:12/26/2021 10:28 EST Primary Care Physician: Rebecca Mo MD, Abdullahi JAGDEEP ROMOWOLFGANG, have received the above patient education materials/instructions and have verbalized understanding. If ambulance or transport services are being used I further acknowledge beinggiven a choice of service. ?? If you need to contact me, please call me at this number: . Patient/Dipper Machine Operator Name: Patient/Dipper Machine Operator Signature: Relationship to Patient: Witness Name/Signature: Date: * Paulette Donauhe RN: PERFORM, SIGN, VERIFY Event Display: Patient Education Handout Authored Date: [id number] Patient Care team information Care Team Personnel Name: Rebecca Mo MD Position: [facility] Resident Member Role: PCP Address: Address: [address] [place] [address] Care Team Related Persons Name: Monroe Romo Address: home [address] [place] [address] Name: MARIFER ROMO Address: [place] [address]
--- OUTSIDE RECORDS SUMMARY | 2023-07-18 10:26 | XMS_ITS | Continuity of Care Document ---
Author Organization [facility] Address [address] [place] [address]- Care Team Providers Care Manager Of Broadcast Content Name Role Phone Bertha Montes MD Primary Care Physician Encounter [facility] Date(s): 02/17/23 - 02/24/23 [facility] [address] [place] [address]- Encounter Diagnosis Abdominal pain(Discharge Diagnosis) - 02/17/23 Attending Physician: Enedina Frausto MD Allergies, Adverse Reactions, Alerts Substance Reaction [...] 24 capsule, 0 Refills, Maintenance, 02/17/23 12:58:00 [facility] [[email or web address]], [facility] #[id number], Partial fill upon patient request if the [...] 0 Refills, Soft Stop, 12/11/22 20:38:00 EDT, [facility] #[id number], Partial fill upon patient request if the prescription is for a schedule II opioid drug., 160, cm, 12/10/22 14:0... Start Date: 12/11/22 Status: Ordered Diflucan 150 mg oral tablet 1 tablet = 150 mg, By Mouth, Once, # 1 tablet, 0 Refills, Soft Stop, 02/19/23 19:29:00 EST, Tablet,[facility] #[id number], Partial fill upon patient request if the prescription is for a schedule II opioid drug., 157, cm, 02/17/23 12:20:00 EST, H... Start Date: 02/19/23 Status: Ordered hydrOXYzine hydrochloride 25 mg oral tablet 1 capsule, By Mouth, Once, PRN Agitation, # 30 capsule, 3 Refills, Soft Stop, 12/10/22 14:50:00 EDT, Capsule, [facility] #[id number], Partial fill upon patient request if the prescription is fora schedule II opioid drug., 160, cm, 12/10/22 14:07... Start Date: 12/10/22 Status: Ordered metronidazole topical 0.75% gel with applicator 1 application, Vaginally, Daily at bedtime, # 70 Gm, 3 Refills, Soft Stop, 12/20/22 16:15:00 EST, Gel, [facility] #[id number], Partial fill upon patient request if the [...] 10/27/23 11:50:00 EDT, 10/25/22 11:49:00 EDT, Tablet, [facility], Partial... Start Date: 10/25/22 Stop Date: 10/27/23 Status: Ordered omeprazole 20 mg oral enteric coated capsule 1 capsule = 20 mg, By Mouth, Daily, # 14 capsule, 0 Refills, Maintenance, 02/17/23 12:58:00 EST, ECCapsule, [facility] #[id number], Partial fill upon patient request if the prescription is for a schedule II opioid drug., 157, cm, 02/17/23 12:20:... Start Date: 02/17/23 Stop Date: 03/03/23 Status: Ordered Pen [place], 32 G x 4 mm BD Ultra [...] Refills, Maintenance, 10/16/22 13:40:00 EDT, EC Tablet, [facility] #[id number], Partial fill upon patient request if the [...] Replace Required Details, Route to Pharmacy Electronically, [id number]... Start Date: 10/25/22 Status: Ordered Senna 8.6 mg oral tablet 17.2 mg, 2, tablet, By Mouth, Daily at bedtime, # 50 tablet, Refills 0, Tot. Refills 0, Maintenance, 03/31/22 6:17:00 EST, Route to Pharmacy Electronically, [facility] #[id number], Partial fill upon patient request if the prescription is for a sc... Start Date: 03/31/22 Status: Ordered sertraline 50 mg oral tablet 1 tablet = 50 mg, By Mouth, Daily, # 90 tablet, 1 Refills, Maintenance, 12/10/22 14:51:00 EDT, Tablet, [facility] #[id number], Partial fill upon patient request if the prescription is for a schedule II opioid drug., 160, cm, 12/10/22 14:07:00 EDT... Start Date: 12/10/22 Status: Ordered Tylenol 325 mg oral capsule 2 capsule = 650 mg, By Mouth, Every 4 hours, PRN as needed for pain, # 50 capsule, 0 Refills, Maintenance, 03/29/22 8:34:00 EST, Capsule, [facility] #[id number], Partial fill upon patient request if the prescription is for a schedule II opioid dr... Start Date: 03/29/22 Status: Ordered Victoza 18 mg/3 mL subcutaneous solution = 1.2 mg, Subcutaneous Infusion, Daily, # 3 mL, 6 Refills, Maintenance, 02/13/23 17:22:00 EST, [facility] #[id number], Partial fill upon patient request if the [...] [facility]: [facility] Diagnosis Diagnosis Type Effective Dates Health Status Cl inical Service Informant Abdominal pain Discharge Diagnosis 02/17/23 Vital Signs Most recent to oldest [Reference Range]: 1 Height 157 cm (02/17/23 12:20 PM) Oxygen Saturation [94-100 %] 100 % (02/17/23 12:20 PM) Pulse Rate [55-90 bpm] 78 bpm (02/17/23 12:20 PM) Blood Pressure [90-138/55-84 mm Hg] 111/ 71mm Hg (02/17/23 12:20 PM) Temperature [96.8-100.4 DegF] 97.2 DegF (02/17/23 12:20 PM) Mode of Delivery (Oxygen) Room air (02/17/23 12:20 PM) Blood pressure sites Arm, right (02/17/23 12:20 PM) Temperature Route Temporal (02/17/23 12:20 PM) Social History Social History Type Response Smoking Status Never (less than 100 in lifetime);Never; Exposure to Secondhand Smoke: Yes; Tobacco use times per day: mother smokes; entered on: 09/14/21 Sex Patient Care team information Care Team Personnel Name: Bertha Montes MD Position: [facility] Resident Member Role: PCP Address: Address: [address] [place] [address]- Care Team Related Persons Name: Monroe Romo Address: home [address] [place] [address] Name: MARIFER ROMO Address: [place] [address] Name: REMA ROMO Address: Address: [address]
--- OUTSIDE RECORDS SUMMARY | 2023-07-18 10:26 | XMS_ITS | Continuity of Care Document ---
Author Organization [facility] Address [address] [place] [address]- Care Team Providers Care Milk Tester Name Role Phone Chepe CADE, Rebecca Primary Care Physician [place] [facility] Date(s): 02/22/22 - 05/26/[address] [address] Attending Physician: Not on Staff, Attending [...] 0 Refills, Soft Stop, 05/13/22 14:02:00 EDT, Tablet,[facility] #[id number], Partial fill upon patient request if the [...] Refills, Soft Stop, 05/13/22 14:02:00 EDT, Gel, [facility] #[id number], Partial fill upon patient request if the prescription is for a schedule II opioid drug., 1 application Vaginally Daily... Start Date: 05/13/22 Stop Date: 05/18/22 Status: Ordered oxyCODONE 5 mg oral tablet 5 mg, 1, tablet, By Mouth, Every 3 hours, PRN, (7-10), # 12 tablet, Refills 0, Tot. Refills 0, Maintenance, Pain , Severe, 03/31/22 6:08:00 EST, Route to Pharmacy Electronically, [facility]#61947, Partial fill upon patient request if the pr... Start Date: 03/31/22 Status: Ordered ProAir HFA 90 mcg/inh inhalation aerosol with adapter See Instructions, PRN, 2-4 puffs Inhalation 4 times a day 30 days, # 1 each, Refills 11, Tot. Refills 11, Maintenance, 06/25/18 15:30:45 EDT, Instructions Replace Required Details, Route to Pharmacy Electronically, [id number]... Start Date: 06/25/18 Status: Ordered Senna 8.6 mg oral tablet 17.2 mg, 2, tablet, By Mouth, Daily at bedtime, # 50 tablet, Refills 0, Tot. Refills 0, Maintenance, 03/31/22 6:17:00 EST, Route to Pharmacy Electronically, [facility] #[id number], Partial fill upon patient request if the prescription is for a sc... Start Date: 03/31/22 Status: Ordered simethicone 80 mg oral tablet, chewable 160 mg, 2, tablet, Chew, 3 times a day, PRN, # 48 tablet, Refills 0, Tot. Refills 0, Maintenance, Gas, 03/29/22 8:34:00 EST, Route to Pharmacy Electronically, [facility] #[id number], Partial fill upon patient request if the prescription is for a... Start Date: 03/29/22 Status: Ordered Tylenol 325 mg oral capsule 2 capsule = 650 mg, By Mouth, Every 4 hours, PRN as needed for pain, # 50 capsule, 0 Refills, Maintenance, 03/29/22 8:34:00 EST, Capsule, [facility] #[id number], Partial fill upon patient request if the [...] Active Severe obesity Confirmed Active 29/04/2007 [facility] admission #1: acute asthma attack Social History Social History Type Response Smoking Status Never (less than 100 in lifetime);Never; Exposure to Secondhand Smoke: Yes; Tobacco use times per day: mother smokes; entered on: 09/14/21 Sex Patient Care team information Care Team Personnel Name: Rebecca Mo MD Position: [facility] Resident Member Role: PCP Address: Address: [address] [place] [address]- Care Team Related Persons Name: Monroe Mcgarry Address: home [address] [place] [address] Name: MARIFER MCGARRY Address: [place] [address] Name: REMA MCGARRY Address: Address: home [address] [place] [address] [place]
--- OUTSIDE RECORDS SUMMARY | 2023-07-18 10:26 | XMS_ITS | Continuity of Care Document ---
[facility] Address [address] [address]- Care Team Providers Care Boat Garnisher Name Role Phone Chepe CADE, Rebecca Primary Care Physician Encounter [facility] Date(s): 12/18/21 - 01/17/22 [facility] [address] [place] [id number] Allergies, Adverse Reactions, Alerts [...] Acute 01/18/22 10:19:00 EST, 11/19/21 10:19:00 EDT, [facility][id number], Partial fill upon patient request if the prescr... Start Date: 11/19/21 Stop Date: 01/18/22 Status: Ordered aspirin 162.5 mg oral capsule, extended release 1 capsule = 162.5 mg, By Mouth, Daily, at the same time every day, # 90 capsule, 3 Refills, Maintenance, 10/16/21 12:30:00 EDT, ER Capsule, [facility] #[id number], Partial fill upon patient request if the prescription is for a schedule II opioid... Start Date: 10/16/21 Status: Ordered folic acid 0.4 mg oral tablet 1 tablet = 0.4 mg, By Mouth, Daily, # 100 tablet, 5 Refills, Maintenance, 08/21/21 9:43:00 EDT, Tablet, [facility] #[id number], Partial fill upon patient request if the [...] capsule, 0 Refills, Maintenance, 12/26/21 21:00:00 EST, [facility] #[id number], Partial fill upon patient request if the prescription is for a schedule II opioid drug., 160, cm, 12/21/21 15:25:00 ES... Start Date: 12/26/21 Stop Date: 12/29/21 Status: Ordered lidocaine 5% topical ointment 1 application, Topically, 3 times a day, PRN Pain, # 50 Gm, 1 Refills, Maintenance, 11/19/21 10:20:00 EDT, Ointment, [facility] #[id number], Partial fill upon patient request if the prescriptionis for a schedule II opioid drug., 1 application To... Start Date: 11/19/21 Status: Ordered lisdexamfetamine 30 mg oral capsule 1 capsule = 30 mg, By Mouth, Daily in AM, Dx F90.0, # 30 capsule, 0 Refills, Maintenance, 06/09/20 9:11:00 EDT, Capsule, [facility] #[id number], Partial fill upon patient request if the prescription is for a schedule II opioid drug., 1 capsule By... Start Date: 06/09/20 Stop Date: 07/09/20 Status: Ordered metroNIDAZOLE 500 mg oral tablet 1 tablet = 500 mg, By Mouth, Every 12 hours, for 7 days, # 14 tablet, 0 Refills, Acute 01/22/22 19:59:00 EST, 01/15/22 19:59:00 EST, Tablet, [facility] #[id number], Partial fill upon patient request if the prescription is for a schedule II opioid... Start Date: 01/15/22 Stop Date: 01/22/22 Status: Ordered Multivitamins with FA 0.8 mg oral tablet 1 tablet, By Mouth, Daily, for 90 days, # 90 tablet, 2 Refills, Hard Stop 08/05/22 13:36:00 EDT, 11/08/21 13:36:00 EDT, Tablet, [facility] #[id number], Partial fill upon patient request if the [...] Replace Required Details, Route to Pharmacy Electronically, [id number]... Start Date: 06/25/18 Status: Ordered Prometrium 200 mg oral capsule 1 capsule = 200 mg, Vaginally, Daily at bedtime, # 60 capsule, 3 Refills, Maintenance, 12/11/21 11:42:00 EDT, [facility] #[id number], Partial fill upon patient request if the [...] Confirmed Active Severe obesity Confirmed Active 29/04/2007 [facility] admission #1: acute asthma attack Social History Social History Type Response Smoking Status Never (less than 100 in lifetime);Never; Exposure to Secondhand Smoke: Yes; Tobacco use times per day: mother smokes; entered on: 09/14/21 Sex Patient Care team information Care Team Personnel Name: Rebecca Mo MD Position: [facility] Resident Member Role: PCP Address: Address: [address] [place] [address]- Care Team Related Persons Name: Monroe Mcgarry Address: [place] [address] Name: MARIFER MCGARRY Address: [place] [address]
--- OUTSIDE RECORDS SUMMARY | 2023-07-18 10:26 | XMS_ITS | Continuity of Care Document ---
Author Organization [facility] ter Address [address] [place] [address]- Care Team Providers Care Blood Splatter Analyst Name Role Phone Rebecca Mo MD Primary Care Physician [phone] Encounter [facility] Date(s): 11/16/21 - 12/16/[address] [address]- Attending Physician: Alexandra Armendariz NP, Annika Admitting Physician: Alexandra Armendariz NP, Annika Referring Physician: Alexandra Armendariz NP, Annika Allergies, Adverse Reactions, Alerts Substance Reaction Severity [...] 10:19:00 EDT, [facility] #[id number], Partial fill upon patient request if the prescr... Start Date: 11/19/21 Stop Date: 01/18/22 Status: Ordered aspirin 162.5 mg oral capsule, extended release 1 capsule = 162.5 mg, By Mouth, Daily, at the same time every day, # 90 capsule, 3 Refills, Maintenance, 10/16/21 12:30:00 EDT, ER Capsule, [facility] #[id number], Partial fill upon patient request if the prescription is for a schedule II opioid... Start Date: 10/16/21 Status: Ordered folic acid 0.4 mg oral tablet 1 tablet = 0.4 mg, By Mouth, Daily, # 100 tablet, 5 Refills, Maintenance, 08/21/21 9:43:00 EDT, Tablet, [facility] #[id number], Partial fill upon patient request if the [...] 1 Refills, Maintenance, 11/19/21 10:20:00 EDT, Ointment, [facility] #[id number], Partial fill upon patient request if the prescriptionis for a schedule II opioid drug., 1 application To... Start Date: 11/19/21 Status: Ordered lisdexamfetamine 30 mg oral capsule 1 capsule = 30 mg, By Mouth, Daily in AM, Dx F90.0, # 30 capsule, 0 Refills, Maintenance, 06/09/20 9:11:00 EDT, Capsule, [facility] #[id number], Partial fill upon patient request if the prescription is for a schedule II opioid drug., 1 capsule By... Start Date: 06/09/20 Stop Date: 5/30/21 Status: Ordered Multivitamins with FA 0.8 mg oral tablet 1 tablet, By Mouth, Daily, for 90 days, # 90 tablet, 2 Refills, Hard Stop 08/05/22 13:36:00 EDT, 11/08/21 13:36:00 EDT, Tablet, [facility] #[id number], Partial fill upon patient request if the [...] Replace Required Details, Route to Pharmacy Electronically, [id number]... Start Date: 06/25/18 Status: Ordered Prometrium 200 mg oral capsule 1 capsule = 200 mg, Vaginally, Daily at bedtime, # 60 capsule, 3 Refills, Maintenance, 12/11/21 11:42:00 EDT, [facility] #[id number], Partial fill upon patient request if the [...] Confirmed Active Severe obesity Confirmed Active 29/04/2007 [facility] admission #1: acute asthma attack Social History Social History Type Response Smoking Status Never (less than 100 in lifetime);Never; Exposure to Secondhand Smoke: Yes; Tobacco use times per day: mother smokes; entered on: 09/14/21 Sex Patient Care team information Personnel Name: Rebecca Mo MD Address: Address: [address] [place] [address]
--- OUTSIDE RECORDS SUMMARY | 2023-07-18 10:26 | XMS_ITS | Continuity of Care Document ---
Author Organization [facility] Address [address] [place] [address]- Care Team Providers Care Flute Grinder Name Role Phone Bertha Motnes MD Primary Care Physician Encounter [facility] Date(s): 12/09/22 - 01/08/23 [facility] [address] [place] [address]- Allergies, Adverse Reactions, Alerts Substance Reaction Severity [...] 0 Refills, Soft Stop, 12/11/22 20:38:00 EDT, [email or web address] #[id number], Partial fill upon patient request if the prescription is for a schedule II opioid drug., 160, cm, 12/10/22 14:0... Start Date: 12/11/22 Status: Ordered Diflucan 150 mg oral tablet 1 tablet = 150 mg, By Mouth, Once, # 1 tablet, 0 Refills, Soft Stop, 10/25/22 11:47:00 EDT, Tablet,[facility], Partial fill upon patient request if the prescription is for a scheduleII opioid drug., 160, cm, 10/25/22 10:08:00 EDT, He... Start Date: 10/25/22 Status: Ordered hydrOXYzine hydrochloride 25 mg oral tablet 1 capsule, By Mouth, Once, PRN Agitation, # 30 capsule, 3 Refills, Soft Stop, 12/10/22 14:50:00 EDT, Capsule, [facility] #[id number], Partial fill upon patient request if the [...] Refills, Soft Stop, 12/20/22 16:15:00 EST, Gel, [email or web address] #[id number], Partial fill upon patient request if the [...] 10/27/23 11:50:00 EDT, 10/25/22 11:49:00 EDT, Tablet, [facility], [facility]... Start Date: 10/25/22 Stop Date: 10/27/23 Status: Ordered Pen [place], 32 G x 4 mm BD Ultra [...] Refills, Maintenance, 10/16/22 13:40:00 EDT, EC Tablet, [facility] #[id number], Partial fill upon patient request if the [...] Replace Required Details, Route to Pharmacy Electronically, [id number]... Start Date: 10/25/22 Status: Ordered Senna 8.6 mg oral tablet 17.2 mg, 2, tablet, By Mouth, Daily at bedtime, # 50 tablet, Refills 0, Tot. Refills 0, Maintenance, 03/31/22 6:17:00 EST, Route to Pharmacy Electronically, [email or web address] #[id number], Partial fill upon patient request if the prescription is for a sc... Start Date: 03/31/22 Status: Ordered sertraline 50 mg oral tablet 1 tablet = 50 mg, By Mouth, Daily, # 90 tablet, 1 Refills, Maintenance, 12/10/22 14:51:00 EDT, Tablet, [facility] #[id number], Partial fill upon patient request if the prescription is for a schedule II opioid drug., 160, cm, 12/10/22 14:07:00 EDT... Start Date: 12/10/22 Status: Ordered Tylenol 325 mg oral capsule 2 capsule = 650 mg, By Mouth, Every 4 hours, PRN as needed for pain, # 50 capsule, 0 Refills, Maintenance, 03/29/22 8:34:00 EST, Capsule, [facility] #[id number], Partial fill upon patient request if the prescription is for a schedule II opioid dr... Start Date: 03/29/22 Status: Ordered Victoza 18 mg/3 mL subcutaneous solution = 1.2 mg, Subcutaneous Infusion, Daily, # 3 mL, 6 Refills, Maintenance, 01/08/23 16:54:00 EST, [facility] #[id number], Partial fill upon patient request if the [...] Confirmed Active Severe obesity Confirmed Active 29/04/2007 [facility] admission #1: acute asthma attack Social History Social History Type Response Smoking Status Never (less than 100 in lifetime);Never; Exposure to Secondhand Smoke: Yes; Tobacco use times per day: mother smokes; entered on: 09/14/21 Sex Patient Care team information Care Team Personnel Name: Bertha Montes MD Position: [facility] Resident Member Role: PCP Address: Address: [address] [place] [address] Care Team Related Persons Name: Monroe Mcgarry Address: [place] [address] Name: MARIFER MCGARRY Address: [address] [address] Name: REMA MCGARRY Address: Address: [address]
--- OUTSIDE RECORDS SUMMARY | 2023-07-18 10:26 | XMS_ITS | Continuity of Care Document ---
Author Organization [facility] Address [address] [place] [address]- Care Team Providers Care Pump Operator Byproducts Name Role Phone Rebecca Mo MD Primary Care Physician Encounter [facility] Date(s): 01/10/22 - 02/09/[address] [facility] [address] [place] [address] Attending Physician: Silas Munroe Admitting Physician: AdmSilas [...] Refills, Maintenance, 02/08/22 8:37:00 EST, ER Capsule, [facility] #[id number], Partial fill upon patient request if the prescription is for a schedule II opioid d... Start Date: 02/08/22 Status: Ordered famotidine 20 mg oral tablet 20 mg, 1, tablet, By Mouth, 2 times a day, # 180 tablet, Refills 0, Tot. Refills 0, Maintenance, 02/08/22 8:37:00 EST, Route to Pharmacy Electronically, [facility] #[id number], Partial fill uponpatient request if the prescription is for a schedu... Start Date: 02/08/22 Status: Ordered folic acid 0.4 mg oral tablet 1 tablet = 0.4 mg, By Mouth, Daily, # 100 tablet, 5 Refills, Maintenance, 08/21/21 9:43:00 EDT, Tablet, [facility] #[id number], Partial fill upon patient request if the [...] 1 Refills, Maintenance, 11/19/21 10:20:00 EDT, Ointment, [facility] #[id number], Partial fill upon patient request if the prescriptionis for a schedule II opioid drug., 1 application To... Start Date: 11/19/21 Status: Ordered lisdexamfetamine 30 mg oral capsule 1 capsule = 30 mg, By Mouth, Daily in AM, Dx F90.0, # 30 capsule, 0 Refills, Maintenance, 06/09/20 9:11:00 EDT, Capsule, [facility] #[id number], Partial fill upon patient request if the prescription is for a schedule II opioid drug., 1 capsule By... Start Date: 06/09/20 Stop Date: 07/09/20 Status: Ordered Multivitamins with FA 0.8 mg oral tablet 1 tablet, By Mouth, Daily, for 90 days, # 90 tablet, 2 Refills, Hard Stop 05/02/23 13:36:00 EDT, 08/05/22 13:36:00 EDT, Tablet, [facility] #[id number], Partial fill upon patient request if the prescription is for a schedule II opioid drug., 1 tab... Start Date: 08/05/22 Stop Date: 05/02/23 Status: Ordered Multivitamins with FA 0.8 mg oral tablet 1 tablet, By Mouth, Daily, for 90 days, # 90 tablet, 2 Refills, Hard Stop 08/05/22 13:36:00 EDT, 11/08/21 13:36:00 EDT, Tablet, [facility] #[id number], Partial fill upon patient request if the [...] Replace Required Details, Route to Pharmacy Electronically, [id number]... Start Date: 06/25/18 Status: Ordered Prometrium 200 mg oral capsule 1 capsule = 200 mg, Vaginally, Daily at bedtime, # 60 capsule, 3 Refills, Maintenance, 02/08/22 8:36:00 EST, [facility] #[id number], Partial fill upon patient request if the [...] [facility] Resident Member Role: PCP Address: Address: [address] [place] [address]- Care Team Related Persons Name: Monroe Romo Address: [place] [address] Name: MARIFER ROMO Address: [place] [address]
--- OUTSIDE RECORDS SUMMARY | 2023-07-18 10:27 | XMS_ITS | Continuity of Care Document ---
Author Organization [facility] Address [address] [place] [address]- Care Team Providers Care Air Route Controller Name Role Phone Chepe CADE, Rebecca Primary Care Physician [phone] [place] [facility] 02/22/22 - 05/05/[address] [address] Attending Physician: Not on [...] 03/31/22 6:08:00 EST, Route to Pharmacy Electronically, [facility]#[id number], Partial fill upon patient request if the pr... Start Date: 03/31/22 Status: Ordered ProAir HFA 90 mcg/inh inhalation aerosol with adapter See Instructions, PRN, 2-4 puffs Inhalation 4 times a day 30 days, # 1 each, Refills 11, Tot. Refills 11, Maintenance, 06/25/18 15:30:45 EDT, Instructions Replace Required Details, Route to Pharmacy Electronically, [id number]... Start Date: 06/25/18 Status: Ordered Senna 8.6 mg oral tablet 17.2 mg, 2, tablet, By Mouth, Daily at bedtime, # 50 tablet, Refills 0, Tot. Refills 0, Maintenance, 03/31/22 6:17:00 EST, Route to Pharmacy Electronically, [facility] #[id number], Partial fill upon patient request if the prescription is for a sc... Start Date: 03/31/22 Status: Ordered simethicone 80 mg oral tablet, chewable 160 mg, 2, tablet, Chew, 3 times a day, PRN, # 48 tablet, Refills 0, Tot. Refills 0, Maintenance, Gas, 03/29/22 8:34:00 EST, Route to Pharmacy Electronically, [facility] #[id number], Partial fill upon patient request if the prescription is for a... Start Date: 03/29/22 Status: Ordered Tylenol 325 mg oral capsule 2 capsule = 650 mg, By Mouth, Every 4 hours, PRN as needed for pain, # 50 capsule, 0 Refills, Maintenance, 03/29/22 8:34:00 EST, Capsule, [facility] #[id number], Partial fill upon patient request if the [...] Team Personnel Name: Rebecca Mo MD Position: [facility] Resident Member Role: PCP Address: Address: [address] [place] [address] Care Team Related Persons Name: Monroe Mcgarry Address: [place] [address] Name: MARIFER MCGARRY Address: [place] [address] Name: REMA MCGARRY Address: Address: [address]
--- OUTSIDE RECORDS SUMMARY | 2023-07-18 10:27 | XMS_ITS | Continuity of Care Document ---
Author Organization [facility] Address [address], [address] [place] [address]- Care Team Providers Care Newspaper Carriers Supervisor Name Role Phone Chepe CDAE, Rebecca Primary Care Physician [phone] [place] [facility] [place] 12/11/21 - 12/18/21 [facility] [employer] [facility] [address], [address] [place], [place] [address] Attending Physician: Esthela Loyd MD Referring Physician: Jaycob Rodriguez CNM Allergies, Adverse Reactions, Alerts Substance Reaction [...] Acute 01/18/22 10:19:00 EST, 11/19/21 10:19:00 EDT, [facility] #[id number], Partial fill upon patient request if the prescr... Start Date: 11/19/21 Stop Date: 01/18/22 Status: Ordered aspirin 162.5 mg oral capsule, extended release 1 capsule = 162.5 mg, By Mouth, Daily, at the same time every day, # 90 capsule, 3 Refills, Maintenance, 10/16/21 12:30:00 EDT, ER Capsule, [facility] #[id number], Partial fill upon patient request if the prescription is for a schedule II opioid... Start Date: 10/16/21 Status: Ordered folic acid 0.4 mg oral tablet 1 tablet = 0.4 mg, By Mouth, Daily, # 100 tablet, 5 Refills, Maintenance, 08/21/21 9:43:00 EDT, Tablet, [facility] #[id number], Partial fill upon patient request if the [...] 1 Refills, Maintenance, 11/19/21 10:20:00 EDT, Ointment, [facility] #[id number], Partial fill upon patient request if the prescriptionis for a schedule II opioid drug., 1 application To... Start Date: 11/19/21 Status: Ordered lisdexamfetamine 30 mg oral capsule 1 capsule = 30 mg, By Mouth, Daily in AM, Dx F90.0, # 30 capsule, 0 Refills, Maintenance, 06/09/20 9:11:00 EDT, Capsule, [facility] #[id number], Partial fill upon patient request if the prescription is for a schedule II opioid drug., 1 capsule By... Start Date: 06/09/20 Stop Date: 07/09/20 Status: Ordered Multivitamins with FA 0.8 mg oral tablet 1 tablet, By Mouth, Daily, for 90 days, # 90 tablet, 2 Refills, Hard Stop 08/05/22 13:36:00 EDT, 11/08/21 13:36:00 EDT, Tablet, [facility] #[id number], Partial fill upon patient request if the [...] Replace Required Details, Route to Pharmacy Electronically, [id number]... Start Date: 06/25/18 Status: Ordered Prometrium 200 mg oral capsule 1 capsule = 200 mg, Vaginally, Daily at bedtime, # 60 capsule, 3 Refills, Maintenance, 12/11/21 11:42:00 EDT, [facility] #[id number], Partial fill upon patient request if the [...] Confirmed Active Severe obesity Confirmed Active 29/04/2007 [facility] admission #1: acute asthma attack Social History Social History Type Response Smoking Status Never (less than 100 in lifetime);Never; Exposure to Secondhand Smoke: Yes; Tobacco use times per day: mother smokes; entered on: 09/14/21 Sex Note * Event Display: PDC Detailed Anatomy Survey, Lvl 2 * Event Display: PDC Detailed Anatomy Survey, Lvl 2 Authored Date: [id number] OBSTETRICS REPORT PATIENT INFO: CMRN: [id number] BMRN: [id number] : [birth year] (31 yrs)(F) Name: DODIE Visit Date: 12/11/2021 10:55 am DEMETRIUS PERFORMED BY: Performed By: Cindy Marks RDMS Attending: Sanam Mccloud MD Referred By: Jaycob Rodriguez Location: [address] INDICATIONS: Obesity in O99.210 Z34.90 VITAL SIGNS: Height: 5'3 EVALUATION: Num Of Fetuses: 1 Heart Rate(bpm): 144 Cardiac Activity: Present Presentation: Breech Placenta: Anterior P. Cord Insertion: Normal Amniotic Fluid LISSETH FV: Within normal limits BIOMETRY: BPD: 48.8 mm G.Age: 20w 5d HC: 173.6 mm G.Age: 19w 6d AC: 152.6 mm G.Age: 20w 3d FL: 34.1 mm G.Age: 20w 5d HUM: 33.4 mm G.Age: 21w 2d CER: 20.3 mm G.Age: 19w 2d NFT: 4 mm LV: 5.4 mm CM: 5.1 mm CI: 79 % 70 - 86 FL/HC: 19.6 % 16.8 - 19.8 HC/AC: 1.14 1.09 - 1.39 FL/BPD: 69.9 % FL/AC: 22.3 % 20 - 24 Est. FW: 359 gm 0 lb 13 oz GESTATIONAL AGE: LMP: 20w 2d Date: 07/22/21 CHANELL: 04/28/22 U/S Today: 20w 3d CHANELL: 04/27/22 Best: 20w 2d Det. By: LMP (07/22/21) CHANELL: 04/28/22 TARGETED ANATOMY: Central Nervous System Calvarium/Cranial V.: No anomalies seen Intracranial Danielle: No anomalies seen Cavum: No anomalies seen Lateral Ventricles: No anomalies seen Choroid Plexus: No anomalies seen Cereb./Vermis: No anomalies seen Cisterna Magna: No anomalies seen Midline Falx: No anomalies seen Spine Cervical: No anomalies seen Thoracic: No anomalies seen Lumbar: No anomalies seen Sacral: Normal but LIMITED Head/Neck Lips: Intact upper lip Neck: No anomalies seen Nuchal Fold: No anomalies seen Palate: No anomalies seen Profile: No anomalies seen Orbits/Eyes: Both lenses seen Thorax Lungs: No anomalies seen 4 Chamber View: NOT WELL SEEN Cardiac Rhythm: No anomalies seen Rt Outflow Tract: NOT WELL SEEN Lt Outflow Tract: NOT WELL SEEN Aortic Arch: NOT WELL SEEN Ductal Arch: NOT WELL SEEN SVC: NOT WELL SEEN Cardiac [place]: No anomalies seen Diaphragm: No anomalies seen 3 Vessel View: NOT WELL SEEN IVC: NOT WELL SEEN Abdomen Ventral Wall: No anomalies seen Cord Insertion: No anomalies seen (into placenta) Stomach: No anomalies seen Liver: No anomalies seen Lt Kidney: Normal but LIMITED Rt Kidney: Normal but LIMITED Bladder: No anomalies seen Bowel: No anomalies seen Extremities Lt Humerus: No anomalies seen Rt Humerus: No anomalies seen Lt Forearm: No anomalies seen Rt Forearm: No anomalies seen Lt Hand: No anomalies seen Rt Hand: No anomalies seen Lt Femur: No anomalies seen Rt Femur: No anomalies seen Lt Lower Leg: No anomalies seen Rt Lower Leg: No anomalies seen Lt Foot: No anomalies seen Rt Foot: No anomalies seen Other Umbilical Cord: Normal but LIMITED CERVIX UTERUS ADNEXA: Cervix Length: 1.3 cm. Troy, see comments. Comment Vaginal scanning was done. COMMENTS: Exam limited by position and maternal habitus Otherwise, the detailed anatomy is unremarkable TVCL is short, 13mm. There is a U shaped funnel at the internal os with some amniotic fluid debris. The risk of is increased. Patient has no history of prior (1 prior TAB only) I called the patient's CNM as she had an appointment to follow the scan. SVE by CNM closed. Plan vaginal progesterone 200mg PV qHS and f/u TVCL in 1 week with consideration for cerclage if progressive shortening or open cervix is noted. RECOMMENDATIONS: TVCL 1 week Follow up anatomy 4 weeks Sanam Mccloud MD Electronically Signed Final Report 12/11/2021 12:17 pm * Event Display: PDC Detailed Anatomy Survey, Lvl 2 Authored Date: Please click on pdf link to open report Patient Care team information Care Team Personnel Name: Rebecca Mo MD Position: S Resident Member Role: PCP Address: Address: [address] [place] [address]- Care Team Related Persons Name: Monroe Romo Address: home [address] [place] [address] Name: MARIFER ROMO Address: [place] [address]
--- OUTSIDE RECORDS SUMMARY | 2023-07-18 10:27 | XMS_ITS | Continuity of Care Document ---
Author Organization [facility] ter Address [address] [place] [address]- Care Team Providers Care Division Superintendent Name Role Phone Bertha Montes MD Primary Care Physician Encounter [facility] Date(s): 10/09/22 - 01/08/[address] [id number] Attending Physician: Kevin Jeffery Admitting Physician: Kevin Jeffery Referring Physician: Kevin Jeffery Allergies, Adverse Reactions, Alerts Substance Reaction Severity [...] 0 Refills, Soft Stop, 12/11/22 20:38:00 EDT, [facility] #[id number], Partial fill upon patient request if the prescription is for a schedule II opioid drug., 160, cm, 12/10/22 14:0... Start Date: 12/11/22 Status: Ordered Diflucan 150 mg oral tablet 1 tablet = 150 mg, By Mouth, Once, # 1 tablet, 0 Refills, Soft Stop, 10/25/22 11:47:00 EDT, Tablet,[facility], Partial fill upon patient request if the prescription is for a scheduleII opioid drug., 160, cm, 10/25/22 10:08:00 EDT, He... Start Date: 10/25/22 Status: Ordered hydrOXYzine hydrochloride 25 mg oral tablet 1 capsule, By Mouth, Once, PRN Agitation, # 30 capsule, 3 Refills, Soft Stop, 12/10/22 14:50:00 EDT, Capsule, [email or web address] #[id number], Partial fill upon patient request if the [...] Refills, Soft Stop, 12/20/22 16:15:00 EST, Gel, [facility] #[id number], Partial fill upon patient request if the [...] 10/27/23 11:50:00 EDT, 10/25/22 11:49:00 EDT, Tablet, [facility], [facility]... Start Date: 10/25/22 Stop Date: 10/27/23 Status: Ordered Pen [place], 32 G x 4 mm BD Ultra [...] Refills, Maintenance, 10/16/22 13:40:00 EDT, EC Tablet, [facility] #[id number], Partial fill upon patient request if the [...] Replace Required Details, Route to Pharmacy Electronically, [id number]... Start Date: 10/25/22 Status: Ordered Senna 8.6 mg oral tablet 17.2 mg, 2, tablet, By Mouth, Daily at bedtime, # 50 tablet, Refills 0, Tot. Refills 0, Maintenance, 03/31/22 6:17:00 EST, Route to Pharmacy Electronically, [facility] #[id number], Partial fill upon patient request if the prescription is for a sc... Start Date: 03/31/22 Status: Ordered sertraline 50 mg oral tablet 1 tablet = 50 mg, By Mouth, Daily, # 90 tablet, 1 Refills, Maintenance, 12/10/22 14:51:00 EDT, Tablet, [facility] #[id number], Partial fill upon patient request if the prescription is for a schedule II opioid drug., 160, cm, 12/10/22 14:07:00 EDT... Start Date: 12/10/22 Status: Ordered Tylenol 325 mg oral capsule 2 capsule = 650 mg, By Mouth, Every 4 hours, PRN as needed for pain, # 50 capsule, 0 Refills, Maintenance, 03/29/22 8:34:00 EST, Capsule, [facility] #[id number], Partial fill upon patient request if the prescription is for a schedule II opioid dr... Start Date: 03/29/22 Status: Ordered Victoza 18 mg/3 mL subcutaneous solution = 1.2 mg, Subcutaneous Infusion, Daily, # 3 mL, 6 Refills, Maintenance, 01/08/23 16:54:00 EST, [facility] #[id number], Partial fill upon patient request if the [...] Confirmed Active Severe obesity Confirmed Active 29/04/2007 [facility] admission #1: acute asthma attack Social History Social History Type Response Smoking Status Never (less than 100 in lifetime);Never; Exposure to Secondhand Smoke: Yes; Tobacco use times per day: mother smokes; entered on: 09/14/21 Sex Patient Care team information Care Team Personnel Name: Bertha Montes MD Position: S Resident Member Role: PCP Address: Address: [address] [place] [address] Care Team Related Persons Name: Monroe Mcgarry Address: [address] [address] Name: MARIFER MCGARRY Address: [address] [address] Name: REMA MCGARRY Address: Address: [address]
--- OUTSIDE RECORDS SUMMARY | 2023-07-18 10:27 | XMS_ITS | Continuity of Care Document ---
Author Organization [facility] Address [address], [address] [place] [address]- Care Team Providers Care Diamond Wheel Edger Name Role Phone Chepe CADE, Rebecca Primary Care Physician [place] [facility] [place] 11[place]/21 [facility] [employer] [address] 4[address] [place], [place] [address] Attending Physician: Esthela Loyd MD Referring Physician: Amelia Cisneros MD Allergies, [...] Refills, Maintenance, 10/16/21 12:30:00 EDT, ER Capsule, [facility] #[id number], Partial fill upon patient request if the prescription is for a schedule II opioid... Start Date: 10/16/21 Status: Ordered folic acid 0.4 mg oral tablet 1 tablet = 0.4 mg, By Mouth, Daily, # 100 tablet, 5 Refills, Maintenance, 08/21/21 9:43:00 EDT, Tablet, [facility] #[id number], Partial fill upon patient request if the [...] 0 Refills, Maintenance, 06/09/20 9:11:00 EDT, Capsule, [facility] #[id number], Partial fill upon patient request if the prescription is for a schedule II opioid drug., 1 capsule By... Start Date: 06/09/20 Stop Date: 07/09/20 Status: Ordered Multivitamins with FA 0.8 mg oral tablet 1 tablet, By Mouth, Daily, # 90 tablet, 2 Refills, Maintenance, 11/08/21 13:36:00 EDT, Tablet, [facility] #[id number], Partial fill upon patient request if the prescription is for a schedule II opioid drug., 1 tablet By Mouth Daily,x90 days, 160,... Start Date: 11/08/21 Stop Date: 08/05/22 Status: Ordered Multivitamins with Folic Acid 1 mg oral tablet 1 tablet, By Mouth, Daily, # 90 tablet, 3 Refills, Maintenance, 10/24/21 16:33:00 EDT, Tablet, [facility] #[id number], Partial fill upon patient request if the prescription is for a schedule II opioid drug., 1 tablet By Mouth Daily,x90 days, 160,... Start Date: 10/24/21 Stop Date: 10/19/22 Status: Ordered Multivitamins with Folic Acid 1.2 mg oral capsule 1 capsule, By Mouth, Daily, # 30 capsule, 11 Refills, Maintenance, 10/16/21 12:31:00 EDT, Capsule, [facility] #[id number], Partial fill upon patient request if the [...] Replace Required Details, Route to Pharmacy Electronically, [id number]... Start Date: 06/25/18 Status: Ordered traZODone 50 mg oral tablet 50 mg, 1, tablet, By Mouth, Daily at bedtime, PRN, # 30 tablet, Refills 1, Tot. Refills 1, Maintenance, Sleep, 06/09/20 9:11:00 EDT, Route to Pharmacy Electronically, [facility] #[id number], Partial fill upon patient request if the prescription i... Start Date: 06/09/20 Stop Date: 08/08/20 Status: Ordered Problem List Condition Confirmation Course [...] Name: Rebecca Mo MD Address: Address: [address] [place] [address]
--- OUTSIDE RECORDS SUMMARY | 2023-07-18 10:27 | XMS_ITS | Continuity of Care Document ---
Author Organization [facility] Address [address] [address]- Care Team Providers Care Senior Gl Accountant Name Role Phone Chepe CADE, Rebecca Primary Care Physician [phone] Encounter [facility] [place] Date(s): 01/07/22 - 02/06/22 [facility] [address] [id number] Attending Physician: Admtr, Lowell8 Admitting Physician: Admtr, [id number] Referring Physician: Admtr, [...] Refills, Maintenance, 10/16/21 12:30:00 EDT, ER Capsule, [facility] #[id number], Partial fill upon patient request if the prescription is for a schedule II opioid... Start Date: 10/16/21 Status: Ordered folic acid 0.4 mg oral tablet 1 tablet = 0.4 mg, By Mouth, Daily, # 100 tablet, 5 Refills, Maintenance, 08/21/21 9:43:00 EDT, Tablet, [facility] #[id number], Partial fill upon patient request if the [...] 1 Refills, Maintenance, 11/19/21 10:20:00 EDT, Ointment, [facility] #[id number], Partial fill upon patient request if the prescriptionis for a schedule II opioid drug., 1 application To... Start Date: 11/19/21 Status: Ordered lisdexamfetamine 30 mg oral capsule 1 capsule = 30 mg, By Mouth, Daily in AM, Dx F90.0, # 30 capsule, 0 Refills, Maintenance, 06/09/20 9:11:00 EDT, Capsule, [facility] #[id number], Partial fill upon patient request if the prescription is for a schedule II opioid drug., 1 capsule By... Start Date: 06/09/20 Stop Date: 07/09/20 Status: Ordered Multivitamins with FA 0.8 mg oral tablet 1 tablet, By Mouth, Daily, for 90 days, # 90 tablet, 2 Refills, Hard Stop 08/05/22 13:36:00 EDT, 11/08/21 13:36:00 EDT, Tablet, [facility] #[id number], Partial fill upon patient request if the [...] Replace Required Details, Route to Pharmacy Electronically, [id number]... Start Date: 06/25/18 Status: Ordered Prometrium 200 mg oral capsule 1 capsule = 200 mg, Vaginally, Daily at bedtime, # 60 capsule, 3 Refills, Maintenance, 12/11/21 11:42:00 EDT, [facility] #[id number], Partial fill upon patient request [...] Confirmed Active Severe obesity Confirmed Active 29/04/2007 [facility] admission #1: acute asthma attack Social History Social History Type Response Smoking Status Never (less than 100 in lifetime);Never; Exposure to Secondhand Smoke: Yes; Tobacco use times per day: mother smokes; entered on: 09/14/21 Sex Patient Care team information Care Team Personnel Name: Rebecca Mo MD Position: [facility] Resident Member Role: PCP Address: Address: [address] [place] [address] Care Team Related Persons Name: Monroe Mcgarry Address: home [address] [place] [address] Name: MARIFER MCGARRY Address: [place] [address]
--- OUTSIDE RECORDS SUMMARY | 2023-07-18 10:27 | XMS_ITS | Continuity of Care Document ---
Author Organization [facility] ter Address [address] [place] [address]- Care Team Providers Care Plumbing Engineering Draftsperson Name Role Phone Rebecca Mo MD Primary Care Physician [phone] Encounter [facility] [place] Date(s): 12/13/21 - 12/20/[address] [id number] Encounter Diagnosis Procedure and treatment not carried out for other reasons(Final) - Discharge Disposition: A-D/C Home Attending Physician: Monroe Valenzuela MD Admitting Physician: Monroe Valenzuela MD Allergies, Adverse Reactions, Alerts Substance Reaction [...] Acute 01/18/22 10:19:00 EST, 11/19/21 10:19:00 EDT, [facility] #[id number], Partial fill upon patient request if the prescr... Start Date: 11/19/21 Stop Date: 01/18/22 Status: Ordered aspirin 162.5 mg oral capsule, extended release 1 capsule = 162.5 mg, By Mouth, Daily, at the same time every day, # 90 capsule, 3 Refills, Maintenance, 10/16/21 12:30:00 EDT, ER Capsule, [facility] #[id number], Partial fill upon patient request if the prescription is for a schedule II opioid... Start Date: 10/16/21 Status: Ordered folic acid 0.4 mg oral tablet 1 tablet = 0.4 mg, By Mouth, Daily, # 100 tablet, 5 Refills, Maintenance, 08/21/21 9:43:00 EDT, Tablet, [facility] #[id number], Partial fill upon patient request if the [...] 1 Refills, Maintenance, 11/19/21 10:20:00 EDT, Ointment, [facility] #[id number], Partial fill upon patient request if the prescriptionis for a schedule II opioid drug., 1 application To... Start Date: 11/19/21 Status: Ordered lisdexamfetamine 30 mg oral capsule 1 capsule = 30 mg, By Mouth, Daily in AM, Dx F90.0, # 30 capsule, 0 Refills, Maintenance, 06/09/20 9:11:00 EDT, Capsule, [facility] #[id number], Partial fill upon patient request if the prescription is for a schedule II opioid drug., 1 capsule By... Start Date: 06/09/20 Stop Date: 07/09/20 Status: Ordered Multivitamins with FA 0.8 mg oral tablet 1 tablet, By Mouth, Daily, for 90 days, # 90 tablet, 2 Refills, Hard Stop 08/05/22 13:36:00 EDT, 11/08/21 13:36:00 EDT, Tablet, [facility] #[id number], Partial fill upon patient request if the [...] Replace Required Details, Route to Pharmacy Electronically, [id number]... Start Date: 06/25/18 Status: Ordered Prometrium 200 mg oral capsule 1 capsule = 200 mg, Vaginally, Daily at bedtime, # 60 capsule, 3 Refills, Maintenance, 12/11/21 11:42:00 EDT, [facility] #[id number], Partial fill upon patient request if the [...] Confirmed Active Severe obesity Confirmed Active 29/04/2007 [facility] admission #1: acute asthma attack Vital Signs Most recent to oldest [Reference Range]: 1 Weight 115.8 kg (12/13/21 6:38 PM) Oxygen Saturation [94-100 %] 100 % (12/13/21 6:38 PM) Pulse Rate [55-90 bpm] 66 bpm (12/13/21 6:38 PM) Blood Pressure [90-138/55-84 mm Hg] 107/ 62mm Hg (12/13/21 6:38 PM) Respiratory Rate [16-30 br/min] 18 br/mi n (12/13/21 6:38 PM) Temperature [96.8-100.4 DegF] 98.3 DegF (12/13/21 6:38 PM) Mode of Delivery (Oxygen) Room air (12/13/21 6:38 PM) Blood pressure sites Arm, right 1 (12/13/21 6:38 PM) Temperature Route Oral (12/13/21 6:38 PM) Dry Weight 115.8 kg (12/13/21 6:38 PM) 1Result Comment: right upper arm measured 40cm Social History Social History Type Response Smoking Status Never (less than 100 in lifetime);Never; Exposure to Secondhand Smoke: Yes; Tobacco use times per day: mother smokes; entered on: 09/14/21 Sex Patient Care team information Care Team Personnel Name: Rebecca Mo MD Position: [facility] Resident Member Role: PCP Address: Address: [address] [place] [address]- Care Team Related Persons Name: Monroe Mcgarry Address: home [address] [place] [address] Name: MARIFER MCGARRY Address: [place] [address]
--- OUTSIDE RECORDS SUMMARY | 2023-07-18 10:27 | XMS_ITS | Continuity of Care Document ---
Author Organization [facility] Address [address] [place] [address]- Care Team Providers Care Miller Rod Mill Name Role Phone Bertha Montes MD Primary Care Physician Encounter [facility] Date(s): 10/25/22 - 11/24/[facility] [address] [place] [id number] Allergies, Adverse Reactions, Alerts Substance Reaction [...] 0 Refills, Soft Stop, 10/07/22 17:47:00 EDT, [facility] Partial fill upon patient request if the prescription is fora schedule II opioid drug., 160, cm, 10/07/22 15:43... Start Date: 10/07/22 Status: Ordered Diflucan 150 mg oral tablet 1 tablet = 150 mg, By Mouth, Once, # 1 tablet, 0 Refills, Soft Stop, 10/25/22 11:47:00 EDT, Tablet,[facility] Partial fill upon patient request if the prescription is for a scheduleII opioid drug., 160, cm, 10/25/22 10:08:00 EDT, He... Start Date: 10/25/22 Status: Ordered hydrOXYzine hydrochloride 25 mg oral tablet 1 capsule, By Mouth, Once, PRN Agitation, # 15 capsule, 0 Refills, Soft Stop, 10/07/22 18:09:00 EDT, Capsule, [facility] Partial fill upon patient request if the prescription is for a schedule II opioid drug., 160, cm, 10/07/22 15:43:... Start Date: 10/07/22 Status: Ordered metronidazole topical 0.75% gel with applicator 1 application, Vaginally, Daily at bedtime, # 70 Gm, 0 Refills, Soft Stop, 10/25/22 11:45:00 EDT, Gel, [facility] Partial fill upon patient request if [...] 10/27/23 11:50:00 EDT, 10/25/22 11:49:00 EDT, Tablet, [facility], Partial... Start Date: 10/25/22 Stop Date: 10/27/23 Status: Ordered Pen [place], 32 G x 4 mm BD Ultra [...] Refills, Maintenance, 10/16/22 13:40:00 EDT, EC Tablet, [facility] #[id number], Partial fill upon patient request if the [...] Replace Required Details, Route to Pharmacy Electronically, [id number]... Start Date: 10/25/22 Status: Ordered Senna 8.6 mg oral tablet 17.2 mg, 2, tablet, By Mouth, Daily at bedtime, # 50 tablet, Refills 0, Tot. Refills 0, Maintenance, 03/31/22 6:17:00 EST, Route to Pharmacy Electronically, [facility] #[id number], Partial fill upon patient request if the prescription is for a sc... Start Date: 03/31/22 Status: Ordered sertraline 25 mg oral tablet 1 tablet = 25 mg, By Mouth, Daily, # 30 tablet, 2 Refills, Maintenance, 10/25/22 11:46:00 EDT, Tablet, [facility] Partial fill upon patient request if the prescription is for a schedule II opioid drug., 160, cm, 10/25/22 10:08:00 EDT,... Start Date: 10/25/22 Status: Ordered Tylenol 325 mg oral capsule 2 capsule = 650 mg, By Mouth, Every 4 hours, PRN as needed for pain, # 50 capsule, 0 Refills, Maintenance, 03/29/22 8:34:00 EST, Capsule, [facility] #[id number], Partial fill upon patient request if the prescription is for a schedule II opioid dr[facility] Start Date: 03/29/22 Status: Ordered Victoza 18 mg/3 mL subcutaneous solution = 1.2 mg, Subcutaneous Infusion, Daily, # 3 mL, 6 Refills, Maintenance, 10/25/22 11:42:00 EDT, [facility] Partial fill upon patient request [...] Name: Bertha Montes MD Position: [facility] Resident Member Role: PCP Address: Address: [address] [place] [address]- Care Team Related Persons Name: Monroe Mcgarry Address: home [address] [place] [address] Name: MARIFER MCGARRY Address: [place] [address] Name: REMA MCGARRY Address: Address: [address]
--- OUTSIDE RECORDS SUMMARY | 2023-07-18 10:27 | XMS_ITS | Continuity of Care Document ---
Author Organization [facility] Address [address] [place] [address] [address] [place] [address]- Care Team Providers Care Proof Coins Inspector Name Role Phone Chriss Mejia MD Primary Care Physician [phone] [place] [facility] Date(s): 05/31/20 - 07/19/20 [facility] [address] [place] [address] Drive [address] [place] [address]- Attending Physician: Albert Tobar MD Referring Physician: Chriss Mejia MD Allergies, Adverse Reactions, Alerts Substance Reaction [...] 0 Refills, Maintenance, 06/09/20 9:11:00 EDT, Capsule, [facility] #[id number], Partial fill upon patient request if the [...] Replace Required Details, Route to Pharmacy Electronically, [id number]... Start Date: 06/25/18 Status: Ordered traZODone 50 mg oral tablet 50 mg, 1, tablet, By Mouth, Daily at bedtime, PRN, # 30 tablet, Refills 1, Tot. Refills 1, Maintenance, Sleep, 06/09/20 9:11:00 EDT, Route to Pharmacy Electronically, [facility] #[id number], Partial fill upon patient request if the [...] disorder(Confirmed) Active Myopia(Confirmed)(Stable) Active Obesity(Confirmed) Active 29/04/2007 [facility] admission #1: acute asthma attack Social History Social History Type Response Smoking Status Never smoker; Tobacc o user in household: No entered on: 03/04/14 Sex
--- OUTSIDE RECORDS SUMMARY | 2023-07-18 10:27 | XMS_ITS | Continuity of Care Document ---
Author Organization [facility] ter Address [address] [place] [address]- Care Team Providers Care Senior Mainframe Developer Name Role Phone Bertha Montes MD Primary Care Physician Encounter [facility] Date(s): 12/11/22 - 02/07/[address] [id number] Attending Physician: Kevin Jeffery Admitting Physician: Kevin [...] 0 Refills, Soft Stop, 12/11/22 20:38:00 EDT, [facility] #[id number], Partial fill upon patient request if the prescription is for a schedule II opioid drug., 160, cm, 12/10/22 14:0... Start Date: 12/11/22 Status: Ordered Diflucan 150 mg oral tablet 1 tablet = 150 mg, By Mouth, Once, # 1 tablet, 0 Refills, Soft Stop, 10/25/22 11:47:00 EDT, Tablet,[facility] Partial fill upon patient request if the prescription is for a scheduleII opioid drug., 160, cm, 10/25/22 10:08:00 EDT, He... Start Date: 10/25/22 Status: Ordered hydrOXYzine hydrochloride 25 mg oral tablet 1 capsule, By Mouth, Once, PRN Agitation, # 30 capsule, 3 Refills, Soft Stop, 12/10/22 14:50:00 EDT, Capsule, [facility] #[id number], Partial fill upon patient request if the prescription is fora schedule II opioid drug., 160, cm, 12/10/22 14:07... Start Date: 12/10/22 Status: Ordered metronidazole topical 0.75% gel with applicator 1 application, Vaginally, Daily at bedtime, # 70 Gm, 3 Refills, Soft Stop, 12/20/22 16:15:00 EST, Gel, [facility] #[id number], Partial fill upon patient request if the [...] 10/27/23 11:50:00 EDT, 10/25/22 11:49:00 EDT, Tablet, [facility], Partial... Start Date: 10/25/22 Stop Date: 10/27/23 Status: Ordered Pen [place], 32 G x 4 mm BD Ultra [...] Refills, Maintenance, 10/16/22 13:40:00 EDT, EC Tablet, [facility] #[id number], Partial fill upon patient request if the [...] Replace Required Details, Route to Pharmacy Electronically, [id number]... Start Date: 10/25/22 Status: Ordered Senna 8.6 mg oral tablet 17.2 mg, 2, tablet, By Mouth, Daily at bedtime, # 50 tablet, Refills 0, Tot. Refills 0, Maintenance, 03/31/22 6:17:00 EST, Route to Pharmacy Electronically, [facility] #[id number], Partial fill upon patient request if the prescription is for a sc... Start Date: 03/31/22 Status: Ordered sertraline 50 mg oral tablet 1 tablet = 50 mg, By Mouth, Daily, # 90 tablet, 1 Refills, Maintenance, 12/10/22 14:51:00 EDT, Tablet, [facility] #[id number], Partial fill upon patient request if the prescription is for a schedule II opioid drug., 160, cm, 12/10/22 14:07:00 EDT... Start Date: 12/10/22 Status: Ordered Tylenol 325 mg oral capsule 2 capsule = 650 mg, By Mouth, Every 4 hours, PRN as needed for pain, # 50 capsule, 0 Refills, Maintenance, 03/29/22 8:34:00 EST, Capsule, [facility] #[id number], Partial fill upon patient request if the prescription is for a schedule II opioid [facility] Start Date: 03/29/22 Status: Ordered Victoza 18 mg/3 mL subcutaneous solution = 1.2 mg, Subcutaneous Infusion, Daily, # 3 mL, 6 Refills, Maintenance, 01/08/23 16:54:00 EST, [facility] #[id number], Partial fill upon patient request if the [...] Confirmed Active Severe obesity Confirmed Active 29/04/2007 [facility] admission #1: acute asthma attack Social History Social History Type Response Smoking Status Never (less than 100 in lifetime);Never; Exposure to Secondhand Smoke: Yes; Tobacco use times per day: mother smokes; entered on: 09/14/21 Sex Patient Care team information Care Team Personnel Name: Bertha Montes MD Position: [facility] Resident Member Role: PCP Address: Address: [address] [place] [address] Care Team Related Persons Name: Monroe Mcgarry Address: [place] [address] Name: MARIFER MCGARRY Address: home [address] [place] [address] Name: REMA MCGARRY Address: Address: [address]
--- OUTSIDE RECORDS SUMMARY | 2023-07-18 10:27 | XMS_ITS | Continuity of Care Document ---
Author Organization [facility] Address [address] [address]- Care Team Providers Care Cashier Office Name Role Phone Chepe CADE, Rebecca Primary Care Physician [phone] Encounter [facility] Date(s): 01/02/22 - 02/01/22 [facility] [address] [place] [id number] Allergies, Adverse Reactions, Alerts [...] Refills, Maintenance, 10/16/21 12:30:00 EDT, ER Capsule, [facility][id number], Partial fill upon patient request if the prescription is for a schedule II opioid... Start Date: 10/16/21 Status: Ordered folic acid 0.4 mg oral tablet 1 tablet = 0.4 mg, By Mouth, Daily, # 100 tablet, 5 Refills, Maintenance, 08/21/21 9:43:00 EDT, Tablet, [facility] #[id number], Partial fill upon patient request if the [...] 1 Refills, Maintenance, 11/19/21 10:20:00 EDT, Ointment, [facility] #[id number], Partial fill upon patient request if the prescriptionis for a schedule II opioid drug., 1 application To... Start Date: 11/19/21 Status: Ordered lisdexamfetamine 30 mg oral capsule 1 capsule = 30 mg, By Mouth, Daily in AM, Dx F90.0, # 30 capsule, 0 Refills, Maintenance, 06/09/20 9:11:00 EDT, Capsule, [facility] #[id number], Partial fill upon patient request if the prescription is for a schedule II opioid drug., 1 capsule By... Start Date: 06/09/20 Stop Date: 07/09/20 Status: Ordered Multivitamins with FA 0.8 mg oral tablet 1 tablet, By Mouth, Daily, for 90 days, # 90 tablet, 2 Refills, Hard Stop 08/05/22 13:36:00 EDT, 11/08/21 13:36:00 EDT, Tablet, [facility] #[id number], Partial fill upon patient request if the [...] Replace Required Details, Route to Pharmacy Electronically, [id number]... Start Date: 06/25/18 Status: Ordered Prometrium 200 mg oral capsule 1 capsule = 200 mg, Vaginally, Daily at bedtime, # 60 capsule, 3 Refills, Maintenance, 12/11/21 11:42:00 EDT, [facility] #[id number], Partial fill upon patient request if the [...] Confirmed Active Severe obesity Confirmed Active 29/04/2007 [facility] admission #1: acute asthma attack Social History Social History Type Response Smoking Status Never (less than 100 in lifetime);Never; Exposure to Secondhand Smoke: Yes; Tobacco use times per day: mother smokes; entered on: 09/14/21 Sex Patient Care team information Care Team Personnel Name: Rebecca Mo MD Position: [facility] Resident Member Role: PCP Address: Address: [address] [place] [address]- Care Team Related Persons Name: Monroe Mcgarry Address: home [address] [place] [address] Name: MARIFER MCGARRY Address: [place] [address]
--- OUTSIDE RECORDS SUMMARY | 2023-07-18 10:27 | XMS_ITS | Continuity of Care Document ---
Author Organization [facility] Address [address] [place] [address]- Care Team Providers Care Gun Mechanic Name Role Phone Bertha Montes MD Primary Care Physician Encounter [facility] Date(s): 04/07/23 - 06/26/[address] [address]- Attending Physician: Not on Staff, Attending MD [...] 24 capsule, 0 Refills, Maintenance, 02/17/23 12:58:00 [facility], [facility] #[id number], Partial fill upon patient request if the [...] 0 Refills, Soft Stop, 06/12/23 17:23:00 EDT, [facility] #[id number], Partial fill upon patient request if the prescription is for a schedule II opioid drug., 157, cm, 06/12/23 17:0... Start Date: 06/12/23 Status: Ordered dexamethasone 1 mg oral tablet 1 tablet = 1 mg, By Mouth, Once, to be taken at 11pm, # 1 tablet, 0 Refills, Soft Stop, 04/07/23 9:20:00 EST, [facility] #[id number], Partial fill upon patient request if the prescription is fora schedule II opioid drug., 157, cm, 04/07/23 8:57:... Start Date: 04/07/23 Status: Ordered Diflucan 150 mg oral tablet 1 tablet = 150 mg, By Mouth, Once, # 1 tablet, 0 Refills, Soft Stop, 02/19/23 19:29:00 EST, Tablet,[facility] #[id number], Partial fill upon patient request if the prescription is for a schedule II opioid drug., 157, cm, 02/17/23 12:20:00 EST, H... Start Date: 02/19/23 Status: Ordered fluconazole 150 mg oral tablet 1 tablet = 150 mg, By Mouth, Once, epeat dose if still having symptoms in 72 hours, # 2 tablet, 0 Refills, Soft Stop, 04/08/23 16:30:00 EST, Tablet, [facility] #[id number], Partial fill upon patient request if the prescription is for a schedule I... Start Date: 04/08/23 Status: Ordered hydrOXYzine hydrochloride 25 mg oral tablet 1 capsule, By Mouth, Once, PRN Agitation, # 30 capsule, 3 Refills, Soft Stop, 12/10/22 14:50:00 EDT, Capsule, [facility] #[id number], Partial fill upon patient request if the prescription is fora schedule II opioid drug., 160, cm, 12/10/22 14:07... Start Date: 12/10/22 Status: Ordered metronidazole topical 0.75% gel with applicator 1 application, Vaginally, Daily at bedtime, # 70 Gm, 3 Refills, Soft Stop, 12/20/22 16:15:00 EST, Gel, [facility] #[id number], Partial fill upon patient request if the [...] 10/27/23 11:50:00 EDT, 10/25/22 11:49:00 EDT, Tablet, [facility]... Start Date: 10/25/22 Stop Date: 10/27/23 Status: Ordered omeprazole 20 mg oral enteric coated capsule 1 capsule = 20 mg, By Mouth, Daily, # 14 capsule, 0 Refills, Maintenance, 02/17/23 12:58:00 EST, ECCapsule, [facility] #[id number], Partial fill upon patient request if the prescription is for a schedule II opioid drug., 157, cm, 02/17/23 12:20:... Start Date: 02/17/23 Stop Date: 03/03/23 Status: Ordered Pen [place], 32 G x 4 mm BD Ultra [...] Refills, Maintenance, 10/16/22 13:40:00 EDT, EC Tablet, [facility] #[id number], Partial fill upon patient request if the [...] Replace Required Details, Route to Pharmacy Electronically, [id number]... Start Date: 10/25/22 Status: Ordered semaglutide 0.5 [...] 03/31/22 6:17:00 EST, Route to Pharmacy Electronically, [facility] #[id number], Partial fill upon patient request if the prescription is for a sc... Start Date: 03/31/22 Status: Ordered sertraline 50 mg oral tablet 1 tablet = 50 mg, By Mouth, Daily, # 90 tablet, 1 Refills, Maintenance, 12/10/22 14:51:00 EDT, Tablet, [facility] #[id number], Partial fill upon patient request if the prescription is for a schedule II opioid drug., 160, cm, 12/10/22 14:07:00 EDT... Start Date: 12/10/22 Status: Ordered Tylenol 325 mg oral capsule 2 capsule = 650 mg, By Mouth, Every 4 hours, PRN as needed for pain, # 50 capsule, 0 Refills, Maintenance, 03/29/22 8:34:00 EST, Capsule, [facility] #[id number], Partial fill upon patient request if the [...] Confirmed Active Severe obesity Confirmed Active 29/04/2007 [facility] admission #1: acute asthma attack Social History Social History Type Response Smoking Status Never (less than 100 in lifetime);Never; Exposure to Secondhand Smoke: Yes; Tobacco use times per day: mother smokes; entered on: 09/14/21 Sex Patient Care team information Care Team Personnel Name: Bertha Montes MD Position: [facility] Resident Member Role: PCP Address: Address: [address] [place] [address]- Care Team Related Persons Name: Monroe Mcgarry Address: home [address] [place] [address] Name: MARIFER MCGARRY Address: home [address] [place] [address] Name: REMA MCGARRY Address: Address: [address]
--- OUTSIDE RECORDS SUMMARY | 2023-07-18 10:27 | XMS_ITS | Continuity of Care Document ---
Author Organization [facility] Address [address] [place] [address]- Care Team Providers Care Call Center Analyst Name Role Phone Rebecca Mo MD Primary Care Physician [phone] Encounter [facility] [id number] Date(s): 02/22/22 - 04/27/22 [facility] [address] [address] Attending Physician: Not on Staff, Attending MD [...] 03/31/22 6:08:00 EST, Route to Pharmacy Electronically, [facility][id number], Partial fill upon patient request if the pr... Start Date: 03/31/22 Status: Ordered ProAir HFA 90 mcg/inh inhalation aerosol with adapter See Instructions, PRN, 2-4 puffs Inhalation 4 times a day 30 days, # 1 each, Refills 11, Tot. Refills 11, Maintenance, 06/25/18 15:30:45 EDT, Instructions Replace Required Details, Route to Pharmacy Electronically, [id number]... Start Date: 06/25/18 Status: Ordered Senna 8.6 mg oral tablet 17.2 mg, 2, tablet, By Mouth, Daily at bedtime, # 50 tablet, Refills 0, Tot. Refills 0, Maintenance, 03/31/22 6:17:00 EST, Route to Pharmacy Electronically, [facility] #[id number], Partial fill upon patient request if the prescription is for a sc... Start Date: 03/31/22 Status: Ordered simethicone 80 mg oral tablet, chewable 160 mg, 2, tablet, Chew, 3 times a day, PRN, # 48 tablet, Refills 0, Tot. Refills 0, Maintenance, Gas, 03/29/22 8:34:00 EST, Route to Pharmacy Electronically, [facility] #[id number], Partial fill upon patient request if the prescription is for a... Start Date: 03/29/22 Status: Ordered Tylenol 325 mg oral capsule 2 capsule = 650 mg, By Mouth, Every 4 hours, PRN as needed for pain, # 50 capsule, 0 Refills, Maintenance, 03/29/22 8:34:00 EST, Capsule, [facility] #[id number], Partial fill upon patient request if the [...] Active Severe obesity Confirmed Active 29/04/2007 [facility] admission #1: acute asthma attack Social History Social History Type Response Smoking Status Never (less than 100 in lifetime);Never; Exposure to Secondhand Smoke: Yes; Tobacco use times per day: mother smokes; entered on: 09/14/21 Sex Patient Care team information Care Team Personnel Name: Rebecca Mo MD Position: [facility] Resident Member Role: PCP Address: Address: [address] [place] [address]- Care Team Related Persons Name: Monroe Mcgarry Address: [place] [address] Name: MARIFER MCGARRY Address: [place] [address] Name: REMA MCGARRY Address: Address: [address]
--- OUTSIDE RECORDS SUMMARY | 2023-07-18 10:27 | XMS_ITS | Continuity of Care Document ---
Author Organization [facility] Address [address], [address] [place] [address]- Care Team Providers Care Superintendent Name Role Phone Chepe CADE, Rebecca Primary Care Physician [phone] Encounter [facility] Date(s): 12/11/21 - 01/10/22 [facility] [facility] [address] [place], [place] [address] Attending Physician: Admtr, Ar8 Admitting Physician: Admtr, [...] Acute 01/18/22 10:19:00 EST, 11/19/21 10:19:00 EDT, [facility] #[id number], Partial fill upon patient request if the prescr... Start Date: 11/19/21 Stop Date: 01/18/22 Status: Ordered aspirin 162.5 mg oral capsule, extended release 1 capsule = 162.5 mg, By Mouth, Daily, at the same time every day, # 90 capsule, 3 Refills, Maintenance, 10/16/21 12:30:00 EDT, ER Capsule, [facility] #[id number], Partial fill upon patient request if the prescription is for a schedule II opioid... Start Date: 10/16/21 Status: Ordered folic acid 0.4 mg oral tablet 1 tablet = 0.4 mg, By Mouth, Daily, # 100 tablet, 5 Refills, Maintenance, 08/21/21 9:43:00 EDT, Tablet, [facility] #[id number], Partial fill upon patient request if the [...] capsule, 0 Refills, Maintenance, 12/26/21 21:00:00 EST, [facility] #[id number], Partial fill upon patient request if the prescription is for a schedule II opioid drug., 160, cm, 12/21/21 15:25:00 ES... Start Date: 12/26/21 Stop Date: 12/29/21 Status: Ordered lidocaine 5% topical ointment 1 application, Topically, 3 times a day, PRN Pain, # 50 Gm, 1 Refills, Maintenance, 11/19/21 10:20:00 EDT, Ointment, [facility] #[id number], Partial fill upon patient request if the prescriptionis for a schedule II opioid drug., 1 application To... Start Date: 11/19/21 Status: Ordered lisdexamfetamine 30 mg oral capsule 1 capsule = 30 mg, By Mouth, Daily in AM, Dx F90.0, # 30 capsule, 0 Refills, Maintenance, 06/09/20 9:11:00 EDT, Capsule, [facility] #[id number], Partial fill upon patient request if the prescription is for a schedule II opioid drug., 1 capsule By... Start Date: 06/09/20 Stop Date: 07/09/20 Status: Ordered Multivitamins with FA 0.8 mg oral tablet 1 tablet, By Mouth, Daily, for 90 days, # 90 tablet, 2 Refills, Hard Stop 08/05/22 13:36:00 EDT, 11/08/21 13:36:00 EDT, Tablet, [facility] #[id number], Partial fill upon patient request if the [...] Replace Required Details, Route to Pharmacy Electronically, [id number]... Start Date: 06/25/18 Status: Ordered Prometrium 200 mg oral capsule 1 capsule = 200 mg, Vaginally, Daily at bedtime, # 60 capsule, 3 Refills, Maintenance, 12/11/21 11:42:00 EDT, [facility] #[id number], Partial fill upon patient request if the [...] Active Severe obesity Confirmed Active 29/04/2007 [facility] admission #1: acute asthma attack Social History Social History Type Response Smoking Status Never (less than 100 in lifetime);Never; Exposure to Secondhand Smoke: Yes; Tobacco use times per day: mother smokes; entered on: 09/14/21 Sex Note * Event Display: Non BH Lab Results Authored Date: * Event Display: Non BH Lab Results Authored Date: * Event Display: Non BH Lab Results Authored Date: Patient Care team information Care Team Personnel Name: Rebecca Mo MD Position: [facility] Resident Member Role: PCP Address: Address: [address] [place] [address]- Care Team Related Persons Name: Monroe Mcgarry Address: [place] [address] Name: MARIFER MCGARRY Address: [place] [address]
--- OUTSIDE RECORDS SUMMARY | 2023-07-18 10:27 | XMS_ITS | Continuity of Care Document ---
Author Organization [facility] Address [address] [place] [address]- Care Team Providers Care Fireworks Assembly Supervisor Name Role Phone Eric CADE, Kamala Cano Primary Care Physician Encounter [facility] Date(s): 07/11/22 - 08/10/22 [facility] [address] [address] Allergies, Adverse Reactions, Alerts Substance Reaction [...] 0 Refills, Soft Stop, 05/13/22 14:02:00 EDT, Tablet,[facility] #[id number], Partial fill upon patient request if the prescription is for a schedule II opioid drug., 160, cm, 05/13/22 13:10:00 EDT, H... Start Date: 05/13/22 Status: Ordered hydrOXYzine hydrochloride 25 mg oral tablet 1 capsule, By Mouth, Daily, PRN as needed for itching, # 15 capsule, 0 Refills, Soft Stop, 08/07/2315:38:00 EDT, Capsule, [facility] #[id number], Partial fill upon patient request if the [...] 0 Refills, Maintenance, 08/06/22 16:37:00 EDT, Tablet, [facility] #[id number], Partial fill upon patient request if the prescription is for a schedule II opioid drug., 160, cm, 08/06/22 15:40:00 EDT... Start Date: 08/06/22 Status: Ordered metronidazole topical 0.75% gel with applicator 1 application, Vaginally, Daily at bedtime, # 70 Gm, 0 Refills, Soft Stop, 05/13/22 14:02:00 EDT, Gel, [facility] #[id number], Partial fill upon patient request if the prescription is for a schedule II opioid drug., 1 application Vaginally Daily... Start Date: 05/13/22 Stop Date: 05/18/22 Status: Ordered oxyCODONE 5 mg oral tablet 5 mg, 1, tablet, By Mouth, Every 3 hours, PRN, (7-10), # 12 tablet, Refills 0, Tot. Refills 0, Maintenance, Pain , Severe, 03/31/22 6:08:00 EST, Route to Pharmacy Electronically, [facility]#[id number], Partial fill upon patient request if the pr... Start Date: 03/31/22 Status: Ordered ProAir HFA 90 mcg/inh inhalation aerosol with adapter See Instructions, PRN, 2-4 puffs Inhalation 4 times a day 30 days, # 1 each, Refills 11, Tot. Refills 11, Maintenance, 06/25/18 15:30:45 EDT, Instructions Replace Required Details, Route to Pharmacy Electronically, [id number]... Start Date: 06/25/18 Status: Ordered Senna 8.6 mg oral tablet 17.2 mg, 2, tablet, By Mouth, Daily at bedtime, # 50 tablet, Refills 0, Tot. Refills 0, Maintenance, 03/31/22 6:17:00 EST, Route to Pharmacy Electronically, [facility] #[id number], Partial fill upon patient request if the prescription is for a sc... Start Date: 03/31/22 Status: Ordered simethicone 80 mg oral tablet, chewable 160 mg, 2, tablet, Chew, 3 times a day, PRN, # 48 tablet, Refills 0, Tot. Refills 0, Maintenance, Gas, 03/29/22 8:34:00 EST, Route to Pharmacy Electronically, [facility] #[id number], Partial fill upon patient request if the prescription is for a... Start Date: 03/29/22 Status: Ordered Tylenol 325 mg oral capsule 2 capsule = 650 mg, By Mouth, Every 4 hours, PRN as needed for pain, # 50 capsule, 0 Refills, Maintenance, 03/29/22 8:34:00 EST, Capsule, [facility] #[id number], Partial fill upon patient request if the prescription is for a schedule II opioid dr[facility]ait.. Start Date: 03/29/22 Status: Ordered Problem List Condition Confirmation Course Effective Dates Status H ealth Status Informant ADD - Attention deficit disorder with hyperactivity Confirmed Active Allergic rhinitis due to pollen Confirmed Improving Active Asthma, mild intermittent, precipitated by colds, allergies 1 Confirmed Stable Active 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 Mood disorder Confirmed Active Obesity Confirmed Active Severe obesity Confirmed Active 29/04/2007 [facility] admission #1: acute asthma attack Social History Social History Type Response Smoking Status Never (less than 100 in lifetime);Never; Exposure to Secondhand Smoke: Yes; Tobacco use times per day: mother smokes; entered on: 09/14/21 Sex Patient Care team information Care Team Personnel Name: Kamala Reyes MD Position: [facility] Resident Member Role: PCP Address: Address: [address] [place] [address]- Care Team Related Persons Name: Monroe Romo Address: [place] [address] Name: MARIFER ROMO Address: [place] [address] Name: REMA ROMO Address: Address: [address]
--- OUTSIDE RECORDS SUMMARY | 2023-07-18 10:28 | XMS_ITS | Continuity of Care Document ---
Author Organization [facility] Address [address] [place] [address]- Care Team Providers Care Gum Cook Name Role Phone Chepe CADE, Rebecca Primary Care Physician Encounter [facility] Date(s): 12/19/21 - 01/18/22 [facility] [address] [place] [address] Allergies, Adverse Reactions, Alerts Substance [...] Refills, Maintenance, 10/16/21 12:30:00 EDT, ER Capsule, [facility] #[id number], Partial fill upon patient request if the prescription is for a schedule II opioid... Start Date: 10/16/21 Status: Ordered folic acid 0.4 mg oral tablet 1 tablet = 0.4 mg, By Mouth, Daily, # 100 tablet, 5 Refills, Maintenance, 08/21/21 9:43:00 EDT, Tablet, [facility] #[id number], Partial fill upon patient request if the [...] capsule, 0 Refills, Maintenance, 12/26/21 21:00:00 EST, [facility] #[id number], Partial fill upon patient request if the prescription is for a schedule II opioid drug., 160, cm, 12/21/21 15:25:00 ES... Start Date: 12/26/21 Stop Date: 12/29/21 Status: Ordered lidocaine 5% topical ointment 1 application, Topically, 3 times a day, PRN Pain, # 50 Gm, 1 Refills, Maintenance, 11/19/21 10:20:00 EDT, [facility] #[id number], Partial fill upon patient request if the prescriptionis for a schedule II opioid drug., 1 application To... Start Date: 11/19/21 Status: Ordered lisdexamfetamine 30 mg oral capsule 1 capsule = 30 mg, By Mouth, Daily in AM, Dx F90.0, # 30 capsule, 0 Refills, Maintenance, 06/09/20 9:11:00 EDT, [facility] #[id number], Partial fill upon patient request if the prescription is for a schedule II opioid drug., 1 capsule By... Start Date: 06/09/20 Stop Date: 07/09/20 Status: Ordered metroNIDAZOLE 500 mg oral tablet 1 tablet = 500 mg, By Mouth, Every 12 hours, for 7 days, # 14 tablet, 0 Refills, Acute 01/22/22 19:59:00 EST, 01/15/22 19:59:00 EST, Tablet, [facility] #[id number], Partial fill upon patient request if the prescription is for a schedule II opioid... Start Date: 01/15/22 Stop Date: 01/22/22 Status: Ordered Multivitamins with FA 0.8 mg oral tablet 1 tablet, By Mouth, Daily, for 90 days, # 90 tablet, 2 Refills, Hard Stop 08/05/22 13:36:00 EDT, 11/08/21 13:36:00 EDT, Tablet, [facility] #[id number], Partial fill upon patient request if the [...] Replace Required Details, Route to Pharmacy Electronically, [id number]... Start Date: 06/25/18 Status: Ordered Prometrium 200 mg oral capsule 1 capsule = 200 mg, Vaginally, Daily at bedtime, # 60 capsule, 3 Refills, Maintenance, 12/11/21 11:42:00 EDT, [facility] #[id number], Partial fill upon patient request if the [...] Confirmed Active Severe obesity Confirmed Active 29/04/2007 [facility] admission #1: acute asthma attack Social History Social History Type Response Smoking Status Never (less than 100 in lifetime);Never; Exposure to Secondhand Smoke: Yes; Tobacco use times per day: mother smokes; entered on: 09/14/21 Sex Patient Care team information Care Team Personnel Name: Rebecca Mo MD Position: [facility] Resident Member Role: PCP Address: Address: [address] [place] [address]- Care Team Related Persons Name: Monroe Mcgarry Address: [place] [address] Name: MARIFER MCGARRY Address: [place] [address]
--- OUTSIDE RECORDS SUMMARY | 2023-07-18 10:28 | XMS_ITS | Continuity of Care Document ---
Author Organization [facility] Address [address] [place] [address]- Care Team Providers Care Commercial Photographer Name Role Phone Bertha Montes MD Primary Care Physician Encounter [facility] Date(s): 12/12/22 - 01/11/[address] [address]- Allergies, Adverse Reactions, Alerts Substance Reaction Severity [...] 0 Refills, Soft Stop, 12/11/22 20:38:00 EDT, [facility] #[id number], Partial fill upon patient request if the prescription is for a schedule II opioid drug., 160, cm, 12/10/22 14:0... Start Date: 12/11/22 Status: Ordered Diflucan 150 mg oral tablet 1 tablet = 150 mg, By Mouth, Once, # 1 tablet, 0 Refills, Soft Stop, 10/25/22 11:47:00 EDT, Tablet,[facility], Partial fill upon patient request if the prescription is for a scheduleII opioid drug., 160, cm, 10/25/22 10:08:00 EDT, He... Start Date: 10/25/22 Status: Ordered hydrOXYzine hydrochloride 25 mg oral tablet 1 capsule, By Mouth, Once, PRN Agitation, # 30 capsule, 3 Refills, Soft Stop, 12/10/22 14:50:00 EDT, Capsule, [facility] #[id number], Partial fill upon patient request if the [...] Refills, Soft Stop, 12/20/22 16:15:00 EST, Gel, [facility] #[id number], Partial fill upon patient request if the [...] 11:49:00 EDT, Tablet, [facility], [facility]... Start Date: 10/25/22 Stop Date: 10/27/23 Status: Ordered Pen [place], 32 G x 4 mm BD Ultra [...] Refills, Maintenance, 10/16/22 13:40:00 EDT, EC Tablet, [facility] #[id number], Partial fill upon patient request if the [...] Replace Required Details, Route to Pharmacy Electronically, [id number]... Start Date: 10/25/22 Status: Ordered Senna 8.6 mg oral tablet 17.2 mg, 2, tablet, By Mouth, Daily at bedtime, # 50 tablet, Refills 0, Tot. Refills 0, Maintenance, 03/31/22 6:17:00 EST, Route to Pharmacy Electronically, [facility] #[id number], Partial fill upon patient request if the prescription is for a sc... Start Date: 03/31/22 Status: Ordered sertraline 50 mg oral tablet 1 tablet = 50 mg, By Mouth, Daily, # 90 tablet, 1 Refills, Maintenance, 12/10/22 14:51:00 EDT, Tablet, [facility] #[id number], Partial fill upon patient request if the prescription is for a schedule II opioid drug., 160, cm, 12/10/22 14:07:00 EDT... Start Date: 12/10/22 Status: Ordered Tylenol 325 mg oral capsule 2 capsule = 650 mg, By Mouth, Every 4 hours, PRN as needed for pain, # 50 capsule, 0 Refills, Maintenance, 03/29/22 8:34:00 EST, Capsule, [facility] #[id number], Partial fill upon patient request if the prescription is for a schedule II opioid dr... Start Date: 03/29/22 Status: Ordered Victoza 18 mg/3 mL subcutaneous solution = 1.2 mg, Subcutaneous Infusion, Daily, # 3 mL, 6 Refills, Maintenance, 01/08/23 16:54:00 EST, [facility] #[id number], Partial fill upon patient request if the [...] Confirmed Active Severe obesity Confirmed Active 29/04/2007 [facility] admission #1: acute asthma attack Social History Social History Type Response Smoking Status Never (less than 100 in lifetime);Never; Exposure to Secondhand Smoke: Yes; Tobacco use times per day: mother smokes; entered on: 09/14/21 Sex Patient Care team information Care Team Personnel Name: Bertha Montes MD Position: S Resident Member Role: PCP Address: Address: [address] [place] [address] Care Team Related Persons Name: Monroe Mcgarry Address: [address] [address] Name: MARIFER MCGARRY Address: [address] [address] Name: REMA MCGARRY Address: Address: [address]
--- OUTSIDE RECORDS SUMMARY | 2023-07-18 10:28 | XMS_ITS | Continuity of Care Document ---
Author Organization [facility] Address [address] [address]- Care Team Providers Care Database Marketing Manager Name Role Phone Chepe CADE, Rebecca Primary Care Physician Encounter [facility] Date(s): 10/30/21 - 11/29/21 [facility] [address] [address] Allergies, Adverse Reactions, Alerts Substance [...] Acute 01/18/22 10:19:00 EST, 11/19/21 10:19:00 EDT, [facility] #[id number], Partial fill upon patient request if the prescr... Start Date: 11/19/21 Stop Date: 01/18/22 Status: Ordered aspirin 162.5 mg oral capsule, extended release 1 capsule = 162.5 mg, By Mouth, Daily, at the same time every day, # 90 capsule, 3 Refills, Maintenance, 10/16/21 12:30:00 EDT, ER Capsule, [facility] #[id number], Partial fill upon patient request if the prescription is for a schedule II opioid... Start Date: 10/16/21 Status: Ordered aspirin 81 mg oral delayed release tablet 162 mg, 2, tablet, By Mouth, Daily, # 90 tablet, Refills 0, Tot. Refills 0, Maintenance, 11/13/21 9:32:00 EDT, Route to Pharmacy Electronically, [facility], Partial fill upon patientrequest if the prescription is for a schedule II op... Start Date: 11/13/21 Status: Ordered folic acid 0.4 mg oral tablet 1 tablet = 0.4 mg, By Mouth, Daily, # 100 tablet, 5 Refills, Maintenance, 08/21/21 9:43:00 EDT, Tablet, [facility] #[id number], Partial fill upon patient request if the [...] 1 Refills, Maintenance, 11/19/21 10:20:00 EDT, Ointment, [facility] #[id number], Partial fill upon patient request if the prescriptionis for a schedule II opioid drug., 1 application To... Start Date: 11/19/21 Status: Ordered lisdexamfetamine 30 mg oral capsule 1 capsule = 30 mg, By Mouth, Daily in AM, Dx F90.0, # 30 capsule, 0 Refills, Maintenance, 06/09/20 9:11:00 EDT, Capsule, [facility] #[id number], Partial fill upon patient request if the prescription is for a schedule II opioid drug., 1 capsule By... Start Date: 06/09/20 Stop Date: 07/09/20 Status: Ordered Multivitamins with FA 0.8 mg oral tablet 1 tablet, By Mouth, Daily, # 90 tablet, 2 Refills, Maintenance, 08/05/22 13:36:00 EDT, Tablet, [facility], Partial fill upon patient request if the prescription is for a schedule II opioid drug., 1 tablet By Mouth Daily,x90 days, 160,... Start Date: 08/05/22 Stop Date: 05/02/23 Status: Ordered Multivitamins with FA 0.8 mg oral tablet 1 tablet, By Mouth, Daily, for 90 days, # 90 tablet, 2 Refills, Hard Stop 08/05/22 13:36:00 EDT, 11/08/21 13:36:00 EDT, Tablet, [facility] #[id number], Partial fill upon patient request if the [...] Replace Required Details, Route to Pharmacy Electronically, [id number]... Start Date: 06/25/18 Status: Ordered Problem List [...] Personnel Name: Rebecca Mo MD Address: Address: [address] [place] [id number]
--- OUTSIDE RECORDS SUMMARY | 2023-07-18 10:28 | XMS_ITS | Continuity of Care Document ---
Author Organization [facility] Address [address] [place] [address]- Care Team Providers Care Crutching Contractor Name Role Phone Chepe CADE, Rebecca Primary Care Physician [phone] Encounter [facility] Date(s): 02/22/22 - 05/12/[address] [address] Attending Physician: Not on Staff, [...] 03/31/22 6:08:00 EST, Route to Pharmacy Electronically, [facility]#[id number], Partial fill upon patient request if the pr... Start Date: 03/31/22 Status: Ordered ProAir HFA 90 mcg/inh inhalation aerosol with adapter See Instructions, PRN, 2-4 puffs Inhalation 4 times a day 30 days, # 1 each, Refills 11, Tot. Refills 11, Maintenance, 06/25/18 15:30:45 EDT, Instructions Replace Required Details, Route to Pharmacy Electronically, [id number]... Start Date: 06/25/18 Status: Ordered Senna 8.6 mg oral tablet 17.2 mg, 2, tablet, By Mouth, Daily at bedtime, # 50 tablet, Refills 0, Tot. Refills 0, Maintenance, 03/31/22 6:17:00 EST, Route to Pharmacy Electronically, [facility] #[id number], Partial fill upon patient request if the prescription is for a sc... Start Date: 03/31/22 Status: Ordered simethicone 80 mg oral tablet, chewable 160 mg, 2, tablet, Chew, 3 times a day, PRN, # 48 tablet, Refills 0, Tot. Refills 0, Maintenance, Gas, 03/29/22 8:34:00 EST, Route to Pharmacy Electronically, [facility] #[id number], Partial fill upon patient request if the prescription is for a... Start Date: 03/29/22 Status: Ordered Tylenol 325 mg oral capsule 2 capsule = 650 mg, By Mouth, Every 4 hours, PRN as needed for pain, # 50 capsule, 0 Refills, Maintenance, 03/29/22 8:34:00 EST, Capsule, [facility] #[id number], Partial fill upon patient request if the [...] Confirmed Active Severe obesity Confirmed Active 29/04/2007 [facility] admission #1: acute asthma attack Social History Social History Type Response Smoking Status Never (less than 100 in lifetime);Never; Exposure to Secondhand Smoke: Yes; Tobacco use times per day: mother smokes; entered on: 09/14/21 Sex Patient Care team information Care Team Personnel Name: Rebecca Mo MD Position: [facility] Resident Member Role: PCP Address: Address: [address] [place] [address] Care Team Related Persons Name: Monroe Mcgarry Address: [place] [address] Name: MARIFER MCGARRY Address: [place] [address] Name: REMA MCGARRY Address: Address: [address]
--- OUTSIDE RECORDS SUMMARY | 2023-07-18 10:28 | XMS_ITS | Continuity of Care Document ---
Author Organization [facility] Address [address] [place] [address]- Care Team Providers Care Blindstitch Lining Feller Name Role Phone Bertha Montes MD Primary Care Physician Encounter [facility] Date(s): 04/07/23 - 06/25/[address] [address]- Attending Physician: Not on Staff, Attending MD [...] Refills, Maintenance, 02/17/23 12:58:00 [facility], [facility] #[id number], Partial fill upon patient request if the [...] 0 Refills, Soft Stop, 06/12/23 17:23:00 EDT, [facility] #[id number], Partial fill upon patient request if the prescription is for a schedule II opioid drug., 157, cm, 06/12/23 17:0... Start Date: 06/12/23 Status: Ordered dexamethasone 1 mg oral tablet 1 tablet = 1 mg, By Mouth, Once, to be taken at 11pm, # 1 tablet, 0 Refills, Soft Stop, 04/07/23 9:20:00 EST, [facility] #[id number], Partial fill upon patient request if the prescription is fora schedule II opioid drug., 157, cm, 04/07/23 8:57:... Start Date: 04/07/23 Status: Ordered Diflucan 150 mg oral tablet 1 tablet = 150 mg, By Mouth, Once, # 1 tablet, 0 Refills, Soft Stop, 02/19/23 19:29:00 EST, Tablet,[facility] #[id number], Partial fill upon patient request if the prescription is for a schedule II opioid drug., 157, cm, 02/17/23 12:20:00 EST, H... Start Date: 02/19/23 Status: Ordered fluconazole 150 mg oral tablet 1 tablet = 150 mg, By Mouth, Once, epeat dose if still having symptoms in 72 hours, # 2 tablet, 0 Refills, Soft Stop, 04/08/23 16:30:00 EST, Tablet, [facility] #[id number], Partial fill upon patient request if the prescription is for a schedule I... Start Date: 04/08/23 Status: Ordered hydrOXYzine hydrochloride 25 mg oral tablet 1 capsule, By Mouth, Once, PRN Agitation, # 30 capsule, 3 Refills, Soft Stop, 12/10/22 14:50:00 EDT, Capsule, [facility] #[id number], Partial fill upon patient request if the prescription is fora schedule II opioid drug., 160, cm, 12/10/22 14:07... Start Date: 12/10/22 Status: Ordered metronidazole topical 0.75% gel with applicator 1 application, Vaginally, Daily at bedtime, # 70 Gm, 3 Refills, Soft Stop, 12/20/22 16:15:00 EST, Gel, [facility] #[id number], Partial fill upon patient request if the [...] 10/27/23 11:50:00 EDT, 10/25/22 11:49:00 EDT, Tablet, [facility]... Start Date: 10/25/22 Stop Date: 10/27/23 Status: Ordered omeprazole 20 mg oral enteric coated capsule 1 capsule = 20 mg, By Mouth, Daily, # 14 capsule, 0 Refills, Maintenance, 02/17/23 12:58:00 EST, ECCapsule, [facility] #[id number], Partial fill upon patient request if the prescription is for a schedule II opioid drug., 157, cm, 02/17/23 12:20:... Start Date: 02/17/23 Stop Date: 03/03/23 Status: Ordered Pen [place], 32 G x 4 mm BD Ultra [...] Refills, Maintenance, 10/16/22 13:40:00 EDT, EC Tablet, [facility] #[id number], Partial fill upon patient request if the [...] Replace Required Details, Route to Pharmacy Electronically, [id number]... Start Date: 10/25/22 Status: Ordered semaglutide 0.5 mg/0.5 mL (0.5 mg dose) subcutaneous solution = 0.5 mg, Subcutaneous Injection, Every week, for 4 week(s), in the abdomen, thigh, or upper arm- give pt 90 days if her insuarnce allows, # 2 mL, 1 Refills, Acute 08/07/23 17:26:00 EDT, 06/12/23 17:26:00 EDT, Solution, [facility], Partial... Start Date: 06/12/23 Stop Date: 08/07/23 Status: Ordered Senna 8.6 mg oral tablet 17.2 mg, 2, tablet, By Mouth, Daily at bedtime, # 50 tablet, Refills 0, Tot. Refills 0, Maintenance, 03/31/22 6:17:00 EST, Route to Pharmacy Electronically, [facility] #[id number], Partial fill upon patient request if the prescription is for a sc... Start Date: 03/31/22 Status: Ordered sertraline 50 mg oral tablet 1 tablet = 50 mg, By Mouth, Daily, # 90 tablet, 1 Refills, Maintenance, 12/10/22 14:51:00 EDT, Tablet, [facility] #[id number], Partial fill upon patient request if the prescription is for a schedule II opioid drug., 160, cm, 12/10/22 14:07:00 EDT... Start Date: 12/10/22 Status: Ordered Tylenol 325 mg oral capsule 2 capsule = 650 mg, By Mouth, Every 4 hours, PRN as needed for pain, # 50 capsule, 0 Refills, Maintenance, 03/29/22 8:34:00 EST, Capsule, [facility] #[id number], Partial fill upon patient request if the [...] Team Personnel Name: Bertha Montes MD Position: [facility] Resident Member Role: PCP Address: Address: [address] [place] [address]- Care Team Related Persons Name: Monroe Mcgarry Address: home [address] [place] [address] Name: MARIFER MCGARRY Address: home [address] [place] [address] Name: REMA MCGARRY Address: Address: [address]
--- OUTSIDE RECORDS SUMMARY | 2023-07-18 10:28 | XMS_ITS | Continuity of Care Document ---
Author Organization [facility] Address [address] [place] [address]- Care Team Providers Care Publisher Assistant Name Role Phone Chepe CADE, Rebecca Primary Care Physician Encounter [facility] Date(s): 11/26/21 - 12/26/[address] [address]- Allergies, Adverse Reactions, Alerts Substance Reaction Severity [...] Acute 01/18/22 10:19:00 EST, 11/19/21 10:19:00 EDT, [facility] #[id number], Partial fill upon patient request if the prescr... Start Date: 11/19/21 Stop Date: 01/18/22 Status: Ordered aspirin 162.5 mg oral capsule, extended release 1 capsule = 162.5 mg, By Mouth, Daily, at the same time every day, # 90 capsule, 3 Refills, Maintenance, 10/16/21 12:30:00 EDT, ER Capsule, [facility] #[id number], Partial fill upon patient request if the prescription is for a schedule II opioid... Start Date: 10/16/21 Status: Ordered folic acid 0.4 mg oral tablet 1 tablet = 0.4 mg, By Mouth, Daily, # 100 tablet, 5 Refills, Maintenance, 08/21/21 9:43:00 EDT, Tablet, [facility] #[id number], Partial fill upon patient request if the [...] capsule, 0 Refills, Maintenance, 12/26/21 21:00:00 EST, [facility] #[id number], Partial fill upon patient request if the prescription is for a schedule II opioid drug., 160, cm, 12/21/21 15:25:00 ES... Start Date: 12/26/21 Stop Date: 12/29/21 Status: Ordered lidocaine 5% topical ointment 1 application, Topically, 3 times a day, PRN Pain, # 50 Gm, 1 Refills, Maintenance, 11/19/21 10:20:00 EDT, Ointment, [facility] #[id number], Partial fill upon patient request if the prescriptionis for a schedule II opioid drug., 1 application To... Start Date: 11/19/21 Status: Ordered lisdexamfetamine 30 mg oral capsule 1 capsule = 30 mg, By Mouth, Daily in AM, Dx F90.0, # 30 capsule, 0 Refills, Maintenance, 06/09/20 9:11:00 EDT, Capsule, [facility] #[id number], Partial fill upon patient request if the prescription is for a schedule II opioid drug., 1 capsule By... Start Date: 06/09/20 Stop Date: 07/09/20 Status: Ordered Macrobid macrocrystals-monohydrate 100 mg oral capsule 1 capsule = 100 mg, By Mouth, 2 times a day, for 7 days, # 14 capsule, 0 Refills, Acute 12/28/21 17:37:00 EST, 12/21/21 17:37:00 EST, Capsule, [facility] #[id number], Partial fill upon patient request if the prescription is for a schedule II opio... Start Date: 12/21/21 Stop Date: 12/28/21 Status: Ordered Multivitamins with FA 0.8 mg oral tablet 1 tablet, By Mouth, Daily, for 90 days, # 90 tablet, 2 Refills, Hard Stop 08/05/22 13:36:00 EDT, 11/08/21 13:36:00 EDT, Tablet, [facility] #[id number], Partial fill upon patient request if the [...] Replace Required Details, Route to Pharmacy Electronically, [id number]... Start Date: 06/25/18 Status: Ordered Prometrium 200 mg oral capsule 1 capsule = 200 mg, Vaginally, Daily at bedtime, # 60 capsule, 3 Refills, Maintenance, 12/11/21 11:42:00 EDT, [facility] #[id number], Partial fill upon patient request if the [...] Confirmed Active Severe obesity Confirmed Active 29/04/2007 [facility] admission #1: acute asthma attack Social History Social History Type Response Smoking Status Never (less than 100 in lifetime);Never; Exposure to Secondhand Smoke: Yes; Tobacco use times per day: mother smokes; entered on: 09/14/21 Sex Patient Care team information Care Team Personnel Name: Rebecca Mo MD Position: [facility] Resident Member Role: PCP Address: Address: [address] [place] [address]- Care Team Related Persons Name: Monroe Mcgarry Address: home [address] [place] [address] Name: MARIFER MCGARRY Address: [place] [address]
--- OUTSIDE RECORDS SUMMARY | 2023-07-18 10:28 | XMS_ITS | Continuity of Care Document ---
Author Organization [facility] Address [address] [place] [address]- Care Team Providers Care Parcel Post Delivery Name Role Phone Bertha Montes MD Primary Care Physician Encounter [facility] R [id number] Date(s): 01/08/23 - 03/15/[address] [address]- Attending Physician: Not on Staff, Attending MD [...] 24 capsule, 0 Refills, Maintenance, 02/17/23 12:58:00 [facility] #[id number], Partial fill upon patient request if the [...] 0 Refills, Soft Stop, 12/11/22 20:38:00 EDT, [facility] #[id number], Partial fill upon patient request if the prescription is for a schedule II opioid drug., 160, cm, 12/10/22 14:0... Start Date: 12/11/22 Status: Ordered Diflucan 150 mg oral tablet 1 tablet = 150 mg, By Mouth, Once, # 1 tablet, 0 Refills, Soft Stop, 02/19/23 19:29:00 EST, Tablet,[facility] #[id number], Partial fill upon patient request if the prescription is for a schedule II opioid drug., 157, cm, 02/17/23 12:20:00 EST, H... Start Date: 02/19/23 Status: Ordered hydrOXYzine hydrochloride 25 mg oral tablet 1 capsule, By Mouth, Once, PRN Agitation, # 30 capsule, 3 Refills, Soft Stop, 12/10/22 14:50:00 EDT, Capsule, [facility] #[id number], Partial fill upon patient request if the prescription is fora schedule II opioid drug., 160, cm, 12/10/22 14:07... Start Date: 12/10/22 Status: Ordered metronidazole topical 0.75% gel with applicator 1 application, Vaginally, Daily at bedtime, # 70 Gm, 3 Refills, Soft Stop, 12/20/22 16:15:00 EST, Gel, [facility] #[id number], Partial fill upon patient request if the [...] 10/27/23 11:50:00 EDT, 10/25/22 11:49:00 EDT, Tablet, [facility], Partial... Start Date: 10/25/22 Stop Date: 10/27/23 Status: Ordered omeprazole 20 mg oral enteric coated capsule 1 capsule = 20 mg, By Mouth, Daily, # 14 capsule, 0 Refills, Maintenance, 02/17/23 12:58:00 EST, ECCapsule, [facility] #[id number], Partial fill upon patient request if the prescription is for a schedule II opioid drug., 157, cm, 02/17/23 12:20:... Start Date: 02/17/23 Stop Date: 03/03/23 Status: Ordered Pen [place], 32 G x 4 mm BD Ultra [...] Refills, Maintenance, 10/16/22 13:40:00 EDT, EC Tablet, [facility] #[id number], Partial fill upon patient request if the [...] Replace Required Details, Route to Pharmacy Electronically, [id number]... Start Date: 10/25/22 Status: Ordered Senna 8.6 mg oral tablet 17.2 mg, 2, tablet, By Mouth, Daily at bedtime, # 50 tablet, Refills 0, Tot. Refills 0, Maintenance, 03/31/22 6:17:00 EST, Route to Pharmacy Electronically, [facility] #[id number], Partial fill upon patient request if the prescription is for a sc... Start Date: 03/31/22 Status: Ordered sertraline 50 mg oral tablet 1 tablet = 50 mg, By Mouth, Daily, # 90 tablet, 1 Refills, Maintenance, 12/10/22 14:51:00 EDT, Tablet, [facility] #[id number], Partial fill upon patient request if the prescription is for a schedule II opioid drug., 160, cm, 12/10/22 14:07:00 EDT... Start Date: 12/10/22 Status: Ordered Tylenol 325 mg oral capsule 2 capsule = 650 mg, By Mouth, Every 4 hours, PRN as needed for pain, # 50 capsule, 0 Refills, Maintenance, 03/29/22 8:34:00 EST, Capsule, [facility] #[id number], Partial fill upon patient request if the prescription is for a schedule II opioid dr... Start Date: 03/29/22 Status: Ordered Victoza 18 mg/3 mL subcutaneous solution = 1.2 mg, Subcutaneous Infusion, Daily, # 3 mL, 6 Refills, Maintenance, 02/13/23 17:22:00 EST, [facility] #[id number], Partial fill upon patient request if the [...] Confirmed Active Severe obesity Confirmed Active 29/04/2007 [facility] admission #1: acute asthma attack Social History Social History Type Response Smoking Status Never (less than 100 in lifetime);Never; Exposure to Secondhand Smoke: Yes; Tobacco use times per day: mother smokes; entered on: 09/14/21 Sex Patient Care team information Care Team Personnel Name: Bertha Montes MD Position: [facility] Resident Member Role: PCP Address: Address: [address] [place] [address] Care Team Related Persons Name: Monroe Mcgarry Address: [place] [address] Name: MARIFER MCGARRY Address: [place] [address] Name: REMA MCGARRY Address: Address: [address]
--- OUTSIDE RECORDS SUMMARY | 2023-07-18 10:28 | XMS_ITS | Continuity of Care Document ---
Author Organization [facility] Address [address] [place] [address]- Care Team Providers Care Supervisor Rubber Covering Name Role Phone Bertha Montes MD Primary Care Physician [place] [facility] [place] 01/01/23 [facility] [address] [place] [address]- Attending Physician: AdmSilas gill Admitting Physician: AdmtrSilas [...] 0 Refills, Soft Stop, 12/11/22 20:38:00 EDT, [facility] #[id number], Partial fill upon patient request if the prescription is for a schedule II opioid drug., 160, cm, 12/10/22 14:0... Start Date: 12/11/22 Status: Ordered Diflucan 150 mg oral tablet 1 tablet = 150 mg, By Mouth, Once, # 1 tablet, 0 Refills, Soft Stop, 10/25/22 11:47:00 EDT, Tablet,[facility], Partial fill upon patient request if the prescription is for a scheduleII opioid drug., 160, cm, 10/25/22 10:08:00 EDT, He... Start Date: 10/25/22 Status: Ordered hydrOXYzine hydrochloride 25 mg oral tablet 1 capsule, By Mouth, Once, PRN Agitation, # 30 capsule, 3 Refills, Soft Stop, 12/10/22 14:50:00 EDT, Capsule, [facility] #[id number], Partial fill upon patient request if the prescription is fora schedule II opioid drug., 160, cm, 12/10/22 14:07... Start Date: 12/10/22 Status: Ordered metronidazole topical 0.75% gel with applicator 1 application, Vaginally, Daily at bedtime, # 70 Gm, 3 Refills, Soft Stop, 12/20/22 16:15:00 EST, Gel, [facility] #[id number], Partial fill upon patient request if the [...] 11:50:00 EDT, 10/25/22 11:49:00 EDT, [facility]... Start Date: 10/25/22 Stop Date: 10/27/23 Status: Ordered Pen [place]greg[place], 32 G x 4 mm BD Ultra [...] Refills, Maintenance, 10/16/22 13:40:00 EDT, EC Tablet, [facility] #[id number], Partial fill upon patient request if the [...] Replace Required Details, Route to Pharmacy Electronically, [id number]... Start Date: 10/25/22 Status: Ordered Senna 8.6 mg oral tablet 17.2 mg, 2, tablet, By Mouth, Daily at bedtime, # 50 tablet, Refills 0, Tot. Refills 0, Maintenance, 03/31/22 6:17:00 EST, Route to Pharmacy Electronically, [facility] #[id number], Partial fill upon patient request if the prescription is for a sc... Start Date: 03/31/22 Status: Ordered sertraline 50 mg oral tablet 1 tablet = 50 mg, By Mouth, Daily, # 90 tablet, 1 Refills, Maintenance, 12/10/22 14:51:00 EDT, Tablet, [facility] #[id number], Partial fill upon patient request if the prescription is for a schedule II opioid drug., 160, cm, 12/10/22 14:07:00 EDT... Start Date: 12/10/22 Status: Ordered Tylenol 325 mg oral capsule 2 capsule = 650 mg, By Mouth, Every 4 hours, PRN as needed for pain, # 50 capsule, 0 Refills, Maintenance, 03/29/22 8:34:00 EST, Capsule, [facility] #[id number], Partial fill upon patient request if the prescription is for a schedule II opioid dr.Marta Start Date: 03/29/22 Status: Ordered Victoza 18 mg/3 mL subcutaneous solution = 1.8 mg, Subcutaneous Infusion, Daily, # 3 mL, 6 Refills, Maintenance, 12/11/22 20:42:00 EDT, [facility] #[id number], Partial fill upon patient request if the [...] Active Severe obesity Confirmed Active 29/04/2007 [facility] admission #1: acute asthma attack Social History Social History Type Response Smoking Status Never (less than 100 in lifetime);Never; Exposure to Secondhand Smoke: Yes; Tobacco use times per day: mother smokes; entered on: 09/14/21 Sex Patient Care team information Care Team Personnel Name: Bertha Montes MD Position: [facility] Resident Member Role: PCP Address: Address: [address] [place] [address]- Care Team Related Persons Name: Monroe Mcgarry Address: home [address] [place] [id number] Name: MARIFER MCGARRY Address: home [address] [place] [id number] Name: REMA MCGARRY Address: Address: [address] [address] [place]
--- OUTSIDE RECORDS SUMMARY | 2023-07-18 10:28 | XMS_ITS | Continuity of Care Document ---
Author Organization [facility] Address [address] [place] [address] [address] [place] [address]- Care Team Providers Care Rf Manager Name Role Phone Bertha Montes MD Primary Care Physician [place] [facility] [place] - 02/26/[address] [place] [address]- Attending Physician: Jayy Ledezma MD Allergies, Adverse Reactions, Alerts Substance Reaction [...] 24 capsule, 0 Refills, Maintenance, 02/17/23 12:58:00 [facility], [facility] #[id number], Partial fill upon patient request if the [...] 0 Refills, Soft Stop, 12/11/22 20:38:00 EDT, [facility] #[id number], Partial fill upon patient request if the prescription is for a schedule II opioid drug., 160, cm, 12/10/22 14:0... Start Date: 12/11/22 Status: Ordered Diflucan 150 mg oral tablet 1 tablet = 150 mg, By Mouth, Once, # 1 tablet, 0 Refills, Soft Stop, 02/19/23 19:29:00 EST, Tablet,[facility] #[id number], Partial fill upon patient request if the prescription is for a schedule II opioid drug., 157, cm, 02/17/23 12:20:00 EST, H... Start Date: 02/19/23 Status: Ordered hydrOXYzine hydrochloride 25 mg oral tablet 1 capsule, By Mouth, Once, PRN Agitation, # 30 capsule, 3 Refills, Soft Stop, 12/10/22 14:50:00 EDT, Capsule, [facility] #[id number], Partial fill upon patient request if the prescription is fora schedule II opioid drug., 160, cm, 12/10/22 14:07... Start Date: 12/10/22 Status: Ordered metronidazole topical 0.75% gel with applicator 1 application, Vaginally, Daily at bedtime, # 70 Gm, 3 Refills, Soft Stop, 12/20/22 16:15:00 EST, Gel, [facility] #[id number], Partial fill upon patient request if the [...] 10/27/23 11:50:00 EDT, 10/25/22 11:49:00 EDT, Tablet, [facility], Partial... Start Date: 10/25/22 Stop Date: 10/27/23 Status: Ordered omeprazole 20 mg oral enteric coated capsule 1 capsule = 20 mg, By Mouth, Daily, # 14 capsule, 0 Refills, Maintenance, 02/17/23 12:58:00 EST, ECCapsule, [facility] #[id number], Partial fill upon patient request if the prescription is for a schedule II opioid drug., 157, cm, 02/17/23 12:20:... Start Date: 02/17/23 Stop Date: 03/03/23 Status: Ordered Pen Branford, 32 G x 4 mm BD Ultra [...] Refills, Maintenance, 10/16/22 13:40:00 EDT, EC Tablet, [facility] #[id number], Partial fill upon patient request if the [...] Replace Required Details, Route to Pharmacy Electronically, [id number]... Start Date: 10/25/22 Status: Ordered Senna 8.6 mg oral tablet 17.2 mg, 2, tablet, By Mouth, Daily at bedtime, # 50 tablet, Refills 0, Tot. Refills 0, Maintenance, 03/31/22 6:17:00 EST, Route to Pharmacy Electronically, [facility] #[id number], Partial fill upon patient request if the prescription is for a sc... Start Date: 03/31/22 Status: Ordered sertraline 50 mg oral tablet 1 tablet = 50 mg, By Mouth, Daily, # 90 tablet, 1 Refills, Maintenance, 12/10/22 14:51:00 EDT, Tablet, [facility] #[id number], Partial fill upon patient request if the prescription is for a schedule II opioid drug., 160, cm, 12/10/22 14:07:00 EDT... Start Date: 12/10/22 Status: Ordered Tylenol 325 mg oral capsule 2 capsule = 650 mg, By Mouth, Every 4 hours, PRN as needed for pain, # 50 capsule, 0 Refills, Maintenance, 03/29/22 8:34:00 EST, Capsule, [facility] #[id number], Partial fill upon patient request if the prescription is for a schedule II opioid dr... Start Date: 03/29/22 Status: Ordered Victoza 18 mg/3 mL subcutaneous solution = 1.2 mg, Subcutaneous Infusion, Daily, # 3 mL, 6 Refills, Maintenance, 02/13/23 17:22:00 EST, [facility] #[id number], Partial fill upon patient request if the [...] Confirmed Active Severe obesity Confirmed Active 29/04/2007 [facility] admission #1: acute asthma attack Social History Social History Type Response Smoking Status Never (less than 100 in lifetime);Never; Exposure to Secondhand Smoke: Yes; Tobacco use times per day: mother smokes; entered on: 09/14/21 Sex Patient Care team information Care Team Personnel Name: Bertha Motnes MD Position: S Resident Member Role: PCP Address: Address: [address] [place] [address] Care Team Related Persons Name: Monroe Romo Address: [place] [address] Name: MARIFER ROMO Address: [place] [address] Name: REMA ROMO Address: Address: [address]
--- OUTSIDE RECORDS SUMMARY | 2023-07-18 10:28 | XMS_ITS | Continuity of Care Document ---
Author Organization [facility] Address [address], [address] [place] [address]- Care Team Providers Care Utilities And Maintenance Supervisor Name Role Phone Chepe CADE, Rebecca Primary Care Physician [phone] Encounter [facility] [place] Date(s): 08/21/21 - 08/28/21 [facility] [address] [place], [place] [address] Attending Physician: Margaux Haines MD Referring Physician: Rebecca Mo MD Allergies, [...] 5 Refills, Maintenance, 08/21/21 9:43:00 EDT, Tablet, [facility] #[id number], Partial fill upon patient request if the [...] 0 Refills, Maintenance, 06/09/20 9:11:00 EDT, Capsule, [facility] #[id number], Partial fill upon patient request if the [...] Replace Required Details, Route to Pharmacy Electronically, [id number]... Start Date: 06/25/18 Status: Ordered traZODone 50 mg oral tablet 50 mg, 1, tablet, By Mouth, Daily at bedtime, PRN, # 30 tablet, Refills 1, Tot. Refills 1, Maintenance, Sleep, 06/09/20 9:11:00 EDT, Route to Pharmacy Electronically, [facility] #[id number], Partial fill upon patient request if the prescription i... Start Date: 06/09/20 Stop Date: 08/08/20 Status: Ordered Problem List Condition Effective Dates Status Health Status Inform ant ADD - Attention deficit diso rder with hyperactivity(Confirmed) Active Allergic rhinitis due to pollen(Confirmed)(Improving) Active Asthma, mild intermittent, precipitated by colds, allergies(Confirmed)(Stable) 1 Active Mood disorder(Confirmed) Active Obesity(Confirmed) Active 29/04/2007 [facility] admission #1: acute asthma attack Procedures Procedure Date Related Diagnosis Body Site Status Dilatation and curettage Completed Vital Signs Most recent to oldest [Reference Range]: 1 Height 160 cm (08/21/21 9:10 AM) Weight 75.53 kg (08/21/21 9:10 AM) Body Mass Index [18.5-24.99] 29.5 *H* (08/21/21 9:10 AM) Blood Pressure [90-138/55-84 mm Hg] 109/ 66mm Hg (08/21/21 9:10 AM) Blood pressure sites Arm, right (08/21/21 9:10 AM) Weight Obtained Via Standing scale (08/21/21 9:10 AM) Social History Social History Type Response Smoking Status Never smoker; Tobacc o user in household: No entered on: 03/04/14 Sex
--- OUTSIDE RECORDS SUMMARY | 2023-07-18 10:28 | XMS_ITS | Continuity of Care Document ---
Author Organization [facility] Address [address] [place] [address]- Care Team Providers Care Sewing Demonstrator Name Role Phone Chepe CADE, Rebecca Primary Care Physician [place] [facility] [place] - 01/26/22 [facility] [address] [address] Allergies, Adverse Reactions, Alerts Substance Reaction [...] Refills, Maintenance, 10/16/21 12:30:00 EDT, ER Capsule, [facility][id number], Partial fill upon patient request if the prescription is for a schedule II opioid... Start Date: 10/16/21 Status: Ordered folic acid 0.4 mg oral tablet 1 tablet = 0.4 mg, By Mouth, Daily, # 100 tablet, 5 Refills, Maintenance, 08/21/21 9:43:00 EDT, Tablet, [facility] #[id number], Partial fill upon patient request if the [...] capsule, 0 Refills, Maintenance, 12/26/21 21:00:00 EST, [facility] #[id number], Partial fill upon patient request if the prescription is for a schedule II opioid drug., 160, cm, 12/21/21 15:25:00 ES... Start Date: 12/26/21 Stop Date: 12/29/21 Status: Ordered lidocaine 5% topical ointment 1 application, Topically, 3 times a day, PRN Pain, # 50 Gm, 1 Refills, Maintenance, 11/19/21 10:20:00 EDT, Ointment, [facility][id number], Partial fill upon patient request if the prescriptionis for a schedule II opioid drug., 1 application To... Start Date: 11/19/21 Status: Ordered lisdexamfetamine 30 mg oral capsule 1 capsule = 30 mg, By Mouth, Daily in AM, Dx F90.0, # 30 capsule, 0 Refills, Maintenance, 06/09/20 9:11:00 EDT, [facility] #[id number], Partial fill upon patient request if the prescription is for a schedule II opioid drug., 1 capsule By... Start Date: 06/09/20 Stop Date: 07/09/20 Status: Ordered Multivitamins with FA 0.8 mg oral tablet 1 tablet, By Mouth, Daily, for 90 days, # 90 tablet, 2 Refills, Hard Stop 08/05/22 13:36:00 EDT, 11/08/21 13:36:00 EDT, Tablet, [facility][id number], Partial fill upon patient request if the [...] Replace Required Details, Route to Pharmacy Electronically, [id number]... Start Date: 06/25/18 Status: Ordered Prometrium 200 mg oral capsule 1 capsule = 200 mg, Vaginally, Daily at bedtime, # 60 capsule, 3 Refills, Maintenance, 12/11/21 11:42:00 EDT, [facility][id number], Partial fill upon patient request if the [...] Confirmed Active Severe obesity Confirmed Active 29/04/2007 [facility] admission #1: acute asthma attack Social History Social History Type Response Smoking Status Never (less than 100 in lifetime);Never; Exposure to Secondhand Smoke: Yes; Tobacco use times per day: mother smokes; entered on: 09/14/21 Sex Patient Care team information Care Team Personnel Name: Rebecca Mo MD Position: S Resident Member Role: PCP Address: Address: [address] [place] [address]- Care Team Related Persons Name: Monroe Mcgarry Address: [address] [place] [address] Name: MARIFER MCGARRY Address: home [address] [place] [address]
--- OUTSIDE RECORDS SUMMARY | 2023-07-18 10:28 | XMS_ITS | Continuity of Care Document ---
Author Organization [facility] Address [address] [place] [address]- Care Team Providers Care Color Blender Name Role Phone Chepe CADE, Rebecca Primary Care Physician [phone] [place] [facility] [place] [id number] Date(s): 12/06/21 - 01/05/[address] [address]- Attending Physician: Admtr Ar8 Admitting Physician: Admtr, Ar8 Referring Physician: [...] Acute 01/18/22 10:19:00 EST, 11/19/21 10:19:00 EDT, [facility] #[id number], Partial fill upon patient request if the prescr... Start Date: 11/19/21 Stop Date: 01/18/22 Status: Ordered aspirin 162.5 mg oral capsule, extended release 1 capsule = 162.5 mg, By Mouth, Daily, at the same time every day, # 90 capsule, 3 Refills, Maintenance, 10/16/21 12:30:00 EDT, ER Capsule, [facility] #[id number], Partial fill upon patient request if the prescription is for a schedule II opioid... Start Date: 10/16/21 Status: Ordered folic acid 0.4 mg oral tablet 1 tablet = 0.4 mg, By Mouth, Daily, # 100 tablet, 5 Refills, Maintenance, 08/21/21 9:43:00 EDT, Tablet, [facility] #[id number], Partial fill upon patient request if the [...] capsule, 0 Refills, Maintenance, 12/26/21 21:00:00 EST, [facility] #[id number], Partial fill upon patient request if the prescription is for a schedule II opioid drug., 160, cm, 12/21/21 15:25:00 ES... Start Date: 12/26/21 Stop Date: 12/29/21 Status: Ordered lidocaine 5% topical ointment 1 application, Topically, 3 times a day, PRN Pain, # 50 Gm, 1 Refills, Maintenance, 11/19/21 10:20:00 EDT, Ointment, [facility] #[id number], Partial fill upon patient request if the prescriptionis for a schedule II opioid drug., 1 application To... Start Date: 11/19/21 Status: Ordered lisdexamfetamine 30 mg oral capsule 1 capsule = 30 mg, By Mouth, Daily in AM, Dx F90.0, # 30 capsule, 0 Refills, Maintenance, 06/09/20 9:11:00 EDT, Capsule, [facility] #[id number], Partial fill upon patient request if the prescription is for a schedule II opioid drug., 1 capsule By... Start Date: 06/09/20 Stop Date: 07/09/20 Status: Ordered Multivitamins with FA 0.8 mg oral tablet 1 tablet, By Mouth, Daily, for 90 days, # 90 tablet, 2 Refills, Hard Stop 08/05/22 13:36:00 EDT, 11/08/21 13:36:00 EDT, Tablet, [facility] #[id number], Partial fill upon patient request if the [...] Replace Required Details, Route to Pharmacy Electronically, [id number]... Start Date: 06/25/18 Status: Ordered Prometrium 200 mg oral capsule 1 capsule = 200 mg, Vaginally, Daily at bedtime, # 60 capsule, 3 Refills, Maintenance, 12/11/21 11:42:00 EDT, [facility] #[id number], Partial fill upon patient request if the [...] Resident Member Role: PCP Address: Address: [address] [place] [address]- Care Team Related Persons Name: Monroe Mcgarry Address: [place] [address] Name: MARIFER MCGARRY Address: [place] [address]
--- OUTSIDE RECORDS SUMMARY | 2023-07-18 10:28 | XMS_ITS | Continuity of Care Document ---
Author Organization [facility] Address [address] [place] [address]- Care Team Providers Care Entry Level Sales Representative Name Role Phone Bertha Montes MD Primary Care Physician Encounter [facility] [place] Date(s): 08/07/22 - 09/14/[address] [address] Attending Physician: Not on Staff, Attending MD Admitting Physician: Not on Staff, Admitting MD Referring Physician: Kamala Reyes MD Allergies, Adverse Reactions, Alerts Substance Reaction [...] 0 Refills, Soft Stop, 05/13/22 14:02:00 EDT, Tablet,[facility] #[id number], Partial fill upon patient request if the prescription is for a schedule II opioid drug., 160, cm, 05/13/22 13:10:00 EDT, H... Start Date: 05/13/22 Status: Ordered hydrOXYzine hydrochloride 25 mg oral tablet 1 capsule, By Mouth, Daily, PRN as needed for itching, # 15 capsule, 0 Refills, Soft Stop, 08/07/2315:38:00 EDT, Capsule, [facility] #[id number], Partial fill upon patient request if the [...] 0 Refills, Maintenance, 08/06/22 16:37:00 EDT, Tablet, [facility] #[id number], Partial fill upon patient request if the prescription is for a schedule II opioid drug., 160, cm, 08/06/22 15:40:00 EDT... Start Date: 08/06/22 Status: Ordered metronidazole topical 0.75% gel with applicator 1 application, Vaginally, Daily at bedtime, # 70 Gm, 0 Refills, Soft Stop, 05/13/22 14:02:00 EDT, [facility] #[id number], Partial fill upon patient request if the prescription is for a schedule II opioid drug., 1 application Vaginally Daily... Start Date: 05/13/22 Stop Date: 05/18/22 Status: Ordered oxyCODONE 5 mg oral tablet 5 mg, 1, tablet, By Mouth, Every 3 hours, PRN, (7-10), # 12 tablet, Refills 0, Tot. Refills 0, Maintenance, Pain , Severe, 03/31/22 6:08:00 EST, Route to Pharmacy Electronically, [facility]#[id number], Partial fill upon patient request if the pr... Start Date: 03/31/22 Status: Ordered ProAir HFA 90 mcg/inh inhalation aerosol with adapter See Instructions, PRN, 2-4 puffs Inhalation 4 times a day 30 days, # 1 each, Refills 11, Tot. Refills 11, Maintenance, 06/25/18 15:30:45 EDT, Instructions Replace Required Details, Route to Pharmacy Electronically, [id number]... Start Date: 06/25/18 Status: Ordered Senna 8.6 mg oral tablet 17.2 mg, 2, tablet, By Mouth, Daily at bedtime, # 50 tablet, Refills 0, Tot. Refills 0, Maintenance, 03/31/22 6:17:00 EST, Route to Pharmacy Electronically, [facility] #[id number], Partial fill upon patient request if the prescription is for a sc... Start Date: 03/31/22 Status: Ordered simethicone 80 mg oral tablet, chewable 160 mg, 2, tablet, Chew, 3 times a day, PRN, # 48 tablet, Refills 0, Tot. Refills 0, Maintenance, Gas, 03/29/22 8:34:00 EST, Route to Pharmacy Electronically, [facility] #[id number], Partial fill upon patient request if the prescription is for a... Start Date: 03/29/22 Status: Ordered Tylenol 325 mg oral capsule 2 capsule = 650 mg, By Mouth, Every 4 hours, PRN as needed for pain, # 50 capsule, 0 Refills, Maintenance, 03/29/22 8:34:00 EST, Capsule, [facility] #[id number], Partial fill upon patient request if the [...] Confirmed Active Severe obesity Confirmed Active 29/04/2007 [facility] admission #1: acute asthma attack Social History Social History Type Response Smoking Status Never (less than 100 in lifetime);Never; Exposure to Secondhand Smoke: Yes; Tobacco use times per day: mother smokes; entered on: 09/14/21 Sex Patient Care team information Care Team Personnel Name: Bertha Montes MD Position: [facility] Resident Member Role: PCP Address: Address: [address] [place] [address] Care Team Related Persons Name: Monroe Mcgarry Address: [place] [address] Name: MARIFER MCGARRY Address: [place] [address] Name: REMA MCGARRY Address: Address: [address]
--- OUTSIDE RECORDS SUMMARY | 2023-07-18 10:29 | XMS_ITS | Continuity of Care Document ---
Author Organization [facility] Address [address] [place] [address]- Care Team Providers Care Senior Data Developer Name Role Phone Chepe CADE, Rebecca Primary Care Physician [place] [facility] [place] 03/15/[address] [address] Allergies, Adverse Reactions, Alerts [...] Refills, Maintenance, 02/08/22 8:37:00 EST, ER Capsule, [facility] #[id number], Partial fill upon patient request if the prescription is for a schedule II opioid d... Start Date: 02/08/22 Status: Ordered Diflucan 150 mg oral tablet 1 tablet = 150 mg, By Mouth, Once, # 1 tablet, 0 Refills, Soft Stop, 02/15/22 10:22:00 EST, Tablet,[facility] #[id number], Partial fill upon patient request if the prescription is for a schedule II opioid drug., 160, cm, 02/08/22 8:11:00 EST, He... Start Date: 02/15/22 Status: Ordered famotidine 20 mg oral tablet 20 mg, 1, tablet, By Mouth, 2 times a day, # 180 tablet, Refills 0, Tot. Refills 0, Maintenance, 02/08/22 8:37:00 EST, Route to Pharmacy Electronically, [facility] #[id number], Partial fill uponpatient request if the prescription is for a schedu... Start Date: 02/08/22 Status: Ordered folic acid 0.4 mg oral tablet 1 tablet = 0.4 mg, By Mouth, Daily, # 100 tablet, 5 Refills, Maintenance, 08/21/21 9:43:00 EDT, Tablet, [facility] #[id number], Partial fill upon patient request if the [...] 1 Refills, Maintenance, 11/19/21 10:20:00 EDT, Ointment, [facility] #[id number], Partial fill upon patient request if the prescriptionis for a schedule II opioid drug., 1 application To... Start Date: 11/19/21 Status: Ordered lisdexamfetamine 30 mg oral capsule 1 capsule = 30 mg, By Mouth, Daily in AM, Dx F90.0, # 30 capsule, 0 Refills, Maintenance, 06/09/20 9:11:00 EDT, Capsule, [facility] #[id number], Partial fill upon patient request if the prescription is for a schedule II opioid drug., 1 capsule By... Start Date: 06/09/20 Stop Date: 07/09/20 Status: Ordered Multivitamins with FA 0.8 mg oral tablet 1 tablet, By Mouth, Daily, for 90 days, # 90 tablet, 2 Refills, Hard Stop 05/02/23 13:36:00 EDT, 08/05/22 13:36:00 EDT, Tablet, [facility] #[id number], Partial fill upon patient request if the prescription is for a schedule II opioid drug., 1 tab... Start Date: 08/05/22 Stop Date: 05/02/23 Status: Ordered Multivitamins with FA 0.8 mg oral tablet 1 tablet, By Mouth, Daily, for 90 days, # 90 tablet, 2 Refills, Hard Stop 08/05/22 13:36:00 EDT, 11/08/21 13:36:00 EDT, Tablet, [facility] #[id number], Partial fill upon patient request if the [...] Replace Required Details, Route to Pharmacy Electronically, [id number]... Start Date: 06/25/18 Status: Ordered Prometrium 200 mg oral capsule 1 capsule = 200 mg, Vaginally, Daily at bedtime, # 60 capsule, 3 Refills, Maintenance, 02/08/22 8:36:00 EST, [facility] #[id number], Partial fill upon patient request if the prescription is for a schedule II opioid drug., 160, cm, 02/08/22 8:11:0... Start Date: 02/08/22 Status: Ordered Valtrex 500 mg oral tablet See Instructions, 1 tablet By Mouth twice daily starting at 34wks for remainder of , # 60 tablet, Refills 0, Tot. Refills 0, Maintenance, 03/12/22 13:13:00 EST, Instructions Replace RequiredDetails, Route to Pharmacy Electronically, [id number]... Start Date: 03/12/22 Status: Ordered Problem List [...] Team Personnel Name: Rebecca Mo MD Position: [facility] Resident Member Role: PCP Address: Address: [address] [place] [address]- Care Team Related Persons Name: Monroe Mcgarry Address: [place] [address] Name: MARIFER MCGARRY Address: [place] [address]
--- OUTSIDE RECORDS SUMMARY | 2023-07-18 10:29 | XMS_ITS | Continuity of Care Document ---
Author Organization [facility] Address [address] [place] [address]- Care Team Providers Care Construction Representative Name Role Phone Chriss Mejia MD Primary Care Physician [phone] Encounter [facility] Date(s): 10/21/19 - 11/20/[address] [address]- [facility] Allergies, Adverse Reactions, Alerts Substance Reaction Severity [...] capsule, 0 Refills, Maintenance, 11/08/19 16:07:00 EDT, [facility] #[id number], please fill 40mg order, 25mg entered by mistake, 157, cm, 11/08/19 15:34:00 EDT, Height Start Date: 11/08/19 Stop Date: 12/08/19 Status: Ordered Bengay Pain Relief+Massage 2.5% topical gel 1 application, Topically, 2 times a day, PRN as needed for pain, for 30 days, # 85 Gm, 1 Refills, Acute 01/07/20 15:59:00 EST, 11/08/19 15:59:00 EDT, [facility] #[id number], 1 application Topically 2 times a day,x30 [...] 06/25/18 15:32:32 EDT, Route to Pharmacy Electronically, [id number],[facility] [id number] Start Date: 06/25/18 Status: Ordered naproxen 375 mg oral tablet 375 mg, 1, tablet, By Mouth, 2 times a day, PRN, for 30 days, # 60 tablet, Refills 0, Tot. Refills 0, Acute 12/08/19 15:57:00 EDT, Pain , Mild, 11/08/19 15:57:00 EDT, Route to Pharmacy Electronically, [facility] #[id number], 157, cm, 11/08/19 15:... Start Date: 11/08/19 Stop Date: 12/08/19 Status: Ordered ProAir HFA 90 mcg/inh inhalation aerosol with adapter See Instructions, PRN, 2-4 puffs Inhalation 4 times a day 30 days, # 1 each, Refills 11, Tot. Refills 11, Maintenance, 06/25/18 15:30:45 EDT, Instructions Replace Required Details, Route to Pharmacy Electronically, [id number]... Start Date: 06/25/18 Status: Ordered Problem List Condition Effective Dates Status Health Status Inform ant ADD - Attention deficit diso rder with hyperactivity(Confirmed) Active Allergic rhinitis due to pollen(Confirmed)(Improving) Active Asthma, mild intermittent, precipitated by colds, allergies(Confirmed)(Stable) 1 Active Contraception management(Confirmed) Active Controlled substance agreeme nt due(Confirmed) Active H/O nipple discharge(Confirmed) Active Mood disorder(Confirmed) Active Myopia(Confirmed)(Stable) Active Obesity(Confirmed) Active 29/04/2007 [facility] admission #1: acute asthma attack Social History Social History Type Response Smoking Status Never smoker; Tobacc o user in household: No entered on: 03/04/14 Sex
--- OUTSIDE RECORDS SUMMARY | 2023-07-18 10:29 | XMS_ITS | Continuity of Care Document ---
Author Organization [facility] Address [address] [place] [address]- Care Team Providers Care Electrical Instrument Technician Name Role Phone Chriss Mejia MD Primary Care Physician [phone] Encounter [facility] Date(s): 06/26/20 - 07/26/[address] [address]- Attending Physician: Silas Munroe Admitting Physician: AdmtrSilas Referring Physician: Admtr, Ar8 [...] F90.0, # 30 capsule, 0 Refills, Maintenance, 04/30/21 9:11:00 EDT, Capsule, [email or web address] #[id number], Partial fill upon patient request if the [...] Replace Required Details, Route to Pharmacy Electronically, [id number]... Start Date: 06/25/18 Status: Ordered traZODone 50 mg oral tablet 50 mg, 1, tablet, By Mouth, Daily at bedtime, PRN, # 30 tablet, Refills 1, Tot. Refills 1, Maintenance, Sleep, 06/09/20 9:11:00 EDT, Route to Pharmacy Electronically, [id number], Partial fill upon patient request if the [...] disorder(Confirmed) Active Myopia(Confirmed)(Stable) Active Obesity(Confirmed) Active 29/04/2007 [facility] admission #1: acute asthma attack Social History Social History Type Response Smoking Status Never smoker; Tobacc o user in household: No entered on: 03/04/14 Sex
--- OUTSIDE RECORDS SUMMARY | 2023-07-18 10:29 | XMS_ITS | Continuity of Care Document ---
Author Organization [facility] Address [address] [place] [address]- Care Team Providers Care Processor Grain Name Role Phone Rebecca Mo MD Primary Care Physician Encounter [facility] [place] Date(s): 07/31/20 - 09/02/[address] [address]- Attending Physician: Not on Staff, Attending MD Referring Physician: Chriss Mejia MD Allergies, [...] 0 Refills, Maintenance, 06/09/20 9:11:00 EDT, Capsule, [facility] #[id number], Partial fill upon patient request if the [...] Replace Required Details, Route to Pharmacy Electronically, [id number]... Start Date: 06/25/18 Status: Ordered traZODone 50 mg oral tablet 50 mg, 1, tablet, By Mouth, Daily at bedtime, PRN, # 30 tablet, Refills 1, Tot. Refills 1, Maintenance, Sleep, 06/09/20 9:11:00 EDT, Route to Pharmacy Electronically, [facility] #[id number], Partial fill upon patient request if the [...] disorder(Confirmed) Active Myopia(Confirmed)(Stable) Active Obesity(Confirmed) Active 29/04/2007 [facility] admission #1: acute asthma attack Social History Social History Type Response Smoking Status Never smoker; Tobacc o user in household: No entered on: 03/04/14 Sex
--- OUTSIDE RECORDS SUMMARY | 2023-07-18 10:29 | XMS_ITS | Continuity of Care Document ---
Author Organization [facility] Address [address] [place] [address]- Care Team Providers Care Bottom Brusher Name Role Phone Bertha Montes MD Primary Care Physician Encounter [facility] [facility] [place] Date(s): 04/30/23 - 05/30/[address] [address]- Allergies, Adverse Reactions, Alerts Substance Reaction Severity [...] 24 capsule, 0 Refills, Maintenance, 02/17/23 12:58:00 [facility], [facility] #[id number], Partial fill upon patient request if the [...] 0 Refills, Soft Stop, 04/07/23 9:20:00 EST, [facility] #[id number], Partial fill upon patient request if the prescription is fora schedule II opioid drug., 157, cm, 04/07/23 8:57:... Start Date: 04/07/23 Status: Ordered Diflucan 150 mg oral tablet 1 tablet = 150 mg, By Mouth, Once, # 1 tablet, 0 Refills, Soft Stop, 02/19/23 19:29:00 EST, Tablet,[facility] #[id number], Partial fill upon patient request if the prescription is for a schedule II opioid drug., 157, cm, 02/17/23 12:20:00 EST, H... Start Date: 02/19/23 Status: Ordered fluconazole 150 mg oral tablet 1 tablet = 150 mg, By Mouth, Once, epeat dose if still having symptoms in 72 hours, # 2 tablet, 0 Refills, Soft Stop, 04/08/23 16:30:00 EST, Tablet, [facility] #[id number], Partial fill upon patient request if the prescription is for a schedule I... Start Date: 04/08/23 Status: Ordered hydrOXYzine hydrochloride 25 mg oral tablet 1 capsule, By Mouth, Once, PRN Agitation, # 30 capsule, 3 Refills, Soft Stop, 12/10/22 14:50:00 EDT, Capsule, [facility] #[id number], Partial fill upon patient request if the prescription is fora schedule II opioid drug., 160, cm, 12/10/22 14:07... Start Date: 12/10/22 Status: Ordered metronidazole topical 0.75% gel with applicator 1 application, Vaginally, Daily at bedtime, # 70 Gm, 3 Refills, Soft Stop, 12/20/22 16:15:00 EST, Gel, [facility] #[id number], Partial fill upon patient request if the [...] 10/27/23 11:50:00 EDT, 10/25/22 11:49:00 EDT, Tablet, [facility], Partial... Start Date: 10/25/22 Stop Date: 10/27/23 Status: Ordered omeprazole 20 mg oral enteric coated capsule 1 capsule = 20 mg, By Mouth, Daily, # 14 capsule, 0 Refills, Maintenance, 02/17/23 12:58:00 EST, ECCapsule, [facility] #[id number], Partial fill upon patient request if the prescription is for a schedule II opioid drug., 157, cm, 02/17/23 12:20:... Start Date: 02/17/23 Stop Date: 03/03/23 Status: Ordered Pen [place], 32 G x 4 mm BD Ultra [...] Refills, Maintenance, 10/16/22 13:40:00 EDT, EC Tablet, [facility] #[id number], Partial fill upon patient request if the [...] Replace Required Details, Route to Pharmacy Electronically, [id number]... Start Date: 10/25/22 Status: Ordered Senna 8.6 mg oral tablet 17.2 mg, 2, tablet, By Mouth, Daily at bedtime, # 50 tablet, Refills 0, Tot. Refills 0, Maintenance, 03/31/22 6:17:00 EST, Route to Pharmacy Electronically, [facility] #[id number], Partial fill upon patient request if the prescription is for a sc... Start Date: 03/31/22 Status: Ordered sertraline 50 mg oral tablet 1 tablet = 50 mg, By Mouth, Daily, # 90 tablet, 1 Refills, Maintenance, 12/10/22 14:51:00 EDT, Tablet, [facility] #[id number], Partial fill upon patient request if the prescription is for a schedule II opioid drug., 160, cm, 12/10/22 14:07:00 EDT... Start Date: 12/10/22 Status: Ordered Tylenol 325 mg oral capsule 2 capsule = 650 mg, By Mouth, Every 4 hours, PRN as needed for pain, # 50 capsule, 0 Refills, Maintenance, 03/29/22 8:34:00 EST, Capsule, [facility] #[id number], Partial fill upon patient request if the [...] [place] Resident Member Role: PCP Address: Address: [address] [place] [address]- Care Team Related Persons Name: Monroe Mcgarry Address: [place] [address] Name: MARIFER MCGARRY Address: [place] [address] Name: REMA MCGARRY Address: Address: [address]
--- OUTSIDE RECORDS SUMMARY | 2023-07-18 10:29 | XMS_ITS | Continuity of Care Document ---
Author Organization [facility] ter Address [address] [place] [address]- Care Team Providers Care Lead Miner Name Role Phone Chriss Mejia MD Primary Care Physician Encounter [facility] [place] Date(s): 05/26/20 - 05/26/[address] [address]- Encounter Diagnosis Hand laceration involving tendon(Final) - 05/26/20 Discharge Disposition: A-D/C Home Attending Physician: Francis Kennedy MD Admitting Physician: Francis Kennedy MD Referring Physician: Not on Staff, Referring [...] AM, # 30 capsule, 0 Refills, Maintenance, 12/17/19 16:54:00 EST, Capsule, [facility] #[id number], please fill 40mg order, 25mg entered by mistake, 157, cm, 11/08/19 15:34:00 EDT, Height Start Date: 12/17/19 Stop Date: 01/16/20 Status: Ordered cephalexin monohydrate 500 mg oral capsule 1 capsule = 500 mg, By Mouth, 4 times a day, for 7 days, # 28 capsule, 0 Refills, Acute 06/02/20 14:23:00 EDT, 05/26/20 14:23:00 EDT, Capsule, [facility] #[id number], Partial fill upon patient request if the prescription is for a schedule II opio... Start Date: 05/26/20 Stop Date: 06/02/20 Status: Ordered Heating Pad Heating Pad, See [...] 06/25/18 15:32:32 EDT, Route to Pharmacy Electronically, [id number],[facility] [id number] Start Date: 06/25/18 Status: Ordered OxyCODONE IR Tablet 10 mg, Tablet, By Mouth, Once, STAT, 05/26/20 12:40:00 EDT, Stop date 05/26/20 12:40:00 EDT Start Date: 05/26/20 Stop Date: 05/26/20 Status: Completed ProAir HFA 90 mcg/inh inhalation aerosol with adapter See Instructions, PRN, 2-4 puffs Inhalation 4 times a day 30 days, # 1 each, Refills 11, Tot. Refills 11, Maintenance, 06/25/18 15:30:45 EDT, Instructions Replace Required Details, Route to Pharmacy Electronically, [id number]... Start Date: 06/25/18 Status: Ordered Problem List Condition Effective Dates Status Health Status Inform ant ADD - Attention deficit diso rder with hyperactivity(Confirmed) Active Allergic rhinitis due to pollen(Confirmed)(Improving) Active Asthma, mild intermittent, precipitated by colds, allergies(Confirmed)(Stable) 1 Active Contraception management(Confirmed) Active Controlled substance agreeme nt due(Confirmed) Active H/O nipple discharge(Confirmed) Active Mood disorder(Confirmed) Active Myopia(Confirmed)(Stable) Active Obesity(Confirmed) Active 29/04/2007 [facility] admission #1: acute asthma attack Results Radiology Reports * Exam Date Time Procedure Performing Provider Status 05/26/20 1:14 PM Hand Min 3 Views Right Gaby Shah; Zoran (Verified) Notes: (Hand Min 3 Views Right) Reason For Exam: Decreased ROM RESULT: Hand Min 3 Views Right Hand Min 3 Views Right, 3 views Reason: Decreased ROM; Clinical Question(s): Fracture FINDINGS: No fracture or dislocation. No degenerative changes seen. Adjacent soft tissues unremarkable. IMPRESSION: Negative study. WSN: [id number] Ordering Physician: Brigid Silvestre Dictated By: Fantasma Osorio MD Dictated Date/Time: 05/26/20 1:20 pm Reviewed By: Fantasma Osorio MD Signed By: Fantasma Osorio MD Signed Date/Time: 05/26/20 1:20 pm Transcribed By: MEGHANA Transcribed Date/Time: 05/26/20 1:19 pm Vital Signs Most recent to oldest [Reference Range]: 1 2 3 Oxygen Saturation [94-100 %] 100 % (05/26/20 2:31 PM) 100 % (05/26/20 12:37 PM) Pulse Rate [55-90 bpm] 73 bpm (05/26/20 2:31 PM) 92 bpm *H* (05/26/20 12:37 PM) Blood Pressure [90-138/55-84 mm Hg] 111/68mm Hg (05/26/20 2:31 PM) 116/61mm Hg (05/26/20 12:37 PM) Respiratory Rate [16-30 br/min] 18 br/min (05/26/20 2:31 PM) 20 br/min (05/26/20 1:32 PM) 22 br/min (05/26/20 12:37 PM) Temperature [96.8-100.4 DegF] 99.7 DegF 1 (05/26/20 2:31 PM) 98.4 DegF (05/26/20 12:37 PM) Liters per Minute 0 L/min (05/26/20 2:31 PM) Mode of Delivery (Oxygen) Room air (05/26/20 2:31 PM) Room air (05/26/20 12:37 PM) Blood pressure sites Arm, left (05/26/20 2:31 PM) Arm, left (05/26/20 12:37 PM) Temperature Route Oral (05/26/20 2:31 PM) Oral (05/26/20 12:37 PM) 1Result Comment: RN notified. Social History Social History Type Response Smoking Status Never smoker; Tobacc o user in household: No entered on: 03/04/14 Sex
--- OUTSIDE RECORDS SUMMARY | 2023-07-18 10:29 | XMS_ITS | Continuity of Care Document ---
Author Organization [facility] Address [address] [place] [address]- Care Team Providers Care Flipping Machine Operator Name Role Phone Bertha Montes MD Primary Care Physician [place] [facility] [place] 12[place]19[place] - 01/18/[address] [address]- Allergies, Adverse Reactions, Alerts Substance Reaction Severity [...] 0 Refills, Soft Stop, 12/11/22 20:38:00 EDT, [facility] #[id number], Partial fill upon patient request if the prescription is for a schedule II opioid drug., 160, cm, 12/10/22 14:0... Start Date: 12/11/22 Status: Ordered Diflucan 150 mg oral tablet 1 tablet = 150 mg, By Mouth, Once, # 1 tablet, 0 Refills, Soft Stop, 10/25/22 11:47:00 EDT, Tablet,[facility], Partial fill upon patient request if the prescription is for a scheduleII opioid drug., 160, cm, 10/25/22 10:08:00 EDT, He... Start Date: 10/25/22 Status: Ordered hydrOXYzine hydrochloride 25 mg oral tablet 1 capsule, By Mouth, Once, PRN Agitation, # 30 capsule, 3 Refills, Soft Stop, 12/10/22 14:50:00 EDT, Capsule, [facility] #[id number], Partial fill upon patient request if the [...] Refills, Soft Stop, 12/20/22 16:15:00 EST, Gel, [facility] #[id number], Partial fill upon patient request if the [...] 10/27/23 11:50:00 EDT, 10/25/22 11:49:00 EDT, Tablet, [facility], Partial... Start Date: 10/25/22 Stop Date: 10/27/23 Status: Ordered Pen [place], 32 G x 4 mm BD [...] Refills, Maintenance, 10/16/22 13:40:00 EDT, EC Tablet, [facility] #[id number], Partial fill upon patient request if the [...] Replace Required Details, Route to Pharmacy Electronically, [id number]... Start Date: 10/25/22 Status: Ordered Senna 8.6 mg oral tablet 17.2 mg, 2, tablet, By Mouth, Daily at bedtime, # 50 tablet, Refills 0, Tot. Refills 0, Maintenance, 03/31/22 6:17:00 EST, Route to Pharmacy Electronically, [facility] #[id number], Partial fill upon patient request if the prescription is for a sc... Start Date: 03/31/22 Status: Ordered sertraline 50 mg oral tablet 1 tablet = 50 mg, By Mouth, Daily, # 90 tablet, 1 Refills, Maintenance, 12/10/22 14:51:00 EDT, Tablet, [facility] #[id number], Partial fill upon patient request if the prescription is for a schedule II opioid drug., 160, cm, 12/10/22 14:07:00 EDT... Start Date: 12/10/22 Status: Ordered Tylenol 325 mg oral capsule 2 capsule = 650 mg, By Mouth, Every 4 hours, PRN as needed for pain, # 50 capsule, 0 Refills, Maintenance, 03/29/22 8:34:00 EST, Capsule, [facility] #[id number], Partial fill upon patient request if the prescription is for a schedule II opioid dr... Start Date: 03/29/22 Status: Ordered Victoza 18 mg/3 mL subcutaneous solution = 1.2 mg, Subcutaneous Infusion, Daily, # 3 mL, 6 Refills, Maintenance, 01/08/23 16:54:00 EST, [facility] #[id number], Partial fill upon patient request if the [...] Resident Member Role: PCP Address: Address: [address] [place] [address]- Care Team Related Persons Name: Monroe Mcgarry Address: [address] [address] Name: MARIFER MCGARRY Address: [address] [address] Name: REMA MCGARRY Address: Address: [address]
--- OUTSIDE RECORDS SUMMARY | 2023-07-18 10:29 | XMS_ITS | Continuity of Care Document ---
Author Organization [facility] ter Address [address] [place] [id number]- Care Team Providers Care Buckle Coverer Name Role Phone Rebecca Mo MD Primary Care Physician Encounter [facility] Date(s): 02/13/22 - 02/13/[address] [address] Discharge Disposition: A-D/C Home Attending Physician: Shane [...] Refills, Maintenance, 02/08/22 8:37:00 EST, ER Capsule, [email or web address] #[id number], Partial fill upon patient request if the prescription is for a schedule II opioid d... Start Date: 02/08/22 Status: Ordered famotidine 20 mg oral tablet 20 mg, 1, tablet, By Mouth, 2 times a day, # 180 tablet, Refills 0, Tot. Refills 0, Maintenance, 02/08/22 8:37:00 EST, Route to Pharmacy Electronically, [facility] #[id number], Partial fill uponpatient request if the prescription is for a schedu... Start Date: 02/08/22 Status: Ordered folic acid 0.4 mg oral tablet 1 tablet = 0.4 mg, By Mouth, Daily, # 100 tablet, 5 Refills, Maintenance, 08/21/21 9:43:00 EDT, Tablet, [facility] #[id number], Partial fill upon patient request if the [...] 1 Refills, Maintenance, 11/19/21 10:20:00 EDT, Ointment, [facility] #[id number], Partial fill upon patient request if the prescriptionis for a schedule II opioid drug., 1 application To... Start Date: 11/19/21 Status: Ordered lisdexamfetamine 30 mg oral capsule 1 capsule = 30 mg, By Mouth, Daily in AM, Dx F90.0, # 30 capsule, 0 Refills, Maintenance, 06/09/20 9:11:00 EDT, Capsule, [facility] #[id number], Partial fill upon patient request if the prescription is for a schedule II opioid drug., 1 capsule By... Start Date: 06/09/20 Stop Date: 07/09/20 Status: Ordered Multivitamins with FA 0.8 mg oral tablet 1 tablet, By Mouth, Daily, for 90 days, # 90 tablet, 2 Refills, Hard Stop 05/02/23 13:36:00 EDT, 08/05/22 13:36:00 EDT, Tablet, [facility] #[id number], Partial fill upon patient request if the prescription is for a schedule II opioid drug., 1 tab... Start Date: 08/05/22 Stop Date: 05/02/23 Status: Ordered Multivitamins with FA 0.8 mg oral tablet 1 tablet, By Mouth, Daily, for 90 days, # 90 tablet, 2 Refills, Hard Stop 08/05/22 13:36:00 EDT, 11/08/21 13:36:00 EDT, Tablet, [facility] #[id number], Partial fill upon patient request if the [...] Replace Required Details, Route to Pharmacy Electronically, [id number]... Start Date: 06/25/18 Status: Ordered Prometrium 200 mg oral capsule 1 capsule = 200 mg, Vaginally, Daily at bedtime, # 60 capsule, 3 Refills, Maintenance, 02/08/22 8:36:00 EST, [facility] #[id number], Partial fill upon patient request if the [...] Confirmed Active Severe obesity Confirmed Active 29/04/2007 [facility] admission #1: acute asthma attack Vital Signs Most recent to oldest [Reference Range]: 1 Weight 120.0 kg (02/13/22 1:50 PM) Oxygen Saturation [94-100 %] 100 % (02/13/22 1:50 PM) Pulse Rate [55-90 bpm] 98 bpm *H* (02/13/22 1:50 PM) Blood Pressure [90-138/55-84 mm Hg] 91/6 3mm Hg (02/13/22 1:50 PM) Respiratory Rate [16-30 br/min] 17 br/mi n (02/13/22 1:50 PM) Temperature [96.8-100.4 DegF] 98.6 DegF (02/13/22 1:50 PM) Blood pressure sites Arm, right (02/13/22 1:50 PM) Temperature Route Oral (02/13/22 1:50 PM) Weight Obtained Via Standing scale (02/13/22 1:50 PM) Social History Social History Type Response Smoking Status Never (less than 100 in lifetime);Never; Exposure to Secondhand Smoke: Yes; Tobacco use times per day: mother smokes; entered on: 09/14/21 Sex Note * Clover Jarrell V: PERFORM Event Display: Discharge/Transfer Note Hospital Authored Date: Nursing Discharge Note Entered On: 02/13/2022 16:16 EST Performed On: 02/13/2022 16:15 EST by Clover Jarrell V Nursing Discharge Note 2 Discharge Time : 02/13/2022 16:15 EST Discharge Level of Care at Discharge : Home/Custodial/Foster Care Patient Left Unit Via : Ambulatory Patient Accompanied Off Unit with : Significant other DC Instructions Provided & Signed by Pt : Yes Patient Understands D/C Instructions : Yes Patient Instructions Discharge Signed : Yes Did Pt have Specialty Bed or Wound Vac : No Clover Jarrell V - 02/13/2022 16:15 EST * Clover Jarrell V: PERFORM Event Display: Patient Education/Instruction Authored Date: Inpatient Adult Discharge Instructions [address] [address] Name: DODIE ROMO : 1990 Visit: 02/13/2022 13:19:00 Current Date: 02/13/2022 16:10 Account: [id number] Inpatient Adult Discharge Instructions We would like [...] and their families. Surveys are administered by [employer]. ?? If further treatment with your primary care physician or another doctor is recommended, it is important for you to keep the appointment. Call your primary care physician or return to the Emergency Department immediately if your condition worsens, fails to improve, or new symptoms develop. If you need to find a doctor, you can call [facility] [employer] for a referral at [phone] or toll free at [phone]) or log in to [email or web address].. ?? You can view and manage your care through the patient portal or by using a health care hasmukh of your choosing. [employer] is a website that allows you to securely view your medical information including your hospital discharge summary, office visit summaries, medications and follow-up visits. You can also request appointments, renew medications, and request access to your medical information using a health care hasmukh of your choosing, or just ask a question. You can enroll at [email or web address] or register during your next office visit. You have been discharged from [facility], Patient Care Unit: [id number]. If you have any questions regarding these instructions after you leave, please call us and we will be happy to assist you. [facility] Your Care Team Attending Physician Shane Snyder MD Tests Performed Below is a partial list of the tests performed during your hospitalization. You may have had other tests and procedures not included in this list. Please discuss all test results with your provider. Chlamydia/N. Gonorrhoeae TMA (NAAT)?-- Results Pending -- Complete Urinalysis Culture Urine?-- Results Pending -- Vaginosis Vaginitis Panel (BV, CV/TV)?-- Results Pending -- ? You will be contacted within 72 hours with your results. Primary Care Provider Chepe CADE, Rebecca Advance Directive Health Care Proxy on File No No qualifying data available. Discharge Vitals Temperature: 98.6 DegF Weight: 120 kg Pulse Rate:??98 bpm??High ?? Respiratory Rate: 17 br/min ?? Systolic Blood Pressure: 91 mm Hg ?? Diastolic Blood Pressure: 63 mm Hg ?? Oxygen Saturation: 100 % ?? Studies Pending All tests and labs ordered during this hospital stay have been completed unless listed below. Please discuss all pending results with your provider listed above in these instructions. ?? Chlamydia/N. Gonorrhoeae TMA (NAAT) Urine Culture (Culture Urine) Vaginosis Vaginitis Panel (BV, CV/TV) What to do next Instructions From Your Doctor Discharge Orders Scheduled Follow-Up Appointments Friday 12:30 PM EST ?? With: Chilango Willson Where: [facility] 2022 2:00 PM EST ?? With: Manish Dunn Where: [facility] 2022 4:20 PM EST ?? With: Where: [facility] [address] [place] [address]- Friday 10:40 AM EST ?? With: Marcio Lombardo DO Where: [facility] [address] [place] [address]- Friday 4:00 PM EST ?? With: Baltazar CADE, Judy Becerra Where: [facility] [address] [place] [address]- You Need to Schedule the Following Appointments Follow Up with??[facility] When?? Why: 02/21 at 4:20pm Where: [address] [place] [address]- Discharge Medications DODIE ROMO :1990 Visit Date:02/13/2022 Medications: Please continue your medications until treatment [...] 1 tab(s) Oral Twice a day Unchanged Folic Acid (folic acid 0.4 mg [...] all test resultswith your provider. Complete Urinalysis (02/13/2022) ???Appear/Color, Urine - YELLOW???Specific Darwin, Urine - 1.026???pH, Urine - 7.0???Albumin, Urine - TRACE???Glucose, Urine - NEGATIVE???Ketones, Urine - NEGATIVE???Bilirubin, Urine - NEGATIVE???Hemoglobin, Urine - NEGATIVE???Nitrite, Urine - NEGATIVE???Leukocyte, Urine - NEGATIVE???Urobilinogen - 2 mg/dL???WBC's, Urine - 1 /HPF???RBC's, Urine - 2 /HPF???Squamous Epith - 1 /HPF???Mucus - SLIGHT Allergies [...] Educational Leaflet Providered with your Discharge Instructions. Kick Counts?? Adapting to : Third Trimester?? Valuables and Belongings I fully understand and agree that [facility] accepts no responsibility for all my personal [...] Status?? Pulmonary Rehab Discharge Status?? Respiratory Rate: 17 br/min ? Common Emergency Awareness Tips IS [...] are strongly encouraged to quit. Please call [facility] [employer] [facility] at [phone] or [phone]) or log in to [email or web address] for referrals to smoking cessation programs. ?? The National Suicide Prevention Hotline is available 02/09 if you or someone you know needs to find a reason to keep living. By calling 2-541-191-L[employer] (6005) you'll be connected to a skilled, trained counselor at a crisis center in your area. INPATIENT DISCHARGE INSTRUCTIONS SIGNATURE PAGE DEMETRIUSDODIE GOLDBERG Location:[facility] Registration Date and Time:02/13/2022 13:19 EST Primary Care Physician: Chepe CADE, Rebecca, I DODIE ROMO, have received the above patient education materials/instructions and have verbalized understanding. If ambulance or transport services are being used I further acknowledge beinggiven a choice of service. ?? If you need to contact me, please call me at this number: . Patient/Vp Public Relations Name: Patient/Vp Public Relations Signature: Relationship to Patient: Witness Name/Signature: Date: * Clover Jarrell V: PERFORM Event Display: Patient Education Leaflets Authored Date: [id number] Kick Counts ?? 87287 Kick Counts It???s normal to worry about your baby???s health. One way you can know??your baby???s doing well is to record the baby???s movements once a day. This is called a kick count. Remember to take your kick count records to all your appointments with your healthcare provider. How to count kicks Time how long it takes you to feel 10 kicks, flutters, swishes, or rolls. Ideally, you want to feelat least 10 movements in 2 hours. You will likely feel 10 movements in less time than that. Starting at 28 weeks, count your baby's movements daily. Follow your healthcare provider's instructions for kick counting. Here are tips for counting kicks: ??? Choose a time when the baby is active,such as after a meal.? Sit comfortably or [...] call your healthcare provider Call your healthcare provider?? right away??if: ??? You do a couple sets of kick counts during the day and your baby moves fewer than 10??times in??2??hours. ??? Your baby moves much less often than on the??days before. ??? You haven't felt your baby move all day. ?? Last Reviewed Date: 2022 ?? [employer]. All rights reserved. This information is not intended as a substitute for professional medical care. Always follow your healthcare professional's instructions. ?? * Clover Jarrell V: PERFORM Event Display: Patient Education Leaflets Authored Date: [id number] Adapting to : Third Trimester ?? 116[address] Adapting to : Third Trimester Although common during , some discomforts may seem worse in the final weeks. Simple lifestyle changes can help. Take care of yourself. And ask your partner to help out with small tasks. Limiting leg problems Ways to combat leg issues: ??? Wear support hose all day. ??? Don't wear snug shoes or clothes thatbind, such as tight pants and socks with elastic tops. ??? Sit with your feet and legs raised often. ?? Caring for your breasts Tips to follow include: ??? Wash with plain water. Don't use harsh soaps or rubbing alcohol. They may cause dryness. ??? Wear a nursing bra for extra support. It can also hide any leaks from your nipples. ?? Controlling hemorrhoids Ways to prevent hemorrhoids include: ??? Eat foods that are high in fiber. Also exercise and drink enough fluids. This will reduce constipation and hemorrhoids. ??? Sleep and nap on your side. This limits pressure on the veins??of your rectum. ??? Try not to stand or sit for long periods. ?? Controlling back pain As your body changes during , your back must work in new ways. Back pain has many causes. Physical changes in your body can strain your back and its supporting muscles. Also hormones increase during . This can affect how??your muscles and joints work together. All of these changescan lead to pain. Pain may be felt in the upper or lower back. Pain is also common in the pelvis. Some womenhave sciatica. This is pain caused by pressure on the sciatic nerve running down the back of the leg. Ice or heat may help. Your provider may advise massage therapy or a chiropractor. Sleep on your left side with a pillow between your knees. Use a brace or support device. Ask your provider for speci fic tips and exercises to help control your back pain. ?? Tips to help you rest Good rest and sleep will help you feel better. Here are some ideas: ??? Ask your partner to massageyour shoulders, neck, or back. ??? Limit the errands you do each day. ??? Lie down in the afternoonor after work for a few minutes. ??? Take a warm bath before you go to sleep. ??? Drink warm milk or teas without caffeine. ??? Don't drink coffee, black tea, and cola. ?? Stopping heartburn ??? Don't eat spicy, greasy, fried,??or acidic foods. ??? Eat small amounts more often. Eat slowly. ??? Wait 2 hours after eating before lying down. ??? Sleep with your upper body raised 6 inches. ?? Managing mood swings Ways to manage mood swings include: ??? Know that mood changes are normal. ??? Exercise often, but get plenty of rest. ??? Address any concerns and limit stress. Talking to your partner, other women,or your healthcare provider may help. ?? Dealing with urinary frequency Tips to deal with having to urinate often include: ??? Drink plenty of water all day. But if you drink a lot in the evening, you may have to get up more in the night. ??? Limit coffee, black tea, andcola. ?? How daily issues affect your health Many things in your daily life impact your health. This can include transportation, money problems,housing, access to food, and child development director. If you can???t get to medical appointments, [...] help. ?? Last Reviewed Date: 2020 ?? 8318-0829 [employer]. All rights reserved. This information is not intended as a substitute for professional medical care. Always follow your healthcare professional's instructions. ?? Patient Care team information Care Team Personnel Name: Rebecca Mo MD Position: S Resident Member Role: PCP Address: Address: [address] [place] [address]- Care Team Related Persons Name: Monroe Romo Address: [address] [address] Name: MARIFER ROMO Address: [address] [address]
--- OUTSIDE RECORDS SUMMARY | 2023-07-18 10:29 | XMS_ITS | Continuity of Care Document ---
Author Organization [facility] Address [address] [place] [address]- Care Team Providers Care Telesales Representative Name Role Phone Chepe CADE, Rebecca Primary Care Physician Encounter [facility] Date(s): 02/12/22 - 03/14/[address] [address] Allergies, Adverse Reactions, Alerts Substance [...] Refills, Maintenance, 02/08/22 8:37:00 EST, ER Capsule, [facility] #[id number], Partial fill upon patient request if the prescription is for a schedule II opioid d... Start Date: 02/08/22 Status: Ordered Diflucan 150 mg oral tablet 1 tablet = 150 mg, By Mouth, Once, # 1 tablet, 0 Refills, Soft Stop, 02/15/22 10:22:00 EST, Tablet,[facility] #[id number], Partial fill upon patient request if the prescription is for a schedule II opioid drug., 160, cm, 02/08/22 8:11:00 EST, He... Start Date: 02/15/22 Status: Ordered famotidine 20 mg oral tablet 20 mg, 1, tablet, By Mouth, 2 times a day, # 180 tablet, Refills 0, Tot. Refills 0, Maintenance, 02/08/22 8:37:00 EST, Route to Pharmacy Electronically, [facility] #[id number], Partial fill uponpatient request if the prescription is for a schedu... Start Date: 02/08/22 Status: Ordered folic acid 0.4 mg oral tablet 1 tablet = 0.4 mg, By Mouth, Daily, # 100 tablet, 5 Refills, Maintenance, 08/21/21 9:43:00 EDT, Tablet, [facility] #[id number], Partial fill upon patient request if the [...] 1 Refills, Maintenance, 11/19/21 10:20:00 EDT, Ointment, [facility] #[id number], Partial fill upon patient request if the prescriptionis for a schedule II opioid drug., 1 application To... Start Date: 11/19/21 Status: Ordered lisdexamfetamine 30 mg oral capsule 1 capsule = 30 mg, By Mouth, Daily in AM, Dx F90.0, # 30 capsule, 0 Refills, Maintenance, 06/09/20 9:11:00 EDT, Capsule, [facility] #[id number], Partial fill upon patient request if the prescription is for a schedule II opioid drug., 1 capsule By... Start Date: 06/09/20 Stop Date: 07/09/20 Status: Ordered Multivitamins with FA 0.8 mg oral tablet 1 tablet, By Mouth, Daily, for 90 days, # 90 tablet, 2 Refills, Hard Stop 05/02/23 13:36:00 EDT, 08/05/22 13:36:00 EDT, Tablet, [facility] #[id number], Partial fill upon patient request if the prescription is for a schedule II opioid drug., 1 tab... Start Date: 08/05/22 Stop Date: 05/02/23 Status: Ordered Multivitamins with FA 0.8 mg oral tablet 1 tablet, By Mouth, Daily, for 90 days, # 90 tablet, 2 Refills, Hard Stop 08/05/22 13:36:00 EDT, 11/08/21 13:36:00 EDT, Tablet, [facility] #[id number], Partial fill upon patient request if the [...] Replace Required Details, Route to Pharmacy Electronically, [id number]... Start Date: 06/25/18 Status: Ordered Prometrium 200 mg oral capsule 1 capsule = 200 mg, Vaginally, Daily at bedtime, # 60 capsule, 3 Refills, Maintenance, 02/08/22 8:36:00 EST, [facility] #[id number], Partial fill upon patient request if the [...] Team Personnel Name: Rebecca Mo MD Position: [facility] Resident Member Role: PCP Address: Address: [address] [place] [address]- Care Team Related Persons Name: Monroe Mcgarry Address: [place] [address] Name: MARIFER MCGARRY Address: [place] [address]
--- OUTSIDE RECORDS SUMMARY | 2023-07-18 10:29 | XMS_ITS | Continuity of Care Document ---
Author Organization [facility] Address [address] [place] [address]- Care Team Providers Care Plaster Mixer Name Role Phone Chepe CADE, Rebecca Primary Care Physician Encounter [facility] Date(s): 03/13/22 - 04/12/22 [facility] [address] [address] Allergies, Adverse Reactions, Alerts [...] 03/31/22 6:08:00 EST, Route to Pharmacy Electronically, [facility]#[id number], Partial fill upon patient request if the pr... Start Date: 03/31/22 Status: Ordered ProAir HFA 90 mcg/inh inhalation aerosol with adapter See Instructions, PRN, 2-4 puffs Inhalation 4 times a day 30 days, # 1 each, Refills 11, Tot. Refills 11, Maintenance, 06/25/18 15:30:45 EDT, Instructions Replace Required Details, Route to Pharmacy Electronically, [id number]... Start Date: 06/25/18 Status: Ordered Senna 8.6 mg oral tablet 17.2 mg, 2, tablet, By Mouth, Daily at bedtime, # 50 tablet, Refills 0, Tot. Refills 0, Maintenance, 03/31/22 6:17:00 EST, Route to Pharmacy Electronically, [facility] #[id number], Partial fill upon patient request if the prescription is for a sc... Start Date: 03/31/22 Status: Ordered simethicone 80 mg oral tablet, chewable 160 mg, 2, tablet, Chew, 3 times a day, PRN, # 48 tablet, Refills 0, Tot. Refills 0, Maintenance, Gas, 03/29/22 8:34:00 EST, Route to Pharmacy Electronically, [facility] #[id number], Partial fill upon patient request if the prescription is for a... Start Date: 03/29/22 Status: Ordered Tylenol 325 mg oral capsule 2 capsule = 650 mg, By Mouth, Every 4 hours, PRN as needed for pain, # 50 capsule, 0 Refills, Maintenance, 03/29/22 8:34:00 EST, Capsule, [facility] #[id number], Partial fill upon patient request if the [...] Confirmed Active Severe obesity Confirmed Active 29/04/2007 [facility] admission #1: acute asthma attack Social History Social History Type Response Smoking Status Never (less than 100 in lifetime);Never; Exposure to Secondhand Smoke: Yes; Tobacco use times per day: mother smokes; entered on: 09/14/21 Sex Patient Care team information Care Team Personnel Name: Rebecca Mo MD Position: [facility] Resident Member Role: PCP Address: Address: [address] [place] [address] Care Team Related Persons Name: Monroe Mcgarry Address: [place] [address] Name: MARIFER MCGARRY Address: [place] [address] Name: REMA MCGARRY Address: Address: [address]
--- OUTSIDE RECORDS SUMMARY | 2023-07-18 10:29 | XMS_ITS | Continuity of Care Document ---
Author Organization [facility] Address [address] [place] [address]- Care Team Providers Care Software Sales Executive Name Role Phone Chepe CADE, Rebecca Primary Care Physician [phone] Encounter [facility] Date(s): 09/13/21 - 10/13/21 [facility] [address] [place], [place] [address] Allergies, Adverse Reactions, Alerts Substance [...] 5 Refills, Maintenance, 08/21/21 9:43:00 EDT, Tablet, [facility] #[id number], Partial fill upon patient request if the [...] 0 Refills, Maintenance, 06/09/20 9:11:00 EDT, Capsule, [facility][id number], Partial fill upon patient request if the [...] Replace Required Details, Route to Pharmacy Electronically, [id number]... Start Date: 06/25/18 Status: Ordered traZODone 50 mg oral tablet 50 mg, 1, tablet, By Mouth, Daily at bedtime, PRN, # 30 tablet, Refills 1, Tot. Refills 1, Maintenance, Sleep, 06/09/20 9:11:00 EDT, Route to Pharmacy Electronically, [facility] #[id number], Partial fill upon patient request if the prescription i... Start Date: 06/09/20 Stop Date: 08/08/20 Status: Ordered Problem List Condition Effective Dates Status Health Status Inform ant ADD - Attention deficit diso rder with hyperactivity(Confirmed) Active Allergic rhinitis due to pollen(Confirmed)(Improving) Active Asthma, mild intermittent, precipitated by colds, allergies(Confirmed)(Stable) 1 Active Mood disorder(Confirmed) Active Obesity(Confirmed) Active 29/04/2007 [facility] admission #1: acute asthma attack Social History Social History Type Response Smoking Status Never (less than 100 in lifetime);Never; Exposure to Secondhand Smoke: Yes; Tobacco use times per day: mother smokes; entered on: 09/14/21 Sex Care Team Personnel Name: Rebecca Mo MD Address: [address] [place] [phone]
--- OUTSIDE RECORDS SUMMARY | 2023-07-18 10:29 | XMS_ITS | Continuity of Care Document ---
Author Organization [facility] n's [facility] Address [address] [place] [id number]- Care Team Providers Care Ground Crewman Aircraft Support Name Role Phone Chepe CADE, Rebecca Primary Care Physician Encounter [facility] Date(s): 02/12/22 - 03/14/[address] [address] Allergies, Adverse Reactions, Alerts Substance Reaction [...] Refills, Maintenance, 02/08/22 8:37:00 EST, ER Capsule, [facility] #[id number], Partial fill upon patient request if the prescription is for a schedule II opioid d... Start Date: 02/08/22 Status: Ordered Diflucan 150 mg oral tablet 1 tablet = 150 mg, By Mouth, Once, # 1 tablet, 0 Refills, Soft Stop, 02/15/22 10:22:00 EST, Tablet,[facility] #[id number], Partial fill upon patient request if the prescription is for a schedule II opioid drug., 160, cm, 02/08/22 8:11:00 EST, He... Start Date: 02/15/22 Status: Ordered famotidine 20 mg oral tablet 20 mg, 1, tablet, By Mouth, 2 times a day, # 180 tablet, Refills 0, Tot. Refills 0, Maintenance, 02/08/22 8:37:00 EST, Route to Pharmacy Electronically, [facility] #[id number], Partial fill uponpatient request if the prescription is for a schedu... Start Date: 02/08/22 Status: Ordered folic acid 0.4 mg oral tablet 1 tablet = 0.4 mg, By Mouth, Daily, # 100 tablet, 5 Refills, Maintenance, 08/21/21 9:43:00 EDT, Tablet, [facility] #[id number], Partial fill upon patient request if the [...] 1 Refills, Maintenance, 11/19/21 10:20:00 EDT, Ointment, [facility] #[id number], Partial fill upon patient request if the prescriptionis for a schedule II opioid drug., 1 application To... Start Date: 11/19/21 Status: Ordered lisdexamfetamine 30 mg oral capsule 1 capsule = 30 mg, By Mouth, Daily in AM, Dx F90.0, # 30 capsule, 0 Refills, Maintenance, 06/09/20 9:11:00 EDT, Capsule, [facility] #[id number], Partial fill upon patient request if the prescription is for a schedule II opioid drug., 1 capsule By... Start Date: 06/09/20 Stop Date: 07/09/20 Status: Ordered Multivitamins with FA 0.8 mg oral tablet 1 tablet, By Mouth, Daily, for 90 days, # 90 tablet, 2 Refills, Hard Stop 05/02/23 13:36:00 EDT, 08/05/22 13:36:00 EDT, Tablet, [facility] #[id number], Partial fill upon patient request if the prescription is for a schedule II opioid drug., 1 tab... Start Date: 08/05/22 Stop Date: 05/02/23 Status: Ordered Multivitamins with FA 0.8 mg oral tablet 1 tablet, By Mouth, Daily, for 90 days, # 90 tablet, 2 Refills, Hard Stop 08/05/22 13:36:00 EDT, 11/08/21 13:36:00 EDT, Tablet, [facility] #[id number], Partial fill upon patient request if the [...] Replace Required Details, Route to Pharmacy Electronically, [id number]... Start Date: 06/25/18 Status: Ordered Prometrium 200 mg oral capsule 1 capsule = 200 mg, Vaginally, Daily at bedtime, # 60 capsule, 3 Refills, Maintenance, 02/08/22 8:36:00 EST, [facility] #[id number], Partial fill upon patient request if the [...] Team Personnel Name: Rebecca Mo MD Position: [facility] Resident Member Role: PCP Address: Address: [address] [place] [address]- Care Team Related Persons Name: Monroe Mcgarry Address: [place] [address] Name: MARIFER MCGARRY Address: [place] [address]
--- OUTSIDE RECORDS SUMMARY | 2023-07-18 10:29 | XMS_ITS | Continuity of Care Document ---
Author Organization [facility] Address [address] [place] [address]- Care Team Providers Care Commercial Truck Driver Name Role Phone Rebecca Mo MD Primary Care Physician Encounter [facility] Date(s): 01/07/22 - 02/06/22 [facility] [address] [place] [phone]- Allergies, Adverse Reactions, Alerts Substance Reaction Severity [...] Refills, Maintenance, 10/16/21 12:30:00 EDT, [facility][id number], Partial fill upon patient request if the prescription is for a schedule II opioid... Start Date: 10/16/21 Status: Ordered folic acid 0.4 mg oral tablet 1 tablet = 0.4 mg, By Mouth, Daily, # 100 tablet, 5 Refills, Maintenance, 08/21/21 9:43:00 EDT, Tablet, [facility] #[id number], Partial fill upon patient request if the [...] 1 Refills, Maintenance, 11/19/21 10:20:00 EDT, Ointment, [facility] #[id number], Partial fill upon patient request if the prescriptionis for a schedule II opioid drug., 1 application To... Start Date: 11/19/21 Status: Ordered lisdexamfetamine 30 mg oral capsule 1 capsule = 30 mg, By Mouth, Daily in AM, Dx F90.0, # 30 capsule, 0 Refills, Maintenance, 06/09/20 9:11:00 EDT, Capsule, [facility] #[id number], Partial fill upon patient request if the prescription is for a schedule II opioid drug., 1 capsule By... Start Date: 06/09/20 Stop Date: 07/09/20 Status: Ordered Multivitamins with FA 0.8 mg oral tablet 1 tablet, By Mouth, Daily, for 90 days, # 90 tablet, 2 Refills, Hard Stop 08/05/22 13:36:00 EDT, 11/08/21 13:36:00 EDT, Tablet, [facility] #[id number], Partial fill upon patient request if the [...] Replace Required Details, Route to Pharmacy Electronically, [id number]... Start Date: 06/25/18 Status: Ordered Prometrium 200 mg oral capsule 1 capsule = 200 mg, Vaginally, Daily at bedtime, # 60 capsule, 3 Refills, Maintenance, 12/11/21 11:42:00 EDT, [facility] #[id number], Partial fill upon patient request if the [...] Active Severe obesity Confirmed Active 29/04/2007 [facility] admission #1: acute asthma attack Social History Social History Type Response Smoking Status Never (less than 100 in lifetime);Never; Exposure to Secondhand Smoke: Yes; Tobacco use times per day: mother smokes; entered on: 09/14/21 Sex Patient Care team information Care Team Personnel Name: Rebecca Mo MD Position: [facility] Resident Member Role: PCP Address: Address: [address] [place] [address]- Care Team Related Persons Name: Monroe Mcgarry Address: [place] [address] Name: MARIFER MCGARRY Address: [place] [address]
--- OUTSIDE RECORDS SUMMARY | 2023-07-18 10:29 | XMS_ITS | Continuity of Care Document ---
Author Organization [facility] Address [address] [place] [address]- Care Team Providers Care Manager Urgent Care Name Role Phone Bertha Montes MD Primary Care Physician Encounter [facility] Date(s): 11/12/22 - 12/12/[address] [address]- Allergies, Adverse Reactions, Alerts Substance Reaction Severity [...] 0 Refills, Soft Stop, 12/11/22 20:38:00 EDT, [facility] #[id number], Partial fill upon patient request if the prescription is for a schedule II opioid drug., 160, cm, 12/10/22 14:0... Start Date: 12/11/22 Status: Ordered Diflucan 150 mg oral tablet 1 tablet = 150 mg, By Mouth, Once, # 1 tablet, 0 Refills, Soft Stop, 10/25/22 11:47:00 EDT, Tablet,[facility] Partial fill upon patient request if the prescription is for a scheduleII opioid drug., 160, cm, 10/25/22 10:08:00 EDT, He... Start Date: 10/25/22 Status: Ordered hydrOXYzine hydrochloride 25 mg oral tablet 1 capsule, By Mouth, Once, PRN Agitation, # 30 capsule, 3 Refills, Soft Stop, 12/10/22 14:50:00 EDT, Capsule, [facility] #[id number], Partial fill upon patient request if the prescription is fora schedule II opioid drug., 160, cm, 12/10/22 14:07... Start Date: 12/10/22 Status: Ordered metronidazole topical 0.75% gel with applicator 1 application, Vaginally, Daily at bedtime, # 70 Gm, 0 Refills, Soft Stop, 10/25/22 11:45:00 EDT, Gel, [facility] Partial fill upon patient request if [...] 10/27/23 11:50:00 EDT, 10/25/22 11:49:00 EDT, Tablet, [facility] Partial... Start Date: 10/25/22 Stop Date: 10/27/23 Status: Ordered Pen [place], 32 G x 4 mm BD Ultra [...] Refills, Maintenance, 10/16/22 13:40:00 EDT, EC Tablet, [facility] #[id number], Partial fill upon patient request if the [...] Replace Required Details, Route to Pharmacy Electronically, [id number]... Start Date: 10/25/22 Status: Ordered Senna 8.6 mg oral tablet 17.2 mg, 2, tablet, By Mouth, Daily at bedtime, # 50 tablet, Refills 0, Tot. Refills 0, Maintenance, 03/31/22 6:17:00 EST, Route to Pharmacy Electronically, [facility] #[id number], Partial fill upon patient request if the prescription is for a sc... Start Date: 03/31/22 Status: Ordered sertraline 50 mg oral tablet 1 tablet = 50 mg, By Mouth, Daily, # 90 tablet, 1 Refills, Maintenance, 12/10/22 14:51:00 EDT, Tablet, [facility] #[id number], Partial fill upon patient request if the prescription is for a schedule II opioid drug., 160, cm, 12/10/22 14:07:00 EDT... Start Date: 12/10/22 Status: Ordered Tylenol 325 mg oral capsule 2 capsule = 650 mg, By Mouth, Every 4 hours, PRN as needed for pain, # 50 capsule, 0 Refills, Maintenance, 03/29/22 8:34:00 EST, Capsule, [facility] #[id number], Partial fill upon patient request if the prescription is for a schedule II opioid dr... Start Date: 03/29/22 Status: Ordered Victoza 18 mg/3 mL subcutaneous solution = 1.8 mg, Subcutaneous Infusion, Daily, # 3 mL, 6 Refills, Maintenance, 12/11/22 20:42:00 EDT, [facility] #[id number], Partial fill upon patient request if the [...] Confirmed Active Severe obesity Confirmed Active 29/04/2007 [facility] admission #1: acute asthma attack Social History Social History Type Response Smoking Status Never (less than 100 in lifetime);Never; Exposure to Secondhand Smoke: Yes; Tobacco use times per day: mother smokes; entered on: 09/14/21 Sex Patient Care team information Care Team Personnel Name: Bertha Montes MD Position: [facility] Resident Member Role: PCP Address: Address: [address] [place] [address]- Care Team Related Persons Name: Monroe Mcgarry Address: home [address] [place] [address] Name: MARIFER MCGARRY Address: home [address] [place] [id number] Name: REMA MCGARRY Address: Address: [address]
--- OUTSIDE RECORDS SUMMARY | 2023-07-18 10:29 | XMS_ITS | Continuity of Care Document ---
Author Organization [facility] Address [address] [place] [address]- Care Team Providers Care Machine Precision Etcher Name Role Phone Chepe CADE, Rebecca Primary Care Physician [place] [facility] [place](s): 03/05/22 - 04/04/22 [facility] [address] [address] Allergies, Adverse Reactions, Alerts Substance Reaction [...] 03/31/22 6:08:00 EST, Route to Pharmacy Electronically, [facility]#[id number], Partial fill upon patient request if the pr... Start Date: 03/31/22 Status: Ordered ProAir HFA 90 mcg/inh inhalation aerosol with adapter See Instructions, PRN, 2-4 puffs Inhalation 4 times a day 30 days, # 1 each, Refills 11, Tot. Refills 11, Maintenance, 06/25/18 15:30:45 EDT, Instructions Replace Required Details, Route to Pharmacy Electronically, [id number]... Start Date: 06/25/18 Status: Ordered Senna 8.6 mg oral tablet 17.2 mg, 2, tablet, By Mouth, Daily at bedtime, # 50 tablet, Refills 0, Tot. Refills 0, Maintenance, 03/31/22 6:17:00 EST, Route to Pharmacy Electronically, [facility] #[id number], Partial fill upon patient request if the prescription is for a sc... Start Date: 03/31/22 Status: Ordered simethicone 80 mg oral tablet, chewable 160 mg, 2, tablet, Chew, 3 times a day, PRN, # 48 tablet, Refills 0, Tot. Refills 0, Maintenance, Gas, 03/29/22 8:34:00 EST, Route to Pharmacy Electronically, [facility] #[id number], Partial fill upon patient request if the prescription is for a... Start Date: 03/29/22 Status: Ordered Tylenol 325 mg oral capsule 2 capsule = 650 mg, By Mouth, Every 4 hours, PRN as needed for pain, # 50 capsule, 0 Refills, Maintenance, 03/29/22 8:34:00 EST, Capsule, [facility] #[id number], Partial fill upon patient request if the [...] Confirmed Active Severe obesity Confirmed Active 29/04/2007 [facility] admission #1: acute asthma attack Social History Social History Type Response Smoking Status Never (less than 100 in lifetime);Never; Exposure to Secondhand Smoke: Yes; Tobacco use times per day: mother smokes; entered on: 09/14/21 Sex Patient Care team information Care Team Personnel Name: Rebecca Mo MD Position: [facility] Resident Member Role: PCP Address: Address: [address] [place] [address] Care Team Related Persons Name: Monroe Mcgarry Address: [place] [address] Name: MARIFER MCGARRY Address: [place] [address] Name: REMA MCGARRY Address: Address: [address]
--- OUTSIDE RECORDS SUMMARY | 2023-07-18 10:30 | XMS_ITS | Continuity of Care Document ---
Author Organization [facility] Address [address] [place] [address] [address] [place] [address]- Care Team Providers Care Bsa Officer Name Role Phone Bertha Montes MD Primary Care Physician Encounter [facility] Date(s): 09/10/22 - 11/10/[address] [place] [address]- Attending Physician: Shabnam Gallardo RD Referring Physician: Bertha Montes MD Allergies, Adverse [...] 0 Refills, Soft Stop, 10/07/22 17:47:00 EDT, [facility] Partial fill upon patient request if the prescription is fora schedule II opioid drug., 160, cm, 10/07/22 15:43... Start Date: 10/07/22 Status: Ordered Diflucan 150 mg oral tablet 1 tablet = 150 mg, By Mouth, Once, # 1 tablet, 0 Refills, Soft Stop, 10/25/22 11:47:00 EDT, Tablet,[facility] Partial fill upon patient request if the prescription is for a scheduleII opioid drug., 160, cm, 10/25/22 10:08:00 EDT, He... Start Date: 10/25/22 Status: Ordered hydrOXYzine hydrochloride 25 mg oral tablet 1 capsule, By Mouth, Once, PRN Agitation, # 15 capsule, 0 Refills, Soft Stop, 10/07/22 18:09:00 EDT, Capsule, [facility] Partial fill upon patient request if the prescription is for a schedule II opioid drug., 160, cm, 10/07/22 15:43:... Start Date: 10/07/22 Status: Ordered metronidazole topical 0.75% gel with applicator 1 application, Vaginally, Daily at bedtime, # 70 Gm, 0 Refills, Soft Stop, 10/25/22 11:45:00 EDT, Gel, [facility] Partial fill upon patient request [...] 10/27/23 11:50:00 EDT, 10/25/22 11:49:00 EDT, Tablet, [facility], Partial... Start Date: 10/25/22 Stop Date: 10/27/23 Status: Ordered Pen [place], 32 G x 4 mm BD Ultra [...] Refills, Maintenance, 10/16/22 13:40:00 EDT, EC Tablet, [facility] #[id number], Partial fill upon patient request if the [...] Replace Required Details, Route to Pharmacy Electronically, [id number]... Start Date: 10/25/22 Status: Ordered Senna 8.6 mg oral tablet 17.2 mg, 2, tablet, By Mouth, Daily at bedtime, # 50 tablet, Refills 0, Tot. Refills 0, Maintenance, 03/31/22 6:17:00 EST, Route to Pharmacy Electronically, [facility] #[id number], Partial fill upon patient request if the [...] 0 Refills, Maintenance, 03/29/22 8:34:00 EST, Capsule, [facility] #[id number], Partial fill upon patient request if the prescription is for a schedule II opioid drGary Start Date: 03/29/22 Status: Ordered Victoza 18 mg/3 mL subcutaneous solution = 1.2 mg, Subcutaneous Infusion, Daily, # 3 mL, 6 Refills, Maintenance, 10/25/22 11:42:00 EDT, [facility] Partial fill upon patient request if [...] Team Personnel Name: Bertha Montes MD Position: [facility] Resident Member Role: PCP Address: Address: [address] [place] [address]- Care Team Related Persons Name: Monroe Mcgarry Address: home [address] [place] [address] Name: MARIFER MCGARRY Address: [place] [address] Name: REMA MCGARRY Address: Address: [address]
== END 2023-07-16 13:47 | disposition home or self-care (01) ==
LOC: HO.HBS 11:10
PROVIDERS: Visit Provider Surgery
DX: E66.01 Morbid (severe) obesity due to excess calories (principal); Z68.42 Body mass index [BMI] 45.0-49.9, adult
CPT/HCPCS: 99214

== ENCOUNTER → 2023-07-16 11:10 | Outpatient (BNVA) | payer OTHER, SELFPAY | PROVIDERS: Visit Provider Surgery ==

== ENCOUNTER 2023-07-30 08:55 | Outpatient (REF) | payer OTHER, SELFPAY ==
--- NOTE | ~2023-07-30 | US_ITS ---
EXAMINATION: US COMPLETE ABDOMEN WITH LIVER ELASTOGRAPHY CLINICAL INFORMATION: Morbid obesity. COMPARISON: None available. TECHNIQUE: Real-time imaging of the abdominal viscera. Noninvasive ultrasound liver fibrosis assessment is performed using Imelda ElastPQ point quantification shear wave elastography (2D-SWE) with a C5-2 MHz transducer. Multiple elastography samples are obtained. FINDINGS: PANCREAS: Normal. The visualized pancreatic head and body are normal in appearance. The remainder of the pancreas is obscured from visualization by the overlying bowel gas. ABDOMINAL AORTA: The proximal, middle, and distal aortic segments are normal in caliber. INFERIOR VENA CAVA: Visualized portions are normal. LIVER: There is normal hepatic contour and echogenicity. No focal lesion or intrahepatic biliary duct dilatation. The right lobe measures 17.7 cm in length. The left lobe measures 10.2 cm in length. Portal flow is towards the liver (hepatopetal). Shear wave liver elastography median stiffness is 1.28 m/s (reference: normal median stiffness is 1.3 m/s or less). IQR/median stiffness to assess sampling precision is 0.09 (reference: good quality data set is IQR/median stiffness of 0.15 or less). GALLBLADDER: There is mild cholelithiasis. The gallbladder is physiologically distended without evidence of polyps, wall thickening or pericholecystic fluid. COMMON BILE DUCT: Normal in caliber measuring 0.4 cm in diameter. RIGHT KIDNEY: Normal. No hydronephrosis. No renal calculi or focal parenchymal lesions. The kidney measures 10.2 cm in maximum dimension. LEFT KIDNEY: Normal. No hydronephrosis. No renal calculi or focal parenchymal lesions. The kidney measures 9.3 cm in maximum dimension. SPLEEN: Normal. The spleen measures 8.6 cm in maximum dimension. FREE FLUID: None. US/US abdomen comp w elastography IMPRESSION: 1. There is mild hepatomegaly. 2. Liver elastography: Measurements are consistent with a high probability of normal liver stiffness. 3. There is cholelithiasis. REFERENCE: Society of Radiologists in Ultrasound Liver Stiffness Thresholds (2020): LIVER STIFFNESS THRESHOLDS: *Liver Stiffness equal or less than 1.3 m/s: High probability of being normal. *Liver Stiffness less than 1.7 m/s: In the absence of other known clinical signs, rules out compensated advanced chronic liver disease. *Liver Stiffness 1.7-2.1 m/s: Suggestive of compensated advanced chronic liver disease but need further test for confirmation. *Liver Stiffness over 2.1 m/s: Rules in compensated advanced chronic liver disease. *Liver Stiffness over 2.4 m/s: Suggestive of clinically significant portal hypertension. QUALITY OF DATA SET: *IQR/Median value equal or less than 0.15 implies a quality data set. *IQR/Median value over 0.15 implies a poor quality data set. SIGNIFICANT CHANGE FROM PRIOR EXAM: Significant change if liver stiffness measurement is 10% or greater from prior exam. OTHER CONSIDERATIONS: The stage of liver fibrosis may be overestimated in the setting of acute hepatitis, liver inflammation, elevated liver function tests, hepatic vascular congestion, obstructive cholestasis, non-fasting state, and infiltrative diseases such as amyloidosis and lymphoma. In some patients with NAFLD, the liver stiffness thresholds for compensated advanced chronic liver disease may be lower. In causes other than viral hepatitis and NAFLD, liver stiffness thresholds are not well established.
--- NOTE | ~2023-07-30 | XR_ITS ---
EXAMINATION: XR CHEST CLINICAL INFORMATION: Morbid obesity due to excess calories. Patient states preoperative for surgery. COMPARISON: November 13, 2020. TECHNIQUE: 2 views of the chest were obtained. FINDINGS: There is no gross pneumothorax. Lung volumes are low. Heart size is normal. No pleural effusion. No new focal consolidation to suggest pneumonia. XR/XR chest 2V IMPRESSION: No evidence of pneumonia.
--- NOTE | 2023-07-30 09:49 | ECG_ITS ---
Test Reason : E66.01 Blood Pressure : / mmHG Vent. Rate : 068 BPM Atrial Rate : 068 BPM P-R Int : 166 ms QRS Dur : 080 ms QT Int : 360 ms P-R-T Axes : 012 044 034 degrees QTc Int : 382 ms Normal sinus rhythm Normal ECG When compared with ECG of 13-NOV-2020 12:44, No significant change was found Referred By: Jaime Shell Electronically Signed By:Leonardo James
[2023-07-30 09:51] LABS: MANUAL DIFF FLAG NO
[2023-07-30 10:11] LABS: Basophils Percent Auto 0.2 % (0-2); Eosinophils Absolute Auto 0.1 X10*3/uL (0.0-0.4); Eosinophils Percent Auto 2.6 % (0-4); Hematocrit 38.1 % (37.0-47.0); Hemoglobin 12.4 g/dl (12.0-16.0); Imm Gran Abs Auto 0.01 X10*3/uL (0.00-0.03); Imm Gran Pct Auto 0.2 % (0.0-0.4); Lymphocytes Absolute Auto 1.9 X10*3/uL (1.2-4.9); Lymphocytes Percent Auto 36.5 % (20-40); Mean Corpuscular HGB Conc 32.5 g/dl (31.0-35.0); Mean Corpuscular Hemoglobin 31.9 pg (27.0-33.0); Mean Corpuscular Volume 97.9 fL (80.0-98.0); Mean Platelet Volume 10.3 fL (9.4-12.3); Monocytes Absolute Auto 0.4 X10*3/uL (0.1-1.2); Monocytes Percent Auto 8.5 % (2-11); Neutrophils Absolute Auto 2.6 x10*3/uL (2.0-8.3); Platelet Count 249 X10*3/uL (160-400); Red Blood Count 3.89 X10*6/uL (4.20-5.50); Red Cell Distribution Width 12.6 % (11.0-16.0); White Blood Count 5.1 X10*3/uL (4.8-10.8)
[2023-07-30 11:01] LABS: Estimated Average Glucose 100 mg/dL; Hemoglobin A1c % 5.1 % (<6.0)
[2023-07-30 11:12] LABS: Alanine Aminotransferase 15 U/L (0-31); Albumin Level 3.8 g/dL (3.5-5.0); Alkaline Phosphatase 84 U/L (39-117); Anion Gap 8 (12-20); Aspartate Amino Transferase 19 U/L (5-31); Bilirubin Total 0.3 mg/dL (0.0-1.0); Blood Urea Nitrogen 15 mg/dL (9-16); C Reactive Protein 0.46 mg/dL (< or = 0.50); Calcium 8.9 mg/dL (8.4-10.2); Carbon Dioxide 29 mmol/L (22-29); Chloride 107 mmol/L (96-108); Cholesterol 143 mg/dL (<200); Estimated Glomerular Filt Rate > 60; Glucose Random 96 mg/dL (60-115); HDL Cholesterol 40 mg/dL (>40); Iron 68 mcg/dL (30-160); LDL Cholesterol Calculated 96 mg/dL (<100); Percent Iron Saturation 28 % (15-50); Potassium 4.5 mmol/L (3.3-5.1); Sodium 139 mmol/L (135-145); Total Iron Binding Capacity 246 mcg/dL (228-428); Total Protein 6.9 g/dL (6.5-8.0); Triglycerides 36 mg/dL (<150); Unsaturated Iron Binding 178 ug/dL
[2023-07-30 11:32] LABS: Ferritin 79 ng/mL (10-122); Insulin 10 uU/mL (2-29); TSH reflex Free T4 0.79 uIU/mL (0.32-4.0); Vitamin D 25-OH Total 12.8 ng/mL (>30)
[2023-07-30 11:35] LABS: Folate 9.7 ng/mL (> or = 4.0); Vitamin B12 594 pg/mL (200-900)
[2023-08-02 01:58] LABS: Zinc 61 mcg/dL (60-130)
[2023-08-04 06:38] LABS: Vitamin B1 6 nmol/L (8-30)
[2023-08-04 16:14] LABS: Vitamin A 27 mcg/dL (38-98)
== END 2023-07-30 08:56 | disposition home or self-care (01) ==
LOC: HO.US 08:55
PROVIDERS: Visit Provider Surgery
DX: E66.01 Morbid (severe) obesity due to excess calories (principal); J45.909 Unspecified asthma, uncomplicated
CPT/HCPCS: 36415; 71046; 76700; 76981; 80053; 80061; 82306; 82607; 82728; 82746; 83036; 83525; 83540; 84425; 84443; 84590; 84630; 85025; 86140; 93005

== ENCOUNTER → 2023-07-30 09:49 | Outpatient (BNV) | payer OTHER, SELFPAY | PROVIDERS: Visit Provider Internal Medicine Cardiovascular Disease | DX: E66.01 Morbid (severe) obesity due to excess calories (principal) | CPT/HCPCS: 93010 ==

== ENCOUNTER 2023-08-12 13:37 | Outpatient (AMB) | payer OTHER, SELFPAY ==
--- NOTE | 2023-08-12 13:33 | MHC.WMTHER ---
Intake Intake Visit Reasons: TV BH Intake Allergies No Known Allergies Allergy (Verified 07/16/23 13:13) [facility] Medical History (Updated 08/12/23 @ 08:52 by Karen Canales RN) ADD (attention deficit disorder) Asthma Surgical History (Updated 11/13/20 @ 11:13 by Luis E Shetty Min) Hx of hand surgery Hx of breast surgery Family History (Updated 11/13/20 @ 11:14 by IVONNE Wood) Mother Hypertension Fibromyalgia Father No problems noted. Brother No problems noted. Social History (Updated 11/13/20 @ 11:14 by Luis E Shetty Min) Alcohol intake: current Alcohol intake frequency: a few times a week Patient Tobacco Use Status: Never used Tobacco Behavioral Health Assessment Weight Management Therapy Therapy Notes Details Pt is looking to have weight loss surgery to help improve her health and quality of life. She is not in therapy currently however was last year due to depression. Patient has no history of problems with drugs or alcohol per her report. No hx of inpatient psychiatric admissions. She reported a diagnosis of ADHD and Anxiety. She is currently on sertraline. Presenting Concerns Referral Source provider Reason for referral weight loss surgery evaluation Precipitating Event obesity Living Situation Current Living Situation Own At risk of losing current housing? No Satisfied with current living situation? Yes Comments Patient lives with her 1 year old child. Food/Weight/Diet Expectations of change weight loss and maintenance History/Relationship with food Pt reported very poor fullness ques, would over eat, in the past struggled with binge eating and middle of the night eating. Last binge was prior to starting weight loss medication two months ago. History/Relationship with weight Currently at her heaviest weight, has struggled with her weight for the past several years. History/Relationship with dieting Has been on weight loss medications for several weeks now, has lost 8lbs. Binge Eating Do you frequently eat large amounts of food in short periods of time, not feeling physically hungry? No Do you feel out of control when you eat a large amount of food in a short period of time? No Do you eat large amounts of food rapidly and typically alone? No Night Eating Do you wake up at least once during the night to eat? No If you wake up in the night, do you find that it is necessary to eat something in order to fall back asleep? No Do you have little or no appetite in the morning and feel very hungry in the evening, often overeating between dinner and when you go to bed? No Social History Family history and relationship Pt is single mother who lives alone. Her baby goes to daycare while she works fulltime. 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 none Education Highest grade completed associates degree Preferred learning style Auditory, Verbal, Written, Learn by doing and Visual Currently enrolled in educational program? No Interested in further educational program? 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 No Meaningful activities attends a gym for workouts, 30 min full body workout Financial Situation Describe current financial situation Comfortable Financial assistance? Food [facility] Current/Past substance abuse? No Current/Past addictive behavior concerns? No Medical and Physical Health Summary Physical exam in the last year? Yes Pain Screening Current pain? No Pain in the last few months? No Medications Is the patient compliant with medications? Yes Does the patient have Lopez Guardian in place? Not applicable Does the patient use complimentary health approaches? No Trauma/Abuse History History of trauma? No Questionnaires PHQ-9 Over the last 2 weeks, how often have you been bothered by any of the following problems? 1. Little interest or pleasure in doing things: not at all 2. Feeling down, depressed, or hopeless: not at all 3. Trouble falling or staying asleep, or sleeping too much: not at all 4. Feeling tired or having little energy: not at all 5. Poor appetite or overeating: not at all 6. Feeling bad about yourself - or that you are a failure or have let yourself or your family down: not at all 7. Trouble concentrating on things, such as reading the newspaper or watching television: not at all 8. Moving or speaking so slowly that other people could have noticed. Or the opposite - being so fidgety or restless that you have been moving around a lot more than usual: not at all 9. Thoughts that you would be better off or of hurting yourself in some way: not at all Total score: 0 Source: Developed by Drs. Fantasma Teresa, Ramona Estrada, Ramon Huerta and colleagues, with an educational cata from [employer]. Assessment & Plan Assessment & Plan (1) Attention deficit disorder (ADD) in adult: Code(s): F98.8 - Other specified behavioral and emotional disorders with onset usually occurring in childhood and adolescence (2) Morbid obesity: Code(s): E66.01 - Morbid (severe) obesity due to excess calories Plan Patient has a history of binge eating symtoms however not in recent months. She was encouraged to reach out for outpatient therapy as needed. She is cleared for surgery when ready and has no major barriers. Telehealth Telehealth Telehealth Platform: Telephone Location of provider rendering services: other Location of patient: other Patient Identification confirmed using: Name, : Yes Telehealth method: voice only Patient verbally consented to treatment: Yes Patient verbally consented to billing insurance company: Yes Patient informed of any privacy concerns related to visit: Yes Minutes spent on Phone/Video with Pt.: 45 Coding Level of Care Code Tele Psy Diag Eval (31826) Diagnoses Attention deficit disorder (ADD) in adult F98.8 Morbid obesity E66.01 Time Spent (min) 40
== END 2023-08-12 13:50 | disposition home or self-care (01) ==
LOC: HO.HBST 13:37
PROVIDERS: Visit Provider Counselor Mental Health
DX: F98.8 Other specified behavioral and emotional disorders with onset usually occurring in childhood and adolescence (principal); E66.01 Morbid (severe) obesity due to excess calories
CPT/HCPCS: 90791

== ENCOUNTER → 2023-08-12 13:37 | Outpatient (BNVA) | payer OTHER, SELFPAY | PROVIDERS: Visit Provider Counselor Mental Health ==

== ENCOUNTER 2023-08-19 12:36 | Day surgery (SDC) | payer OTHER, SELFPAY ==
--- NOTE | 2023-08-18 08:48 | P.CONAN_ITS ---
Documented by User: Elizabeth Gil NP 08/18/23 08:49 HPI - Anesthesia Eval Consult details Narrative: 33yo F for Upper Endoscopy Anesthesia Pre-Procedure Meds Is the patient on any of the following meds?: GLP1/DPP4 PMFSH Active Problems Active Problems: All Active Problems Attention deficit disorder (ADD) in adult (Acute) Binge eating disorder (Acute) Asthma (Acute) Pre-op evaluation (Acute) Morbid obesity (Acute) Past Medical History Medical History ADD (attention deficit disorder) Asthma Family History Family History Mother Hypertension Fibromyalgia Father No problems noted. Brother No problems noted. Surgical History Surgical History Hx of hand surgery Hx of breast surgery Social History Social History Alcohol intake: current Alcohol intake frequency: a few times a week Patient Tobacco Use Status: Never used Tobacco Use of substances other than those prescribed or required for medical reasons: No Are you DNR?: No Advance Directives: No Advance Directives Information Provided: Yes Meds Allergies Allergy/AdvReac Type Severity Reaction Status Date / Time No Known Allergies Allergy Verified 07/16/23 13:13 Home Medications ?Medication ?Instructions ?Recorded ?Confirmed ?Last Taken ?Type albuterol sulfate 90 mcg/actuation 2 puff inhalation Q6H PRN 07/16/23 07/16/23 Unknown History aerosol inhaler semaglutide (weight loss) 1 mg/0.5 1 subcut QWEEK 08/12/23 08/12/23 Unknown History mL subcutaneous pen injector (Wegovy) Exam Pertinent Lab Results Pertinent Lab Results: Laboratory Tests 07/30/23 09:38 WBC 5.1 Hgb 12.4 Hct 38.1 Plt Count 249 Sodium 139 Potassium 4.5 Chloride 107 Carbon Dioxide 29 BUN 15 Creatinine 0.73 Narrative Narrative: EKG 07/2023 Vent. Rate : 068 BPM Atrial Rate : 068 BPM P-R Int : 166 ms QRS Dur : 080 ms QT Int : 360 ms P-R-T Axes : 012 044 034 degrees QTc Int : 382 ms Normal sinus rhythm Normal ECG When compared with ECG of 13-NOV-2020 12:44, No significant change was found Assessment and Plan Assessment Anesthesia Assessment: Chart Reviewed Documented by User: Judson Cuello MD 08/19/23 17:29 [facility] Past Medical History Medical History ADD (attention deficit disorder) Asthma Family History Family History Mother Hypertension Fibromyalgia Father No problems noted. Brother No problems noted. Family history of problems with anesthesia: No Surgical History Surgical History Hx of hand surgery Hx of breast surgery History of Problems with Anesthesia: No Social History Social History Alcohol intake: current Alcohol intake frequency: a few times a week Patient Tobacco Use Status: Never used Tobacco Use of substances other than those prescribed or required for medical reasons: No Are you DNR?: No Advance Directives: No Advance Directives Information Provided: Yes Meds Allergies Allergy/AdvReac Type Severity Reaction Status Date / Time No Known Allergies Allergy Verified 07/16/23 13:13 Home Medications ?Medication ?Instructions ?Recorded ?Confirmed ?Last Taken ?Type albuterol sulfate 90 mcg/actuation 2 puff inhalation Q6H PRN 07/16/23 07/16/23 Unknown History aerosol inhaler semaglutide (weight loss) 1 mg/0.5 1 subcut QWEEK 08/12/23 08/12/23 Unknown History mL subcutaneous pen injector (Wegovy) Assessment and Plan Assessment Anesthesia Assessment: Anesthesia Plan Discussed Final Anesthetic Review Family History of Problems with Anesthesia: No History of Problems with Anesthesia: No NPO: Yes ASA Class: III Final Preanesthetic Review: No Changes in Pt Med Stat, Meds/Allgs Chart Reviewed, Consent Obtained/Reviewed and Anes Risks/Benef Reviewed Patient Risk: Intermediate Procedure Risk: Low Anesthetic Plan Anesthetic Plan: MAC: Disposition: Standard PACU
[2023-08-19 13:53] VITALS: BMI 49.1
[2023-08-19 14:14] LABS: UPreg QC Valid YES; Urine Pregnancy NEGATIVE (NEGATIVE)
[2023-08-19 14:19] VITALS: BP 101/53; PULSE 77; RESP 16; TEMP 36.1; O2SAT 100
[2023-08-19] MEDS: Lactated Ringers 1,000 ML 80 ML IVCONT (14:21)
--- NOTE | 2023-08-19 15:48 | P.BOP_ITS ---
Brief Operative Note Date of Service: 08/19/23 Pre-op diagnosis: Morbid obesity Post-op diagnosis: same (moderate diaphragmatic hernia) Procedure: PROCEDURE DATE: 08/19/2023 PREOPERATIVE DIAGNOSIS: Morbid obesity POSTOPERATIVE DIAGNOSIS: ?Same as above. 1) moderate hiatal hernia PROCEDURE: Giosxeqy-jyzbtu-zmocifpcelce with biopsies Surgeon: Jeff Shell M.D.. Ph.D. Grout Machine Operator: None ? Anesthesia: IV sedation Estimated blood loss: ?Minimal FINDINGS AND PROCEDURE: ? OPERATIVE INDICATIONS: ?The patient is a 33 year old female known to me who is interested in bariatric surgery. Based on this information I recommended an upper endoscopy to evaluate the patient's symptoms. Risks and complications of the surgery were discussed with the patient in advance particularly the possibility of perforation or bleeding that may require surgical intervention. The patient understood the risks and was in agreement with the plan. ? PROCEDURE: After informed consent was obtained by the patient, the patient was ?transferred to the Operating Room and was placed in the supine position.? After successful induction of IV sedation, a mouth block was inserted and the patient was placed in the left lateral decubitus position. An upper endoscopy was performed next, the oropharynx and esophagus appeared within the normal limits. There was a 4cm fixed hiatal hernia. The z-line was smooth. Two biopsies were obtained from the distal esophagus 2-3 cm proximal to the GE junction and two additional biopsies from the GE junction. The stomach was entered and it appeared to be of normal size. There was no gastritis. There was no stricture or ulcer. A biopsy was obtained from the gastric fundus and the antrum. No significant bleeding was noted from any of the biopsy sites. Retroflexion of the scope confirmed the presence of the diaphragmatic hernia. The scope was then advanced into the duodenum which appeared to be normal as well. At that point the duodenum ?and the stomach were decompressed and the scope was withdrawn from the patient's mouth. The patient extubated and was transferred in stable condition to the Recovery Room for further care. I was present and performed all steps of the procedure. There were no residents to assist with this case. Rohan Shell M.D., Ph.D. Surgeon: Jaime Shell MD Anesthesia: MAC Was an Grout Machine Operator used for this Procedure?: No Estimated blood loss (mL): 0 IV fluids (mL): 400 Urine output (mL): 0 (No Raman to record output) Pathology: other (1) antrum x1, 2) fundus x1, 3) GE junction x2, 4) distal esophagus x2) Condition: stable Disposition: PACU
--- NOTE | 2023-08-19 17:18 | MHC.SHP ---
Pre-Procedural Eval Section A - 24 Hr Update-Section A only Date of Service: 08/19/23 The patient is an INPATIENT: No The patient has been examined within 24 hours of the surgical procedure. The History & Physical has been completed within 30 days and I have reviewed it.: Yes Section B - Complete if H&P > 30 days Chief Complaint: obesity Relevant Family History (Specify if Yes): No Relevant Social History: None Present Medications: None Medical History: No relevant PMH History of Previous Operations: No relevant previous surgery Allergies: Allergies Allergy/AdvReac Type Severity Reaction Status Date / Time No Known Allergies Allergy Verified 07/16/23 13:13 Review of Systems Sugical H&P ROS: Negative: Constitution, Cardiovascular, Respiratory, Neurological, Psychiatric, Hem-Onc, Allergic/Immunologic, Gastrointestinal, Genitourinary, Musculoskeletal, Integumentary, Endocrine and Eyes/Ears/Nose/Throat Exam Surgical H&P Exam: Normal: HEENT, Normal: Heart, Normal: Lungs, Normal: Extremities, Normal: Abdomen, Normal: Skin and Normal: Neurological Plan Diagnosis/Plan: Unchanged (EGD to assess the stomach's anatomy. Risks of bleeding and perforation were discussed with the patient and she is in agreement with the plan.) I have reviewed the history and physical and performed a pertinent physical examination on my patient. No changes have occurred unless specified. Time Spent With Patient Time: Total time managing care of this patient today ____ minutes.
[2023-08-19 17:51] VITALS: BP 113/72; PULSE 88; RESP 16; TEMP 36.2; O2SAT 95
[2023-08-19 18:06] VITALS: BP 107/66; PULSE 77; RESP 18; TEMP 36.3; O2SAT 98
== END 2023-08-19 18:19 | disposition home or self-care (01) ==
PROVIDERS: Nurse Practitioner; Visit Provider Surgery
PROC: 0DJ08ZZ Inspection of Upper Intestinal Tract, Via Natural or Artificial Opening Endoscopic (ICD-10-PCS; CPT 43235; principal; 2023-08-19 14:50)
DX: E66.01 Morbid (severe) obesity due to excess calories (principal); Z68.42 Body mass index [BMI] 45.0-49.9, adult; K44.9 Diaphragmatic hernia without obstruction or gangrene; J45.909 Unspecified asthma, uncomplicated; F90.9 Attention-deficit hyperactivity disorder, unspecified type; Z79.85 Long-term (current) use of injectable non-insulin antidiabetic drugs; Z79.899 Other long term (current) drug therapy; Z98.890 Other specified postprocedural states
CPT/HCPCS: 43239; 81025; 88305; 88313; 88342; J2704

== ENCOUNTER → 2023-08-19 12:36 | Outpatient (BNV) | payer OTHER, SELFPAY | PROVIDERS: Visit Provider Surgery | DX: K44.9 Diaphragmatic hernia without obstruction or gangrene (principal) | CPT/HCPCS: 43239 ==

== ENCOUNTER 2023-08-20 15:21 | Outpatient (AMB) | payer OTHER, SELFPAY ==
--- NOTE | 2023-08-20 15:06 | MHC.OFFVISWM ---
VS Expanded 08/20/23 15:08 Height 5 ft 3 in Weight 276 lb 3.2 oz BMI 48.9 Intake Visit Reasons: (TV) F/U SWL Allergies No Known Allergies Allergy (Verified 07/16/23 13:13) Medication List - Last Reconciled 08/20/23 by DUSTIN Blank albuterol sulfate 90 mcg/actuation 2 puffs inhalation Q6H PRN semaglutide (weight loss) (Wegovy) 1 subcut QWEEK HPI Comments Details: Patient is a 33-year-old female who returns to the office today in follow-up. She is in our Surgical weight Loss preoperative planning program. She was initially seen on 07/16/2023 with a weight of 286.2 lb and a BMI of 47.6. Using the Right BMI hasmukh. Her weight today is 276.2 with a 10 pound weight loss since starting the program, and she feels great. meal plan: premier protein rtd 9-11, 12-2 fit crunch bar 2 pm, 4 pm meal 6 pm 10 forks veg and 10 forks protein Drinkin oz water daily Exercise plan: gym 2 x per week, 30 min full body workout room weights. [facility] Medical History ADD (attention deficit disorder) Asthma Surgical History Hx of hand surgery Hx of breast surgery Family History Mother Hypertension Fibromyalgia Father No problems noted. Brother No problems noted. Social History Alcohol intake: current Alcohol intake frequency: a few times a week Patient Tobacco Use Status: Never used Tobacco Telehealth Telehealth Telehealth Platform: Telephone Location of provider rendering services: practice address Location of patient: address on file Patient Identification confirmed using: Name, : Yes Telehealth method: voice only Patient verbally consented to treatment: Yes Patient verbally consented to billing insurance company: Yes Patient informed of any privacy concerns related to visit: Yes Minutes spent on Phone/Video with Pt.: 15 Assessment & Plan Assessment & Plan (1) Morbid obesity: Code(s): E66.01 - Morbid (severe) obesity due to excess calories Category: Medical Plan: Overall doing well. Lost 10 lb. Encouraged to recalibrate her meal plan through the hasmukh. additionally, encouraged to change her exercise routine to include 40 minutes of cardio. Previously stating that she would go to the gym for 1/2 hour spending 30 minutes in the circuit room and then 30 minutes in the sauna. Discussed the importance of tracking calories that are burned at the gym as well as walking on the non gym days. She has a 1-year-old baby at home and she may walk outside, using [employer] hasmukh to track calories burned. Reminded of the goal of approximately 2000 per week. Return to the office in 1 month.
[2023-08-20 15:08] VITALS: BMI 48.9
== END 2023-08-20 15:28 | disposition home or self-care (01) ==
LOC: HO.HBS 15:21
PROVIDERS: Visit Provider Physician Assistant Surgical
DX: E66.01 Morbid (severe) obesity due to excess calories (principal)
CPT/HCPCS: 99213

== ENCOUNTER → 2023-08-20 15:21 | Outpatient (BNVA) | payer OTHER, SELFPAY | PROVIDERS: Visit Provider Physician Assistant Surgical ==

== ENCOUNTER 2023-09-22 09:52 | Outpatient (REF) | payer OTHER, SELFPAY ==
--- NOTE | ~2023-09-22 | FL_ITS ---
EXAMINATION: XR FLUOROSCOPY UPPER GI WITH AIR CLINICAL INFORMATION: Preop evaluation prior to bariatric surgery COMPARISON: Upper GI December 2020 TECHNIQUE: Fluoroscopic air contrast upper GI examination was performed utilizing standard techniques with thin and thick barium and effervescent granules. Numerous spot images were obtained. FINDINGS: Dual and single contrast images of the esophagus demonstrate normal caliber, contour, and mucosal pattern. No evidence of stricture, mass, or ulcerations identified. Esophageal peristalsis was normal. A small type I hiatal hernia is present. Significant gastroesophageal reflux is seen up to the thoracic inlet. Dual contrast and single contrast images of the stomach demonstrated normal contour and mucosal pattern without evidence of mass, ulceration, or other abnormality. Contrast freely passed into the gastric antrum and duodenal bulb without delay. Single and air-contrast images of the duodenal bulb demonstrate no abnormality. The duodenal sweep has a normal appearance, course, and mucosal fold appearance. The imaged proximal jejunum has a normal fold pattern and caliber. FLUOROSCOPY TIME: 2 minutes 52 seconds. Number of Spot Images: 13 Number of Cine: 11 DOSE AREA PRODUCT: 1971 uGy-m2 (microgray-meter squared) FL/FL upper GI w air IMPRESSION: 1. Tiny type I hiatal hernia. 2. Significant gastroesophageal reflux. This procedure was performed by Shaun Park PA-C, and supervised by Dr. Osboren
== END 2023-09-22 09:53 | disposition home or self-care (01) ==
LOC: HO.XRAY 09:52
PROVIDERS: Visit Provider Surgery
DX: E66.01 Morbid (severe) obesity due to excess calories (principal); J45.909 Unspecified asthma, uncomplicated
CPT/HCPCS: 74246

== ENCOUNTER → 2023-09-22 09:54 | Outpatient (BNV) | payer OTHER, SELFPAY | PROVIDERS: Visit Provider Physician Assistant Surgical | DX: E66.01 Morbid (severe) obesity due to excess calories (principal); Z01.818 Encounter for other preprocedural examination | CPT/HCPCS: 74246 ==

== ENCOUNTER 2023-09-23 12:36 | Outpatient (AMB) | payer OTHER, SELFPAY ==
[2023-09-23 10:20] VITALS: BMI 47.6
--- NOTE | 2023-09-23 10:20 | A.OFFVIS_ITS ---
VS Expanded 09/23/23 10:20 Height 5 ft 3 in Weight 269 lb BMI 47.6 Intake Visit Reasons: (TV) F/U SWL Allergies No Known Allergies Allergy (Verified 07/16/23 13:13) HPI Comments Details: Patient is a 33-year-old female who returns to the office today in follow-up. She is in our Surgical weight Loss preoperative planning program. She was initially seen on 07/16/2023 with a weight of 286.2 lb and a BMI of 47.6. Using the Right BMI hasmukh. Her weight today is 269 lb with a BMI of 47.7. She has had a 17.2 lb weight loss or 6% total body weight loss since starting the program, and she feels great. meal plan: premier protein rtd 9-11, 12-2 fit crunch bar 2 pm, 4 pm meal 6 pm 10 forks veg and 10 forks protein Drinkin oz water daily Exercise plan: gym 2 x per week, 30 min weights then 30 min treadmill, 160 calories. (has childcare issues, can only go 2 x per week until oct, starting new job 7p-7a) [employer] pat[employer] weights at home 5 sets of 15 PFSH Medical History ADD (attention deficit disorder) Asthma Surgical History Hx of hand surgery Hx of breast surgery Family History Mother Hypertension Fibromyalgia Father No problems noted. Brother No problems noted. Social History Alcohol intake: current Alcohol intake frequency: a few times a week Patient Tobacco Use Status: Never used Tobacco Telehealth Telehealth Telehealth Platform: Telephone Location of provider rendering services: practice address Location of patient: other Patient Identification confirmed using: Name, : Yes Telehealth method: voice only Patient verbally consented to treatment: Yes Patient verbally consented to billing insurance company: Yes Patient informed of any privacy concerns related to visit: Yes Minutes spent on Phone/Video with Pt.: 20 Assessment & Plan Assessment & Plan (1) Morbid obesity: Code(s): E66.01 - Morbid (severe) obesity due to excess calories Category: Medical Plan: She states she has been following the meal plan from [employer] hasmukh. Change meal plan slightly to exclude first bar premier protein rtd 9-11, 12-2 fit crunch bar 4 pm meal 6 pm 10 forks veg and 10 forks protein Strongly encouraged to increase her cardio routine at the gym to at least 400 benson per session. She is hoping to increase days at the gym to 4 once she starts her new job in October. In the meantime, encouraged to walk outside when she cant get to the gym or do home cardio videos to increase overall calories burned per week to a goal of 2000. F/U Dr Becerra
== END 2023-09-23 12:38 | disposition home or self-care (01) ==
LOC: HO.HBS 12:36
PROVIDERS: Visit Provider Physician Assistant Surgical
DX: E66.01 Morbid (severe) obesity due to excess calories (principal)
CPT/HCPCS: 99213

== ENCOUNTER → 2023-09-23 12:36 | Outpatient (BNVA) | payer OTHER, SELFPAY | PROVIDERS: Visit Provider Physician Assistant Surgical | DX: E66.01 Morbid (severe) obesity due to excess calories (principal) ==

== ENCOUNTER 2023-10-06 08:02 | Outpatient (AMB) | payer OTHER, SELFPAY ==
[2023-10-05 19:13] VITALS: BMI 47.6
--- NOTE | 2023-10-05 19:13 | A.OFFVIS_ITS ---
VS Expanded 10/05/23 19:13 Height 5 ft 3 in Weight 268 lb 8 oz BMI 47.6 Body Fat % 62.8 Body Fat Mass 168.8 Fat Free Mass 99.8 Visceral Fat Rating 27 Body Water % 25.4 Body Water Mass 68.2 Basal Metabolic Rate/Score 1,946 Intake Visit Reasons: TV Follow Up SWL Allergies No Known Allergies Allergy (Verified 07/16/23 13:13) HPI HPI TV Follow Up SWL: Details: Start time: 8.45am , End time: 9.07am I spent a total of 22 min with the patient our of which 17min I spoke to the patient and 5min to prepare my note and review previous tests HPI Comments Details: Overall weight loss: 17.4 lbs, or 6.1% TBWL Is doing 2.5 Premier protein shakes, one Fit Crunch protein bar and a meal (10 forks of meat and 10 forks of salad or vegetables) Exercise: Gym x3 doing treadmill for 270 calories PFSH Medical History ADD (attention deficit disorder) Asthma Surgical History Hx of hand surgery Hx of breast surgery Family History Mother Hypertension Fibromyalgia Father No problems noted. Brother No problems noted. Social History Alcohol intake: current Alcohol intake frequency: a few times a week Patient Tobacco Use Status: Never used Tobacco Physical Exam Vital Signs: BMI result Body Mass Index 47.6 Telehealth Telehealth Telehealth Platform: Telephone Location of provider rendering services: practice address Location of patient: address on file Patient Identification confirmed using: Name, : Yes Telehealth method: voice only Patient verbally consented to treatment: Yes Patient verbally consented to billing insurance company: Yes Patient informed of any privacy concerns related to visit: Yes Minutes spent on Phone/Video with Pt.: 22 Assessment & Plan Assessment & Plan (1) Morbid obesity: Code(s): E66.01 - Morbid (severe) obesity due to excess calories Category: Medical Plan: 1. Plan for lap sleeve gastrectomy including upper GI endoscopy. All tests has been completed and reviewed and the patient is cleared for the surgery. ?If diaphragmatic or ventral hernias are present at time of surgery, these will be repaired laparoscopically as well. Risks and complications were discussed in detail including possible conversion to an open procedure, anastomotic leak, bleeding requiring transfusion, small bowel obstruction, , DVT and pulmonary embolism, cardiac, or pulmonary complications, as termite control representative complications such as anastomotic ulcer, insufficient weight loss and vitamin deficiencies. I emphasized the importance of close follow-up, adherence to instructions and good communication. So far she has proven to be an excellent communicator and very compliant with all our directions accomplishing a great weight loss. I believe that she is an excellent candidate and she is ready. 2. The patient participated in a structured preoperative lifestyle intervention program supervised by a physician the 11 weeks preceding the surgical procedure. The lifestyle intervention included a structured nutritional plan with a specific daily protein intake goal, an exercise plan with a 2000 calorie burn weekly goal, weekly behavior modification guidance and completion of eight 1- hour online nutritional classes and passing successfully the corresponding quizzes. Adherence to preoperative care plan was demonstrated by completing an extensive preoperative work-up. Program participation was demonstrated by completing 6 visits with our medical team and by sharing weekly weight measurements weekly for 11 consecutive weeks via an approved body composition scale. Compliance to the lifestyle intervention was demonstrated by achieving a 17.4lbs weight-loss or 6.1% total body weight loss (TBWL). No medications were used to achieve this weight loss. In our published experience an over 7% preoperative TBWL, achieved by meeting the diet and exercise goals of our program improves surgical outcomes, reduces the potential for surgical complications, and predicts a statistically significant higher weight loss up to 6 years postoperatively. 3. Continue present nutritional plan of 2 Premier protein shakes mixing for each one 4oz of Premier shake with 4oz oat milk, 1 Fit Crunch protein bar and one meal (10 forks of protein and 10 forks of salad or vegetables) 4. Exercise: continue treadmill 3 days per week but increase to 400-500 calories per workout 5. Continue to send me weight measurements weekly on Tuesdays
== END 2023-10-06 09:07 | disposition home or self-care (01) ==
LOC: HO.HBS 08:02
PROVIDERS: Visit Provider Surgery
DX: E66.01 Morbid (severe) obesity due to excess calories (principal)
CPT/HCPCS: 99213

== ENCOUNTER → 2023-10-06 08:02 | Outpatient (BNVA) | payer OTHER, SELFPAY | PROVIDERS: Visit Provider Surgery ==

== ENCOUNTER 2023-10-24 08:06 | Outpatient (AMB) | payer OTHER, SELFPAY ==
--- NOTE | 2023-10-24 13:49 | A.OFFVIS_ITS ---
VS Expanded 10/24/23 13:57 Height 5 ft 3 in Weight 264 lb 4 oz BMI 46.8 Body Fat % 61.6 Body Fat Mass 162.8 Fat Free Mass 101.4 Visceral Fat Rating 27 Body Water % 26.3 Body Water Mass 69.5 Basal Metabolic Rate/Score 1,927 Intake Visit Reasons: TV Pre Op LSG 11/05/23 Allergies No Known Allergies Allergy (Verified 10/24/23 13:49) Medication List - Last Reconciled 10/24/23 by Jaime Shell MD albuterol sulfate 90 mcg/actuation 2 puffs inhalation Q6H PRN cholecalciferol (vitamin D3) 125 mcg PO DAILY ondansetron 4 mg PO Q12H pantoprazole 40 mg PO DAILY polyethylene glycol 3350 17 grams PO DAILY semaglutide (weight loss) (Wegovy) 1 subcut QWEEK sucralfate 10 mL PO BID thiamine HCl (vitamin B1) 100 mg PO DAILY vitamin A palmitate 10,000 units PO DAILY HPI HPI TV Pre Op LSG 11/05/23: Details: Start time: 1.49pm, End time: 2.09pm ?I spent 15 minutes speaking with the patient on the phone plus an additional 5 minutes reviewing and updating records for a total of 20 minutes HPI Comments Details: Overall weight loss: 21.8lbs, or 7.62% TBWL Is doing 2 whole bottle Premier shakes and 3 Premier shakes (4oz almond milk and 4oz Premier) Exercise: treadmill PFSH Medical History ADD (attention deficit disorder) Asthma Surgical History Hx of hand surgery Hx of breast surgery Family History Mother Hypertension Fibromyalgia Father No problems noted. Brother No problems noted. Social History Alcohol intake: current Alcohol intake frequency: a few times a week Patient Tobacco Use Status: Never used Tobacco Telehealth Telehealth Telehealth Platform: Telephone Location of provider rendering services: practice address Location of patient: address on file Patient Identification confirmed using: Name, : Yes Telehealth method: voice only Patient verbally consented to treatment: Yes Patient verbally consented to billing insurance company: Yes Patient informed of any privacy concerns related to visit: Yes Minutes spent on Phone/Video with Pt.: 20 Assessment & Plan Assessment & Plan (1) Morbid obesity: Code(s): E66.01 - Morbid (severe) obesity due to excess calories Category: Medical Plan: 1. Plan for lap sleeve gastrectomy including upper GI endoscopy. All tests has been completed and reviewed and the patient is cleared for the surgery. ?If diaphragmatic or ventral hernias are present at time of surgery, these will be repaired laparoscopically as well. Risks and complications were discussed in detail including possible conversion to an open procedure, anastomotic leak, bleeding requiring transfusion, small bowel obstruction, , DVT and pulmonary embolism, cardiac, or pulmonary complications, as care home complications such as anastomotic ulcer, insufficient weight loss and vitamin deficiencies. I emphasized the importance of close follow-up, adherence to instructions and good communication. So far she has proven to be an excellent communicator and very compliant with all our directions accomplishing a great weight loss. I believe that she is an excellent candidate and she is ready. 2. Preop prescriptions were provided and explained the purpose of each one. Need to be purchased preop. Start Pantoprazole now as you get it from the pharmacy, 1 pill per day. Sucralfate and Zofran are for after surgery as needed. 3. Bowel prep: please do 7 packets ?of Miralax mixing each one with a an 8oz glass of water, crystal light, gatorade zero, or propel ?on 11/03/23 and the same amount on 11/04/23. The Miralax you begin with one packet at a time in 8oz water or crystal light, gatorade zero, or propel ?as early in the day as you can and you do them back to back until you finish them. Continue the protein shakes during ?the bowel prep. 4. Needs to purchase 1oz medicine cups . 5. Needs to purchase Children's liquid Tylenol for postop pain control. 6. Avoid aspirin, motrin, Advil, Aleve, Ibuprofen, Naproxyn. Tylenol is OK. 7. She needs to purchase the Celebrate 4:1 protein shakes from the hospital's gift shop. 8. Will do basic preop blood work-up any day between Friday10/27/23 and Friday10/31/23 fasting for 12 hours and is scheduled to see the Anesthesiologist prior to the day of surgery. 9. Importance of adherence to postop folllow-up and recommendations was underscored and she understands that. 10. Continue to avoid food and bars and continue with 3 Premier protein shakes (4oz Premier mixed with 4oz almond milk) at 9am-11am, 12pm-2pm and 3pm-5pm and two whole data capture clerk of premade Premier protein shake at 6pm-8pm and 9pm-11pm 11. No soups, broths or V8 12. The patient's?medical?history has been reviewed and they are considered low risk for post op DVT and therefore DVT prophylaxis is not considered necessary. Travel after surgery was reviewed. The patient has not disclosed any travel plans during the first 30 days after surgery and they have been advised that within the first 30 days after surgery any bus, plane, train or car travel over 2 hours in duration is contraindicated due to the possibility of developing blood clots from immobility. Any travel, needs to include periods of ambulation of 10 minutes in duration every 2 hours.? Patient was instructed to discuss any plans for travel during this period with their bariatric surgeon.? 13. Please take at the day of surgery the following medications: NONE 14. Stop any control pills and don't use them for one month after surgery 15. Absolutely no smoking or vaping, or marijuana until the surgery and for at least the first 4 weeks. Only nicotine patches are allowed. 16. Send me weight measurements daily and then on Friday11/05/23, the day of surgery before you go to the hospital. 17. Avoid any steroids by mouth for any reason. Let me know if someone prescribes them to you 18. These instructions supersede anything else you read in the handbook, anything you watched in videos or classes or you were told by any other provider. If there is any conflict, you follow the above instructions and nothing else. Orders: Orders Type and Screen Today E66.01 - Morbid (severe) obesity due to excess calories Complete Blood Count Auto Diff Today E66.01 - Morbid (severe) obesity due to excess calories Insulin Today E66.01 - Morbid (severe) obesity due to excess calories Comprehensive Met. Panel Today E66.01 - Morbid (severe) obesity due to excess calories TSH reflex Free T4 Today E66.01 - Morbid (severe) obesity due to excess calories Prothrombin Time INR Today E66.01 - Morbid (severe) obesity due to excess calories Lipid Panel Today E66.01 - Morbid (severe) obesity due to excess calories Hemoglobin A1c Today E66.01 - Morbid (severe) obesity due to excess calories C Reactive Protein Today E66.01 - Morbid (severe) obesity due to excess calories Partial Thromboplastin Time Today E66.01 - Morbid (severe) obesity due to excess calories Medications: New pantoprazole 40 mg PO DAILY 90 tabs 0RF E66.01 - Morbid (severe) obesity due to excess calories sucralfate 10 mL PO BID 600 mL 2RF K21.9 - Gastro-esophageal reflux disease without esophagitis ondansetron Only take one every 12 hours as needed if you have nausea 4 mg PO Q12H 20 tabs 0RF nausea and vomiting R11.0 - Nausea polyethylene glycol 3350 Mix each measuring cup with 8oz of water, Crystal light, or Gatorade zero, or Propel and do 7 measuring cups on 11/03/23 and another 7 measuring cups on 11/04/23 17 grams PO DAILY 238 grams 0RF Z01.818 - Encounter for other preprocedural examination
[2023-10-24 13:57] VITALS: BMI 46.8
== END 2023-10-24 14:10 | disposition home or self-care (01) ==
LOC: HO.HBS 08:06
PROVIDERS: Visit Provider Surgery
DX: E66.01 Morbid (severe) obesity due to excess calories (principal)
CPT/HCPCS: 99213

== ENCOUNTER → 2023-10-24 08:06 | Outpatient (BNVA) | payer OTHER, SELFPAY | PROVIDERS: Visit Provider Surgery ==

== ENCOUNTER → 2023-10-29 09:32 | Outpatient (BNVA) | payer OTHER, SELFPAY | PROVIDERS: Visit Provider Surgery ==

== ENCOUNTER 2023-11-05 06:18 | Inpatient (IN) | payer OTHER, SELFPAY ==
[2023-10-28 12:26] VITALS: BMI 46.6
[2023-10-29 09:30] LABS: MANUAL DIFF FLAG NO
[2023-10-29 11:10] LABS: Basophils Percent Auto 0.5 % (0-2); Eosinophils Absolute Auto 0.1 X10*3/uL (0.0-0.4); Eosinophils Percent Auto 2.5 % (0-4); Hematocrit 38.7 % (37.0-47.0); Hemoglobin 12.7 g/dl (12.0-16.0); Imm Gran Abs Auto 0.02 X10*3/uL (0.00-0.03); Imm Gran Pct Auto 0.4 % (0.0-0.4); Lymphocytes Absolute Auto 1.6 X10*3/uL (1.2-4.9); Lymphocytes Percent Auto 27.7 % (20-40); Mean Corpuscular HGB Conc 32.8 g/dl (31.0-35.0); Mean Corpuscular Hemoglobin 32.1 pg (27.0-33.0); Mean Corpuscular Volume 97.7 fL (80.0-98.0); Mean Platelet Volume 10.5 fL (9.4-12.3); Monocytes Absolute Auto 0.4 X10*3/uL (0.1-1.2); Monocytes Percent Auto 6.9 % (2-11); Neutrophils Absolute Auto 3.5 x10*3/uL (2.0-8.3); Platelet Count 287 X10*3/uL (160-400); Red Blood Count 3.96 X10*6/uL (4.20-5.50); Red Cell Distribution Width 12.2 % (11.0-16.0); White Blood Count 5.7 X10*3/uL (4.8-10.8)
[2023-10-29 11:17] LABS: INTERNATIONAL NORM RATIO 1.1 (0.9-1.1)
[2023-10-29 11:20] LABS: Partial Thromboplastin Time 29.9 SEC (26.0-36.8)
[2023-10-29 11:24] LABS: Estimated Average Glucose 91 mg/dL; Hemoglobin A1c % 4.8 % (<6.0)
[2023-10-29 12:33] LABS: Alanine Aminotransferase 14 U/L (0-31); Alkaline Phosphatase 84 U/L (39-117); Anion Gap 11 (12-20); Aspartate Amino Transferase 17 U/L (5-31); Bilirubin Total 0.5 mg/dL (0.0-1.0); Blood Urea Nitrogen 13 mg/dL (9-16); C Reactive Protein 1.01 mg/dL (< or = 0.50); Calcium 9.2 mg/dL (8.4-10.2); Carbon Dioxide 27 mmol/L (22-29); Chloride 104 mmol/L (96-108); Cholesterol 149 mg/dL (<200); Creatinine Clr Calc Pharmacy 125.7; Estimated Glomerular Filt Rate > 60; Glucose Random 83 mg/dL (60-115); HDL Cholesterol 38 mg/dL (>40); LDL Cholesterol Calculated 101 mg/dL (<100); Potassium 3.9 mmol/L (3.3-5.1); Sodium 138 mmol/L (135-145); Total Protein 7.2 g/dL (6.5-8.0); Triglycerides 52 mg/dL (<150)
[2023-10-29 12:51] LABS: Insulin 5 uU/mL (2-29)
--- NOTE | 2023-11-03 12:29 | P.CONAN_ITS ---
Documented by User: Elizabeth Gil NP 11/03/23 12:30 HPI - Anesthesia Eval Consult details Narrative: 33yo F for Gastrectomy Sleeve,EGD, possible diaphragmatic hernia, possible ventral hernia, possible open PMFSH Active Problems Active Problems: All Active Problems Vitamin B1 deficiency (Acute) Vitamin A deficiency (Acute) Vitamin D deficiency (Acute) Attention deficit disorder (ADD) in adult (Acute) Binge eating disorder (Acute) Asthma (Acute) Pre-op evaluation (Acute) Morbid obesity (Acute) Past Medical History Medical History Degenerative lumbar disc Hiatal hernia GERD (gastroesophageal reflux disease) ADD (attention deficit disorder) Asthma Family History Family History Mother Hypertension Fibromyalgia Father No problems noted. Brother No problems noted. Family history of problems with anesthesia: No Surgical History Surgical History History of esophagogastroduodenoscopy (EGD) Hx of hand surgery Hx of breast surgery History of Problems with Anesthesia: No Social History Social History Are you a primary healthcare administrative assistant to a significant other at home: Yes Do you presently have visiting nurse or other home services: No Alcohol intake: current Alcohol intake frequency: does not drink Patient Tobacco Use Status: Never used Tobacco Use of substances other than those prescribed or required for medical reasons: No Have you been hit, kicked, punched, or otherwise hurt by someone within the past year? If so, by whom?: No Are you DNR?: No Advance Directives: No Advance Directives Information Provided: Yes Advance Directives on File: No Recently lost weight without trying: No Nutrition Risks: No Nutritional Risk Patient : No : No Poor oral hygiene: No Meds Allergies Allergy/AdvReac Type Severity Reaction Status Date / Time No Known Allergies Allergy Verified 11/05/23 06:16 Home Medications ?Medication ?Instructions ?Recorded ?Confirmed ?Last Taken ?Type albuterol sulfate 90 mcg/actuation 2 puff inhalation Q6H PRN 07/16/23 10/28/23 Unknown History aerosol inhaler Shortness Of Breath Or Wheezing hydroxyzine HCl 25 mg tablet 25 mg PO ONCE PRN Agitation 11/05/23 Unknown History semaglutide (weight loss) 2.4 1 subcut QWEEK 11/05/23 Unknown History mg/0.75 mL subcutaneous pen injector (Wegovy) sertraline 50 mg tablet 50 mg PO DAILY 11/05/23 Unknown History terbinafine HCl 250 mg tablet 250 mg PO DAILY 11/05/23 Unknown History Exam Height,Weight and Vital Signs: Height 5 ft 3 in Weight 119.295 kg Pertinent Lab Results Pertinent Lab Results: Laboratory Tests 10/29/23 10/29/23 09:20 09:28 WBC 5.7 RBC 3.96 L Hgb 12.7 Hct 38.7 MCV 97.7 MCH 32.1 MCHC 32.8 RDW 12.2 Plt Count 287 MPV 10.5 Immature Gran % (Auto) 0.4 Neut % (Auto) 62.0 Lymph % (Auto) 27.7 [place]y % (Auto) 6.9 Eos % (Auto) 2.5 Baso % (Auto) 0.5 Lymph # (Auto) 1.6 [place] # (Auto) 0.4 Eos # (Auto) 0.1 Baso # (Auto) 0.0 Abs Immat Gran (auto) 0.02 Absolute Neuts (auto) 3.5 Absolute Nucleated RBC 0.000 Nucleated RBC % (auto) 0.0 PT 13.0 INR 1.1 APTT 29.9 Sodium 138 Potassium 3.9 Chloride 104 Carbon Dioxide 27 Anion Gap 11 L BUN 13 Creatinine 0.81 Estim Creat Clear Calc 125.7 Estimated GFR > 60 Random Glucose 83 Estimat Average Glucose 91 Hemoglobin A1c % 4.8 Insulin Level 5 Calcium 9.2 Total Bilirubin 0.5 AST 17 ALT 14 Alkaline Phosphatase 84 C-Reactive Protein 1.01 H Total Protein 7.2 Albumin 4.0 Triglycerides 52 Cholesterol 149 LDL Cholesterol, Calc 101 H HDL Cholesterol 38 L TSH 0.80 Blood Type O Positive Antibody Screen NEGATIVE Narrative Narrative: EKG 07/2023 Vent. Rate : 068 BPM Atrial Rate : 068 BPM P-R Int : 166 ms QRS Dur : 080 ms QT Int : 360 ms P-R-T Axes : 012 044 034 degrees QTc Int : 382 ms Normal sinus rhythm Normal ECG When compared with ECG of 13-NOV-2020 12:44, No significant change was found Assessment and Plan Assessment Anesthesia Assessment: Chart Reviewed Final Anesthetic Review Family History of Problems with Anesthesia: No History of Problems with Anesthesia: No Documented by User: Jessika Armendariz MD 11/05/23 07:39 [facility] Past Medical History Medical History Degenerative lumbar disc Hiatal hernia GERD (gastroesophageal reflux disease) ADD (attention deficit disorder) Asthma Family History Family History Mother Hypertension Fibromyalgia Father No problems noted. Brother No problems noted. Surgical History Surgical History History of esophagogastroduodenoscopy (EGD) Hx of hand surgery Hx of breast surgery History of Problems with Anesthesia: No Social History Social History Are you a primary healthcare administrative assistant to a significant other at home: Yes Do you presently have visiting nurse or other home services: No Alcohol intake: current Alcohol intake frequency: does not drink Patient Tobacco Use Status: Never used Tobacco Use of substances other than those prescribed or required for medical reasons: No Have you been hit, kicked, punched, or otherwise hurt by someone within the past year? If so, by whom?: No Are you DNR?: No Advance Directives: No Advance Directives Information Provided: Yes Advance Directives on File: No Recently lost weight without trying: No Nutrition Risks: No Nutritional Risk Patient : No : No Poor oral hygiene: No Meds Allergies Allergy/AdvReac Type Severity Reaction Status Date / Time No Known Allergies Allergy Verified 11/05/23 06:16 Home Medications ?Medication ?Instructions ?Recorded ?Confirmed ?Last Taken ?Type albuterol sulfate 90 mcg/actuation 2 puff inhalation Q6H PRN 07/16/23 10/28/23 U nknown History aerosol inhaler Shortness Of Breath Or Wheezing hydroxyzine HCl 25 mg tablet 25 mg PO ONCE PRN Agitation 11/05/23 Unknown History semaglutide (weight loss) 2.4 1 subcut QWEEK 11/05/23 Unknown History mg/0.75 mL subcutaneous pen injector (Wegovy) sertraline 50 mg tablet 50 mg PO DAILY 11/05/23 Unknown History terbinafine HCl 250 mg tablet 250 mg PO DAILY 11/05/23 Unknown History Exam Airway Mallampati Class: II (root canals laterally) TM Dist: >3cm Neck ROM: Full Heart: rrr Lungs: cta Assessment and Plan Assessment Anesthesia Assessment: Anesthesia Plan Discussed Final Anesthetic Review History of Problems with Anesthesia: No NPO: Yes ASA Class: III Final Preanesthetic Review: No Changes in Pt Med Stat, Meds/Allgs Chart Reviewed and Consent Obtained/Reviewed Patient Risk: Low Procedure Risk: Low Anesthetic Plan Anesthetic Plan: GA Disposition: Standard PACU
[2023-11-05] VITALS (16 sets, daily range): BP systolic 92–123; BP diastolic 41–84; PULSE 75–94; RESP 6–21; TEMP 35.6–36.7; O2SAT 95–99; BMI 46.6
--- OUTSIDE RECORDS SUMMARY | 2023-11-05 06:22 | XMS_ITS | Continuity of Care Document ---
Author Organization [facility] Address [address] [place] [address]- Care Team Providers Care Rn Surgical Pcu Name Role Phone Bertha Montes MD Primary Care Physician [place] [facility] [place] 09/23/23 - 10/23/[address] [address]- Allergies, Adverse Reactions, Alerts Substance Reaction Severity [...] 8Admin Note: POLIO(oral) 9Admin Note: POLIO(oral) Medications hydrOXYzine hydrochloride 25 mg oral tablet 1 capsule, By Mouth, Once, PRN Agitation, # 30 capsule, 3 Refills, Soft Stop, 09/29/23 18:30:00 EDT, Capsule, [facility] #[id number], Partial fill upon patient request if the prescription is fora schedule II opioid drug., 157, cm, 09/29/23 15:18... Start Date: 09/29/23 Status: Ordered ProAir HFA 90 mcg/inh inhalation aerosol with adapter See Instructions, PRN, 2-4 puffs Inhalation 4 times a day 30 days, # 1 each, Refills 11, Tot. Refills 11, Maintenance, 10/25/22 11:47:00 EDT, Instructions Replace Required Details, Route to Pharmacy Electronically, [id number]... Start Date: 10/25/22 Status: Ordered semaglutide 2.4 mg/0.75 mL (2.4 mg dose) subcutaneous solution = 2.4 mg, Subcutaneous Injection, Every week, in the abdomen, thigh, or upper arm, # 3 mL, 3 Refills, Maintenance, 09/29/23 18:29:00 EDT, Solution, [facility], Partial fill upon patient request if the prescription is for a schedule II opioi... Start Date: 09/29/23 Status: Ordered sertraline 50 mg oral tablet 1 tablet = 50 mg, By Mouth, Daily, # 90 tablet, 1 Refills, Maintenance, 09/29/23 18:31:00 EDT, Tablet, [facility] #[id number], Partial fill upon patient request if the prescription is for a schedule II opioid drug., 157, cm, 09/29/23 15:18:00 EDT... Start Date: 09/29/23 Status: Ordered Problem List Condition Confirmation Course Effective Dates Status Health Status Informant ADD - Attention deficit disorder with hyperactivity Confirmed Active Allergic rhinitis due to pollen Confirmed Improving Active Asthma, mild intermittent, precipitated by colds, allergies 1 Confirmed Stable Active Bacterial vaginosis Confirmed Active Cholelithiasis without obstruction Confirmed Active Generalized anxiety disorder Confirmed Active 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 Hiatal hernia Confirmed Active Mood disorder Confirmed Active Obesity Confirmed Active Severe obesity Confirmed Active 29/04/2007 [facility] admission #1: acute asthma attack Social History Social History Type Response Smoking Status Never (less than 100 in lifetime);Never; Exposure to Secondhand Smoke: Yes; Tobacco use times per day: mother smokes; entered on: 09/14/21 Sex Patient Care team information Care Team Personnel Name: Bertha Montes MD Position: [facility] Resident Member Role: PCP Address: Address: [address] [place] [id number]- Care Team Related Persons Name: Monroe Mcgarry Address: home [address] [place] [id number] Name: MARIFER MCGARRY Address: [address] [address] Name: REMA MCGARRY Address: Address: [address]
--- OUTSIDE RECORDS SUMMARY | 2023-11-05 06:22 | XMS_ITS | Continuity of Care Document ---
Author Organization [facility] Address [address] [place] [address]- Care Team Providers Care Freight Solicitor Name Role Phone Bertha Montes MD Primary Care Physician [place] [facility]23 - 08/08/23 [facility] [address] [place] [address]- Attending Physician: Admtr, Lowell8 Admitting Physician: Admtr, [...] 24 capsule, 0 Refills, Maintenance, 02/17/23 12:58:00 [facility], [facility] #[id number], Partial fill upon patient request if the prescription is for a schedule II opioid drug., 157, c... Start Date: 02/17/23 Status: Ordered dexamethasone 1 mg oral tablet 1 tablet = 1 mg, By Mouth, Once, to be taken at 11pm, # 1 tablet, 0 Refills, Soft Stop, 06/12/23 17:23:00 EDT, [facility][id number], Partial fill upon patient request if the prescription is for a schedule II opioid drug., 157, cm, 06/12/23 17:0... Start Date: 06/12/23 Status: Ordered hydrOXYzine hydrochloride 25 mg oral tablet 1 capsule, By Mouth, Once, PRN Agitation, # 30 capsule, 3 Refills, Soft Stop, 12/10/22 14:50:00 EDT, Capsule, [facility] #[id number], Partial fill upon patient request if the prescription is fora schedule II opioid drug., 160, cm, 12/10/22 14:07... Start Date: 12/10/22 Status: Ordered ProAir HFA 90 mcg/inh inhalation aerosol with adapter See Instructions, PRN, 2-4 puffs Inhalation 4 times a day 30 days, # 1 each, Refills 11, Tot. Refills 11, Maintenance, 10/25/22 11:47:00 EDT, Instructions Replace Required Details, Route to Pharmacy Electronically, [id number]... Start Date: 10/25/22 Status: Ordered semaglutide 1 mg/0.5 mL (1 mg dose) subcutaneous solution = 1 mg, Subcutaneous Injection, Every week, for 4 week(s), in the abdomen, thigh, or upper arm, # 2mL, 0 Refills, Acute 08/20/23 15:19:00 EDT, 07/23/23 15:19:00 EDT, Solution, [facility],Partial fill upon patient request if the prescripti... Start Date: 07/23/23 Stop Date: 08/20/23 Status: Ordered sertraline 50 mg oral tablet 1 tablet = 50 mg, By Mouth, Daily, # 90 tablet, 1 Refills, Maintenance, 07/11/23 10:18:00 EDT, Tablet, [facility] #[id number], Partial fill upon patient request if the prescription is for a schedule II opioid drug., 157, cm, 07/11/23 10:01:00 EDT... Start Date: 07/11/23 Status: Ordered terbinafine 250 mg oral tablet 1 tablet = 250 mg, By Mouth, Daily, for 84 days, # 84 tablet, 0 Refills, Acute 10/03/23 10:19:00 EDT, 07/11/23 10:19:00 EDT, [facility] #[id number], Partial fill upon patient request if the [...] Confirmed Active Severe obesity Confirmed Active 29/04/2007 [facility] admission #1: acute asthma attack Social History Social History Type Response Smoking Status Never (less than 100 in lifetime);Never; Exposure to Secondhand Smoke: Yes; Tobacco use times per day: mother smokes; entered on: 09/14/21 Sex Patient Care team information Care Team Personnel Name: Bertha Montes MD Position: [facility] Resident Member Role: PCP Address: Address: [address] [place] [address]- Care Team Related Persons Name: Monroe Mcgarry Address: home [address] [place] [address] Name: MARIFER MCGARRY Address: [address] [place] [address] Name: REMA MCGARRY Address: Address: [address]
--- OUTSIDE RECORDS SUMMARY | 2023-11-05 06:23 | XMS_ITS | Continuity of Care Document ---
Author Organization [facility] Address [address] [place] [address]- Care Team Providers Care Handkerchief Maker Name Role Phone Bertha Montes MD Primary Care Physician [facility]counter [facility] Date(s): 07/22/23 - 08/21/[address] [address]- Allergies, Adverse Reactions, Alerts Substance Reaction Severity [...] capsule, 0 Refills, Maintenance, 02/17/23 12:58:00 [facility], [facility] #[id number], Partial fill upon patient request if the prescription is for a schedule II opioid drug., 157, c... Start Date: 02/17/23 Status: Ordered dexamethasone 1 mg oral tablet 1 tablet = 1 mg, By Mouth, Once, to be taken at 11pm, # 1 tablet, 0 Refills, Soft Stop, 06/12/23 17:23:00 EDT, [facility] #[id number], Partial fill upon patient request if the prescription is for a schedule II opioid drug., 157, cm, 06/12/23 17:0... Start Date: 06/12/23 Status: Ordered hydrOXYzine hydrochloride 25 mg oral tablet 1 capsule, By Mouth, Once, PRN Agitation, # 30 capsule, 3 Refills, Soft Stop, 12/10/22 14:50:00 EDT, Capsule, [facility] #[id number], Partial fill upon patient request if the prescription is fora schedule II opioid drug., 160, cm, 12/10/22 14:07... Start Date: 12/10/22 Status: Ordered ProAir HFA 90 mcg/inh inhalation aerosol with adapter See Instructions, PRN, 2-4 puffs Inhalation 4 times a day 30 days, # 1 each, Refills 11, Tot. Refills 11, Maintenance, 10/25/22 11:47:00 EDT, Instructions Replace Required Details, Route to Pharmacy Electronically, [id number]... Start Date: 10/25/22 Status: Ordered sertraline 50 mg oral tablet 1 tablet = 50 mg, By Mouth, Daily, # 90 tablet, 1 Refills, Maintenance, 07/11/23 10:18:00 EDT, Tablet, [facility] #[id number], Partial fill upon patient request if the prescription is for a schedule II opioid drug., 157, cm, 07/11/23 10:01:00 EDT... Start Date: 07/11/23 Status: Ordered terbinafine 250 mg oral tablet 1 tablet = 250 mg, By Mouth, Daily, for 84 days, # 84 tablet, 0 Refills, Acute 10/03/23 10:19:00 EDT, 07/11/23 10:19:00 EDT, [facility] #[id number], Partial fill upon patient request if the [...] Confirmed Active Severe obesity Confirmed Active 29/04/2007 [facility] admission #1: acute asthma attack Social History Social History Type Response Smoking Status Never (less than 100 in lifetime);Never; Exposure to Secondhand Smoke: Yes; Tobacco use times per day: mother smokes; entered on: 09/14/21 Sex Patient Care team information Care Team Personnel Name: Bertha Montes MD Position: [facility] Resident Member Role: PCP Address: Address: [address] [place] [address]- Care Team Related Persons Name: Monroe Mcgarry Address: home [address] [place] [address] Name: MARIFER MCGARRY Address: home [address] [place] [address] Name: REMA MCGARRY Address: Address: [address]
--- OUTSIDE RECORDS SUMMARY | 2023-11-05 06:23 | XMS_ITS | Continuity of Care Document ---
Author Organization [facility] Address [address] [place] [address]- Care Team Providers Care Beauty Shop Manager Name Role Phone Chepe CADE, Rebecca Primary Care Physician Encounter [facility] [place] Date(s): 02/22/22 - 03/24/[address] [address] Allergies, Adverse Reactions, Alerts Substance Reaction [...] capsule, 0 Refills, Maintenance, 03/24/22 7:58:00EST, Capsule, [facility] #[id number], Partial fill upon patient request if the prescription isfor a schedule II opioid drug., 160, cm, 03/12/22 1... Start Date: 03/24/22 Stop Date: 03/31/22 Status: Ordered aspirin 162.5 mg oral capsule, extended release 1 capsule = 162.5 mg, By Mouth, Daily, at the same time every day, # 90 capsule, 3 Refills, Maintenance, 02/08/22 8:37:00 EST, ER Capsule, [facility] #[id number], Partial fill upon patient request if the prescription is for a schedule II opioid d... Start Date: 02/08/22 Status: Ordered Diflucan 150 mg oral tablet 1 tablet = 150 mg, By Mouth, Once, # 1 tablet, 0 Refills, Soft Stop, 02/15/22 10:22:00 EST, Tablet,[facility] #[id number], Partial fill upon patient request if the prescription is for a schedule II opioid drug., 160, cm, 02/08/22 8:11:00 EST, He... Start Date: 02/15/22 Status: Ordered famotidine 20 mg oral tablet 20 mg, 1, tablet, By Mouth, 2 times a day, # 180 tablet, Refills 0, Tot. Refills 0, Maintenance, 02/08/22 8:37:00 EST, Route to Pharmacy Electronically, [facility] #[id number], Partial fill uponpatient request if the prescription is for a schedu... Start Date: 02/08/22 Status: Ordered folic acid 0.4 mg oral tablet 1 tablet = 0.4 mg, By Mouth, Daily, # 100 tablet, 5 Refills, Maintenance, 08/21/21 9:43:00 EDT, Tablet, [facility] #[id number], Partial fill upon patient request if the [...] 1 Refills, Maintenance, 11/19/21 10:20:00 EDT, Ointment, [facility] #[id number], Partial fill upon patient request if the prescriptionis for a schedule II opioid drug., 1 application To... Start Date: 11/19/21 Status: Ordered lisdexamfetamine 30 mg oral capsule 1 capsule = 30 mg, By Mouth, Daily in AM, Dx F90.0, # 30 capsule, 0 Refills, Maintenance, 06/09/20 9:11:00 EDT, Capsule, [facility] #[id number], Partial fill upon patient request if the prescription is for a schedule II opioid drug., 1 capsule By... Start Date: 06/09/20 Stop Date: 07/09/20 Status: Ordered Monistat 7 2% cream with applicator 1 application, Vaginally, Daily in AM, for 7 days, # 48 Gm, 0 Refills, Acute 03/26/22 16:52:00 EST,03/19/22 16:52:00 EST, Cream, [facility] #[id number], Partial fill upon patient request if theprescription is for a schedule II opioid drug., 1 a... Start Date: 03/19/22 Stop Date: 03/26/22 Status: Ordered Multivitamins with FA 0.8 mg oral tablet 1 tablet, By Mouth, Daily, for 90 days, # 90 tablet, 2 Refills, Hard Stop 05/02/23 13:36:00 EDT, 08/05/22 13:36:00 EDT, Tablet, [facility] #[id number], Partial fill upon patient request if the prescription is for a schedule II opioid drug., 1 tab... Start Date: 08/05/22 Stop Date: 05/02/23 Status: Ordered Multivitamins with FA 0.8 mg oral tablet 1 tablet, By Mouth, Daily, for 90 days, # 90 tablet, 2 Refills, Hard Stop 08/05/22 13:36:00 EDT, 11/08/21 13:36:00 EDT, Tablet, [facility] #[id number], Partial fill upon patient request if the [...] Replace Required Details, Route to Pharmacy Electronically, [id number]... Start Date: 06/25/18 Status: Ordered Prometrium 200 mg oral capsule 1 capsule = 200 mg, Vaginally, Daily at bedtime, # 60 capsule, 3 Refills, Maintenance, 02/08/22 8:36:00 EST, [facility] #[id number], Partial fill upon patient request if the prescription is for a schedule II opioid drug., 160, cm, 02/08/22 8:11:0... Start Date: 02/08/22 Status: Ordered Valtrex 500 mg oral tablet See Instructions, 1 tablet By Mouth twice daily starting at 34wks for remainder of , # 60 tablet, Refills 0, Tot. Refills 0, Maintenance, 03/12/22 13:13:00 EST, Instructions Replace RequiredDetails, Route to Pharmacy Electronically, [facility]... Start Date: 03/12/22 Status: Ordered Problem List Condition Confirmation Course Effective Dates Status H ealth Status Informant ADD - Attention deficit disorder with hyperactivity Confirmed Active Allergic rhinitis due to pollen Confirmed Improving Active Asthma, mild intermittent, precipitated by colds, allergies 1 Confirmed Stable Active 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 Mood disorder Confirmed Active Obesity Confirmed Active Severe obesity Confirmed Active 29/04/2007 [facility] admission #1: acute asthma attack Social History Social History Type Response Smoking Status Never (less than 100 in lifetime);Never; Exposure to Secondhand Smoke: Yes; Tobacco use times per day: mother smokes; entered on: 09/14/21 Sex Patient Care team information Care Team Personnel Name: Rebecca Mo MD Position: S Resident Member Role: PCP Address: Address: [address] [place] [address]- Care Team Related Persons Name: Monroe Mcgarry Address: home [address] [place] [id number] Name: MARIFER MCGARRY Address: home [address] [place] [id number]
--- OUTSIDE RECORDS SUMMARY | 2023-11-05 06:25 | XMS_ITS | Continuity of Care Document ---
Author Organization [facility] Address [address] [place] [address]- Care Team Providers Care Condenser Tube Tender Name Role Phone Bertha Montes MD Primary Care Physician [place] [facility] Date(s): 06/17/23 - 08/08/23 [facility] [address] [place] [address]- Attending Physician: Ramandeep Aldana MD Admitting Physician: Ramandeep Aldana MD Referring Physician: Yamini Clemons Allergies, Adverse Reactions, Alerts Substance Reaction Severity [...] 0 Refills, Maintenance, 02/17/23 12:58:00 [facility], [facility] #[id number], Partial fill upon patient request if the prescription is for a schedule II opioid drug., 157, c... Start Date: 02/17/23 Status: Ordered dexamethasone 1 mg oral tablet 1 tablet = 1 mg, By Mouth, Once, to be taken at 11pm, # 1 tablet, 0 Refills, Soft Stop, 06/12/23 17:23:00 EDT, [facility] #[id number], Partial fill upon patient request if the prescription is for a schedule II opioid drug., 157, cm, 06/12/23 17:0... Start Date: 06/12/23 Status: Ordered hydrOXYzine hydrochloride 25 mg oral tablet 1 capsule, By Mouth, Once, PRN Agitation, # 30 capsule, 3 Refills, Soft Stop, 12/10/22 14:50:00 EDT, Capsule, [facility] #[id number], Partial fill upon patient request if the prescription is fora schedule II opioid drug., 160, cm, 12/10/22 14:07... Start Date: 12/10/22 Status: Ordered ProAir HFA 90 mcg/inh inhalation aerosol with adapter See Instructions, PRN, 2-4 puffs Inhalation 4 times a day 30 days, # 1 each, Refills 11, Tot. Refills 11, Maintenance, 10/25/22 11:47:00 EDT, Instructions Replace Required Details, Route to Pharmacy Electronically, [id number]... Start Date: 10/25/22 Status: Ordered semaglutide 1 mg/0.5 mL (1 mg dose) subcutaneous solution = 1 mg, Subcutaneous Injection, Every week, for 4 week(s), in the abdomen, thigh, or upper arm, # 2mL, 0 Refills, Acute 08/20/23 15:19:00 EDT, 07/23/23 15:19:00 EDT, Solution, [facility],Partial fill upon patient request if the prescripti... Start Date: 07/23/23 Stop Date: 08/20/23 Status: Ordered sertraline 50 mg oral tablet 1 tablet = 50 mg, By Mouth, Daily, # 90 tablet, 1 Refills, Maintenance, 07/11/23 10:18:00 EDT, Tablet, [facility] #[id number], Partial fill upon patient request if the prescription is for a schedule II opioid drug., 157, cm, 07/11/23 10:01:00 EDT... Start Date: 07/11/23 Status: Ordered terbinafine 250 mg oral tablet 1 tablet = 250 mg, By Mouth, Daily, for 84 days, # 84 tablet, 0 Refills, Acute 10/03/23 10:19:00 EDT, 07/11/23 10:19:00 EDT, [facility] #[id number], Partial fill upon patient request if the [...] Confirmed Active Severe obesity Confirmed Active 29/04/2007 [facility] admission #1: acute asthma attack Social History Social History Type Response Smoking Status Never (less than 100 in lifetime);Never; Exposure to Secondhand Smoke: Yes; Tobacco use times per day: mother smokes; entered on: 09/14/21 Sex Patient Care team information Care Team Personnel Name: Bertha Montes MD Position: [facility] Resident Member Role: PCP Address: Address: [address] [place] [address]- Care Team Related Persons Name: Monroe Romo Address: home [address] [place] [address] Name: MARIFER ROMO Address: home [address] [place] [address] Name: REMA ROMO Address: Address: [address]
--- OUTSIDE RECORDS SUMMARY | 2023-11-05 06:25 | XMS_ITS | Continuity of Care Document ---
Author Organization [facility] Address [address] [place] [address]- Care Team Providers Care Pasteurizer Helper Name Role Phone Bertha Montes MD Primary Care Physician Encounter [facility] Date(s): 09/29/23 - 10/29/[address] [address]- Attending Physician: Admtr, Ar8 Admitting Physician: Admtr, [...] Refills, Soft Stop, 09/29/23 18:30:00 EDT, Capsule, [facility] #[id number], Partial fill upon patient request if the prescription is fora schedule II opioid drug., 157, cm, 09/29/23 15:18... Start Date: 09/29/23 Status: Ordered ProAir HFA 90 mcg/inh inhalation aerosol with adapter See Instructions, PRN, 2-4 puffs Inhalation 4 times a day 30 days, # 1 each, Refills 11, Tot. Refills 11, Maintenance, 10/25/22 11:47:00 EDT, Instructions Replace Required Details, Route to Pharmacy Electronically, [id number]... Start Date: 10/25/22 Status: Ordered semaglutide 2.4 mg/0.75 mL (2.4 mg dose) subcutaneous solution = 2.4 mg, Subcutaneous Injection, Every week, in the abdomen, thigh, or upper arm, # 3 mL, 3 Refills, Maintenance, 09/29/23 18:29:00 EDT, Solution, [facility] 1967, Partial fill upon patient request if the prescription is for a schedule II opioi... Start Date: 09/29/23 Status: Ordered sertraline 50 mg oral tablet 1 tablet = 50 mg, By Mouth, Daily, # 90 tablet, 1 Refills, Maintenance, 09/29/23 18:31:00 EDT, Tablet, [facility] #[id number], Partial fill upon patient request if the [...] Confirmed Active Severe obesity Confirmed Active 29/04/2007 [facility] admission #1: acute asthma attack Social History Social History Type Response Smoking Status Never (less than 100 in lifetime);Never; Exposure to Secondhand Smoke: Yes; Tobacco use times per day: mother smokes; entered on: 8/5/22 Sex Patient Care team information Care Team Personnel Name: Bertha Montes MD Position: S Resident Member Role: PCP Address: Address: [address] [place] [address]- Care Team Related Persons Name: Monroe Mcgarry Address: home [address] [address] Name: MARIFER MCGARRY Address: home [address] [place] [address] Name: REMA MCGARRY Address: Address: home [address] [place] [address]
--- OUTSIDE RECORDS SUMMARY | 2023-11-05 06:25 | XMS_ITS | Continuity of Care Document ---
Author Organization [facility] Address [address] [place] [address]- Care Team Providers Care Field Support Rep Name Role Phone Bertha Montes MD Primary Care Physician Encounter [facility] Date(s): 07/21/23 - 08/20/[address] [address]- Allergies, Adverse Reactions, Alerts Substance Reaction Severity [...] 24 capsule, 0 Refills, Maintenance, 02/17/23 12:58:00 [place], [facility] #[id number], Partial fill upon patient request if the prescription is for a schedule II opioid drug., 157, c... Start Date: 02/17/23 Status: Ordered dexamethasone 1 mg oral tablet 1 tablet = 1 mg, By Mouth, Once, to be taken at 11pm, # 1 tablet, 0 Refills, Soft Stop, 06/12/23 17:23:00 EDT, [facility] #[id number], Partial fill upon patient request if the prescription is for a schedule II opioid drug., 157, cm, 06/12/23 17:0... Start Date: 06/12/23 Status: Ordered hydrOXYzine hydrochloride 25 mg oral tablet 1 capsule, By Mouth, Once, PRN Agitation, # 30 capsule, 3 Refills, Soft Stop, 12/10/22 14:50:00 EDT, Capsule, [facility] #[id number], Partial fill upon patient request if the prescription is fora schedule II opioid drug., 160, cm, 12/10/22 14:07... Start Date: 12/10/22 Status: Ordered ProAir HFA 90 mcg/inh inhalation aerosol with adapter See Instructions, PRN, 2-4 puffs Inhalation 4 times a day 30 days, # 1 each, Refills 11, Tot. Refills 11, Maintenance, 10/25/22 11:47:00 EDT, Instructions Replace Required Details, Route to Pharmacy Electronically, [id number]... Start Date: 10/25/22 Status: Ordered sertraline 50 mg oral tablet 1 tablet = 50 mg, By Mouth, Daily, # 90 tablet, 1 Refills, Maintenance, 07/11/23 10:18:00 EDT, Tablet, [facility] #[id number], Partial fill upon patient request if the prescription is for a schedule II opioid drug., 157, cm, 07/11/23 10:01:00 EDT... Start Date: 07/11/23 Status: Ordered terbinafine 250 mg oral tablet 1 tablet = 250 mg, By Mouth, Daily, for 84 days, # 84 tablet, 0 Refills, Acute 10/03/23 10:19:00 EDT, 07/11/23 10:19:00 EDT, [facility] #[id number], Partial fill upon patient request if the [...] Active Severe obesity Confirmed Active 29/04/2007 [facility] admission #1: acute asthma attack Social History Social History Type Response Smoking Status Never (less than 100 in lifetime);Never; Exposure to Secondhand Smoke: Yes; Tobacco use times per day: mother smokes; entered on: 09/14/21 Sex Patient Care team information Care Team Personnel Name: Bertha Montes MD [facility] Resident Member Role: PCP Address: Address: [address] [place] [address]- Care Team Related Persons Name: Monroe Mcgarry Address: home [address] [place] [address] Name: MARIFER MCGARRY Address: home [address] [place] [address] Name: REMA MCGARRY Address: Address: [address]
--- OUTSIDE RECORDS SUMMARY | 2023-11-05 06:26 | XMS_ITS | Continuity of Care Document ---
Author Organization [facility] Address [address] [place] [address]- Care Team Providers Care Ux Specialist Name Role Phone Bertha Montes MD Primary Care Physician Encounter [facility] Date(s): 07/21/23 - 08/20/[address] [address]- Allergies, Adverse Reactions, Alerts Substance Reaction Severity [...] Refills, Maintenance, 02/17/23 12:58:00 [facility], [facility] #[id number], Partial fill upon patient request if the prescription is for a schedule II opioid drug., 157, c... Start Date: 02/17/23 Status: Ordered dexamethasone 1 mg oral tablet 1 tablet = 1 mg, By Mouth, Once, to be taken at 11pm, # 1 tablet, 0 Refills, Soft Stop, 06/12/23 17:23:00 EDT, [facility] #[id number], Partial fill upon patient request if the prescription is for a schedule II opioid drug., 157, cm, 06/12/23 17:0... Start Date: 06/12/23 Status: Ordered hydrOXYzine hydrochloride 25 mg oral tablet 1 capsule, By Mouth, Once, PRN Agitation, # 30 capsule, 3 Refills, Soft Stop, 12/10/22 14:50:00 EDT, Capsule, [facility] #[id number], Partial fill upon patient request if the prescription is fora schedule II opioid drug., 160, cm, 12/10/22 14:07... Start Date: 12/10/22 Status: Ordered ProAir HFA 90 mcg/inh inhalation aerosol with adapter See Instructions, PRN, 2-4 puffs Inhalation 4 times a day 30 days, # 1 each, Refills 11, Tot. Refills 11, Maintenance, 10/25/22 11:47:00 EDT, Instructions Replace Required Details, Route to Pharmacy Electronically, [id number]... Start Date: 10/25/22 Status: Ordered sertraline 50 mg oral tablet 1 tablet = 50 mg, By Mouth, Daily, # 90 tablet, 1 Refills, Maintenance, 07/11/23 10:18:00 EDT, Tablet, [facility] #[id number], Partial fill upon patient request if the prescription is for a schedule II opioid drug., 157, cm, 07/11/23 10:01:00 EDT... Start Date: 07/11/23 Status: Ordered terbinafine 250 mg oral tablet 1 tablet = 250 mg, By Mouth, Daily, for 84 days, # 84 tablet, 0 Refills, Acute 10/03/23 10:19:00 EDT, 07/11/23 10:19:00 EDT, [facility] #[id number], Partial fill upon patient request if the [...] Confirmed Active Severe obesity Confirmed Active 29/04/2007 [facility] admission #1: acute asthma attack Social History Social History Type Response Smoking Status Never (less than 100 in lifetime);Never; Exposure to Secondhand Smoke: Yes; Tobacco use times per day: mother smokes; entered on: 09/14/21 Sex Patient Care team information Care Team Personnel Name: Bertha Montes MD Position: [facility] Resident Member Role: PCP Address: Address: [address] [place] [address]- Care Team Related Persons Name: Monroe Mcgarry Address: home [address] [place] [address] Name: MARIFER MCGARRY Address: home [address] [place] [address] Name: REMA MCGARRY Address: Address: [address]
[2023-11-05 06:27] LABS: UPreg QC Valid YES; Urine Pregnancy NEGATIVE (NEGATIVE)
[2023-11-05] MEDS: Aprepitant 32 MG/4.4 ML VIAL IVPUSH (06:59)
[2023-11-05] MEDS: Lactated Ringers 1,000 ML 999 ML IV (07:01)
--- NOTE | 2023-11-05 07:34 | MHC.SHP ---
Pre-Procedural Eval Section A - 24 Hr Update-Section A only Date of Service: 11/05/23 The patient is an INPATIENT: Yes The patient has been examined within 24 hours of the surgical procedure. The History & Physical has been completed within 30 days and I have reviewed it.: Yes Section B - Complete if H&P > 30 days Chief Complaint: morbid obesity Relevant Family History (Specify if Yes): No Relevant Social History: None Present Medications: None Medical History: No relevant PMH History of Previous Operations: No relevant previous surgery Allergies: Allergies Allergy/AdvReac Type Severity Reaction Status Date / Time No Known Allergies Allergy Verified 11/05/23 06:16 Review of Systems Sugical H&P ROS: Negative: Constitution, Cardiovascular, Respiratory, Neurological, Psychiatric, Hem-Onc, Allergic/Immunologic, Gastrointestinal, Genitourinary, Musculoskeletal, Integumentary, Endocrine and Eyes/Ears/Nose/Throat Exam Surgical H&P Exam: Normal: HEENT, Normal: Heart, Normal: Lungs, Normal: Extremities, Normal: Abdomen, Normal: Skin and Normal: Neurological Plan Diagnosis/Plan: Unchanged I have reviewed the history and physical and performed a pertinent physical examination on my patient. No changes have occurred unless specified. Time Spent With Patient Time: Total time managing care of this patient today ____ minutes.
--- NOTE | 2023-11-05 10:14 | P.DS_ITS ---
DS: Providers Provider Date of Service: 11/06/23 Date of admission: 11/05/23 06:18 Primary care physician: Unknown Physician DS: Summary Hospital Course Hospital Course: ADMITTING DIAGNOSIS: morbid obesity, ADHD, asthma, gerd ? DISCHARGE DIAGNOSIS: same, s/p laparoscopic sleeve gastrectomy ? PAST SURGICAL HISTORY: hand surgery ? PROCEDURE: upper endoscopy, laparoscopic sleeve gastrectomy ? DISCHARGE SUMMARY: ? History of Present Illness: ? The patient is a?33 year-old woman with a BMI of??47.6 kg/m2 and associated co- morbidities as described above. The patient had extensive work-up,lost?14 lbs preoperatively and was electively scheduled for laparoscopic, possible open sleeve gastrectomy and gastropexy. Risks and complications of the surgery were discussed with the patient in advance, particularly the possibility of , pulmonary embolism, anastomotic leak, bleeding, bowel injury, GERD, cardiac, renal or pulmonary complications. The patient understood all the risks and was in agreement with the surgical plan. ? Hospital Course: ? The patient underwent an uneventful laparoscopic sleeve gastrectomy with gastropexy on the day of admission. Postoperatively, the patient was transferred to the surgical floor. The patient received IV Acetaminophen and IV dilaudid for pain control. Patient was started on bariatric phase 1 diet POD #0. On postoperative day one, the patient was feeling well without nausea, vomiting, fevers, or tachycardia. The patient had some mild incisional pain and the abdomen was soft. ? On the morning of postoperative day one, the patient was continued on 1 ounce of water or ice every half hour. During the day, the patient did fairly well, having some incisional pain, but able to ambulate adequately and to tolerate liquids well. ? Since the patient is doing well, we decided that the patient was ready to be discharged. The patient was given instructions to follow-up with me next week and to call my office for any fever over 101, persistent abdominal pain, nausea, vomiting, GERD, symptoms of DVT such as calf tenderness, or leg swelling, or pulmonary embolism such as chest pain or shortness of breath. The patient was also instructed to drink 40-60 ounces of liquids per day using the 1-ounce cups. The patient had been given prescriptions for Tylenol for pain, Zofran prn for nausea, and pantoprazole and carafate previously. The patient was encouraged to ambulate and use the incentive spirometer. The patient was allowed to shower, but no baths, and encouraged to stay active at home. All of these instructions were given to the patient personally. All questions were answered and the patient understood all instructions, the instructions were also given to the patient in print. Time Attestation Total time managing care of this patient today: 25 mintues. Discharge Coordination Time (in mins): 25 Quality: Safe Use of Opioids Does Pt have an Active Cancer Diagnosis on the Problem List?: No Quality: Stroke Does the patient have a stroke diagnosis?: No Physical Exam Vital Signs: Vital Signs: Last Vital Signs Temp 98.0 F 11/05/23 06:29 Pulse 78 11/05/23 06:29 Resp 15 11/05/23 06:29 BP 94/41 L 11/05/23 06:29 Pulse Ox 99 11/05/23 06:29 O2 Del Method Room Air 11/05/23 06:29 BMI result Body Mass Index 46.6 DS: Data Data Completed and Pending Pending studies at discharge: Pending at discharge 11/05/23 09:43 Surgical [PTH] Routine Labs on day of discharge: Laboratory Results - last 24 hr 11/05/23 06:15 Urine Test NEGATIVE Discharge Plan Discharge Anticipated Discharge Date/Time: 11/06/23 10:00 Patient Disposition: Home, Self-Care Discharge Diagnosis: s/p laparoscopic sleeve gastrectomy Referrals: Physician,Unknown J [Primary Care Provider] - 1 Week Discharge Medications: Continued hydroxyzine HCl 25 mg tablet 25 mg PO ONCE PRN (Reason: Agitation) sertraline 50 mg tablet 50 mg PO DAILY pantoprazole 40 mg tablet,delayed release (DR/EC) 40 mg PO DAILY Qty: 90 0RF sucralfate 100 mg/mL suspension 10 ml PO BID Qty: 600 2RF ondansetron 4 mg tablet,disintegrating 4 mg PO Q12H Qty: 20 0RF Rx Instructions: Only take one every 12 hours as needed if you have nausea albuterol sulfate 90 mcg/actuation HFA aerosol inhaler 2 puff inhalation Q6H PRN (Reason: Shortness Of Breath Or Wheezing) Discharge Orders: Discharge Order (Routine); Ordered 11/06/23 Ordered By: Bolivar Haines Activity on Discharge: No heavy lifting Stand Alone Forms: Patient Portal Discharge page Print Language: Sami Care Plan Goals: weight loss Health Concerns: morbid obesity Plan of Treatment: No tub baths, sex or returning to work until discussed at first post op appointment. No exercise, alcohol, tobacco or illegal drug use. Continue to use incentive spirometer hourly while awake. Walk in home for 5- 10 minutes every 2 hours during the first week. Follow all instructions in the bariatric handbook and call with any questions.Discharge Instructions 1. Please call your doctor or come back to the emergency room should any new symptoms arise. 2. You will receive a courtesy call from [facility] 24-48 hours after discharge. 3. Activity: abstain from alcohol, practice limited stair climbing, no bending, no driving, no exercise, no illicit substances, no lifting, no sex, no tub bath, no work. 4. Diet: continue as discussed with Dr. Shell. 5. Dressing Change/Wound Care: Your incision is covered by clear bandages and guaze underneath. If the area is tender, you may apply an ice pack for short intervals (no more than 20 minutes on, followed by at least 20 minutes off). Do not apply heat. Do not use creams, lotions, or topical antibiotics unless instructed to do so by your surgeon. These can cause infection or allergic reaction. 6. Call your doctor if: - Your temperature exceeds 101.5 F - You experience excessive pain or swelling - You have an unexpected reaction to medication - You have excessive bleeding - You experience continued vomiting/nausea - Your incision begins to separate - Your incision shows signs of infection such as increased redness, swelling, excessive pain, heat, or drainage (light blood or clear fluid is normal) 7. General instructions: No lifting greater than 5 lbs for 1 week and not more than 20lbs the next 3?weeks. No driving until seen at the office in 5-7 days after surgery. If you do not move your bowels in the next 2 days, please tell?Dr. Shell. Please walk around your home every hour or two to prevent blood clots from forming in your legs. You do not need to wake from sleeping to walk. Please sleep in a bed or couch to prevent kinking at the hips and knees. Please take your incentive spirometer (your lung swimming pool attendant) home with you and use it for the next few days to prevent pneumonia. You may shower, no hot tubs, baths or swimming pools.?Please follow the post op diet instructions you are?given by Dr Shell? and text me daily at 5-6pm for an update.?If you have any issues or concerns or questions please communicate this to him via text.? The Celebrate shakes have all of the bariatric vitamins you need if you consume these shakes. If you are drinking other protein shakes, you will need to purchase the Celebrate multivitamins and calcium that are available in the hospital gift shop on the first floor of the [facility].??Do not take anything without first discussing with Dr Shell. Please make sure you are consuming at least 40 ounces of fluids per day starting the?day AFTER your discharge from the hospital. Always drink 1-2 ml per minute using the 5ml?syringe. If you drink faster you may experience?bloating,?gas pain, burping, nausea or heartburn. In that case please slow down your pace and use the syringe to?understand better the?proper?pace and volume of drinking. Do not hesitate to contact the office with any questions at . The patient's medical history has been reviewed and they are considered low risk for post op DVT and therefore DVT prophylaxis is not considered necessary. Travel after surgery was reviewed. The patient has not disclosed any travel plans during the first 30 days after surgery and they have been advised that within the first 30 days after surgery any bus, plane, train or car travel over 2 hours in duration is contraindicated due to the possibility of developing blood clots from immobility. Any travel, needs to include periods of ambulation of 10 minutes in duration every 2 hours.? The patient was instructed to discuss any plans for travel during this period with their bariatric surgeon. Assessment: stable s/p laparoscopic sleeve gastrectomy
--- NOTE | 2023-11-05 10:23 | P.BOP_ITS ---
Brief Operative Note Date of Service: 11/05/23 Pre-op diagnosis: Morbid obesity with comorbidities (see below) Post-op diagnosis: same (& abdominal adhesions) Procedure: INITIAL PATIENT BMI ON PRESENTATION AT OUR OFFICE: 47.6 kg/m2 LAST BMI BEFORE SURGERY: 45.5 kg/m2 COMORBIDITIES: asthma, GERD, cholelithiasis ?The patient presented to the Weight Management Program with significant obesity that was negatively impacting the patient's comorbidities as listed above.? The program is a phased program with a special focus on preoperative medical weight management to promote substantial weight loss and prepare the patients for the second phase of the program: bariatric surgery. The patient participated in an intensive weekly lifestyle ?intervention and exercise program during which the patient ?has lost between the initial office visit and the last preoperative visit 29.2lbs, or 10.2% of initial actual body weight. It was deemed appropriate for the patient to now have bariatric surgery. In light of the current Covid-19 pandemic and the well documented strong association of obesity and increased risk of worse outcomes if infected with Covid-19 (REFERENCES: https://pubmed.ncbi.nlm.nih.gov/41550006/ ,? https://pubmed.ncbi.nlm.nih.gov/04107564/ ), any delay in undergoing bariatric surgery may lead to the patient's worsening health condition and increased?risk of more severe Covid-19 disease if infected. In addition a recent?study from [facility] published in [facility] on 02/05/2021 ([email or web address]) found that, among patients with obesity, substantial weight loss achieved with surgery was associated with improved outcomes of COVID-19 infection. The findings suggest that obesity can be a modifiable risk factor for the severity of COVID-19 infection. In addition, the patient met the BMI-criteria for bariatric surgery based on the BMI on initial presentation. The patient should not be penalized for achieving such weight loss because ?it is not sustainable long-term without surgical intervention and it was achieved in preparation for bariatric surgery ?under my direction and based on my published research ([email or web address]).[email or web address] and? https://www.soard.org/article/[email or web address](05)86589-X/pdf ) ?that a 10% preoperative weight loss improves long-term weight loss after surgery and reduces perioperative complications.? Insurance carriers such as [facility] have endorsed my recommendations ?and have included in their policies criteria to include a 10% preoperative weight loss requirement. PROCEDURE: Esophago-gastroscopy, laparoscopic lysis of adhesions, laparoscopic sleeve gastrectomy and laparoscopic gastropexy INDICATIONS: This is a 33 year-old female who was electively scheduled for laparoscopic, possibly open sleeve gastrectomy. The risks and complications of the procedure were discussed with the patient in advance, particularly the possibility of ; pulmonary embolism; staple line leak; bleeding; GERD; cardiac, pulmonary, or renal complications; as well as long-term problems such as insufficient weight loss, vitamin deficiency, strictures, or ulcers. The patient understood all the risks, and was in agreement to proceed with surgery. DESCRIPTION OF PROCEDURE: After informed consent was obtained from the patient, the patient was given preoperative antibiotics, and was transferred to the operating room. After successful induction of general anesthesia, pneumatic compression devices were placed on both lower extremities. An upper endoscopy was performed next. The oropharynx and esophagus appeared to be within normal limits. There was no significant diaphragmatic hernia present. The stomach was entered. Then after all fluid and air were suctioned and the stomach was fully decompressed, the scope was withdrawn and secured in the mid esophagus. The patient was then prepped and draped in the usual sterile manner, and abdominal access was established at the right upper quadrant with the Opal technique. A 12 mm blunt port was inserted, and the abdomen was insufflated with CO2 to a pressure of 15 mmHg. Under direct visualization, additional ports were placed, specifically two 5 mm Versi-step ports to the left upper quadrant, and a 5 mm Versi-Step port to the right upper quadrant. 1% lidocaine plain was used to infiltrate all port sites as well as all fascia defects. Following that, the patient was placed in a steep reverse Trendelenburg position. An additional 5 mm port was placed to the right flank for the Mediflex retractor that was used to retract the left lobe of the liver. The gastro-esophageal fat pad was opened with the ultrasonic device (Thunderbeat, Olympus) and the anterior esophagus and hiatus were exposed. The angle of His was opened with the ultrasonic device the fundus of the stomach from any diaphragmatic and splenic attachments. I then opened the gastrocolic ligament between the transverse colon and the greater curvature of the stomach with the ultrasonic device to enter the lesser sac and facilitate the ligation of the short gastric vessels. I started at a mid-point along the greater curvature and using the Thunderbeat, all short gastric vessels were divided all the way to the angle of His until the left herberth was completely dissected at its entirety. I then divided the gastro-colic ligament distally to a distance of about 3-4 cm proximal to the pylorus. There were extensive congenital adhesions between the pancreas and posterior gastric wall. Those were lysed completely with the ultrasonic device. Adhesiolysis took approximately 45 min to complete. The stomach was then divided transversely with one Endo DENTON-45 purple, 3 DENTON-60 purple loads and one DENTON-45 articulating orange load using the SIGNIA stapler and SIGNIA and AEON loads. Every effort was made that the gastric sleeve had a tubular shape and an even caliber throughout. Once the sleeve resection was completed, the staple line of the gastric sleeve was reinforced with Hemoclips. The resected stomach was retrieved without difficulty from the Opal port. A gastropexy was then performed in order to prevent postoperative GERD and partial gastric volvulus. Several interrupted 2.0 Surgidac sutures were placed between the sleeve's staple line and the previously divided greater omentum and gastro-colic ligament using the Endo-Stitch device. ?An upper endoscopy was performed. There was no narrowing at the GE junction. The scope was easily advanced all the way to the pylorus which was clearly visualized. There was no narrowing anywhere and the sleeve's caliber was even throughout. The sleeve's staple line was inspected and there was no evidence of ischemia, bleeding or dehiscence. At that point the gastroscope was withdrawn from the patient?s mouth while we were decompressing the bowel and the stomach from any remaining air. I looked into the lesser sac to see how the sleeve was situating and it was situating well. There was no bleeding from the staple line, spleen, or short gastric vessels. The Mediflex retractor was removed, and the undersurface of the liver was inspected and there was no bleeding. The patient was placed in supine position. I closed the fascial defect of the 12 mm port site with a figure of eight #1 Polysorb suture. Then 30cc Ropivacaine plain with 10 mg of Dexamethasone were used to infiltrate the fascial closure as well as all skin incisions. At this point, the abdomen was deflated, all ports were removed under direct vision, and no bleeding was noted from any of the port sites. The skin incisions were irrigated with saline and were closed with 4-0 absorbable monofilament sutures. Steri-Strips and OpSites were used to cover all incisions. The patient was extubated and was transferred in stable condition to the recovery room for further care. I was present and performed all carpenter parts of the procedure. Mr. Haines was the tv production assistant. There were no residents to assist with this case. Rohan Shell MD, PhD, FACS Surgeon: Jaime Shell MD Anesthesia: GETA, local and other (TAP block) Was an Orthodontic Technician Assistant used for this Procedure?: Yes Orthodontic Technician Assistant: Bolivar Haines Estimated blood loss (mL): 10 IV fluids (mL): 3,000 Urine output (mL): 0 (No Raman to record output) Pathology: other (Stomach) Condition: stable Disposition: PACU
--- NOTE | 2023-11-05 10:28 | P.PNGS_ITS ---
Subjective Subjective Date of Service: 11/06/23 Interval history: Feels well. Mild incisional pain. She is tolerating phase 1 bariatric diet Physical Exam 2 Vital Signs: Vital Signs: Last Vital Signs Temp 98 F 11/05/23 10:12 Pulse 85 11/05/23 10:22 Resp 16 11/05/23 10:22 BP 111/70 11/05/23 10:22 Pulse Ox 95 11/05/23 10:22 O2 Del Method Nasal Cannula wit h Capnography 11/05/23 10:22 O2 Flow Rate 8 11/05/23 10:17 FiO2 44 11/05/23 10:22 BMI result Body Mass Index 46.6 GI: Inspection: Yes normal to inspection, Yes incision (clean, dry and intact) and Yes obesity Palpation (GI): Soft to palpation Extrem: Right lower extremity: normal to inspection (no calf tenderness) L eft lower extremity: normal to inspection (no calf tenderness) Objective Data Active Medications Albuterol Sulfate (Albuterol Sulfate (0.083%) 2.5 Mg/3 Ml Vial.Neb) 2.5 mg INHALE ONCE PRN PRN Reason: Shortness of Breath/Wheezing Albuterol/Ipratropium (Albuterol/Iprat 2.5/0.5mg 3 Ml Ampul.Neb) 3 ml INHALE ONCE PRN PRN Reason: Bronchospasm/wheezing Stop: 11/05/23 15:04 Fentanyl (Fentanyl Citrate/Pf 100 Mcg/2 Ml Vial) 25 mcg IVPUSH Q5M PRN PRN Reason: Pain, Moderate to Severe (Pain Scale 4-10) Stop: 11/05/23 15:04 Hydromorphone HCl (Hydromorphone Hcl 0.5 Mg/0.5 Ml Syringe) 0.25 mg IVPUSH Q5M PRN PRN Reason: Pain, Moderate to Severe (Pain Scale 4-10) Stop: 11/05/23 15:04 Lactated Ringer's (Lr) 1,000 mls @ 100 mls/hr IVCONT .Q10H JENNIFER Naloxone HCl (Naloxone Hcl 0.4 Mg/Ml Vial) 0.04 mg IVPUSH Q5M PRN PRN Reason: Excessive sedation or RR < 8 Ondansetron HCl (Ondansetron Hcl 4 Mg/2 Ml Vial) 4 mg IVPUSH ONCE PRN PRN Reason: Nausea and Vomiting Stop: 11/05/23 15:04 Oxycodone HCl (Oxycodone Hcl Immed Release 5 Mg Tablet) 5 mg PO ONCE PRN PRN Reason: Pain, Moderate(Pain Scale 4-6) if no IV Access Stop: 11/05/23 15:04 Labs 11/05/23 11:09 11/06/23 07:00 Labs: Laboratory Results - last 24 hr 11/05/23 06:15 Urine Test NEGATIVE Procedures Date of Service Date of Service: 11/06/23 Progress Note: A&P Assessment and plan (1) Morbid obesity: Status: Acute Assessment and Plan: s/p laparoscopic sleeve gastrectomy, lysis of adhesions and gastropexy Doing well Will check am labs and if OK the patient will be discharged home (2) Asthma: Status: Acute (3) S/P laparoscopic sleeve gastrectomy: Status: Acute (4) GERD (gastroesophageal reflux disease): Status: Acute (5) ADD (attention deficit disorder): Status: Acute (6) Cholelithiasis: Status: Acute Time Spent With Patient Time: Total time managing care of this patient today ____ minutes. Quality Stroke Does the patient have a stroke diagnosis?: No VTE Prior VTE?: No VTE Risk Level:: Medical - moderate - high VTE Device Contraindication: N/A - Device Ordered VTE Drug Contraindication: Treatment Not Indicated
[2023-11-05] MEDS: fentaNYL citrate/PF 100 MCG/2 ML VIAL 25 MCG IVPUSH (10:54)
[2023-11-05 11:23] LABS: Hematocrit 35.7 % (37.0-47.0); Hemoglobin 11.8 g/dl (12.0-16.0)
[2023-11-05 11:30] LABS: Anion Gap 11 (12-20); Blood Urea Nitrogen 10 mg/dL (9-16); Carbon Dioxide 24 mmol/L (22-29); Chloride 106 mmol/L (96-108); Creatinine Clr Calc Pharmacy 122.7; Estimated Glomerular Filt Rate > 60; Glucose Random 161 mg/dL (60-115); Potassium 3.9 mmol/L (3.3-5.1); Sodium 137 mmol/L (135-145)
[2023-11-05] MEDS: Lactated Ringers 1,000 ML 100 ML IVCONT ×2 (12:16→22:13)
[2023-11-05] MEDS: 0.9 % Sodium Chloride Flush 3 ML SYRINGE IVFLUSH ×2 (12:17→20:23)
--- NOTE | 2023-11-05 12:27 | PC.NURSE ---
pt received from PACU has voided ambulated in hallway and instructed on use of incentive spirometer and phase I diet . routine post op care . denies pain at this time
--- NOTE | 2023-11-05 12:50 | PHA.MEDREC ---
Addendum entered by Urbano Castellanos 11/05/23 12:57: Reviewed Original Note: Pharmacy Consult ? Medication Reconciliation Pharmacy has reviewed the medication reconciliation done by nurse. Spoke to patient she states she will no longer be on Wegovy after today, last dose was last Friday11/03/23 and she hasn't started taking Terbinafine 250 mg
[2023-11-05] MEDS: ceFAZolin Sodium/Dextrose,Iso 2 GM/50 ML PIGGYBACK IV (14:23)
[2023-11-05] MEDS: Acetaminophen 1,000 MG/100 ML PIGGYBACK 16.7 MG IV ×2 (14:24→20:23)
[2023-11-05] MEDS: ondansetron HCL 4 MG/2 ML VIAL IVPUSH (15:12)
[2023-11-05] MEDS: Famotidine/PF 20 MG/2 ML VIAL IVPUSH (20:23)
[2023-11-05] MEDS: Metoclopramide HCl 10 MG/2 ML VIAL IVPUSH (22:12)
[2023-11-06] VITALS: BP 107/59; PULSE 102; RESP 16; TEMP 36.8; O2SAT 96
[2023-11-06] MEDS: Acetaminophen 1,000 MG/100 ML PIGGYBACK 16.7 MG IV (02:10)
[2023-11-06 04:00] VITALS: BP 111/57; PULSE 97; RESP 16; TEMP 36.8; O2SAT 96
[2023-11-06 07:02] LABS: MANUAL DIFF FLAG NO
[2023-11-06] MEDS: Famotidine/PF 20 MG/2 ML VIAL IVPUSH (07:04)
[2023-11-06 07:23] LABS: Anion Gap 14 (12-20); Blood Urea Nitrogen 6 mg/dL (9-16); Carbon Dioxide 22 mmol/L (22-29); Chloride 106 mmol/L (96-108); Creatinine Clr Calc Pharmacy 127.2; Estimated Glomerular Filt Rate > 60; Glucose Random 90 mg/dL (60-115); Potassium 4.1 mmol/L (3.3-5.1); Sodium 138 mmol/L (135-145)
[2023-11-06 07:47] VITALS: BP 100/60; PULSE 56; RESP 16; TEMP 36.9; O2SAT 96
[2023-11-06 07:49] LABS: Basophils Percent Auto 0.1 % (0-2); Hematocrit 35.5 % (37.0-47.0); Hemoglobin 11.8 g/dl (12.0-16.0); Imm Gran Abs Auto 0.04 X10*3/uL (0.00-0.03); Imm Gran Pct Auto 0.5 % (0.0-0.4); Lymphocytes Absolute Auto 0.9 X10*3/uL (1.2-4.9); Lymphocytes Percent Auto 11.7 % (20-40); Mean Corpuscular HGB Conc 33.2 g/dl (31.0-35.0); Mean Corpuscular Hemoglobin 32.3 pg (27.0-33.0); Mean Corpuscular Volume 97.3 fL (80.0-98.0); Monocytes Absolute Auto 0.6 X10*3/uL (0.1-1.2); Monocytes Percent Auto 7.3 % (2-11); Neutrophils Absolute Auto 6.2 x10*3/uL (2.0-8.3); Neutrophils Percent Auto 80.4 % (45-73); Platelet Count 244 X10*3/uL (160-400); Red Blood Count 3.65 X10*6/uL (4.20-5.50); Red Cell Distribution Width 12.5 % (11.0-16.0); White Blood Count 7.7 X10*3/uL (4.8-10.8)
--- NOTE | 2023-11-06 08:03 | HO.POSTANES ---
Post Anesthesia Evaluation Post Anesthesia Evaluation Date of Service: 11/06/23 Vital Signs: Vital Signs Temp Pulse Resp BP Pulse Ox O2 Del Method 11/06/23 07:47 98.4 F 56 16 100/60 96 Room Air 11/06/23 04:00 98.3 F 97 16 111/57 L 96 Room Air 11/06/23 00:00 98.3 F 102 H 16 107/59 L 96 Room Air Anesthesia: General Endotracheal-GETA Mental Status: Awake Pain Control: Satisfactory Nausea/Vomiting: None Hydration: Adequate Anesthesia-Related Issues: No Anes. Related Issues
--- NOTE | 2023-11-06 09:17 | MHC.CM.PN ---
Patient from home alone. Functionally independent. Denies use of DME or services. PCP @ [facility] Reports she has an HCP naming her mother, Ashley and brother as HCA's. Copy requested. Will bring to f/u w/ Dr. Shell. DP: Medically cleared for dc home self care. Father will transport home.
== END 2023-11-06 09:59 | disposition home or self-care (01) | DRG 403 ==
LOC: HO.SSSA 10:16 → HO.S3 11:28
PROVIDERS: Nurse Practitioner; Physician Assistant Surgical; Admitting Provider Surgery; PCP Student in an Organized Health Care Education/Training Program; Visit Provider Surgery
PROC: 0DB64Z3 Excision of Stomach, Percutaneous Endoscopic Approach, Vertical (ICD-10-PCS; CPT 43845; principal; 2023-11-05 07:30)
DX: E66.01 Morbid (severe) obesity due to excess calories (principal); Q43.3 Congenital malformations of intestinal fixation; K80.20 Calculus of gallbladder without cholecystitis without obstruction; F90.9 Attention-deficit hyperactivity disorder, unspecified type; J45.909 Unspecified asthma, uncomplicated; K21.9 Gastro-esophageal reflux disease without esophagitis; Z68.42 Body mass index [BMI] 45.0-49.9, adult; Z79.899 Other long term (current) drug therapy
CPT/HCPCS: 36415; 80048; 80053; 80061; 81025; 83036; 83525; 84443; 85014; 85018; 85025; 85610; 85730; 86140; 86850; 86900; 86901; 88304; 88305; 88307; 88342; A4649; C9145; J0131; J0690; J1100; J1170; J2250; J2371; J2405; J2704; J2765; J2795; J3010; J7120

== ENCOUNTER → 2023-11-05 06:18 | Outpatient (BNV) | payer OTHER, SELFPAY | PROVIDERS: Admitting Provider Surgery; Visit Provider Surgery | DX: E66.01 Morbid (severe) obesity due to excess calories (principal); Z68.42 Body mass index [BMI] 45.0-49.9, adult; Z98.84 Bariatric surgery status | CPT/HCPCS: 43659; 43775; 99024; 99499 ==

== ENCOUNTER 2023-11-12 10:46 | Outpatient (AMB) | payer OTHER, SELFPAY ==
--- NOTE | 2023-11-12 10:52 | MHC.OFFVISWM ---
VS Expanded 11/12/23 11:23 BP 122/69 Blood Pressure Location Rt brachial Blood Pressure Position Sitting Pulse 98 Pulse Source Pulse Oximeter Temp 97.6 F Temperature Source Temporal Artery Scan Pulse Oximetry 98 Oxygen Delivery Method Room Air Height 5 ft 3 in Weight 249 lb BMI 44.1 Body Fat % 51.2 Body Fat Mass 127.4 Fat Free Mass 121.4 Visceral Fat Rating 14.0 Body Water % 35.1 Body Water Mass 87.4 Muscle Mass/Score 115.4 Basal Metabolic Rate/Score 1,782 Intake Visit Reasons: (OV) PO LSG 11/05/23 Allergies No Known Allergies Allergy (Verified 11/12/23 11:31) HPI Comments Details: 33-year-old female, status post sleeve gastrectomy performed on 11/05/2023. She reports intolerance to the celebrate shakes and is going to be starting premier protein ready to drink shakes. She has moved her bowels. She denies any significant pain. [facility] Medical History (Updated 11/06/23 @ 00:03 by Alfa Bowen) Binge eating disorder Pre-op evaluation Degenerative lumbar disc Hiatal hernia GERD (gastroesophageal reflux disease) ADD (attention deficit disorder) Asthma Surgical History (Updated 11/12/23 @ 11:32 by Ying Rivera CMA) Hx of laparoscopic partial gastrectomy History of esophagogastroduodenoscopy (EGD) Hx of hand surgery Hx of breast surgery Family History Mother Hypertension Fibromyalgia Father No problems noted. Brother No problems noted. Social History Household Members: Children Housing: House Are you a primary caregivers homecare to a significant other at home: Yes Do you presently have visiting nurse or other home services: No Alcohol intake: current Alcohol intake frequency: does not drink Patient Tobacco Use Status: Never used Tobacco Second Hand Smoke Exposure: No Substance Use Type: Marijuana service: No Physical Exam Vital Signs: Last Vital Signs Temp 97.6 F 11/12/23 11:23 Pulse 98 11/12/23 11:23 BP 122/69 11/12/23 11:23 Pulse Ox 98 11/12/23 11:23 Oxygen Delivery Method Room Air 11/12/23 11:23 BMI result Body Mass Index 44.1 GI Inspection: Yes incision (Clean, dry, intact.) Assessment & Plan Assessment & Plan (1) S/P laparoscopic sleeve gastrectomy: Code(s): Z98.84 - Bariatric surgery status Category: Surgical Plan: POD 7 s/p LSG on 11/05/[address] Shell Weight loss prior to surgery was 14 pounds or 4.8 % TBWL. Original weight on 07/16/2023 was 286.2 pounds and op weight was 262.2 pounds. Be sure to text Dr Shell exactly 1 week after surgery your weight from your home scale so he can adjust your meal plan. Continue meal plan until f/u sondra Lutz in 2 weeks May shower, no submersion in bath for another week Continue abdominal binder with activity and exercise for the next 2 weeks. Exercise prior to surgery was treadmill and may resume No abdominal exercises for 6 weeks post operatively Will be emailed link to post op video for review Reminded of the pace of drinking, 2 mL per minute, 1 oz/15 min.
[2023-11-12 11:23] VITALS: BP 122/69; PULSE 98; TEMP 36.4; O2SAT 98; BMI 44.1
== END 2023-11-12 15:29 | disposition home or self-care (01) ==
PROVIDERS: Visit Provider Physician Assistant Surgical
DX: Z98.84 Bariatric surgery status (principal)
CPT/HCPCS: 99024

== ENCOUNTER → 2023-11-12 10:46 | Outpatient (BNVA) | payer OTHER, SELFPAY | PROVIDERS: Visit Provider Physician Assistant Surgical | DX: Z48.815 Encounter for surgical aftercare following surgery on the digestive system (principal); Z98.84 Bariatric surgery status | CPT/HCPCS: 99212 ==

== ENCOUNTER 2023-12-03 14:02 | Outpatient (AMB) | payer OTHER, SELFPAY ==
--- NOTE | 2023-12-03 14:41 | MHC.OFFVISWM ---
VS Expanded 12/03/23 14:49 BP 118/75 Blood Pressure Location Rt brachial Blood Pressure Position Sitting Pulse 86 Pulse Source Pulse Oximeter Temp 98.2 F Temperature Source Temporal Artery Scan Pulse Oximetry 97 Oxygen Delivery Method Room Air Height 5 ft 3 in Weight 247 lb 9.6 oz BMI 43.9 Body Fat % 48.1 Body Fat Mass 119.0 Fat Free Mass 128.6 Visceral Fat Rating 150 Body Water % 37.2 Body Water Mass 92.2 Muscle Mass/Score 122.2 Basal Metabolic Rate/Score 1,847 Intake Visit Reasons: (OV) PO LSG 11/05/23 Allergies No Known Allergies Allergy (Verified 12/03/23 14:50) HPI Comments Details: This?a?33?yo female who is s/p LSG without hiatal hernia repair on?11/05/2023. Presents for 1 month post op visit. Weight today is 247.6 pounds, with a BMI of 46.8. There has been a 38.6 pound weight loss,(initial weight 286.2 pounds) since starting the program on 07/16/2023 reflecting a 13.4 % total body weight loss and a weight loss of 14.6 pounds since surgery (operative weight 262.2 pounds) reflecting a 5.5 % TBWL since surgery. No complaints of nausea, emesis, abdominal pain or reflux. Reports infrequent but normal bowel movements every 3 days and uses stool softeners regularly. Present meal plan includes: Premier protein RTD x 3 1 whole shake 4 oz w 4 oz almond milk x 2 quest bar x 1 Drinking 40 oz water ? Exercise routine includes: walking pad at home gym membership [employer] [facility] Medical History (Updated 11/14/23 @ 00:02 by Alfa Bowen) Binge eating disorder Pre-op evaluation Degenerative lumbar disc Hiatal hernia GERD (gastroesophageal reflux disease) ADD (attention deficit disorder) Asthma Surgical History Hx of laparoscopic partial gastrectomy History of esophagogastroduodenoscopy (EGD) Hx of hand surgery Hx of breast surgery Family History Mother Hypertension Fibromyalgia Father No problems noted. Brother No problems noted. Social History Household Members: Children Housing: House Are you a primary patient care representative to a significant other at home: Yes Do you presently have visiting nurse or other home services: No Alcohol intake: current Alcohol intake frequency: does not drink Patient Tobacco Use Status: Never used Tobacco Second Hand Smoke Exposure: No Substance Use Type: Marijuana service: No Physical Exam Const General: healthy appearing and no acute distress Resp Effort & Inspection: normal respiratory effort Auscultation: clear to auscultation bilaterally Cardio Rate: regular rate Rhythm: regular rhythm GI Auscultation: normal bowel sounds Extrem General: Yes normal to inspection Assessment & Plan Assessment & Plan (1) Morbid obesity: Code(s): E66.01 - Morbid (severe) obesity due to excess calories Category: Medical Plan: Discussed the importance of going to the gym, she is working 3 days a week, 12 hour shifts, discussed going to the gym on the off days with a goal of burning 450 calories or more. Also discussed going to the gym prior to work which she will consider. She is following the meal plan. Exercises limiting factor. We will have her return to the office in approximately 1 month. Medications: New sennosides (senna) 17.2 mg (2 x 8.6 mg) PO BEDTIME 90 days PRN 180 tabs 0RF constipation
[2023-12-03 14:49] VITALS: BP 118/75; PULSE 86; TEMP 36.8; O2SAT 97; BMI 43.9
== END 2023-12-03 15:06 | disposition home or self-care (01) ==
PROVIDERS: Visit Provider Physician Assistant Surgical
DX: E66.01 Morbid (severe) obesity due to excess calories (principal)
CPT/HCPCS: 99024

== ENCOUNTER → 2023-12-03 14:02 | Outpatient (BNVA) | payer OTHER, SELFPAY | PROVIDERS: Visit Provider Physician Assistant Surgical | DX: Z48.815 Encounter for surgical aftercare following surgery on the digestive system (principal); E66.01 Morbid (severe) obesity due to excess calories; Z98.890 Other specified postprocedural states; Z68.41 Body mass index [BMI] 40.0-44.9, adult | CPT/HCPCS: 99212 ==

== ENCOUNTER 2024-01-05 14:00 | Outpatient (AMB) | payer OTHER, SELFPAY ==
--- NOTE | 2024-01-05 09:55 | MHC.OFFVISWM ---
VS Expanded 01/05/24 09:56 Height 5 ft 3 in Weight 235 lb 4 oz BMI 41.7 Body Fat % 53.7 Body Fat Mass 126.4 Fat Free Mass 109 Visceral Fat Rating 22 Body Water % 31.7 Body Water Mass 74.6 Muscle Mass/Score 102.4 Basal Metabolic Rate/Score 1,801 Intake Visit Reasons: (TV) PO LSG 11/05/23 Property Insurance Inspector Required: No Allergies No Known Allergies Allergy (Verified 12/03/23 14:50) Medication List - Last Reconciled 01/05/24 by DUSTIN Blank albuterol sulfate 90 mcg/actuation 2 puffs inhalation Q6H PRN hydroxyzine HCl 25 mg PO ONCE PRN ondansetron 4 mg PO Q12H pantoprazole 40 mg PO DAILY sennosides (senna) 17.2 mg (2 x 8.6 mg) PO BEDTIME PRN 90 days sertraline 50 mg PO DAILY sucralfate 10 mL PO BID HPI Comments Details: This?a?33?yo female who is s/p LSG without hiatal hernia repair on?11/05/2023. Presents for 2 month post op visit. Weight today is 235.4 pounds, with a BMI of 41.7. There has been a 50.8 pound weight loss,(initial weight 286.2 pounds) since starting the program on 07/16/2023 reflecting a 17.7 % total body weight loss and a weight loss of 26.8 pounds since surgery (operative weight 262.2 pounds) reflecting a 10.2 % TBWL since surgery. No complaints of nausea, emesis, abdominal pain or reflux. Reports infrequent but normal bowel movements every 3 days and uses stool softeners regularly. Taking vitafusion mvi Present meal plan includes: oikos pro 20 gm yogurt x 2 1/2 yogurt w 4 oz unsweetened almond milk 6 pm 4 spoons of [place] yogurt Drinking 60 oz water ? Exercise routine includes: gym membership [employer] 3-4 days per week, treadmill 25 min speed 2.9 incline 5-12, 300 calories, then weights PFSH Medical History (Updated 11/14/23 @ 00:02 by Background Daemon) Binge eating disorder Pre-op evaluation Degenerative lumbar disc Hiatal hernia GERD (gastroesophageal reflux disease) ADD (attention deficit disorder) Asthma Surgical History Hx of laparoscopic partial gastrectomy History of esophagogastroduodenoscopy (EGD) Hx of hand surgery Hx of breast surgery Family History Mother Hypertension Fibromyalgia Father No problems noted. Brother No problems noted. Social History Household Members: Children Housing: House Are you a primary complex care nurse to a significant other at home: Yes Do you presently have visiting nurse or other home services: No Alcohol intake: current Alcohol intake frequency: does not drink Patient Tobacco Use Status: Never used Tobacco Second Hand Smoke Exposure: No Substance Use Type: Marijuana service: No Telehealth Telehealth Telehealth Platform: Telephone Location of provider rendering services: practice address Location of patient: address on file Patient Identification confirmed using: Name, : Yes Telehealth method: voice only Patient verbally consented to treatment: Yes Patient verbally consented to billing insurance company: Yes Patient informed of any privacy concerns related to visit: Yes Minutes spent on Phone/Video with Pt.: 12 Assessment & Plan Assessment & Plan (1) S/P laparoscopic sleeve gastrectomy: Code(s): Z98.84 - Bariatric surgery status Category: Surgical Plan: Overall, patient is doing fairly well. Made a few recommendations, consistently go to the gym 4 days a week with an increasing calories burned to 400 daily. Continue to follow the meal plan as recommended by Dr. Shell. Continue to send weight is weekly as well as text with any questions or concerns. Senna as needed for constipation. Return to the office 3-4 weeks.
[2024-01-05 09:56] VITALS: BMI 41.7
== END 2024-01-05 14:19 | disposition home or self-care (01) ==
LOC: HO.HBS 14:06
PROVIDERS: Visit Provider Physician Assistant Surgical
DX: Z98.84 Bariatric surgery status (principal)
CPT/HCPCS: 99024

== ENCOUNTER → 2024-01-05 14:00 | Outpatient (BNVA) | payer OTHER, SELFPAY | PROVIDERS: Visit Provider Physician Assistant Surgical | DX: Z48.815 Encounter for surgical aftercare following surgery on the digestive system (principal); Z98.84 Bariatric surgery status | CPT/HCPCS: 99212 ==

== ENCOUNTER 2024-02-12 13:45 | Outpatient (AMB) | payer OTHER, SELFPAY ==
[2024-02-12 13:47] VITALS: BMI 40.5
--- NOTE | 2024-02-12 13:47 | MHC.OFFVISWM ---
VS Expanded 02/12/24 13:47 Height 5 ft 3 in Weight 228 lb 8 oz BMI 40.5 Intake Visit Reasons: (TV) PO LSG 11/05/23 Allergies No Known Allergies Allergy (Verified 12/03/23 14:50) HPI Comments Details: This?a?33?yo female who is s/p LSG without hiatal hernia repair on?11/05/2023. Presents for 3 month post op visit. Weight today is 228.8 pounds, with a BMI of 40.5. There has been a 57.4 pound weight loss,(initial weight 286.2 pounds) since starting the program on 07/16/2023 reflecting a 20 % total body weight loss and a weight loss of 33.4 pounds since surgery (operative weight 262.2 pounds) reflecting a 12.7 % TBWL since surgery. No complaints of nausea, emesis, abdominal pain or reflux. Reports infrequent but normal bowel movements every 3 days and uses stool softeners regularly. Taking vitafusion mvi States her mom was hospitalized recently and she had not been able to go to the gym. She has recovered and pt is now back at the gym. She changed her plan to: work: Y protein shake (30 gm per scoop) 1 scoop in almond milk tristanian yogurt fit crunch bar liquid tristanian yogurt 16 gm fit crunch bar x 2 non work: premier protein 1 scoop in 8 oz almond milk x 2 fit crunch 4 forks tristanian yogurt fit crunch bar drinking 60 oz water ? Exercise routine includes: not at the gym 3 weeks. gym membership [employer] 3-4 days per week, treadmill 25 min speed 2.9 incline 5-12, 300 calories, then weights [facility] Medical History (Updated 11/14/23 @ 00:02 by Alfa Bowen) Binge eating disorder Pre-op evaluation Degenerative lumbar disc Hiatal hernia GERD (gastroesophageal reflux disease) ADD (attention deficit disorder) Asthma Surgical History Hx of laparoscopic partial gastrectomy History of esophagogastroduodenoscopy (EGD) Hx of hand surgery Hx of breast surgery Family History Mother Hypertension Fibromyalgia Father No problems noted. Brother No problems noted. Social History Household Members: Children Housing: House Are you a primary behavioral health care manager to a significant other at home: Yes Do you presently have visiting nurse or other home services: No Alcohol intake: current Alcohol intake frequency: does not drink Patient Tobacco Use Status: Never used Tobacco Second Hand Smoke Exposure: No Substance Use Type: Marijuana service: No Telehealth Telehealth Telehealth Platform: Telephone Location of provider rendering services: practice address Location of patient: address on file Patient Identification confirmed using: Name, : Yes Telehealth method: voice only Patient verbally consented to treatment: Yes Patient verbally consented to billing insurance company: Yes Patient informed of any privacy concerns related to visit: Yes Minutes spent on Phone/Video with Pt.: 20 Assessment & Plan Assessment & Plan (1) S/P laparoscopic sleeve gastrectomy: Code(s): Z98.84 - Bariatric surgery status Category: Surgical Plan: Change meal plan during work to reduce shake to half scoop and only 2 bars per day. work: Y protein shake (30 gm per scoop) 1/2 scoop in almond milk tristanian yogurt fit crunch bar liquid tristanian yogurt 16 gm fit crunch bar non work: premier protein 1 scoop in 8 oz almond milk x 2 fit crunch 4 forks tristanian yogurt fit crunch bar Recommend gym 4 days per week, 500 calories per day on the treadmill. Return to clinic 1 month
== END 2024-02-12 14:01 | disposition home or self-care (01) ==
LOC: HO.HBS 14:00
PROVIDERS: Visit Provider Physician Assistant Surgical
DX: E66.813 Obesity, class 3 (principal); Z68.41 Body mass index [BMI] 40.0-44.9, adult; Z90.3 Acquired absence of stomach [part of]; Z98.84 Bariatric surgery status
CPT/HCPCS: 98967

== ENCOUNTER → 2024-02-12 13:45 | Outpatient (BNVA) | payer OTHER, SELFPAY | PROVIDERS: Visit Provider Physician Assistant Surgical ==

== ENCOUNTER 2024-03-23 10:30 | Outpatient (AMB) | payer OTHER, SELFPAY ==
--- NOTE | 2024-03-23 09:55 | A.OFFVIS_ITS ---
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 Presents for 5 month post op visit. Weight today is 216.2 pounds, with a BMI of 38.3. There has been a 70 pound weight loss,(initial weight 286.2 pounds) since starting the program on 07/16/2023 reflecting a 24.4 % total body weight loss and a weight loss of 46 pounds since surgery (operative weight 262.2 pounds) reflecting a 17.5 % TBWL since surgery. No complaints of nausea, emesis, abdominal pain or reflux. Reports infrequent but normal bowel movements every 3 days and uses stool softeners regularly. Taking vitafusion mvi States states she changed her meal plan without any communication. meal plan: Y protein shake (30 gm per scoop) 1/2 scoop in almond milk 1/2 fit crunch bar liquid polish yogurt 16 gm meal 4 oz chicken 4 oz veg 1/2 fit crunch bar drinking 55 oz water ? Exercise routine includes: gym membership [employer] 3-4 days per week, treadmill 25 min speed 2.9 incline 5-12, 400-500 calories, then weights PFSH Medical History (Updated 11/14/23 @ 00:02 by Alfa Bowen) Binge eating disorder Pre-op evaluation Degenerative lumbar disc Hiatal hernia GERD (gastroesophageal reflux disease) ADD (attention deficit disorder) Asthma Surgical History Hx of laparoscopic partial gastrectomy History of esophagogastroduodenoscopy (EGD) Hx of hand surgery Hx of breast surgery Family History Mother Hypertension Fibromyalgia Father No problems noted. Brother No problems noted. Social History Household Members: Children Housing: House Are you a primary care transition coordinator to a significant other at home: Yes Do you presently have visiting nurse or other home services: No Alcohol intake: current Alcohol intake frequency: does not drink Patient Tobacco Use Status: Never used Tobacco Second Hand Smoke Exposure: No Substance Use Type: Marijuana service: No Telehealth Telehealth Telehealth Platform: Telephone Location of provider rendering services: practice address Location of patient: address on file Patient Identification confirmed using: Name, : Yes Telehealth method: voice only Patient verbally consented to treatment: Yes Patient verbally consented to billing insurance company: Yes Patient informed of any privacy concerns related to visit: Yes Minutes spent on Phone/Video with Pt.: 15 Assessment & Plan Assessment & Plan (1) S/P laparoscopic sleeve gastrectomy: Code(s): Z98.84 - Bariatric surgery status Category: Surgical Plan: Patient change her meal plan without any advice. Discussed the right BMI hasmukh. She will apply this. Encouraged to increase her time at the gym to 5 days a week consistently. We will have her return to the office in approximately a month for her six-month follow-up and check labs at that time.
[2024-03-23 10:37] VITALS: BMI 38.3
== END 2024-03-23 10:52 | disposition home or self-care (01) ==
LOC: HO.HBS 10:49
PROVIDERS: Visit Provider Physician Assistant Surgical
DX: E66.813 Obesity, class 3 (principal); Z68.38 Body mass index [BMI] 38.0-38.9, adult; Z90.3 Acquired absence of stomach [part of]; Z98.84 Bariatric surgery status
CPT/HCPCS: 98012

== ENCOUNTER 2024-04-21 11:59 | Outpatient (REF) | payer OTHER, SELFPAY ==
[2024-04-21 12:17] LABS: MANUAL DIFF FLAG NO
[2024-04-21 12:53] LABS: Basophils Percent Auto 0.5 % (0-2); Eosinophils Absolute Auto 0.1 X10*3/uL (0.0-0.4); Eosinophils Percent Auto 1.8 % (0-4); Hematocrit 36.2 % (37.0-47.0); Hemoglobin 11.6 g/dl (12.0-16.0); Imm Gran Abs Auto 0.01 X10*3/uL (0.00-0.03); Imm Gran Pct Auto 0.2 % (0.0-0.4); Lymphocytes Absolute Auto 1.9 X10*3/uL (1.2-4.9); Lymphocytes Percent Auto 30.1 % (20-40); Mean Corpuscular Hemoglobin 31.4 pg (27.0-33.0); Mean Corpuscular Volume 98.1 fL (80.0-98.0); Mean Platelet Volume 10.1 fL (9.4-12.3); Monocytes Absolute Auto 0.4 X10*3/uL (0.1-1.2); Monocytes Percent Auto 6.7 % (2-11); Neutrophils Absolute Auto 3.8 x10*3/uL (2.0-8.3); Neutrophils Percent Auto 60.7 % (45-73); Platelet Count 287 X10*3/uL (160-400); Red Blood Count 3.69 X10*6/uL (4.20-5.50); Red Cell Distribution Width 13.2 % (11.0-16.0); White Blood Count 6.3 X10*3/uL (4.8-10.8)
[2024-04-21 13:12] LABS: Anion Gap 11 (12-20)
[2024-04-21 13:15] LABS: Alanine Aminotransferase 34 U/L (0-31); Albumin Level 3.8 g/dL (3.5-5.0); Alkaline Phosphatase 83 U/L (39-117); Aspartate Amino Transferase 27 U/L (5-31); Bilirubin Total 0.4 mg/dL (0.0-1.0); Blood Urea Nitrogen 14 mg/dL (9-16); C Reactive Protein 0.19 mg/dL (< or = 0.50); Carbon Dioxide 28 mmol/L (22-29); Chloride 106 mmol/L (96-108); Cholesterol 156 mg/dL (<200); Estimated Glomerular Filt Rate > 60; Glucose Random 92 mg/dL (60-115); HDL Cholesterol 50 mg/dL (>40); Iron 109 mcg/dL (30-160); LDL Cholesterol Calculated 95 mg/dL (<100); Percent Iron Saturation 49 % (15-50); Potassium 4.5 mmol/L (3.3-5.1); Sodium 140 mmol/L (135-145); Total Iron Binding Capacity 224 mcg/dL (228-428); Triglycerides 55 mg/dL (<150); Unsaturated Iron Binding 115 ug/dL
[2024-04-21 13:32] LABS: Estimated Average Glucose 105 mg/dL; Hemoglobin A1c % 5.3 % (<6.0)
[2024-04-21 13:40] LABS: Ferritin 121 ng/mL (10-122); TSH reflex Free T4 1.09 uIU/mL (0.32-4.0); Vitamin D 25-OH Total 26.5 ng/mL (>30)
[2024-04-21 13:52] LABS: Folate 15.2 ng/mL (> or = 4.0); Vitamin B12 566 pg/mL (200-900)
[2024-04-21 13:59] LABS: Insulin 7 uU/mL (2-29)
[2024-04-24 10:49] LABS: Zinc 55 mcg/dL (60-130)
[2024-04-24 18:02] LABS: Vitamin A 29 mcg/dL (38-98)
[2024-04-30 16:43] LABS: Vitamin B1 <6 nmol/L (8-30)
== END 2024-04-21 12:00 | disposition home or self-care (01) ==
LOC: HO.LAB 11:59
PROVIDERS: Visit Provider Physician Assistant Surgical
DX: E55.9 Vitamin D deficiency, unspecified (principal); E50.9 Vitamin A deficiency, unspecified; E51.9 Thiamine deficiency, unspecified; Z98.84 Bariatric surgery status
CPT/HCPCS: 36415; 80053; 80061; 82306; 82607; 82728; 82746; 83036; 83525; 83540; 84425; 84443; 84590; 84630; 85025; 86140

== ENCOUNTER 2024-05-03 14:30 | Outpatient (AMB) | payer OTHER, SELFPAY ==
--- NOTE | 2024-05-03 08:30 | MHC.OFFVISWM ---
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 Presents for 6 month post op visit. Weight today is 198.6 pounds, with a BMI of 35.1. There has been a 87.6 pound weight loss,(initial weight 286.2 pounds) since starting the program on 07/16/2023 reflecting a 30.6 % total body weight loss and a weight loss of 63.6 pounds since surgery (operative weight 262.2 pounds) reflecting a 24.2 % TBWL since surgery. No complaints of nausea, emesis, abdominal pain or reflux. Reports infrequent but normal bowel movements every 3 days and uses stool softeners regularly. Now taking celebrate mvi States states she changed her meal plan without any communication. She lost about 18 pounds over the last 6 weeks. Not using right bmi hasmukh meal plan: Y protein shake (30 gm per scoop) 1/2 scoop in almond milk in the morning 1 fit crunch bar noon meal 6 forks chicken 8 forks veg, 6 pm 1/2 fit crunch bar, 9 pm drinking 55 oz water ? Exercise routine includes: gym membership [employer] 3 days per week, treadmill 25 min speed 2.9 incline 5-12, 300 calories, then stair climber 200 calories Any post op complications: none BRIGITTE: never DM: never HTN: never Hyperlipidemia: never GERD:?0-5 scale ??0 = no symptoms ??1 = symptoms noticeable but not bothersome 2 =symptoms bothersome but not daily ? 3 = symptoms bothersome and daily 4 = symptoms affect daily activities 5 = symptoms are incapacitating, unable to do daily activities ? How bad is the heartburn: 0 ? Heartburn while lying down: 0 ? Heartburn when standing up: 0 ? Heartburn after meals: 0 ? Does heartburn change your diet: 0 ? Does heartburn wake you up from sleep: 0 ? Do you have difficulty swallowin ? Do you have pain with swallowin ? If you take medicine for your reflux, does this affect your daily life: 0 Satisfaction with present condition - satisfied or not satisfied: satisfied [facility] Medical History Binge eating disorder Pre-op evaluation Degenerative lumbar disc Hiatal hernia GERD (gastroesophageal reflux disease) ADD (attention deficit disorder) Asthma Surgical History Hx of laparoscopic partial gastrectomy History of esophagogastroduodenoscopy (EGD) Hx of hand surgery Hx of breast surgery Family History Mother Hypertension Fibromyalgia Father No problems noted. Brother No problems noted. Social History Household Members: Children Housing: House Are you a primary medicare sales representative to a significant other at home: Yes Do you presently have visiting nurse or other home services: No Alcohol intake: current Alcohol intake frequency: does not drink Patient Tobacco Use Status: Never used Tobacco Second Hand Smoke Exposure: No Substance Use Type: Marijuana service: No Telehealth Telehealth Telehealth Platform: Telephone Location of provider rendering services: practice address Location of patient: address on file Patient Identification confirmed using: Name, : Yes Telehealth method: voice only Patient verbally consented to treatment: Yes Patient verbally consented to billing insurance company: Yes Patient informed of any privacy concerns related to visit: Yes Minutes spent on Phone/Video with Pt.: 15 Assessment & Plan Assessment & Plan (1) S/P laparoscopic sleeve gastrectomy: Code(s): Z98.84 - Bariatric surgery status Category: Surgical Plan: Six-month labs revealed vitamin deficiencies. She was previously taking right effusion but has since discontinued this. We have supplemented vitamins. She has now switched back to celebrate multivitamin. Initially this caused her GI upset but no longer. Encouraged to increase time with the gym by 1 more day. Additionally again, discussed right BMI hasmukh. She will follow this. Encouraged to send weight is weekly and text with any questions or concerns. Return to clinic in 3 months. Orders: Orders Vitamin B1 06/30/24 E50.9 - Vitamin A deficiency, unspecified, E51.9 - Thiamine deficiency, unspecified, E55.9 - Vitamin D deficiency, unspecified, Z98.84 - Bariatric surgery status Vitamin A 06/30/24 E50.9 - Vitamin A deficiency, unspecified, E51.9 - Thiamine deficiency, unspecified, E55.9 - Vitamin D deficiency, unspecified, Z98.84 - Bariatric surgery status Vitamin D 25-OH Total 06/30/24 E50.9 - Vitamin A deficiency, unspecified, E51.9 - Thiamine deficiency, unspecified, E55.9 - Vitamin D deficiency, unspecified, Z98.84 - Bariatric surgery status Vitamin B12 and Folate 06/30/24 E50.9 - Vitamin A deficiency, unspecified, E51.9 - Thiamine deficiency, unspecified, E55.9 - Vitamin D deficiency, unspecified, Z98.84 - Bariatric surgery status
[2024-05-03 08:31] VITALS: BMI 35.1
== END 2024-05-03 14:44 | disposition home or self-care (01) ==
LOC: HO.HBS 14:44
PROVIDERS: Visit Provider Physician Assistant Surgical
DX: E66.812 Obesity, class 2 (principal); Z68.35 Body mass index [BMI] 35.0-35.9, adult; Z90.3 Acquired absence of stomach [part of]; Z98.84 Bariatric surgery status
CPT/HCPCS: 99213

== ENCOUNTER 2024-08-02 10:00 | Outpatient (AMB) | payer OTHER, SELFPAY ==
--- NOTE | 2024-08-02 09:22 | MHC.OFFVISWM ---
VS Expanded 08/02/24 09:23 Height 5 ft 3 in Weight 182 lb 6 oz BMI 32.3 Body Fat % 34.4 Fat Free Mass 110.6 Visceral Fat Rating 14 Body Water % 41.5 Muscle Mass/Score 104 Basal Metabolic Rate/Score 1,568 Intake Visit Reasons: (TV) PO LSG 11/05/23 Assistant Credit Manager Required: No Allergies No Known Allergies Allergy (Verified 12/03/23 14:50) Medication List - Last Reconciled 08/02/24 by DUSTIN Blank albuterol sulfate 90 mcg/actuation 2 puffs inhalation Q6H PRN cholecalciferol (vitamin D3) 125 mcg PO DAILY 90 days hydroxyzine HCl 25 mg PO ONCE PRN sennosides (senna) 17.2 mg (2 x 8.6 mg) PO BEDTIME PRN 90 days sertraline 50 mg PO DAILY thiamine HCl (vitamin B1) 100 mg PO DAILY vitamin A palmitate 3,000 mcg PO DAILY 90 days HPI Comments Details: This?a?34?yo female who is s/p LSG without hiatal hernia repair on?11/05/2023. Presents for 9 month post op visit. Weight today is 182.6 pounds, with a BMI of 32.3. There has been a 103.6 pound weight loss,(initial weight 286.2 pounds) since starting the program on 07/16/2023 reflecting a 36.1 % total body weight loss and a weight loss of 79.6 pounds since surgery (operative weight 262.2 pounds) reflecting a 30.3 % TBWL since surgery. No complaints of nausea, emesis, abdominal pain or reflux. Reports infrequent but normal bowel movements every 3 days and uses stool softeners regularly. Now taking celebrate mvi States states she changed her meal plan without any communication. not using right bmi hasmukh meal plan: 930-10 am hebrew yogurt (added) 4pm fit crunch bar 6 pm meal salad and chicken or salmon (measuring by 1 cup each) 9 pm fit crunch bar drinking 60 oz water ? Exercise routine includes: gym membership [employer] 3 days per week, treadmill 25 min speed 2.9 incline 5-12, 200 calories, then weights and ab machine [facility] Medical History Binge eating disorder Pre-op evaluation Degenerative lumbar disc Hiatal hernia GERD (gastroesophageal reflux disease) ADD (attention deficit disorder) Asthma Surgical History Hx of laparoscopic partial gastrectomy History of esophagogastroduodenoscopy (EGD) Hx of hand surgery Hx of breast surgery Family History Mother Hypertension Fibromyalgia Father No problems noted. Brother No problems noted. Social History Household Members: Children Housing: House Are you a primary career discovery teacher to a significant other at home: Yes Do you presently have visiting nurse or other home services: No Alcohol intake: current Alcohol intake frequency: does not drink Patient Tobacco Use Status: Never used Tobacco Second Hand Smoke Exposure: No Substance Use Type: Marijuana service: No Telehealth Telehealth Telehealth Platform: Telephone Location of provider rendering services: practice address Location of patient: address on file Patient Identification confirmed using: Name, : Yes Telehealth method: voice only Patient verbally consented to treatment: Yes Patient verbally consented to billing insurance company: Yes Patient informed of any privacy concerns related to visit: Yes Minutes spent on Phone/Video with Pt.: 15 Assessment & Plan Assessment & Plan (1) S/P laparoscopic sleeve gastrectomy: Code(s): Z98.84 - Bariatric surgery status Category: Surgical Plan: Discussed the importance of following the right BMI hasmukh. this would include portions and times. Additionally, discussed adding an additional day at the gym with a goal of burning 500 calories per day, 4 days per week as she is only able to go 4 days per week. Discussed the importance of measuring food quantities accurately. Encouraged to text her weights weekly and with any questions or concerns. We will have her return to the office in approximately 6 weeks.
[2024-08-02 09:23] VITALS: BMI 32.3
== END 2024-08-02 10:22 | disposition home or self-care (01) ==
LOC: HO.HBS 10:15
PROVIDERS: Visit Provider Physician Assistant Surgical
DX: E66.09 Other obesity due to excess calories (principal); Z68.32 Body mass index [BMI] 32.0-32.9, adult; Z90.3 Acquired absence of stomach [part of]; Z98.84 Bariatric surgery status
CPT/HCPCS: 99213; G2211

== ENCOUNTER 2024-08-18 14:32 | Outpatient (AMB) | payer OTHER, SELFPAY ==
[2024-08-18 14:01] VITALS: BMI 32.2
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
== END 2024-08-18 14:37 | disposition home or self-care (01) ==
LOC: HO.HBS 14:32
PROVIDERS: Visit Provider Physician Assistant Surgical
DX: E66.9 Obesity, unspecified (principal); Z68.32 Body mass index [BMI] 32.0-32.9, adult; Z90.3 Acquired absence of stomach [part of]; Z98.84 Bariatric surgery status
CPT/HCPCS: 99213

== ENCOUNTER 2024-09-23 09:19 | Outpatient (AMB) | payer OTHER, SELFPAY ==
[2024-09-23 08:16] VITALS: BMI 31.4
--- NOTE | 2024-09-23 08:16 | A.OFFVIS_ITS ---
VS Expanded 09/23/24 08:16 Height 5 ft 3 in Weight 177 lb 2 oz BMI 31.4 Body Fat % 37.9 Fat Free Mass 110 Visceral Fat Rating 13 Body Water % 42.5 Muscle Mass/Score 103.4 Basal Metabolic Rate/Score 1,544 Intake Visit Reasons: (TV) PO LSG 11/05/23 Allergies No Known Allergies Allergy (Verified 12/03/23 14:50) HPI Comments Details: This?a?34?yo female who is s/p LSG without hiatal hernia repair on?11/05/2023. Presents for 11 month post op visit. Weight today is 177.2 pounds, with a BMI of 31.4. There has been a 109 pound weight loss,(initial weight 286.2 pounds) since starting the program on 07/16/2023 reflecting a 38 % total body weight loss and a weight loss of 85 pounds since surgery (operative weight 262.2 pounds) reflecting a 32.4 % TBWL since surgery. No complaints of nausea, emesis, abdominal pain or reflux. Reports infrequent but normal bowel movements every 3 days and uses stool softeners regularly. Now taking celebrate mvi States states she is doing much better. She has resumed using the right BMI hasmukh. she feels well and has no complaints Previously recommended meal plan: 8-10 am Premier protein rtd 6 oz 10-12 pm the other 1/2 of the shake 1-3 another 1/2 rtd shake 5-6 1/2 fit crunch bar watermelon w [place] 9-10 the other 1/2 fir crunch bar drinking 60 oz water ? Exercise routine includes: gym membership [employer] 4 days per week, treadmill 25 min speed 2.9 incline 5-12, 200 calorie on tradmill, stairmaster 150 calories, then weights and ab machine [facility] Medical History Binge eating disorder Pre-op evaluation Degenerative lumbar disc Hiatal hernia GERD (gastroesophageal reflux disease) ADD (attention deficit disorder) Asthma Surgical History Hx of laparoscopic partial gastrectomy History of esophagogastroduodenoscopy (EGD) Hx of hand surgery Hx of breast surgery Family History Mother Hypertension Fibromyalgia Father No problems noted. Brother No problems noted. Social History Household Members: Children Housing: House Are you a primary hiv/aids care nurse to a significant other at home: Yes Do you presently have visiting nurse or other home services: No Alcohol intake: current Alcohol intake frequency: does not drink Patient Tobacco Use Status: Never used Tobacco Second Hand Smoke Exposure: No Substance Use Type: Marijuana service: No Telehealth Telehealth Telehealth Platform: Telephone Location of provider rendering services: practice address Location of patient: address on file Patient Identification confirmed using: Name, : Yes Telehealth method: voice only Patient verbally consented to treatment: Yes Patient verbally consented to billing insurance company: Yes Patient informed of any privacy concerns related to visit: Yes Minutes spent on Phone/Video with Pt.: 15 Assessment & Plan Assessment & Plan (1) S/P laparoscopic sleeve gastrectomy: Code(s): Z98.84 - Bariatric surgery status Category: Surgical Plan: Advised her to continue to follow the right BMI hasmukh and to go in to the hasmukh every other week as she continues to lose weight to adjust her meal plan. Advised to remove watermelon. Advised to increase calories burned on the treadmill and stair master to 250 calories burned each as she is doing both when she goes to the gym, this should provide 500 calories burned per session, 4 days per week, achieving the goal of 2000 calories burned per week. Additionally, encouraged to continue to communicate with any questions or concerns. We will have her return to the office for her 1 year postop follow-up and check labs at that time.
== END 2024-09-23 09:19 | disposition home or self-care (01) ==
LOC: HO.HBS 09:19
PROVIDERS: Visit Provider Physician Assistant Surgical
DX: E66.9 Obesity, unspecified (principal); Z68.31 Body mass index [BMI] 31.0-31.9, adult; Z90.3 Acquired absence of stomach [part of]; Z98.84 Bariatric surgery status
CPT/HCPCS: 98013

== ENCOUNTER 2024-11-15 13:04 | Outpatient (AMB) | payer OTHER, SELFPAY ==
--- NOTE | 2024-11-15 12:22 | A.OFFVIS_ITS ---
VS Expanded 11/15/24 12:34 Height 5 ft 3 in Weight 177 lb BMI 31.4 Intake Visit Reasons: (TV) PO LSG 11/05/23 Allergies No Known Allergies Allergy (Verified 12/03/23 14:50) Medication List - Last Reconciled 11/15/24 by DUSTIN Gomez albuterol sulfate 90 mcg/actuation 2 puffs inhalation Q6H PRN hydroxyzine HCl 25 mg PO ONCE PRN sennosides (senna) 17.2 mg (2 x 8.6 mg) PO BEDTIME PRN 90 days sertraline 50 mg PO DAILY HPI Comments Details: This a 34 yo female who is s/p LSG without hiatal hernia repair on 11/05/2023. Presents for 12 month post op visit. Initial weight 286.2 pounds on 07/16/2023. No complaints of nausea, emesis, abdominal pain or reflux. Reports infrequent but normal bowel movements every 3 days and uses stool softeners regularly. She was using the right Scoreloop hasmukh but reports she is no longer consistently doing the shakes- I eat food now . I asked her if she thinks she is getting enough protein and she does not think so. She purchased Premier Protein pumpkin flavor so wants to incorporate that more often. She is incorporating PB into shakes. Previously recommended meal plan: 8-10 am Premier protein rtd 6 oz 10-12 pm the other 1/2 of the shake 1-3 another 1/2 rtd shake 5-6 1/2 fit crunch bar watermelon w [place] 9-10 the other 1/2 fit crunch bar drinking 60 oz water [facility] Exercise routine includes: gym membership [employer] 4 days per week, treadmill 25 min speed 2.9 incline 5-12, 200 calorie on treadmill, stairmaster 150 calories, then weights and ab machine Have you been diagnosed with reflux (GERD)? Score 0-5: 0=no symptoms, 1=noticeable but not bothersome (slight or occasional), 2=noticeable, bothersome but not daily, 3=bothersome and daily, 4=affects daily activities, 5=incapacitating, unable to do daily activities How bad is the heartburn: 0 Heartburn when lying down: 0 Heartburn when standing up: 0 Heartburn after meals: 2 Does heartburn change your diet: 0 Does heartburn wake you up from sleep: 0 Do you have difficulty swallowin Do you have pain with swallowin If you take medication for reflux, does this affect your daily life: 0 Total score: 2 PFSH Medical History Binge eating disorder Pre-op evaluation Degenerative lumbar disc Hiatal hernia GERD (gastroesophageal reflux disease) ADD (attention deficit disorder) Asthma Surgical History Hx of laparoscopic partial gastrectomy History of esophagogastroduodenoscopy (EGD) Hx of hand surgery Hx of breast surgery Family History Mother Hypertension Fibromyalgia Father No problems noted. Brother No problems noted. Social History Household Members: Children Housing: House Are you a primary ambulatory care to a significant other at home: Yes Do you presently have visiting nurse or other home services: No Alcohol intake: current Alcohol intake frequency: does not drink Patient Tobacco Use Status: Never used Tobacco Second Hand Smoke Exposure: No Substance Use Type: Marijuana service: No Telehealth Telehealth Telehealth Platform: Telephone Location of provider rendering services: other Location of patient: address on file Patient Identification confirmed using: Name, : Yes Telehealth method: voice only Patient verbally consented to treatment: Yes Patient verbally consented to billing insurance company: Yes Patient informed of any privacy concerns related to visit: Yes Assessment & Plan Assessment & Plan (1) S/P laparoscopic sleeve gastrectomy: Code(s): Z98.84 - Bariatric surgery status Category: Surgical (2) Obesity: Code(s): E66.9 - Obesity, unspecified Category: Medical Plan Recommended pt reincorporate 1 protein shake and 1 protein bar per day. She does not seem to be getting adequate protein and we talked about the risks of trying to get all protein in through whole foods without any protein supplements. She requests referral to Dr Fuentes to discuss options for skin removal surgery. Labs ordered. Gave pt my phone # to communicate between appts. RTC 3mo for TV; can also schedule 18mo visit in person if pt decides to proceed with pursuing skin removal surgery with us. Orders: Orders TSH reflex Free T4 Today Z98.84 - Bariatric surgery status Vitamin D 25-OH Total Today Z98.84 - Bariatric surgery status C Reactive Protein Today Z98.84 - Bariatric surgery status Comprehensive Met. Panel Today Z98.84 - Bariatric surgery status IRON PROFILE Today Z98.84 - Bariatric surgery status Hemoglobin A1c Today Z98.84 - Bariatric surgery status Ferritin Today Z98.84 - Bariatric surgery status Vitamin A Today Z98.84 - Bariatric surgery status Vitamin B1 Today Z98.84 - Bariatric surgery status Zinc Today Z98.84 - Bariatric surgery status Vitamin B12 and Folate Today Z98.84 - Bariatric surgery status Complete Blood Count Auto Diff Today Z98.84 - Bariatric surgery status Lipid Panel Today Z98.84 - Bariatric surgery status Insulin Today Z98.84 - Bariatric surgery status
[2024-11-15 12:34] VITALS: BMI 31.4
== END 2024-11-15 13:05 | disposition home or self-care (01) ==
LOC: HO.HBS 13:04
PROVIDERS: Visit Provider Physician Assistant Surgical
DX: E66.9 Obesity, unspecified (principal); Z68.31 Body mass index [BMI] 31.0-31.9, adult; Z90.3 Acquired absence of stomach [part of]; Z98.84 Bariatric surgery status
CPT/HCPCS: 98014